=== PATIENT | female | born 1945 | race Caucasian/White ===

== ENCOUNTER 2016-09-12 14:04 | Observation (INO) | payer OTHER, MEDICARE ==
[2016-09-12] MEDS ORDERED: SODIUM CHLORIDE 500 ML IV STA (15:04)
--- NOTE | 2016-09-12 15:28 | PDOC ---
History of Present Illness - General Chief Complaint: Chest Pain Stated Complaint: CHEST PAIN Time Seen by Provider: 09/12/16 14:42 History Source: Patient Exam Limitations: No Limitations - History of Present Illness Initial Comments: 09/12/16 15:08 71-year-old female presents the ED with complaints of generalized anxiety, decreased by mouth intake, upper abdominal pain that she describes as a pressure radiating to her bilateral breasts. Patient denies rash, abdominal distention, change in bowel pattern, change in urine pattern, fever, chills, headache or dizziness. Patient states anxiety has been intermittent since her last year but has been more frequent and more intense over the past 3 weeks. Patient states has history of diabetes and did check her glucose this morning which is 234. Patient upon arrival is requesting Xanax and something to eat. Patient has no complaint of chest pain, shortness of breath, palpitations, Timing/Duration: intermittent Severity: moderate Associated Symptoms: reports: loss of appetite Past History - Travel Traveled outside of the country in the last 30 days: No Close contact w/someone who was outside of country & ill: No - Past Medical History Allergies/Adverse Reactions: Allergies Allergy/AdvReac Type Severity Reaction Status Date / Time No Known Allergies Allergy Verified 09/12/16 15:44 Home Medications: Ambulatory Orders Insulin NPH Hum/Reg Insulin Hm [Humulin 70-30 Vial] 8 unit SQ TID PRN 09/12/16 Valsartan 80 mg PO DAILY 09/12/16 - Psycho/Social/Smoking Cessation Hx Suicidal Ideation: No Smoking History: Former smoker Have you smoked in the past 12 months: No If you are a former smoker, when did you quit?: 30 years ago Information on smoking cessation initiated: No Hx Alcohol Use: No Drug/Substance Use Hx: No Patient Lives Alone: Yes Lives with/in: lives alone Review of Systems - Review of Systems Able to Perform ROS?: No Is the patient limited Portuguese proficient: No Constitutional: Yes: Loss of Appetite, Weakness HEENTM: No: Symptoms Reported Respiratory: No: Symptoms reported Cardiac (ROS): No: Lightheadedness, Palpitations, Chest Tightness ABD/GI: Yes: Nausea, Poor Appetite, Poor Fluid Intake Musculoskeletal: No: Symptoms Reported Integumentary: No: Symptoms Reported Neurological: No: Symptoms reported Psychiatric: Yes: Anxiety, Frequent Crying, Sleep Pattern Change, Change in Appetite *Physical Exam - Vital Signs Last Vital Signs Temp Pulse Resp BP Pulse Ox 98.2 F 109 H 21 130/81 98 09/12/16 14:05 09/12/16 14:05 09/12/16 14:05 09/12/16 14:05 09/12/16 14:48 - Physical Exam General Appearance: Yes: Nourished, Appropriately Dressed. No: Apparent Distress HEENT: positive: EOMI, MICHAEL, TMs Normal, Pharynx Normal. negative: Pale Conjunctivae Respiratory/Chest: positive: Lungs Clear, Normal Breath Sounds. negative: Respiratory Distress, Accessory Muscle Use Cardiovascular: positive: Regular Rhythm, Regular Rate (88 on monitor). negative: Murmur Gastrointestinal/Abdominal: positive: Soft, Tenderness (epigastric, right upper quadrant, left upper quadrant) Musculoskeletal: negative: CVA Tenderness Extremity: positive: Normal Capillary Refill. negative: Pedal Edema Integumentary: positive: Normal Color, Warm, Moist, Other (clean and dry dressing over right first toe) Neurologic: positive: Motor Strength 5/5 (ambulatory) Heart Score/ECG Review - ECG Intrepretation Rhythm: Regular Rhythm (rate 99. normal sinus) ED Treatment Course - LABORATORY CBC & Chemistry Diagram: 09/12/16 15:15 09/12/16 15:25 - RADIOLOGY Radiology Studies Ordered: Category Date Time Status CHEST X-RAY PORTABLE* [RAD] Stat Radiology 09/12/16 15:03 Ordered KUB (KID UR & BLAD) [RAD] Stat Radiology 09/12/16 15:03 Ordered Medical Decision Making - Medical Decision Making 09/12/16 15:30 patient with increasing anxiety, decreased by mouth intake and upper abdominal pain for the past few weeks. Patient on exam had mild reproducible pain but points to her epigastric region When asked where she has discomfort. Due to patient's history and age patient is concerning for atypical chest pain, GERD, electrolyte imbalance, constipation, and obstruction. 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 Patient ordered for labs including urine, KUB, chest x-ray, fluids, Protonix, BGM, and urine analysis. Patient requesting a meal and requesting Xanax 0.25 for anxiety upon arrival 09/12/16 17:42 Laboratory Tests 09/12/16 09/12/16 15:15 15:25 WBC 7.0 Hgb 12.4 Hct 35.6 Plt Count 331 Neutrophils % 59.9 Sodium 138 Potassium 4.5 Chloride 100 Carbon Dioxide 26 Anion Gap 12 BUN 23 H Creatinine 1.2 H Creat Clearance w eGFR 44.29 Random Glucose 260 H Calcium 9.5 Magnesium 2.0 Total Bilirubin 0.3 AST 14 L ALT 19 Alkaline Phosphatase 115 Creatine Kinase 61 Troponin I < 0.02 Total Protein 7.2 Albumin 3.2 L Lipase 42 L Case discussed with Dr. Malcolm and agrees for admission and states admit to Dr. Bello. Case discussed with Dr. Bello and accepted to telemetry requesting consultations Dr. Muñoz. *DC/Admit/Observation/Transfer Diagnosis at time of Disposition: Lung consolidation, Atypical chest pain - Discharge Dispostion Admit: Yes
[2016-09-12 15:29] LABS: BASOPHIL 1.1 % (0-2.0); MCH 30.7 pg (25.7-33.7); MCHC 34.7 g/dl (32.0-36.0); MEAN CELL VOLUME 88.4 fl (80-96); MEAN PLT VOLUME 8.7 fl (7.5-11.1); NEUTROPHILS 59.9 % (42.8-82.8); PLATELET COUNT 331 K/MM3 (134-434); RDW 12.9 % (11.6-15.6)
[2016-09-12] MEDS ORDERED: PANTOPRAZOLE SODIUM 40 MG in SODIUM CHLORIDE 100 ML IVPB ONE (15:52)
[2016-09-12 16:02] LABS: ALBUMIN 3.2 g/dl (3.4-5.0); ANION GAP 12 (8-16); BILIRUBIN,TOTAL 0.3 mg/dL (0.2-1.0); CALCIUM 9.5 mg/dL (8.5-10.1); CO2 26 mmol/L (21-32); CREATININE 1.2 mg/dL (0.55-1.02); GLUCOSE,RANDOM 260 mg/dL (74-106); SGPT/ALT 19 U/L (12-78); TOT PROT 7.2 g/dl (6.4-8.2)
[2016-09-12 16:05] LABS: ALK PHOS 115 U/L (45-117); CPK 61 IU/L (26-192); TROPONIN I < 0.02 ng/ml (0.00-0.05)
[2016-09-12] MEDS ORDERED: ACETAMINOPHEN 500 MG TABLET (FP) PO ONE (16:14)
[2016-09-12 16:22] LABS: SGOT/AST 14 U/L (15-37)
[2016-09-12] MEDS ORDERED: PANTOPRAZOLE SODIUM 40 MG VIAL ONE (16:38)
[2016-09-12] MEDS ORDERED: ACETAMINOPHEN 325 MG TABLET (FP) ONE ×2 (16:38→20:06)
--- NOTE | 2016-09-12 16:42 | PDOC ---
*Physical Exam - Vital Signs Last Vital Signs Temp Pulse Resp BP Pulse Ox 98.2 F 109 H 21 130/81 98 09/12/16 14:05 09/12/16 14:05 09/12/16 14:05 09/12/16 14:05 09/12/16 14:48 ED Treatment Course - LABORATORY CBC & Chemistry Diagram: 09/12/16 15:15 09/12/16 15:25 - ADDITIONAL ORDERS Additional order review: Laboratory Results 09/12/16 15:25 Sodium 138 Potassium 4.5 Chloride 100 Carbon Dioxide 26 Anion Gap 12 BUN 23 H Creatinine 1.2 H Creat Clearance w eGFR 44.29 Random Glucose 260 H Calcium 9.5 Magnesium 2.0 Total Bilirubin 0.3 AST 14 L ALT 19 Alkaline Phosphatase 115 Creatine Kinase 61 Troponin I < 0.02 Total Protein 7.2 Albumin 3.2 L Lipase 42 L 09/12/16 15:15 RBC 4.03 MCV 88.4 MCHC 34.7 RDW 12.9 MPV 8.7 Neutrophils % 59.9 Lymphocytes % 23.1 Monocytes % 10.9 H Eosinophils % 5.0 H Basophils % 1.1 - Medications Given in the ED: ED Medications Discontinued Medications Generic Name Dose Route Start Last Admin Trade Name Freq PRN Reason Stop Dose Admin Sodium Chloride 500 mls @ 500 mls/hr 09/12/16 15:04 09/12/16 15:05 Normal Saline - IV 09/12/16 16:03 500 mls/hr ASDIR STA Administration Medical Decision Making - Medical Decision Making 09/12/16 16:36 Seen with [employer]. I agree with assessment and management as outlined with the following summary: 71y/o F diabetic, anxiety p/w chest/epigastric pain in the setting of anxiety. VSS, slight tachycardia labs wnl, trop negative. No prior EKG available, today with T wave flattening I/ AVL, no acute ST change. CXR with ? new LLL consolidation. Given age and risk factors, needs cardiac monitoring and further evaluation of new pulmonary findings. admit tele
[2016-09-12] MEDS ORDERED: PANTOPRAZOLE SODIUM 100 ML IVPB ONE (20:06)
[2016-09-12] MEDS ORDERED: PATIENT'S OWN MEDICATION (NON-FORMULARY) (Insulin Nph Hum/Reg Insulin Hm [Humulin 70-30 Vi SQ PRN (20:14)
[2016-09-12] MEDS: ALPRAZolam 0.25 MG TABLET PO PRN (21:30)
[2016-09-12] MEDS: HEPARIN NA (PORCINE) 5,000 UNITS/ML 1ML VIAL SQ SCH (21:35)
[2016-09-12 22:08] VITALS: BMI 34.1
[2016-09-12 22:24] LABS: CPK 51 IU/L (26-192); TROPONIN I < 0.02 ng/ml (0.00-0.05)
[2016-09-12] MEDS ORDERED: MAG HYDROX/AL HYDROX/SIMETH 30 ML UNIT-DOSE CUP PO PRN (23:33)
[2016-09-13 01:31] LABS: URINE APPEARANCE CLEAR; URINE BILIRUBIN NEGATIVE (NEGATIVE); URINE BLOOD NEGATIVE (NEGATIVE); URINE COLOR LTYELLOW; URINE GLUCOSE (UA) 3+ (NEGATIVE); URINE KETONE TRACE (NEGATIVE); URINE LEUK ESTERASE TRACE (NEGATIVE); URINE NITRITE NEGATIVE (NEGATIVE); URINE PROTEIN NEGATIVE (NEGATIVE); URINE UROBILINOGEN NEGATIVE mg/dL (0.2-1.0)
[2016-09-13 01:40] LABS: URINE RBC 3 /hpf (0-3); URINE WBC 5 /hpf (3-5); YEAST MANY
[2016-09-13 08:04] LABS: MCHC 33.5 g/dl (32.0-36.0); MEAN CELL VOLUME 89.4 fl (80-96); PLATELET COUNT 346 K/MM3 (134-434); RDW 12.4 % (11.6-15.6)
[2016-09-13 08:30] LABS: ANION GAP 10 (8-16); BILIRUBIN,TOTAL 0.3 mg/dL (0.2-1.0); CALCIUM 8.9 mg/dL (8.5-10.1); CHOLESTEROL 136 mg/dL (50-200); CO2 25 mmol/L (21-32); GLUCOSE,RANDOM 240 mg/dL (74-106); LDL CHOLESTEROL (ONLY SJRH) 65 mg/dL (5-100); SGOT/AST 12 U/L (15-37); SGPT/ALT 17 U/L (12-78)
[2016-09-13 08:36] LABS: ALK PHOS 115 U/L (45-117); CPK 43 IU/L (26-192); FREE T4 1.24 ng/dl (0.76-1.46); THYROID STIMULATING HORMONE 1.94 uIU/ml (0.358-3.74); TROPONIN I < 0.02 ng/ml (0.00-0.05)
[2016-09-13] MEDS: HEPARIN NA (PORCINE) 5,000 UNITS/ML 1ML VIAL SQ SCH ×2 (09:32→22:11)
[2016-09-13] MEDS: VALSARTAN 80 MG TABLET (UD) PO SCH (09:32)
--- NOTE | 2016-09-13 10:11 | CON.CARD ---
Consult Consult Specialty:: Cardiology Referred by:: Dr. Thompson Reason for Consultation:: Chest pain - History of Present Illness Chief Complaint: Chest pain History of Present Illness: 71 year old woman with a history of HTN, DMII, PAD with L toe ulcer s/p debridement recently and PICC line for Abx, Anxiety admitted with chest discomfort. Pt seen and and examined this am in nad. Pt states her symptoms began yesterday. unable to completely describe the chest pain. states it is mostly at rest. denies any association with exertion. denies sob, palpitations, pnd, orthopnea, or LE edema. States she was admitted to [facility] 2016 and followed up with a instrumentation and control technician after that but did not have a stress test, she states she was told everything was ok with her heart. - History Source History Provided By: Patient, Medical Record Limitations to Obtaining History: No Limitations - Past Medical History Cardio/Vascular: Yes: HTN, Other (PAD) ...: No Endocrine: Yes: Diabetes Mellitus - Alcohol/Substance Use Hx Alcohol Use: No - Smoking History Smoking history: Former smoker Have you smoked in the past 12 months: No Aproximately how many cigarettes per day: 2 If you are a former smoker, when did you quit?: 1979 - Social History Usual Living Arrangement: Alone ADL: Independent Home Medications - Allergies Allergies/Adverse Reactions: Allergies Allergy/AdvReac Type Severity Reaction Status Date / Time No Known Allergies Allergy Verified 09/12/16 15:44 - Home Medications Home Medications: Ambulatory Orders Insulin Lispro Protamin/Lispro [Humalog Mix 75-25 Vial] 0 unit SQ BIDAC PRN 09/21 Valsartan 80 mg PO DAILY 09/12/16 Family Disease History - Family Disease History Family Disease History: Heart Disease: Brother Review of Systems - Review of Systems Constitutional: reports: Malaise. denies: No Symptoms, Chills, Diaphoresis, Fever, Lethargy, Loss of Appetite, Night Sweats, Unintentional Wgt. Loss, Weakness, Other Eyes: denies: No Symptoms, Blind Spots, Blurred Vision, Double Vision, Eye Pain , Floaters, Photophobia, Recent Change in Vision, Other HENT: denies: No Symptoms, Difficult Swallowing, Ear Discharge, Ear Pain, Epistaxis, Gingival Bleeding, Hearing Loss, Mouth Swelling, Nasal Congestion, Ocular Prosthesis, Throat Pain, Toothache, Ringing in Ears, Other Neck: denies: No Symptoms, Decreased ROM, Lumps, Pain on Movement, Stiffness, Swollen Glands, Tenderness, Other Cardiovascular: reports: Chest Pain. denies: No Symptoms, Edema, Palpitations, Shortness of Breath, Other Respiratory: reports: Cough. denies: No Symptoms, Exercise Intolerance, Hemoptysis, Orthopnea, PND, Snoring, SOB, SOB on Exertion, Wheezing, Other Gastrointestinal: denies: No Symptoms, Abdominal Pain, Bloating, Constipation, Diarrhea, Dysphagia, Indigestion, Melena, Nausea, Rectal Bleeding, Vomiting, Vomiting Blood, Other Genitourinary: denies: No Symptoms, Burning, Discharge, Dysuria, Flank Pain, Frequency, Hematuria, Incontinence, Lesions, Menses, Pain, Testicular Mass, Testicular Pain, Testicular Swelling, Urgency, Vaginal Bleeding, Other Breasts: denies: No Symptoms Reported, See HPI, Breast Implants, Discharge from Nipple, Lumps, Pain, Skin Changes, Other Musculoskeletal: denies: No Symptoms, Back Pain, Crepitus, Decreased ROM, Extremity Pain, Joint Pain, Joint Swelling, Muscle Pain, Muscle Cramps, Muscle Weakness, Other Integumentary: reports: Wound. denies: No Symptoms, Blister, Bruising, Change in Color, Eczema, Erythema, Incision, Lesions, Lump, Pallor, Pruritis, Rash, Other Neurological: denies: No Symptoms, Change in LOC, Change in Speech, Confusion, Dizziness, Headache, Incoordination, Numbness, Parasthesia, Pre-Existing Deficit , Seizure, Syncope, Tremors, Unsteady Gait, Weakness, Other Endocrine: denies: No Symptoms, Excessive Sweating, Flushing, Increased Hunger, Increased Thirst, Intolerance to Cold, Intolerance to Heat, Unexplained Weight Gain, Unexplained Weight Loss, Other Hematology/Lymphatic: denies: No Symptoms, Easily Bruised, Excessive Bleeding, Swollen Glands, Other Psychiatric: reports: Anxiety, Panic. denies: No Symptoms, Altered Sleep Pattern, Depression, Hallucinations, Paranoia, Suicidal, Other - Risk Factors Known Risk Factors: Yes: Diabetes Mellitus, Hypertension, Smoking Vital Signs: Vital Signs Temperature 98.1 F 09/13/16 06:00 Pulse Rate 101 H 09/13/16 06:00 Respiratory Rate 20 09/13/16 06:00 Blood Pressure 129/84 08/09/17 06:00 O2 Sat by Pulse Oximetry (%) 98 09/12/16 14:48 Constitutional: Yes: No Distress, Calm, Obese Eyes: Yes: WNL, Conjunctiva Clear, EOM Intact, PERRL HENT: Yes: WNL, Atraumatic, Normocephalic Neck: Yes: WNL, Supple, Trachea Midline Respiratory: Yes: WNL, Regular, CTA Bilaterally. No: Rales, Rhonchi, SOB, Wheezes Gastrointestinal: Yes: WNL, Normal Bowel Sounds, Soft. No: Distention, Tenderness Renal/: Yes: WNL Cardiovascular: Yes: Regular Rate and Rhythm. No: Bradycardia, Tachycardia, Pulse Irregular, Gallop, Rub, Varicosities JVD: No Carotid Bruit: No PMI: Non-Displaced Heart Sounds: Yes: S1, S2. No: Split S2, S3, S4, Clicks, Gallop, Rub, Bruit Murmur: Yes: Systolic Murmur, Grade 2. No: Diastolic Murmur Musculoskeletal: Yes: WNL Extremities: Yes: Other (toe debridement) Edema: No Peripheral Pulses WNL: No Neurological: Yes: Alert, Oriented, Cran Nerves II-XII Intact Psychiatric: Yes: Alert, Oriented - Other Data Labs, Other Data: CBC, BMP 09/13/16 07:47 09/13/16 07:47 Troponin, BNP 09/12/16 09/13/16 09/13/16 21:48 07:47 07:47 Troponin I < 0.02 Cancelled < 0.02 Troponin, BNP 09/12/16 09/13/16 09/13/16 21:48 07:47 07:47 Troponin I < 0.02 Cancelled < 0.02 ekg- nsr 99bpm, poor R progression, nonspecific ST abnl Echo: Pending Imaging - Results Chest X-ray: Report Reviewed, Image Reviewed EKG: Report Reviewed, Image Reviewed Other: Report Reviewed, Image Reviewed (tele-nsr, no sig arrhythmias) Assessment/Plan 71 year old woman with a history of HTN, DMII, PAD with L toe ulcer s/p debridement recently and PICC line for Abx, Anxiety admitted with chest discomfort. Chest pain-atypical chest pain, multiple risk factors including PAD, DMII, HTN unlikely ACS cardiac enzymes wnl no ischemia on ekg no arrhythmia on tele discussed with pt that would recc a stress test to further evaluate for ischemia given her history of PAD, HTN, DMII but pt declines. she states she is very anxious to do stress test. Given the atypical nature of her symptoms it is reasonable to have her follow up as outpatient and reconsider stress testing at that point F/up echo from this am HTN-adequately controlled -cont diovan DMII -pt reports uncontrolled DM recently -close f/up
--- NOTE | 2016-09-13 11:30 | HP ---
Admitting History and Physical - Primary Care Physician PCP: Niles Malcolm - Admission Chief Complaint: chest pain History of Present Illness: ER HISTORY-- - History of Present Illness Initial Comments: 09/12/16 15:08 71-year-old female presents the ED with complaints of generalized anxiety, decreased by mouth intake, upper abdominal pain that she describes as a pressure radiating to her bilateral breasts. Patient denies rash, abdominal distention, change in bowel pattern, change in urine pattern, fever, chills, headache or dizziness. Patient states anxiety has been intermittent since her last year but has been more frequent and more intense over the past 3 weeks. Patient states has history of diabetes and did check her glucose this morning which is 234. Patient upon arrival is requesting Xanax and something to eat. Patient has no complaint of chest pain, shortness of breath, palpitations, Timing/Duration: intermittent Severity: moderate Associated Symptoms: reports: loss of appetite Pt examined by me in telemetry Very anxious, has been having chest pain across her anterior chest wall No nausea, palpitations, SOB, cough, fever, chills Seen by Director Of Volunteer Services--- does not want to do stress test Recently was admitted in [facility] for right toe infection and was on IV antibiotics at home for 6 weeks History Source: Patient Limitations to Obtaining History: No Limitations - Past Medical History Cardiovascular: Yes: HTN ...: No Psych: Yes: Anxiety, Depression Endocrine: Yes: Diabetes Mellitus - Advance Directives Advance Directives: Yes: Living Will, Health Care Proxy - Smoking History Smoking history: Former smoker Have you smoked in the past 12 months: No Aproximately how many cigarettes per day: 2 If you are a former smoker, when did you quit?: 1979 - Alcohol/Substance Use Hx Alcohol Use: No Home Medications - Allergies Allergies/Adverse Reactions: Allergies Allergy/AdvReac Type Severity Reaction Status Date / Time No Known Allergies Allergy Verified 09/12/16 15:44 - Home Medications Home Medications: Ambulatory Orders Insulin Lispro Protamin/Lispro [Humalog Mix 75-25 Vial] 0 unit SQ BIDAC PRN 09/21 Valsartan 80 mg PO DAILY 09/12/16 Review of Systems - Review of Systems Constitutional: denies: Chills, Fever, Loss of Appetite, Weakness Cardiovascular: reports: Chest Pain. denies: Edema, Palpitations Respiratory: denies: Cough, SOB Physical Examination Vital Signs: Vital Signs Temperature 97.4 F L 09/13/16 10:00 Pulse Rate 107 H 09/13/16 10:00 Respiratory Rate 20 09/13/16 10:00 Blood Pressure 135/89 09/13/16 10:00 O2 Sat by Pulse Oximetry (%) 98 09/12/16 14:48 Constitutional: Yes: Anxious Cardiovascular: Yes: Regular Rate and Rhythm Respiratory: Yes: CTA Bilaterally Gastrointestinal: Yes: Normal Bowel Sounds, Soft, Abdomen, Obese. No: Distention, Tenderness Extremities: Yes: Other (rt toe dressing in place) Edema: No Psychiatric: Yes: Alert, Oriented Labs: CBC, BMP 09/13/16 07:47 09/13/16 07:47 Imaging - Results Chest X-ray: Image Reviewed (?small consolidation) EKG: Image Reviewed (NSR) Problem List - Problems (1) Atypical chest pain Code(s): R07.89 - OTHER CHEST PAIN (2) Lung consolidation Code(s): J18.1 - LOBAR PNEUMONIA, UNSPECIFIED ORGANISM (3) Diabetes mellitus Code(s): E11.9 - TYPE 2 DIABETES MELLITUS WITHOUT COMPLICATIONS Qualifiers: Diabetes mellitus type: type 2 Diabetes mellitus complication status: with hyperglycemia (4) Anxiety Code(s): F41.9 - ANXIETY DISORDER, UNSPECIFIED (5) Panic disorder Code(s): F41.0 - PANIC DISORDER WITHOUT AGORAPHOBIA Assessment/Plan PLAN Refusing stress test Echo done and pending results ACS ruled out by negative serial cardiac enzymes start Xanax as needed Pt anxious and depressed due to recent in family check A1 C-- pt states she takes insulin as per BGM results pt is afebrile, completed recent antibiotics, no elevated WBC-- will not treat consolidation-- check repeat CXR today [facility] Endocrinology eval for uncontrolled diabetes dc in AM
[2016-09-13] MEDS ORDERED: INSULIN DETEMIR 100 UNITS/ML MDV SQ ONE (11:47)
[2016-09-13] MEDS: INSULIN SLIDING SCALE (NOVOLOG) 1 VIAL SQ SCH ×2 (11:50→17:19)
[2016-09-13] MEDS: ALPRAZolam 0.25 MG TABLET PO PRN (11:53)
[2016-09-13] MEDS ORDERED: ACETAMINOPHEN 325 MG TABLET (FP) PO PRN (13:56)
--- NOTE | 2016-09-13 14:46 | EKG ---
Test Reason : Blood Pressure : / mmHG Vent. Rate : 099 BPM Atrial Rate : 099 BPM P-R Int : 140 ms QRS Dur : 094 ms QT Int : 350 ms P-R-T Axes : 035 007 078 degrees QTc Int : 449 ms NORMAL SINUS RHYTHM CANNOT RULE OUT ANTERIOR INFARCT , AGE UNDETERMINED ABNORMAL ECG WHEN COMPARED WITH ECG OF 29-JAN-1998 05:49, QUESTIONABLE CHANGE IN QRS AXIS Confirmed by VINOD ZHAO MD ([id number]) on 09/13/2016 2:45:50 PM Referred By: Confirmed By:VINOD ZHAO MD
[2016-09-13] MEDS ORDERED: INSULIN DETEMIR 100 UNITS/ML MDV SQ SCH (16:30)
--- NOTE | 2016-09-13 17:58 | CONSULT ---
Consult Consult Specialty:: Endocrinology Referred by:: Dr Syeda Alvarado Reason for Consultation:: Hyperglycemia - History of Present Illness Chief Complaint: Anxiety, chest pain History of Present Illness: This is a 71 year old woman with a history of HTN, T2DM, PAD with L toe ulcer s/ p debridement recently and PICC line for Abx, Anxiety admitted with chest discomfort. Pt states her symptoms began yesterday. and it is mostly at rest. Pt says her Right big toe ulcer started after nail clipping. Has DM for 18 years and has been on Insulin for 15 years. Takes Humalog 75/25 20 to 22 units once or twice daily. BGM at home 200 to 300s. No hypoglycemia. No polyuria, polydipsia. Nocturia once or twice. Denies any visual symptoms. Saw ophthalmology about 6 to 8 months ago. Has numbness of toes. Family h/o DM in mother and brother. Says she has been more anxious than usual since her about a year ago. - History Source History Provided By: Patient, Medical Record - Past Medical History Cardio/Vascular: Yes: HTN ...: No Psych: Yes: Anxiety, Depression Endocrine: Yes: Diabetes Mellitus - Alcohol/Substance Use Hx Alcohol Use: No - Smoking History Smoking history: Former smoker Have you smoked in the past 12 months: No Aproximately how many cigarettes per day: 2 If you are a former smoker, when did you quit?: 1979 - Social History Usual Living Arrangement: Alone ADL: Independent Home Medications - Allergies Allergies/Adverse Reactions: Allergies Allergy/AdvReac Type Severity Reaction Status Date / Time No Known Allergies Allergy Verified 09/12/16 15:44 - Home Medications Home Medications: Ambulatory Orders Insulin Lispro Protamin/Lispro [Humalog Mix 75-25 Vial] 0 unit SQ BIDAC PRN 09/21 Valsartan 80 mg PO DAILY 09/12/16 Family Disease History - Family Disease History Family Disease History: Diabetes: Mother, Brother, Heart Disease: Brother Review of Systems - Review of Systems Constitutional: reports: No Symptoms Eyes: reports: No Symptoms HENT: reports: No Symptoms Neck: reports: No Symptoms Cardiovascular: reports: No Symptoms Respiratory: reports: No Symptoms Gastrointestinal: reports: No Symptoms Genitourinary: reports: No Symptoms Breasts: reports: No Symptoms Reported Musculoskeletal: reports: No Symptoms Endocrine: reports: No Symptoms Psychiatric: reports: Anxiety Physical Exam Vital Signs: Vital Signs Temperature 97.3 F L 09/13/16 17:38 Pulse Rate 100 H 09/13/16 17:38 Respiratory Rate 18 09/13/16 17:38 Blood Pressure 124/69 09/13/16 17:38 O2 Sat by Pulse Oximetry (%) 98 09/12/16 14:48 Constitutional: Yes: No Distress, Anxious Eyes: Yes: Conjunctiva Clear, EOM Intact HENT: Yes: Atraumatic, Normocephalic Neck: Yes: Supple, Trachea Midline Cardiovascular: Yes: Regular Rate and Rhythm, Murmur ( Aortic area) Respiratory: Yes: Regular, CTA Bilaterally Gastrointestinal: Yes: Normal Bowel Sounds, Soft Musculoskeletal: Yes: WNL Extremities: Yes: Other (Rt big toe ulcer. No discharge Leg foot calluses) Labs: CBC, BMP 09/13/16 07:47 09/13/16 07:47 Imaging - Results Chest X-ray: Report Reviewed (? left lung consolidation) Problem List - Problems (1) Anxiety Code(s): F41.9 - ANXIETY DISORDER, UNSPECIFIED (2) Atypical chest pain Code(s): R07.89 - OTHER CHEST PAIN (3) Diabetes mellitus Code(s): E11.9 - TYPE 2 DIABETES MELLITUS WITHOUT COMPLICATIONS Qualifiers: Diabetes mellitus type: type 2 Diabetes mellitus complication status: with hyperglycemia (4) Lung consolidation Code(s): J18.1 - LOBAR PNEUMONIA, UNSPECIFIED ORGANISM Assessment/Plan T2DM uncontrolled Diet and exercise discussed Diabetes education Discussed option of adding oral antidiabetic agent which could make it easier to control blood sugar. Pt refuses. Discussed option of discontinuing Humalog Mix 75/25 and starting Basal bolus regimen with long acting Insulin once daily and short acting TID with meals. Pt agrees to it Levemir 15 units daily at HS Novolog 6 units TID with meals on discharge continue Novolog SS coverage here in the hospital F/U in office in one week Atypical CP HTN Rt big toe ulcer Anxiety ?Left lung consolidation
[2016-09-13] MEDS ORDERED: INSULIN SLIDING SCALE (NOVOLOG) 1 VIAL SQ SCH (22:00)
[2016-09-13] MEDS ORDERED: PT OWN MED DRAWER 7, Y5N ONE (23:24)
[2016-09-14] MEDS: ALPRAZolam 0.25 MG TABLET PO PRN (02:00)
[2016-09-14] MEDS: INSULIN SLIDING SCALE (NOVOLOG) 1 VIAL SQ SCH ×2 (06:40→12:15)
--- NOTE | 2016-09-14 09:10 | PN ---
Progress Note, Physician Chief Complaint: no further CP TELE: NSR< sinus tach - Current Medication List Current Medications: Active Medications Acetaminophen (Tylenol -) 650 mg PO Q6H PRN PRN Reason: FEVER OR PAIN Al Hydroxide/Mg Hydroxide (Mylanta Oral Suspension -) 30 ml PO Q8H PRN PRN Reason: INDIGESTION Last Admin: 09/13/16 22:12 Dose: 30 ml Alprazolam (Xanax -) 0.25 mg PO Q8H PRN PRN Reason: ANXIETY Last Admin: 09/14/16 02:00 Dose: 0.25 mg Heparin Sodium (Porcine) (Heparin -) 5,000 unit SQ BID JOSE Last Admin: 09/13/16 22:11 Dose: 5,000 unit Insulin Aspart (Novolog Vial Sliding Scale -) 1 vial SQ TIDAC JOSE PRN Reason: Protocol Last Admin: 09/14/16 06:40 Dose: 6 units Insulin Aspart (Novolog Vial Sliding Scale -) 1 vial SQ HS JOSE PRN Reason: Protocol Last Admin: 09/13/16 22:12 Dose: Not Given Insulin Detemir (Levemir Vial) 15 units SQ HS JOSE Valsartan (Diovan -) 80 mg PO DAILY JOSE Last Admin: 09/13/16 09:32 Dose: 80 mg - Objective Vital Signs: Vital Signs Temperature 98.1 F 09/14/16 06:00 Pulse Rate 106 H 09/14/16 06:00 Respiratory Rate 16 09/14/16 06:00 Blood Pressure 121/69 09/14/16 06:00 O2 Sat by Pulse Oximetry (%) 98 09/12/16 14:48 Constitutional: Yes: Calm Cardiovascular: Yes: Regular Rate and Rhythm Respiratory: Yes: CTA Bilaterally Gastrointestinal: Yes: Soft (nontender) Edema: No Neurological: Yes: Alert, Oriented Labs: CBC, BMP 09/13/16 07:47 09/13/16 07:47 Laboratory Tests 09/12/16 09/12/16 09/13/16 15:25 21:48 07:47 WBC 7.0 Hct 36.9 Plt Count 346 Troponin I < 0.02 < 0.02 09/13/16 07:47 WBC Hct Plt Count Troponin I < 0.02 - ....Imaging EKG: Image Reviewed Assessment/Plan Assessment/Plan 71 year old woman with a history of HTN, DMII, PAD with L toe ulcer s/p debridement recently and PICC line for Abx, Anxiety admitted with chest discomfort. Chest pain-atypical chest pain, multiple risk factors including PAD, DMII, HTN unlikely ACS Cardiac enzymes wnl. Echo with normal LV function, mild . No ischemia on ekg No arrhythmia on tele Discussed again today with pt that would recc a stress test to further evaluate for ischemia given her history of PAD, HTN, DMII but pt again declines. She states she is very anxious to do stress test. Given the atypical nature of her symptoms it is reasonable to have her follow up as outpatient and reconsider stress testing at that point HTN-adequately controlled -cont diovan DMII -pt reports uncontrolled DM recently -close f/up
[2016-09-14] MEDS: VALSARTAN 80 MG TABLET (UD) PO SCH (10:12)
[2016-09-14] MEDS: HEPARIN NA (PORCINE) 5,000 UNITS/ML 1ML VIAL SQ SCH (10:13)
--- NOTE | 2016-09-14 11:23 | DS ---
Physical Examination Vital Signs: Vital Signs Temperature 98.1 F 09/14/16 06:00 Pulse Rate 106 H 09/14/16 06:00 Respiratory Rate 16 09/14/16 06:00 Blood Pressure 121/69 09/14/16 06:00 O2 Sat by Pulse Oximetry (%) 98 09/12/16 14:48 Findings/Remarks: pt seen/ examined feels ok. mild anxiety + denies cp/ sob. no cough. afebrile Constitutional: Yes: No Distress, Calm, Anxious Eyes: Yes: Conjunctiva Clear Neck: Yes: Supple Cardiovascular: Yes: Regular Rate and Rhythm Respiratory: Yes: Diminished Gastrointestinal: Yes: Soft Edema: No Neurological: Yes: Alert Labs: CBC, BMP 09/13/16 07:47 09/13/16 07:47 Discharge Summary Reason For Visit: chest pain Current Active Problems Anxiety (Acute) Atypical chest pain (Acute) Diabetes mellitus (Acute) Lung consolidation (Acute) Panic disorder (Acute) Hospital Course: admitted for chest pain. mi ruled out pt refused stress test- explained risks/ benefits stable for d/c cxr - much better discussed in detail with pt pt to follow with her pmd next week. pt in agreement discussed with nursing staff Condition: Improved - Instructions Referrals: Niles Malcolm MD [Primary Care Provider] - Disposition: HOME - Home Medications Comprehensive Discharge Medication List: Ambulatory Orders Insulin Lispro Protamin/Lispro [Humalog Mix 75-25 Vial] 0 unit SQ BIDAC PRN 09/21 Acetaminophen [Tylenol .Regular Strength -] 650 mg PO Q6H PRN #0 tablet Aspirin [ASA -] 81 mg PO DAILY #30 tab.chew 09/14/16 Mag Hydrox/Al Hydrox/Simeth [Mylanta Oral Suspension -] 30 ml PO Q8H PRN #1 bottle 09/14/16
[2016-09-14 12:39] VITALS: PULSE 102
[2016-09-14] MEDS ORDERED: INSULIN (NOVOLOG) ASPART 100 UNITS/ML 10ML VIAL ONE ×2 (13:03→13:49)
--- NOTE | 2016-09-14 13:46 | PN ---
Progress Note (short form) - Note Progress Note: Feels better Denies any complaints Vital Signs Period Temp Pulse Resp BP Sys/Simpson Pulse Ox Last 24 Hr 97.3 F-98.2 F 100-123 16-20 121-146/67-87 PE: AOx3 Neck: Supple HEENT: PERRL, EOMI Lungs: CTA CVS: S1S2 Abd: Benign Ext: No edema' Neuro: No focal deficit CMP Sodium 140 mmol/L (136-145) 09/13/16 07:47 Potassium 3.6 mmol/L (3.5-5.1) 09/13/16 07:47 Chloride 105 mmol/L (98-107) 09/13/16 07:47 Carbon Dioxide 25 mmol/L (21-32) 09/13/16 07:47 Anion Gap 10 (8-16) 09/13/16 07:47 BUN 18 mg/dL (7-18) D 09/13/16 07:47 Creatinine 1.0 mg/dL (0.55-1.02) 09/13/16 07:47 Creat Clearance w eGFR 54.66 (>60) 09/13/16 07:47 POC Glucometer 363 UNITS (()) 09/14/16 12:54 Random Glucose 240 mg/dL (74-106) H 09/13/16 07:47 Hemoglobin A1c % 10.1 % (4.8-6.0) H 09/13/16 07:47 Calcium 8.9 mg/dL (8.5-10.1) 09/13/16 07:47 Magnesium 2.0 mg/dL (1.8-2.4) 09/12/16 15:25 Total Bilirubin 0.3 mg/dL (0.2-1.0) 09/13/16 07:47 AST 12 U/L (15-37) L 09/13/16 07:47 ALT 17 U/L (12-78) 09/13/16 07:47 Alkaline Phosphatase 115 U/L (45-117) 09/13/16 07:47 Creatine Kinase 43 IU/L (26-192) 09/13/16 07:47 Troponin I < 0.02 ng/ml (0.00-0.05) 09/13/16 07:47 Total Protein 7.0 g/dl (6.4-8.2) 09/13/16 07:47 Albumin 3.0 g/dl (3.4-5.0) L 09/13/16 07:47 Triglycerides 195 mg/dL (35-160) H 09/13/16 07:47 Cholesterol 136 mg/dL (50-200) 09/13/16 07:47 Total LDL Cholesterol 65 mg/dL (5-100) 09/13/16 07:47 HDL Cholesterol 42 mg/dL (40-60) 09/13/16 07:47 Lipase 42 U/L (73-393) L 09/12/16 15:25 TSH 1.94 uIU/ml (0.358-3.74) 09/13/16 07:47 Free T4 1.24 ng/dl (0.76-1.46) 09/13/16 07:47 Current Medications Generic Name Dose Route Start Last Admin Trade Name Freq PRN Reason Stop Dose Admin Acetaminophen 650 mg 09/13/16 13:56 Tylenol - PO Q6H PRN FEVER OR PAIN Al Hydroxide/Mg Hydroxide 30 ml 09/12/16 23:33 09/13/16 22:12 Mylanta Oral Suspension - PO 30 ml Q8H PRN Administration INDIGESTION Alprazolam 0.25 mg 09/12/16 20:16 09/14/16 02:00 Xanax - PO 0.25 mg Q8H PRN Administration ANXIETY Heparin Sodium (Porcine) 5,000 unit 09/12/16 22:00 09/14/16 10:13 Heparin - SQ 5,000 unit BID JOSE Administration Insulin Aspart 1 vial 09/13/16 16:30 09/14/16 12:15 Novolog Vial Sliding Scale - SQ Not Given TIDAC [facility] Protocol Insulin Aspart 1 vial 09/13/16 22:00 09/13/16 22:12 Novolog Vial Sliding Scale - SQ Not Given HS [facility] Protocol Insulin Detemir 15 units 09/14/16 22:00 Levemir Vial SQ HS JOSE Valsartan 80 mg 09/13/16 10:00 09/14/16 10:12 Diovan - PO 80 mg DAILY JOSE Administration AP; DM Uncontrolled: Not clear if patient will be able to do 4 injections per day. Discussed the option with patient. Pt to go home on Humalog 75/25 15 units BID just before meals. Pt to think about the basal bolus option. Will start it as outpt if patient agrees to it. Check FS TID F/U in office in one week with FS record Anxiety Disorder Atypical CP HTN Rt big toe ulcer ?Left lung consolidation Problem List - Problems (1) Anxiety Code(s): F41.9 - ANXIETY DISORDER, UNSPECIFIED (2) Atypical chest pain Code(s): R07.89 - OTHER CHEST PAIN (3) Diabetes mellitus Code(s): E11.9 - TYPE 2 DIABETES MELLITUS WITHOUT COMPLICATIONS Qualifiers: Diabetes mellitus type: type 2 Diabetes mellitus complication status: with hyperglycemia (4) Lung consolidation Code(s): J18.1 - LOBAR PNEUMONIA, UNSPECIFIED ORGANISM
[2016-09-14 14:22] VITALS: BP 130/74; TEMP 98.7
[2016-09-14] MEDS ORDERED: INSULIN DETEMIR 100 UNITS/ML MDV SQ SCH (22:00)
== END 2016-09-14 17:37 | disposition home or self-care (01) ==
LOC: JER 14:04 → JERBED 17:45 → J4S 20:51
PROVIDERS: ADMIT Internal Medicine; ATTEND Internal Medicine
PROC: 3E033GC Introduction of Other Therapeutic Substance into Peripheral Vein, Percutaneous Approach (ICD-10-PCS; principal; 2016-09-12)
PROC: 3E013GC Introduction of Other Therapeutic Substance into Subcutaneous Tissue, Percutaneous Approach (ICD-10-PCS; 2016-09-12)
PROC: 3E013VG Introduction of Insulin into Subcutaneous Tissue, Percutaneous Approach (ICD-10-PCS; 2016-09-12)
PROC: 3E0337Z Introduction of Electrolytic and Water Balance Substance into Peripheral Vein, Percutaneous Approach (ICD-10-PCS; 2016-09-12)
DX: R07.89 Other chest pain (principal); J18.1 Lobar pneumonia, unspecified organism; I10 Essential (primary) hypertension; E11.9 Type 2 diabetes mellitus without complications; I73.9 Peripheral vascular disease, unspecified; L97.529 Non-pressure chronic ulcer of other part of left foot with unspecified severity; Z87.891 Personal history of nicotine dependence; Z79.4 Long term (current) use of insulin; F41.9 Anxiety disorder, unspecified; F41.0 Panic disorder [episodic paroxysmal anxiety]
CPT/HCPCS: 36415; 71010-TC; 74000-TC; 80053; 80061; 81003; 81015; 83036; 83690; 83721; 83735; 84439; 84443; 84484; 85025; 85027; 93005; 93010; 93306-TC; 99283-25; G0378; J1644

== ENCOUNTER 2016-09-19 11:24 | Emergency (ER) | payer OTHER, MEDICARE ==
[2016-09-19] MEDS ORDERED: SODIUM CHLORIDE 0.9% 1000 ML INFUS.BAG IV ONE ×2 (11:51→16:43)
[2016-09-19 12:17] VITALS: BP 142/63; PULSE 101; TEMP 97.7; BMI 29.0
--- NOTE | 2016-09-19 12:23 | PDOC ---
History of Present Illness - General Chief Complaint: Shortness of Breath Stated Complaint: ANXIETY,SOB Time Seen by Provider: 09/19/16 11:33 History Source: Patient Exam Limitations: No Limitations - History of Present Illness Initial Comments: 09/19/16 12:22 The patient is a 71F with a PMH of DM, HTN, and anxiety who presents to the ED with difficulty breathing. The patient states that she wants something to eat and that she is famished. Her difficulty breathing started 1 hour before her presentation with nothing making it better or worse. She is repeatedly stating that she has anxiety and that she is upset because her 1 year ago. She has no other complaints. She was discharged on 09/14/16 for a R/O CA but refused a stress test. All: none Past History - Past Medical History Allergies/Adverse Reactions: Allergies Allergy/AdvReac Type Severity Reaction Status Date / Time No Known Allergies Allergy Verified 09/19/16 12:17 Home Medications: Ambulatory Orders Insulin Lispro Protamin/Lispro [Humalog Mix 75-25 Vial] 0 unit SQ BIDAC PRN 09/21 Acetaminophen [Tylenol .Regular Strength -] 650 mg PO Q6H PRN #0 tablet Alprazolam [Xanax] 0.25 mg PO Q8H PRN #30 tablet MDD 3 09/14/16 Aspirin [ASA -] 81 mg PO DAILY #30 tab.chew 09/14/16 Mag Hydrox/Al Hydrox/Simeth [Mylanta Oral Suspension -] 30 ml PO Q8H PRN #1 bottle 09/14/16 Diabetes: Yes (IDDM) HTN: Yes Psychiatric Problems: Yes (anxiety) - Surgical History Abdominal Surgery: Yes (gastric bypass) Cholecystectomy: Yes - Psycho/Social/Smoking Cessation Hx Anxiety: No Suicidal Ideation: No Smoking History: Unknown if ever smoked Have you smoked in the past 12 months: No Number of Cigarettes Smoked Daily: 2 If you are a former smoker, when did you quit?: 1979 Information on smoking cessation initiated: No Hx Alcohol Use: No Drug/Substance Use Hx: No Substance Use Type: None Hx Substance Use Treatment: No Review of Systems - Review of Systems Able to Perform ROS?: Yes Is the patient limited [place] proficient: No Constitutional: No: Chills, Fever, Weakness Respiratory: Yes: Shortness of Breath Cardiac (ROS): No: Chest Pain ABD/GI: No: Constipated, Diarrhea, Nausea, Vomiting, Other (abd pain) : No: Burning, Dysuria, Discharge Neurological: No: Headache, Numbness, Tingling, Weakness *Physical Exam - Vital Signs Last Vital Signs Temp Pulse Resp BP Pulse Ox 97.7 F 101 H 18 142/63 96 09/19/16 11:24 09/19/16 11:24 09/19/16 11:24 09/19/16 11:24 09/19/16 11:24 - Physical Exam General Appearance: Yes: Nourished, Appropriately Dressed, Obese HEENT: positive: Normal Voice, Hearing Grossly Normal Respiratory/Chest: positive: Lungs Clear, Normal Breath Sounds. negative: Chest Tender, Respiratory Distress, Accessory Muscle Use Cardiovascular: positive: Regular Rhythm, Regular Rate, S1, S2. negative: Diastolic Murmur, Systolic Murmur Gastrointestinal/Abdominal: positive: Flat, Soft. negative: Tender Musculoskeletal: negative: CVA Tenderness, CVA Tenderness (R), CVA Tenderness (L ) Integumentary: positive: Swelling (1+ b/l lower extremities) ED Treatment Course - LABORATORY CBC & Chemistry Diagram: 09/19/16 12:30 09/19/16 12:30 Medical Decision Making - Medical Decision Making 09/19/16 12:38 The patient is a 71F with a PMH of DM, HTN, and anxiety who presents to the ED with difficulty breathing. I ordered basic labs and an EKG for the patient. She was constantly asking for food and we brought her food. She is refusing an EKG but I have talked to her and convinced her to get one. She was also yelling at the tech and I addressed this issue. I will reassess when labs return. 09/19/16 12:46 Fingerstick at bedside is 300. 09/19/16 14:49 The patient states that she has been feeling more anxious recently. I have paged the psychiatrist applications engineering manager and informed the social insurance administrator to speak with the patient. 09/19/16 18:47 I have spoken with the psychiatrist and he recommends geropsych evaluation and referral by the patient's PCP. I have informed the patient of this and she agrees and is ready for DC. *DC/Admit/Observation/Transfer Diagnosis at time of Disposition: Anxiety - Discharge Dispostion Disposition: HOME Condition at time of disposition: Stable Admit: No - Patient Instructions Printed Discharge Instructions: Anxiety Disorders, Anxiety and Panic Attacks ( Alternative Therapy), DI for Anxiety -- Adult Additional Instructions: Please return to the ER if symptoms persist, worsen, or if new symptoms arise. Please have your PCP refer you to a geriatric psychiatrist for evaluation of your anxiety. - Attestations Physician Attestion: 09/19/16 18:48 I, Dr. Landon Hubbard, attest that this document has been prepared under my direction and personally reviewed by me in its entirety. I further attest, that it accurately reflects all work, treatment, procedures and medical decision -making performed by me.
[2016-09-19 12:48] LABS: BASOPHIL 0.8 % (0-2.0); EOSINOPHIL 3.2 % (0-4.5); MCH 30.4 pg (25.7-33.7); MCHC 34.3 g/dl (32.0-36.0); MEAN CELL VOLUME 88.6 fl (80-96); MEAN PLT VOLUME 8.4 fl (7.5-11.1); NEUTROPHILS 66.6 % (42.8-82.8); PLATELET COUNT 348 K/MM3 (134-434); RDW 13.3 % (11.6-15.6); WHITE BLOOD COUNT 8.7 K/mm3 (4.0-10.0)
[2016-09-19 13:10] LABS: ALBUMIN 3.6 g/dl (3.4-5.0); ALK PHOS 118 U/L (45-117); ANION GAP 10 (8-16); BILIRUBIN,TOTAL 0.3 mg/dL (0.2-1.0); CALCIUM 9.5 mg/dL (8.5-10.1); CO2 27 mmol/L (21-32); CREATININE 1.1 mg/dL (0.55-1.02); GLUCOSE,RANDOM 269 mg/dL (74-106); SGOT/AST 15 U/L (15-37); SGPT/ALT 22 U/L (12-78); TOT PROT 7.7 g/dl (6.4-8.2)
--- NOTE | 2016-09-19 16:33 | PDOC ---
Attending Attestation - Medical Decision Making 09/19/16 16:48 Pts case discussed with Dr. Syeda Thompson <Anastasiia Mc - Last Filed: 09/19/16 16:48> - Resident Resident Name: KoltonLandon neal - ED Attending Attestation I have performed the following: I have examined & evaluated the patient, The case was reviewed & discussed with the resident, I agree w/resident's findings & plan, Exceptions are as noted - HPI HPI: 09/19/16 16:17 71 yo F presenting to the ER with a complaint of anxiety This patient states that she has shortness of breath She was recently admitted to the hospital Left AMA, refused stress testing Pt denies chest pain or palpitations Pt reports shortness of breath - Physicial Exam PE: 09/19/16 16:33 Pt is conversant with no tachypnea, no shortness of breath RRR No abd tenderness to palpation, no guarding (+) bilateral lower extremity edema - Medical Decision Making 09/19/16 16:34 Will do labs Will do EKG Will plan to re admit for stress testing 09/19/16 16:35 Pt is refusing stress testing Was seen by Case management who [facility] Someone will pick this patient up from the ER She is referred for VNS 09/19/16 16:37 09/19/16 16:40 Laboratory Tests 09/19/16 09/19/16 12:30 12:30 WBC 8.7 Hgb 13.2 Hct 38.4 Plt Count 348 Neutrophils % 66.6 Lymphocytes % 20.1 BUN 22 H D Creatinine 1.1 H Random Glucose 269 H Pt repeatedly states she does not want any additional cardiac work up She does not want or need a stress test She does not want to go to a senior living She would like to go home <Maame Killian - Last Filed: 09/20/16 11:22> Heart Score/ECG Review #1 ECG reviewed & interpreted by me at: 16:40 09/19/16 16:40 Twelve-lead EKG was performed and reviewed by me. There is normal sinus rhythm with a normal rate of 96 bpm. The axis is normal. The intervals are normal - pr: 138ms, QRS:84ms, QTc:454ms. There are no ST or T wave abnormalities. <Maame Killian - Last Filed: 09/20/16 11:22>
[2016-09-19] MEDS ORDERED: ALPRAZolam 0.25 MG TABLET PO ONE (16:56)
[2016-09-19] MEDS ORDERED: ALPRAZolam 0.25 MG TABLET ONE (16:57)
[2016-09-19] MEDS ORDERED: ALPRAZolam 0.25 MG TABLET PO SCH (22:00)
--- NOTE | 2016-09-20 16:42 | EKG ---
Test Reason : Blood Pressure : / mmHG Vent. Rate : 096 BPM Atrial Rate : 096 BPM P-R Int : 138 ms QRS Dur : 084 ms QT Int : 360 ms P-R-T Axes : 042 008 060 degrees QTc Int : 454 ms POOR DATA QUALITY, INTERPRETATION MAY BE ADVERSELY AFFECTED NORMAL SINUS RHYTHM LOW VOLTAGE QRS BORDERLINE ECG WHEN COMPARED WITH ECG OF 12-SEP-2016 14:46, NO SIGNIFICANT CHANGE WAS FOUND Confirmed by SUGAR CADENA MD ([id number]) on 09/20/2016 4:42:23 PM Referred By: Confirmed By:SUGAR CADENA MD
== END 2016-09-19 19:27 | disposition home or self-care (01) ==
LOC: JER 11:24
DX: F41.9 Anxiety disorder, unspecified (principal); I10 Essential (primary) hypertension; E11.9 Type 2 diabetes mellitus without complications; Z79.4 Long term (current) use of insulin; Z98.84 Bariatric surgery status; Z79.82 Long term (current) use of aspirin
CPT/HCPCS: 36415; 80053; 85025; 93005; 93010; 99282-25

== ENCOUNTER 2016-10-20 13:19 | Emergency (ER) | payer OTHER, MEDICARE ==
[2016-10-20 13:30] VITALS: BMI 29.7
--- NOTE | 2016-10-20 13:36 | PDOC ---
History of Present Illness - General Chief Complaint: Psychiatric Stated Complaint: REVISIT Time Seen by Provider: 10/20/16 13:36 Past History - Past Medical History Allergies/Adverse Reactions: Allergies Allergy/AdvReac Type Severity Reaction Status Date / Time No Known Allergies Allergy Verified 09/19/16 12:17 Home Medications: Ambulatory Orders Insulin Lispro Protamin/Lispro [Humalog Mix 75-25 Vial] 0 unit SQ BIDAC PRN 09/21 Acetaminophen [Tylenol .Regular Strength -] 650 mg PO Q6H PRN #0 tablet Alprazolam [Xanax] 0.25 mg PO Q8H PRN #30 tablet MDD 3 09/14/16 Aspirin [ASA -] 81 mg PO DAILY #30 tab.chew 09/14/16 Mag Hydrox/Al Hydrox/Simeth [Mylanta Oral Suspension -] 30 ml PO Q8H PRN #1 bottle 09/14/16 Diabetes: Yes (IDDM) HTN: Yes Psychiatric Problems: Yes (anxiety) - Surgical History Abdominal Surgery: Yes (gastric bypass) Cholecystectomy: Yes - Psycho/Social/Smoking Cessation Hx Anxiety: No Suicidal Ideation: No Smoking History: Never smoked Have you smoked in the past 12 months: No Number of Cigarettes Smoked Daily: 2 If you are a former smoker, when did you quit?: 1979 Hx Alcohol Use: No Drug/Substance Use Hx: No Substance Use Type: None Hx Substance Use Treatment: No *Physical Exam - Vital Signs Last Vital Signs Temp Pulse Resp BP Pulse Ox 97.8 F 91 H 18 133/84 99 10/20/16 13:27 10/20/16 13:27 10/20/16 13:27 10/20/16 13:27 10/20/16 13:27
--- NOTE | 2016-10-20 13:41 | PDOC ---
Attending Attestation - Resident Resident Name: NavaNelia - ED Attending Attestation I have performed the following: I have examined & evaluated the patient, The case was reviewed & discussed with the resident, I agree w/resident's findings & plan, Exceptions are as noted - HPI HPI: 10/20/16 15:33 71yo female c/o anxiety, out of xanax and had cp/sob this am. since resolved. pt states she feels anxious. c/o R leg cramping. no pleuritic component to cp. - Physicial Exam PE: 10/20/16 15:35 Gen: aaox3, nad, eating a sandwich Heart: +s1s2 reg Lungs: cta b/l abd: soft, nt/nd +bs ext: R calf ttp posteriorly, dressing to R big toe-clean, no drainage, no knee swelling, FROM of LE neuro: cn ii-xii grossly intact, no focal deficits. psych: appear anxious, - Medical Decision Making 10/20/16 15:36 71yo female with anxiety, cp/sob - atypical cp -out of xanax. states she takes xanax like a multivitamin -labs -doppler -ekg -reassess 10/20/16 16:32 case discussed with PMD - recommends pt come to the his office next week. call placed to social work- will discuss plan with daughter and offer resources to PMD. pt signed out to oncoming ED physician pending nursing home social worker eval. Heart Score/ECG Review - ECG Intrepretation Comment:: 10/20/16 15:34 sinus at 92, nl axis, nl interval, poor r wave progression, q waves anteriorly that are age indeterminant. no acute st/t wave findings
[2016-10-20] MEDS ORDERED: ALPRAZolam 0.25 MG TABLET PO ONE (13:53)
[2016-10-20] MEDS ORDERED: ALPRAZolam 0.25 MG TABLET ONE (14:03)
[2016-10-20] MEDS ORDERED: SODIUM CHLORIDE 1,000 ML IV STA (14:27)
--- NOTE | 2016-10-20 15:04 | PDOC ---
History of Present Illness - General Chief Complaint: Psychiatric Stated Complaint: REVISIT Time Seen by Provider: 10/20/16 13:36 History Source: Patient Exam Limitations: No Limitations - History of Present Illness Initial Comments: 71yo F with PMH of htn, dm, anxiety, presents c/o chest pain. Chest tightness began at 7:30am when pt was up making breakfast. Pt was here in ER twice in September with similar complaints. Pt reports symptoms today feel similar to the other times when she came to the ER. Pt reports running out of her Xanax a couple days ago. Chest tightness was diffuse over entire chest, non-radiating, and has since resolved. Pt also c/o herber LE pain which began at same time as chest tightness. 10/20/16 15:00 Timing/Duration: 4-6 hours Severity: mild Associated Symptoms: denies: cough, diaphoresis, fever/chills, headaches, loss of appetite, nausea/vomiting, rash, shortness of breath Past History - Past Medical History Allergies/Adverse Reactions: Allergies Allergy/AdvReac Type Severity Reaction Status Date / Time No Known Allergies Allergy Verified 09/19/16 12:17 Home Medications: Ambulatory Orders Insulin Lispro Protamin/Lispro [Humalog Mix 75-25 Vial] 0 unit SQ BIDAC PRN 09/21 Acetaminophen [Tylenol .Regular Strength -] 650 mg PO Q6H PRN #0 tablet Alprazolam [Xanax] 0.25 mg PO Q8H PRN #30 tablet MDD 3 09/14/16 Aspirin [ASA -] 81 mg PO DAILY #30 tab.chew 09/14/16 Mag Hydrox/Al Hydrox/Simeth [Mylanta Oral Suspension -] 30 ml PO Q8H PRN #1 bottle 09/14/16 Diabetes: Yes (IDDM) HTN: Yes Psychiatric Problems: Yes (anxiety) - Surgical History Abdominal Surgery: Yes (gastric bypass 16 yrs ago) Cholecystectomy: Yes - Family Disease History Family Disease History: CA: Brother (passed from pancreatic ca at age 62) - Psycho/Social/Smoking Cessation Hx Anxiety: No Suicidal Ideation: No Smoking History: Never smoked Have you smoked in the past 12 months: No If you are a former smoker, when did you quit?: 1979 Hx Alcohol Use: No Drug/Substance Use Hx: No Substance Use Type: None Hx Substance Use Treatment: No Review of Systems - Review of Systems Able to Perform ROS?: Yes Is the patient limited Mosotho proficient: No Constitutional: No: Chills, Diaphoresis, Fever HEENTM: No: Recent change in vision, Ear Pain, Nose Pain, Nose Congestion, Throat Pain Respiratory: No: Cough, Shortness of Breath, Stridor, Wheezing, Hemoptysis Cardiac (ROS): Yes: Chest Tightness. No: Chest Pain, Edema, Irregular Heart Rate, Lightheadedness, Palpitations ABD/GI: No: Abdominal Distended, Constipated, Diarrhea, Nausea, Vomiting : No: Dysuria, Hematuria Musculoskeletal: No: Joint Pain, Muscle Pain Integumentary: Yes: Lesions (Right great toe s/p staph infection). No: Bruising Neurological: No: Headache, Numbness, Paresthesia, Dizziness Psychiatric: Yes: Anxiety, Stressors ( passed 08/2015), Emotional Problems (sad/down, depression screening (-)) *Physical Exam - Vital Signs Last Vital Signs Temp Pulse Resp BP Pulse Ox 97.8 F 91 H 18 133/84 99 10/20/16 13:27 10/20/16 13:27 10/20/16 13:27 10/20/16 13:27 10/20/16 13:27 - Physical Exam General Appearance: Yes: Nourished, Appropriately Dressed, Mild Distress HEENT: positive: EOMI, Normal Voice, Other (c/o feeling dehydrated ). negative : Pale Conjunctivae, Scleral Icterus (R), Scleral Icterus (L), Nasal Congestion , Rhinorrhea Neck: positive: Trachea midline, Supple Respiratory/Chest: positive: Lungs Clear, Normal Breath Sounds. negative: Respiratory Distress, Accessory Muscle Use Cardiovascular: positive: Regular Rhythm, Regular Rate, S1, S2. negative: Murmur Vascular Pulses: Dorsalis-Pedis (R): 2+, Doralis-Pedis (L): 2+ Gastrointestinal/Abdominal: positive: Soft. negative: Distended, Guarding, Rebound, Tenderness Musculoskeletal: positive: Normal Inspection. negative: CVA Tenderness, Decreased Range of Motion Extremity: positive: Calf Tenderness (herber), Other (Right great toe s/p staph infection in June with 6 weeks of IV antibiotics. Now receives dressing changes from visiting nurse.). negative: Swelling, Erythema Integumentary: positive: Normal Color, Dry, Warm. negative: Rash, Ecchymosis, Bruising Neurologic: positive: Fully Oriented, Alert, Motor Strength 5/5. negative: Confused, Disoriented ED Treatment Course - LABORATORY CBC & Chemistry Diagram: 10/20/16 14:50 10/20/16 14:50 - ADDITIONAL ORDERS Additional order review: Laboratory Results 10/20/16 14:08 POC Glucometer [id number] 10/20/16 14:08 POC Glucometer [id number] - RADIOLOGY Radiology Studies Ordered: Category Date Time Status DUPLEX VASCUL US-2LEGS [US] Stat Ultrasound 10/20/16 14:27 Ordered - Medications Given in the ED: ED Medications Discontinued Medications Generic Name Dose Route Start Last Admin Trade Name Tari PRN Reason Stop Dose Admin Alprazolam 0.25 mg 10/20/16 13:53 10/20/16 14:04 Xanax - PO 10/20/16 13:54 0.25 mg ONCE ONE Administration Medical Decision Making - Medical Decision Making 71yo well looking F with PMH of htn, dm, anxiety, presents c/o chest tightness which has since resolved. Pt has been to ER twice in September with similar complaints and reports symptoms today feel similar to the other times when she came to the ER. Pt c/o anxiety, reporting she ran out of her Xanax a couple days ago. Pt with depressed affect, however depression screening was negative. Pt also c/o herber LE pain. Pt c/o feeling dehydrated so she was encouraged to drink the bottle of water she brought with her. Pt requests food repeatedly. EKG Xanax 0.25mg NS 1 L bolus poc glucose -> 244 CBC with diff -> wnl CMP -> BUN/Cr slightly elevated, at baseline compared to labs from last visit one month ago Duplex US herber -> (-) for DVT Pt reports not f/u with Psychiatrist referral from last visit to the ER. Pt reports usual blood glucose in the 200s. She reports that she checks her blood glucose 4-5 times per day and follows a diabetic diet. Pt attributes elevated blood glucose to stress ( passed in 08/2015). Pt should f/u with PCP and obtain referrals for Psychiatry and Endocrinology. Pt strongly encouraged to prioritize her health and f/u as an outpatient. All of pt's questions were answered. Pt verbalized understanding. 10/20/16 15:27 10/20/16 16:30 Pt c/o difficulty making it to doctor appts because she feels unsteady on her feet and her daughter has been too busy to transport her. Because pt has medicare (and not medicaid) she does not qualify for ambulette transportation. outpatient pharmacy manager to see pt. Dr. Brewer discussed case with PCP who scheduled an appt for pt for next week. 10/20/16 17:52 outpatient pharmacy manager saw pt and discussed various modes of transportation to doctor appts. outpatient pharmacy manager discussed case with pt's daughter. Pt's daughter will come supervisor opening and picking pt from ER. Pt can go home. Pt agrees to f/u with PCP and Psychiatrist. *DC/Admit/Observation/Transfer Diagnosis at time of Disposition: Anxiety, Atypical chest pain, Diabetes mellitus - Discharge Dispostion Disposition: HOME Condition at time of disposition: Improved Admit: No - Referrals Referrals: Niles Malcolm MD [Primary Care Provider] - Jovan Lovett NP [Nurse Practitioner] - - Patient Instructions Printed Discharge Instructions: DI for Anxiety -- Adult, DI for Diabetes Type 2 Additional Instructions: Please schedule an appointment with Jovan Lovett, or any other Psychiatrist of your choosing for outpatient management. 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 Please return to the hospital if symptoms of chest pain or shortness of breath persist or worsen.
[2016-10-20 15:22] LABS: ALBUMIN 3.6 g/dl (3.4-5.0); ALK PHOS 112 U/L (45-117); ANION GAP 10 (8-16); BILIRUBIN,TOTAL 0.3 mg/dL (0.2-1.0); CALCIUM 8.9 mg/dL (8.5-10.1); CO2 26 mmol/L (21-32); CREATININE 1.1 mg/dL (0.55-1.02); GLUCOSE,RANDOM 228 mg/dL (74-106); SGOT/AST 14 U/L (15-37); SGPT/ALT 16 U/L (12-78); TOT PROT 7.3 g/dl (6.4-8.2)
[2016-10-20 15:49] LABS: BASOPHIL 0.8 % (0-2.0); EOSINOPHIL 2.3 % (0-4.5); MCH 29.9 pg (25.7-33.7); MCHC 33.1 g/dl (32.0-36.0); MEAN CELL VOLUME 90.4 fl (80-96); PLATELET COUNT 305 K/MM3 (134-434); RDW 13.6 % (11.6-15.6); WHITE BLOOD COUNT 8.6 K/mm3 (4.0-10.0)
[2016-10-20 18:20] VITALS: BP 138/75; PULSE 85; TEMP 97.6
--- NOTE | 2016-10-23 16:58 | EKG ---
Test Reason : Blood Pressure : / mmHG Vent. Rate : 092 BPM Atrial Rate : 092 BPM P-R Int : 130 ms QRS Dur : 088 ms QT Int : 368 ms P-R-T Axes : -18 006 050 degrees QTc Int : 455 ms SINUS RHYTHM WITH PREMATURE SUPRAVENTRICULAR COMPLEXES POSSIBLE ANTERIOR INFARCT , AGE UNDETERMINED ABNORMAL ECG WHEN COMPARED WITH ECG OF 19-SEP-2016 12:49, PREMATURE SUPRAVENTRICULAR COMPLEXES ARE NOW PRESENT Confirmed by ANGELA ALLEN, MEENA ([id number]) on 10/23/2016 4:57:47 PM Referred By: Confirmed By:MEENA MILLER MD
== END 2016-10-20 18:30 | disposition home or self-care (01) ==
LOC: JER 13:19
PROC: 3E0337Z Introduction of Electrolytic and Water Balance Substance into Peripheral Vein, Percutaneous Approach (ICD-10-PCS; principal; 2016-10-20)
DX: R07.89 Other chest pain (principal); F41.9 Anxiety disorder, unspecified; I10 Essential (primary) hypertension; E11.9 Type 2 diabetes mellitus without complications; Z79.4 Long term (current) use of insulin
CPT/HCPCS: 36415; 80053; 85025; 93005; 93010; 93970-TC; 96360; 99282-25

== ENCOUNTER 2017-04-27 22:11 | Inpatient (IN) | payer OTHER, MEDICARE ==
--- NOTE | 2017-04-27 23:25 | PDOC ---
History of Present Illness - General History Source: Patient, Old Records Exam Limitations: No Limitations - History of Present Illness Initial Comments: 04/28/17 00:33 Patient is a 71 year old female with a significant past medical history of htn, dm, anxiety who presents to the ED with complaints of near syncopal episode that occurred just prior to ED arrival. Patient reports going to charge her phone when she began to experiencing sudden dizziness causing her to fall and land on her buttocks. She reports experiencing associated headache as well as slight heartburn. Patient reports coming into the ED for further evaluation due to feeling like she was unable to get herself off of the floor following her fall. Denies chest pain, Sob. Denies nausea, vomiting. Denies head trauma, change in vision. Denies fevers, chills. Denies contact with sick individuals out of state travelling. Denies dysuria, hematuria, constipation, diarrhea. Denies any other symptoms. Allergies: None Social history:Former smoker (Last 1979). No alcohol. No illicit drugs. Surgical history: gastric bypass 16 yrs ago, Cholecystectomy PMD: Dr. Badillo <Beck Coley - Last Filed: 04/28/17 00:33> <Bettie Segal - Last Filed: 05/09/17 08:36> - General Chief Complaint: Injury Stated Complaint: FALL Time Seen by Provider: 04/27/17 22:41 Past History <Beck Coley - Last Filed: 04/28/17 00:33> - Past Medical History COPD: No Diabetes: Yes (IDDM) HTN: Yes Psychiatric Problems: Yes (anxiety) - Surgical History Abdominal Surgery: Yes (gastric bypass 16 yrs ago) Cholecystectomy: Yes - Family Disease History Family Disease History: CA: Brother (passed from pancreatic ca at age 62) - Immunization History Immunization Up to Date: No - Suicide/Smoking/Psychosocial Hx Smoking History: Never smoked Have you smoked in the past 12 months: No Number of Cigarettes Smoked Daily: 2 If you are a former smoker, when did you quit?: 1979 Information on smoking cessation initiated: No Hx Alcohol Use: No Drug/Substance Use Hx: No Substance Use Type: None Hx Substance Use Treatment: No <Bettie Segal - Last Filed: 05/09/17 08:36> - Past Medical History Allergies/Adverse Reactions: Allergies Allergy/AdvReac Type Severity Reaction Status Date / Time Fish Containing Products Allergy Intermediate Verified 04/29/17 17:51 fish derived Allergy Intermediate Verified 04/29/17 17:51 Home Medications: Ambulatory Orders Insulin Lispro Protamin/Lispro [Humalog Mix 75-25 Vial] 0 unit SQ BIDAC PRN 09/21 Acetaminophen [Tylenol .Regular Strength -] 650 mg PO Q6H PRN #0 tablet Alprazolam [Xanax] 0.25 mg PO Q8H PRN #30 tablet MDD 3 09/14/16 Aspirin [ASA -] 81 mg PO DAILY #30 tab.chew 09/14/16 Mag Hydrox/Al Hydrox/Simeth [Mylanta Oral Suspension -] 30 ml PO Q8H PRN #1 bottle 09/14/16 Alprazolam [Xanax] 0.25 mg PO Q8H #10 tablet MDD 1mg 10/20/16 Review of Systems - Review of Systems Able to Perform ROS?: Yes Comments:: 04/28/17 00:33 GENERAL/CONSTITUTIONAL: No fever or chills. No weakness. HEAD, EYES, EARS, NOSE AND THROAT: No change in vision. No ear pain or discharge. No sore throat. GASTROINTESTINAL: No nausea, vomiting, diarrhea or constipation. GENITOURINARY: No dysuria, frequency, or change in urination. CARDIOVASCULAR: No chest pain or shortness of breath. RESPIRATORY: No cough, wheezing, or hemoptysis. MUSCULOSKELETAL: No joint or muscle swelling or pain. No neck or back pain. SKIN: No rash NEUROLOGIC: +Dizziness. No headache, vertigo, loss of consciousness, or change in strength/sensation. ENDOCRINE: No increased thirst. No abnormal weight change. HEMATOLOGIC/LYMPHATIC: No anemia, easy bleeding, or history of blood clots. ALLERGIC/IMMUNOLOGIC: No hives or skin allergy. <Beck Coley - Last Filed: 04/28/17 00:33> *Physical Exam - Vital Signs Last Vital Signs Temp Pulse Resp BP Pulse Ox 98.6 F 80 20 130/70 98 04/28/17 00:30 04/28/17 00:30 04/28/17 00:30 04/28/17 00:30 04/28/17 00:30 <Beck Coley - Last Filed: 04/28/17 00:33> - Vital Signs Last Vital Signs Temp Pulse Resp BP Pulse Ox 97.6 F 114 H 18 102/52 94 L 04/27/17 22:24 04/27/17 22:24 04/27/17 22:24 04/27/17 22:24 04/27/17 22:24 - Physical Exam Comments: GENERAL: Awake, alert, and fully oriented, in no acute distress HEAD: No signs of trauma EYES: PERRLA, EOMI, sclera anicteric, conjunctiva clear ENT: Auricles normal inspection, hearing grossly normal, nares patent, oropharynx clear without exudates. Moist mucosa NECK: Normal ROM, supple, no lymphadenopathy, JVD, or masses LUNGS: Breath sounds equal, clear to auscultation bilaterally. No wheezes, and no crackles HEART: Regular rate and rhythm, normal S1 and S2, no murmurs, rubs or gallops ABDOMEN: Soft, nontender, normoactive bowel sounds. No guarding, no rebound. No masses EXTREMITIES: +L foot erythema to dorsum. +Open lesion draining purulent material to L foot, lateral to the 5th MTP joint. Normal range of motion. No clubbing or cyanosis. No cords. NEUROLOGICAL: Cranial nerves II through XII grossly intact. Normal speech, normal gait SKIN: Warm, Dry, normal turgor, no rashes or lesions noted. <Bettie Segal - Last Filed: 05/09/17 08:36> Heart Score/ECG Review - ECG Impressions Comment:: EKG read 00:24- NSR 98 bpm, T inv I aVL <Bettie Segal - Last Filed: 05/09/17 08:36> ED Treatment Course - LABORATORY CBC & Chemistry Diagram: 04/28/17 00:00 04/28/17 00:00 - ADDITIONAL ORDERS Additional order review: Laboratory Results 04/28/17 00:00 PT with INR 13.50 H INR 1.19 H 04/28/17 00:00 RBC 4.40 MCV 90.8 MCHC 33.5 RDW 12.3 MPV 9.2 Neutrophils % No Result Required. Lymphocytes % No Result Required. <Beck Coley - Last Filed: 04/28/17 00:33> - LABORATORY CBC & Chemistry Diagram: 05/08/17 06:00 05/08/17 06:00 <Bettie Segal - Last Filed: 05/09/17 08:36> Medical Decision Making - Medical Decision Making Pt initially presented with vague symptoms, near syncope. However, upon exam she was found to be wearing tight sandals, when removed she was found to have a malodorous open foot ulcer with devitalized tissue. Admitted for IV abx, further evaluation. <Bettie Segal - Last Filed: 05/09/17 08:36> *DC/Admit/Observation/Transfer - Attestations Scribe Attestion: 04/28/17 00:34 Documentation prepared by Beck Coley, acting as chief medical technologist for Bettie Segal MD, /DO. <Beck Coley - Last Filed: 04/28/17 00:33> - Discharge Dispostion Admit: Yes <Bettie Segal - Last Filed: 05/09/17 08:36> Diagnosis at time of Disposition: Diabetic foot ulcer Qualifiers: Diabetic foot ulcer location: unspecified part of foot Diabetes mellitus type: type 2 Laterality: left Non-pressure ulcer stage: unspecified non-pressure ulcer stage Qualified Code(s): E11.621 - Type 2 diabetes mellitus with foot ulcer - Discharge Dispostion Condition at time of disposition: Stable
[2017-04-28 00:17] LABS: HEMOGLOBIN 13.4 GM/dL (10.7-15.3); MCH 30.5 pg (25.7-33.7); MCHC 33.5 g/dl (32.0-36.0); MEAN CELL VOLUME 90.8 fl (80-96); MEAN PLT VOLUME 9.2 fl (7.5-11.1); PLATELET COUNT 363 K/MM3 (134-434); RDW 12.3 % (11.6-15.6); WHITE BLOOD COUNT 20.8 K/mm3 (4.0-10.0)
[2017-04-28 00:31] LABS: INR 1.19 (0.82-1.09); PROTHROMBIN TIME (PATIENT) 13.5 SEC (9.98-11.88)
[2017-04-28 00:43] LABS: ALBUMIN 2.9 g/dl (3.4-5.0); ALK PHOS 111 U/L (45-117); ANION GAP 14 (8-16); BILIRUBIN,TOTAL 0.5 mg/dL (0.2-1.0); BLOOD UREA NITROGEN 25 mg/dL (7-18); CHLORIDE 100 mmol/L (98-107); CO2 24 mmol/L (21-32); CREATININE 1.3 mg/dL (0.55-1.02); GLUCOSE,RANDOM 166 mg/dL (74-106); POTASSIUM 3.7 mmol/L (3.5-5.1); SGOT/AST 14 U/L (15-37); SGPT/ALT 14 U/L (12-78); SODIUM 138 mmol/L (136-145); TOT PROT 7.4 g/dl (6.4-8.2)
[2017-04-28] MEDS ORDERED: PIPERACILLIN/TAZOB 3.375 GM 50 ML IVPB ONE (00:48)
[2017-04-28] MEDS ORDERED: VANCOMYCIN 1 GRAM (PRE-DOCKED) 1,000 MG/250 ML BAG IVPB ONE (00:52)
[2017-04-28] MEDS ORDERED: PIPERACILLIN/TAZOB 3.375 GM 3.375 GM/50 ML BAG IVPB ONE (00:52)
[2017-04-28] MEDS ORDERED: VANCOMYCIN 1,000 MG in DEXTROSE 5%-WATER - 250 ML IVPB SCH ×4 (01:00→13:00)
--- NOTE | 2017-04-28 04:26 | HP ---
CHIEF COMPLAINT: dizziness PCP: [facility] HISTORY OF PRESENT ILLNESS: This is a 71 year old female with a past medical history of DM, HTN, anxiety who presented to the ED after an episode of dizziness which led to pt falling. Pt states she landed on her buttocks with no injury. In the ED it was also noticed that she has a diabetic foot ulcer to her left foot. Pt denies pain to foot. She reports the redness has been present for about 10 days. She states that her recently and she has been having difficulty taking care of herself. ER course was notable for: (1) WBC 20.8 (2) foot xray with no free air Recent Travel: pt denies PAST MEDICAL HISTORY: HTN, DM, anxiety PAST SURGICAL HISTORY: gastric bypass and cholecystectomy 16 years ago Social History: Smoking: smoked 15 years, couple cig/day. quit 1979 Alcohol: pt denies Drugs: pt denies Family History: brother age 62, pancreatic CA mother age 76, DM father age 84, 3 months after mother, "broken heart" brother alive with DM, CAD, CABG Allergies No Known Allergies Allergy (Verified 04/27/17 22:24) HOME MEDICATIONS: 3 Medication Instructions Recorded Insulin Lispro Protamin/Lispro 15 unit SQ BIDAC PRN 04/28/17 [Humalog Mix 75-25 Vial] Acetaminophen [Tylenol .Regular 650 mg PO Q6H PRN #0 tablet 09/14/16 Strength -] Aspirin [ASA -] 81 mg PO DAILY #30 tab.chew 09/14/16 losartan 50 mg PO DAILY 04/28/17 REVIEW OF SYSTEMS CONSTITUTIONAL: Present: generalized weakness Absent: fever, chills, diaphoresis, malaise, loss of appetite, weight change HEENT: Absent: rhinorrhea, nasal congestion, throat pain, throat swelling, difficulty swallowing, mouth swelling, ear pain, eye pain, visual changes CARDIOVASCULAR: Absent: chest pain, syncope, palpitations, irregular heart rate, lightheadedness , peripheral edema RESPIRATORY: Absent: cough, shortness of breath, dyspnea with exertion, orthopnea, wheezing, stridor, hemoptysis GASTROINTESTINAL: Absent: abdominal pain, abdominal distension, nausea, vomiting, diarrhea, constipation, melena, hematochezia GENITOURINARY: Absent: dysuria, frequency, urgency, hesitancy, hematuria, flank pain, genital pain MUSCULOSKELETAL: Absent: myalgia, arthralgia, joint swelling, back pain, neck pain SKIN: Present: foot wound Absent: rash, itching, pallor HEMATOLOGIC/IMMUNOLOGIC: Absent: easy bleeding, easy bruising, lymphadenopathy, frequent infections ENDOCRINE: Absent: unexplained weight gain, unexplained weight loss, heat intolerance, cold intolerance NEUROLOGIC: Present: dizziness Absent: headache, focal weakness or paresthesias, unsteady gait, seizure, mental status changes, bladder or bowel incontinence PSYCHIATRIC: Absent: anxiety, depression, suicidal or homicidal ideation, hallucinations. PHYSICAL EXAMINATION Vital Signs - 24 hr 3 04/27/17 04/28/17 22:24 00:30 Temperature 97.6 F 98.6 F Pulse Rate 114 H Pulse Rate [ 80 Left Radial] Respiratory 18 20 Rate Blood Pressure 102/52 Blood Pressure 130/70 [Left Arm] O2 Sat by Pulse 94 L 98 Oximetry (%) GENERAL: Awake, alert, and fully oriented, in no acute distress. HEAD: Normal with no signs of trauma. EYES: Pupils equal, round and reactive to light, extraocular movements intact, sclera anicteric, conjunctiva clear. No lid lag. EARS, NOSE, THROAT: Ears normal, nares patent, oropharynx clear without exudates. Moist mucous membranes. NECK: Normal range of motion, supple without lymphadenopathy, JVD, or masses. LUNGS: Breath sounds equal, clear to auscultation bilaterally. No wheezes, and no crackles. No accessory muscle use. HEART: Regular rate and rhythm, normal S1 and S2 without rub or gallop. + murmur , systolic, loudest 4th ICS, LSB ABDOMEN: Soft, nontender, not distended, normoactive bowel sounds, no guarding, no rebound, no masses. No hepatomegaly or splenomegaly. MUSCULOSKELETAL: Normal range of motion at all joints. No bony deformities or tenderness. No CVA tenderness. UPPER EXTREMITIES: 2+ pulses, warm, well-perfused. No cyanosis. No clubbing. No peripheral edema. LOWER EXTREMITIES: 2+ pulses, warm, well-perfused. No calf tenderness. No peripheral edema. NEUROLOGICAL: Cranial nerves II-XII intact. Normal speech. Normal gait. PSYCHIATRIC: Cooperative. Good eye contact. Appropriate mood and affect. SKIN: Warm, dry, normal turgor, no rashes or lesions noted, normal capillary refill. left foot with eschar to lateral aspect of MT head, dried blood and macerated skin between 4th and 5th toes Laboratory Results - last 24 hr 3 04/28/17 04/28/17 04/28/17 00:00 00:00 00:00 WBC 20.8 H D RBC 4.40 Hgb 13.4 Hct 40.0 MCV 90.8 MCH 30.5 MCHC 33.5 RDW 12.3 Plt Count 363 MPV 9.2 Neutrophils % No Result Required. Neutrophils % (Manual) 90.2 H* Band Neutrophils % 0.0 Lymphocytes % No Result Required. Lymphocytes % (Manual) 2.9 L Monocytes % (Manual) 3 L Eosinophils % (Manual) 1.0 Basophils % (Manual) 0.0 Myelocytes % (Man) 1 Promyelocytes % (Man) 0 Blast Cells % (Manual) 0 Nucleated RBC % 0 Metamyelocytes 2 PT with INR 13.50 H INR 1.19 H Sodium 138 Potassium 3.7 Chloride 100 Carbon Dioxide 24 Anion Gap 14 BUN 25 H Creatinine 1.3 H Creat Clearance w eGFR 40.38 Random Glucose 166 H Calcium 9.0 Total Bilirubin 0.5 D AST 14 L ALT 14 Alkaline Phosphatase 111 Total Protein 7.4 Albumin 2.9 L ECG Normal sinus rhythm Vent rate 98, QTC 462 anteroseptal infarct, age undetermined Radiology Reports Foot xray--Official read pending, no free air noted Chest xray--Official read pending, no obvious acute changes ASSESSMENT/PLAN: 71yF with PMH HTN, DM, Anxiety presented to ED with an episode of dizziness as well as diabetic foot ulcer, left. Diabetic foot ulcer with cellulitis - cont vanc/zosyn for now - ID consult - Podiatry consult elevated BUN/Cr - slight bump in values likely due to hypovolemia - current CrCl 38 for ideal body weight - NS @ 75cc/hr HTN - cont home cozaar, which patient states she hasnt been taking for the past "week or so" DM - cont insulin, home humalog changed to formulary novolog DVT PPX - heparin 5000u SC BID FEN - NS @ 75cc/hr - BMP in am - diabetic/low sodium diet as tolerated. Dispo: pt currently requires inpatient management of her emergent condition. Visit type - Emergency Visit Emergency Visit: Yes ED Registration Date: 04/28/17 Care time: The patient presented to the Emergency Department on the above date and was hospitalized for further evaluation of their emergent condition. - New Patient This patient is new to me today: Yes Date on this admission: 04/28/17 - Critical Care Critical Care patient: No Hospitalist Screening - Colonoscopy Questionnaire Colonoscopy Questionnaire: Colonoscopy Questionnaire - Patient: 50 - 75 years old and never had a screening colonoscopy: Unknown History of colon or rectal polyps, or CA: No History of IBD, Crohn's disease or UC: No History of abdominal radiation therapy as a child: No - Relative: 1 with colon or rectal CA, or polyps at age 60 or younger: No Colon or rectal CA diagnosed at age 45 or younger: No Multiple relatives with colon or rectal CA: No - Outcome: Screening Result: Negative Screen
[2017-04-28 04:31] VITALS: BMI 28.3
[2017-04-28] MEDS: SODIUM CHLORIDE 1,000 ML IV SCH ×2 (05:45→23:40)
[2017-04-28] MEDS ORDERED: PIPERACILLIN/TAZOB 2.25 GM/50 ML PREMIX BAG IVPB ONE (06:00)
[2017-04-28] MEDS ORDERED: INSULIN (NOVOLOG) ASPART 100 UNITS/ML 10ML VIAL ONE ×3 (06:10→21:05)
[2017-04-28] MEDS ORDERED: PIPERACILLIN/TAZOB 2.25 GM 2.25 GM in DEXTROSE 5%-WATER - 50 ML IVPB ONE (06:15)
[2017-04-28] MEDS: INSULIN (NOVOLOG MIX 70/30) 100 UNITS/ML MDV SQ SCH ×2 (06:18→17:16)
[2017-04-28] MEDS: INSULIN SLIDING SCALE (NOVOLOG) 1 VIAL SQ SCH ×4 (06:18→21:27)
[2017-04-28 08:20] LABS: BASO % 0.6 % (0-2.0); EOS % 0.1 % (0-4.5); HEMATOCRIT 37.8 % (32.4-45.2); HEMOGLOBIN 12.4 GM/dL (10.7-15.3); LYMPH % 8.6 % (8-40); MCH 29.8 pg (25.7-33.7); MCHC 32.7 g/dl (32.0-36.0); MEAN CELL VOLUME 91.2 fl (80-96); MEAN PLT VOLUME 8.8 fl (7.5-11.1); MONO % 6.6 % (3.8-10.2); NEUT % 84.1 % (42.8-82.8); PLATELET COUNT 358 K/MM3 (134-434); RBC 4.15 M/mm3 (3.60-5.2); RDW 12.4 % (11.6-15.6); WHITE BLOOD COUNT 17.2 K/mm3 (4.0-10.0)
[2017-04-28 08:39] LABS: ANION GAP 9 (8-16); BLOOD UREA NITROGEN 25 mg/dL (7-18); CALCIUM 8.8 mg/dL (8.5-10.1); CHLORIDE 98 mmol/L (98-107); CO2 28 mmol/L (21-32); CREATININE 1.4 mg/dL (0.55-1.02); GLUCOSE,RANDOM 228 mg/dL (74-106); MAGNESIUM 2.1 mg/dL (1.8-2.4); PHOSPHOROUS 3.1 mg/dL (2.5-4.9); POTASSIUM 3.4 mmol/L (3.5-5.1); SODIUM 135 mmol/L (136-145)
[2017-04-28] MEDS ORDERED: ASPIRIN 81 MG CHEWABLE TABLETS PO SCH (10:00)
[2017-04-28] MEDS ORDERED: LOSARTAN POTASSIUM 50 MG TABLET (FP) PO SCH ×2 (10:00)
[2017-04-28] MEDS: HEPARIN NA (PORCINE) 5,000 UNITS/ML 1ML VIAL SQ SCH ×2 (10:30→21:27)
--- NOTE | 2017-04-28 12:18 | PN ---
Progress Note (short form) - Note Progress Note: ID consult dictated imp/reccd 71 year old female with DM admitted after she had a near syncopal episode at home, felt dizzy and fell did not pass out denies fevers or chills has erythema of her left foot - unsure how long - with an ulcer that is bleeding between toe 4 and 5, also an ulcer on the lateral aspect of her foot- no crepitance noted soft tissue infection of the left foot r/o osteomyelitis second toe appears necrotic podiatry for debridement vanco/zosyn esr/crp Problem List - Problems (1) Diabetic foot ulcer Code(s): E11.621 - TYPE 2 DIABETES MELLITUS WITH FOOT ULCER; L97.509 - NON- PRESSURE CHRONIC ULCER OTH PRT UNSP FOOT W UNSP SEVERITY Qualifiers: Diabetic foot ulcer location: unspecified part of foot Diabetes mellitus type: type 2 Laterality: left Non-pressure ulcer stage: unspecified non- pressure ulcer stage Qualified Code(s): E11.621 - Type 2 diabetes mellitus with foot ulcer; L97.529 - Non-pressure chronic ulcer of other part of left foot with unspecified severity; L97.529 - Non-pressure chronic ulcer of other part of left foot with unspecified severity; L97.529 - Non-pressure chronic ulcer of other part of left foot with unspecified severity; L97.529 - Non- pressure chronic ulcer of other part of left foot with unspecified severity (2) Osteomyelitis Code(s): M86.9 - OSTEOMYELITIS, UNSPECIFIED
[2017-04-28] MEDS: VANCOMYCIN 1,250 MG in DEXTROSE 5%-WATER - 250 ML IVPB SCH (13:35)
--- NOTE | 2017-04-28 13:54 | CONS ---
DATE OF CONSULTATION: DATE OF DICTATION: 04/28/2017 REQUESTED BY: The hospitalist service. HISTORY OF PRESENT ILLNESS: This is a 71-year-old female. She lives alone. She is at home. She has a past medical history of diabetes. She presented to the emergency room with an episode of near syncope. She had dizziness. She fell and landed on her buttocks with no injury. She felt very weak and unable to get up and she came to the emergency room. She denies any chest pain. Denies any nausea, vomiting, diarrhea or dysuria. She denies any fevers or chills. In the emergency room she was noted to have erythema of her left foot as well as an ulcer between her 4th and 5th toe. She was noted as well to have a white count of 20,000 in the ER. She is followed by Dr. Malcolm as an outpatient. PAST MEDICAL HISTORY: Notable for hypertension, diabetes, anxiety. SURGICAL HISTORY: For gastric bypass and cholecystectomy 16 years ago. FAMILY HISTORY: She has a brother who from pancreatic cancer. Father is . Her mother from diabetes and she has a brother with diabetes and coronary artery disease. ALLERGIES: She has no known drug allergies. MEDICATIONS: At home include insulin, Tylenol, aspirin and losartan. SOCIAL HISTORY: She lives alone. She quit smoking in 1979. There is no history of alcohol or substance use. She was roughly about 1 to 1-1/2 years ago. She reports she has had no appetite since that time. REVIEW OF SYSTEMS: She has lost 50 pounds because she eats only once a day and she had not noted at all that her leg had gotten red. She had not noted she had a bleeding ulcer between the toes or a callus on the side of her foot. PHYSICAL EXAMINATION: General: She is awake and alert. She is enjoying her lunch. Vital Signs: Temperature is 98.2, pulse of 96, blood pressure 102/62, respiratory rate is 18, saturating 96% on room air. HEENT: She is normocephalic. Her eyes are anicteric. Neck: Supple. Lungs: Clear to auscultation. Heart: Regular rate and rhythm. Abdomen: Soft, nontender. Extremities: Notable for she has erythema of the left foot with dry scaly skin. She has a deep ulcer between the 4th and 5th toes with bloody drainage. As well she has an eschar on the lateral aspect that is very soft and undermined of the foot that is about 5 to 6 cm in length and about 2 to 3 cm in diameter. There is no crepitans of the foot or of the ankle or leg. LABORATORIES: Are notable for a white count on admission that was 20.8, this morning 17.2. Her BUN is 25 and creatinine is 1.4 with a hemoglobin A1c of 7.4. Normal LFTs. Cultures are pending of the wound as well as the blood. Chest x-ray has no acute pathology. An x-ray of the foot has vascular calcification, soft tissue swelling and air around the 4th and 5th toe. ASSESSMENT/RECOMMENDATIONS: 1. In summary, this is a 71-year-old woman with a diabetic foot ulcer admitted with near syncope status and had a fall. She clearly has an infected foot and most likely has osteomyelitis in the 4th toe as well as blue. I would continue her on vancomycin and Zosyn. Podiatry consult has been requested. She will require debridement. Will check a sedimentation rate and a CRP with further recommendations to follow. 2. Status post fall. She did not injure her head. Management per PMD. Alvarez PHELPS/[id number]
[2017-04-28] MEDS ORDERED: ALPRAZolam 0.25 MG TABLET PO PRN (15:47)
[2017-04-28] MEDS ORDERED: oxyCODONE HCL 5 MG TABLET PO PRN (15:48)
[2017-04-28] MEDS: PIPERACILLIN/TAZOB 3.375 GM 3.375 GM in DEXTROSE 5%-WATER - 50 ML IVPB SCH (18:50)
[2017-04-29] MEDS: PIPERACILLIN/TAZOB 3.375 GM 3.375 GM in DEXTROSE 5%-WATER - 50 ML IVPB SCH ×3 (01:56→17:52)
[2017-04-29] MEDS: SODIUM CHLORIDE 1,000 ML IV SCH ×2 (06:36→15:39)
[2017-04-29] MEDS: INSULIN (NOVOLOG MIX 70/30) 100 UNITS/ML MDV SQ SCH ×2 (06:38→16:49)
[2017-04-29] MEDS: INSULIN SLIDING SCALE (NOVOLOG) 1 VIAL SQ SCH ×4 (06:39→21:41)
[2017-04-29 08:47] LABS: HEMATOCRIT 35.4 % (32.4-45.2); HEMOGLOBIN 11.7 GM/dL (10.7-15.3); MCH 30.1 pg (25.7-33.7); MEAN CELL VOLUME 91.4 fl (80-96); MEAN PLT VOLUME 9.3 fl (7.5-11.1); PLATELET COUNT 329 K/MM3 (134-434); RBC 3.88 M/mm3 (3.60-5.2); WHITE BLOOD COUNT 11.7 K/mm3 (4.0-10.0)
--- NOTE | 2017-04-29 08:55 | CON.CARD ---
Consult Consult Specialty:: Cardiology Referred by:: Dr. Thompson Reason for Consultation:: Fall, , ?syncope - History of Present Illness Chief Complaint: fall, infected wound lle History of Present Illness: 71 year old woman with a history of HTN, DMII, mild aortic stenosis, PAD with L toe ulcer s/p debridement and PICC line for Abx, now admitted with infected toe and probable LLE 5th digit osteo. Had a fall yesterday at home. She denies prior CP, palps, WESLEY. Denies LOC. Denies prior syncope. Has refused head CT, carotid duplex. We saw her in 2017 here- was admitted with chest pain. Refused stress test. Did not follow up with outpatient stress. Recently lost her to brain cancer. She is chronically depressed, crying and somewhat angry in general: "there is nothing wrong with my heart" On ROS: she denies exertional CP or any new/worsened WESLEY. Denies palps, edema. - History Source History Provided By: Patient, Medical Record - Past Medical History Cardio/Vascular: Yes: HTN Gastrointestinal: No: Ascites, Cancer, Constipation, Crohn's Disease, Diverticulitis, Diverticulosis, Esophageal Varices, Gastritis, GERD, GI Bleed, Hemorrhoids, Hiatal Hernia, Inflamatory Bowel Disease, Irritable Bowel Disease, Pancreatitis, Peptic Ulcer Disease, Ulcerative Colitis, Other Hepatobiliary: No: Cirrhosis, Cholelithiasis, Cholecystitis, Choledocholithiasis , Hepatitis A, Hepatitis B, Hepatitis C, Other Renal/: No: Renal Failure, Renal Inusuff, BPH, Cancer, Hematuria, Hemodialysis , Neurogenic Bladder, Renal Calculi, UTI, Other Psych: Yes: Anxiety, Depression Endocrine: Yes: Diabetes Mellitus - Alcohol/Substance Use Hx Alcohol Use: No - Smoking History Smoking history: Never smoked Have you smoked in the past 12 months: No Aproximately how many cigarettes per day: 2 If you are a former smoker, when did you quit?: 1979 - Social History Usual Living Arrangement: Other () ADL: Independent Home Medications - Allergies Allergies/Adverse Reactions: Allergies Allergy/AdvReac Type Severity Reaction Status Date / Time No Known Allergies Allergy Verified 04/27/17 22:24 - Home Medications Home Medications: Ambulatory Orders Insulin Lispro Protamin/Lispro [Humalog Mix 75-25 Vial] 0 unit SQ BIDAC PRN 09/21 Acetaminophen [Tylenol .Regular Strength -] 650 mg PO Q6H PRN #0 tablet Alprazolam [Xanax] 0.25 mg PO Q8H PRN #30 tablet MDD 3 09/14/16 Aspirin [ASA -] 81 mg PO DAILY #30 tab.chew 09/14/16 Mag Hydrox/Al Hydrox/Simeth [Mylanta Oral Suspension -] 30 ml PO Q8H PRN #1 bottle 09/14/16 Alprazolam [Xanax] 0.25 mg PO Q8H #10 tablet MDD 1mg 10/20/16 Family Disease History - Family Disease History Family Disease History: Diabetes: Mother, Brother, Heart Disease: Brother Review of Systems Findings/Remarks: 1 year old female with a significant past medical history of htn, dm, anxiety who presents to the ED with complaints of near syncopal episode that occurred just prior to ED arrival. Patient reports going to charge her phone when she began to experiencing sudden dizziness causing her to fall and land on her buttocks. She reports experiencing associated headache as well as slight heartburn. Patient reports coming into the ED for further evaluation due to feeling like she was unable to get herself off of the floor following her fall. Denies chest pain, Sob. Denies nausea, vomiting. Denies head trauma, change in vision. Denies fevers, chills. Denies contact with sick individuals out of state travelling. Denies dysuria, hematuria, constipation, diarrhea. Denies any other symptoms. Allergies: None Social history:Former smoker (Last 1979). No alcohol. No illicit drugs. Surgical history: gastric bypass 16 yrs ago, Cholecystectomy - Review of Systems Constitutional: reports: No Symptoms Neck: denies: No Symptoms, Decreased ROM, Lumps, Pain on Movement, Stiffness, Swollen Glands, Tenderness, Other Cardiovascular: denies: No Symptoms, Chest Pain, Edema, Palpitations, Shortness of Breath, Other Respiratory: denies: No Symptoms, Cough, Exercise Intolerance, Hemoptysis, Orthopnea, PND, Snoring, SOB, SOB on Exertion, Wheezing, Other Gastrointestinal: denies: No Symptoms, Abdominal Pain, Bloating, Constipation, Diarrhea, Dysphagia, Indigestion, Melena, Nausea, Rectal Bleeding, Vomiting, Vomiting Blood, Other Genitourinary: denies: No Symptoms, Burning, Discharge, Dysuria, Flank Pain, Frequency, Hematuria, Incontinence, Lesions, Menses, Pain, Testicular Mass, Testicular Pain, Testicular Swelling, Urgency, Vaginal Bleeding, Other Breasts: denies: No Symptoms Reported, See HPI, Breast Implants, Discharge from Nipple, Lumps, Pain, Skin Changes, Other Musculoskeletal: denies: No Symptoms, Back Pain, Crepitus, Decreased ROM, Extremity Pain, Joint Pain, Joint Swelling, Muscle Pain, Muscle Cramps, Muscle Weakness, Other Integumentary: denies: No Symptoms, Blister, Bruising, Change in Color, Eczema, Erythema, Incision, Lesions, Lump, Pallor, Pruritis, Rash, Wound, Other Neurological: denies: No Symptoms, Change in LOC, Change in Speech, Confusion, Dizziness, Headache, Incoordination, Numbness, Parasthesia, Pre-Existing Deficit , Seizure, Syncope, Tremors, Unsteady Gait, Weakness, Other Endocrine: denies: No Symptoms, Excessive Sweating, Flushing, Increased Hunger, Increased Thirst, Intolerance to Cold, Intolerance to Heat, Unexplained Weight Gain, Unexplained Weight Loss, Other Hematology/Lymphatic: denies: No Symptoms, Easily Bruised, Excessive Bleeding, Swollen Glands, Other Psychiatric: denies: No Symptoms, Altered Sleep Pattern, Anxiety, Depression, Hallucinations, Panic, Paranoia, Suicidal, Other - Risk Factors Known Risk Factors: Yes: Diabetes Mellitus Vital Signs: Vital Signs Temperature 98.6 F 04/29/17 05:53 Pulse Rate 100 H 04/29/17 05:53 Respiratory Rate 20 04/29/17 05:53 Blood Pressure 137/74 04/29/17 05:53 O2 Sat by Pulse Oximetry (%) 96 04/28/17 22:00 Constitutional: Yes: No Distress, Calm Eyes: Yes: Conjunctiva Clear HENT: Yes: Atraumatic Neck: Yes: Supple Respiratory: Yes: CTA Bilaterally Gastrointestinal: Yes: Soft Cardiovascular: Yes: Regular Rate and Rhythm JVD: No Carotid Bruit: No PMI: Non-Displaced Heart Sounds: Yes: S1, S2 Murmur: Yes: Systolic Murmur (II/ ZANDER RSB, radiating to neck Preserved S2. Carotid pulse not delayed) Edema: No Peripheral Pulses WNL: No (decreased 1+ LDP pulse) Neurological: Yes: Alert, Oriented ...Motor Strength: WNL - Other Data Labs, Other Data: CBC, BMP 04/29/17 08:00 04/28/17 08:00 INR, PTT INR 1.19 (0.82-1.09) H 04/28/17 00:00 Laboratory Tests 04/28/17 04/28/17 04/28/17 00:00 08:00 08:00 WBC 20.8 H D 17.2 H Hct 40.0 37.8 Plt Count 363 358 Neutrophils % (Manual) 90.2 H* ESR Sodium 135 L Potassium 3.4 L Creatinine 1.4 H 04/29/17 04/29/17 06:45 08:00 WBC 11.7 H D Hct 35.4 Plt Count 329 Neutrophils % (Manual) ESR Pending Sodium Potassium Creatinine Echo: Report Reviewed (2017: Mild , normal LV fxn) Ejection Fraction %: LVEF > or = 40 % Imaging - Results EKG: Image Reviewed (NSR 98 bpm old AR, NSST changes When compared w/ ECG from 2017, interval AR changes. Cannot w/o old IWMI) Problem List - Problems (1) CAD (coronary artery disease) Code(s): I25.10 - ATHSCL HEART DISEASE OF [place] CORONARY ARTERY W/O ANG PCTRS Qualifiers: Coronary Disease-Associated Artery/Lesion type: [place] artery Associated angina: angina presence unspecified (2) Abnormal ECG Code(s): R94.31 - ABNORMAL ELECTROCARDIOGRAM [ECG] [EKG] (3) Aortic stenosis Code(s): I35.0 - NONRHEUMATIC AORTIC (VALVE) STENOSIS Qualifiers: Cardiac valve disease etiology: nonrheumatic Qualified Code(s): I35.0 - Nonrheumatic aortic (valve) stenosis (4) Diabetes type 2 with atherosclerosis of arteries of extremities Code(s): E11.51 - TYPE 2 DIABETES W DIABETIC PERIPHERAL ANGIOPATH W/O GANGRENE; I70.209 - UNSP ATHSCL [place] ARTERIES OF EXTREMITIES, UNSP EXTREMITY (5) Osteomyelitis Code(s): M86.9 - OSTEOMYELITIS, UNSPECIFIED Qualifiers: Osteomyelitis type: unspecified type Osteomyelitis location: foot Laterality: left Qualified Code(s): M86.9 - Osteomyelitis, unspecified (6) Diabetic foot ulcer Code(s): E11.621 - TYPE 2 DIABETES MELLITUS WITH FOOT ULCER; L97.509 - NON- PRESSURE CHRONIC ULCER OTH PRT UNSP FOOT W UNSP SEVERITY Qualifiers: Diabetic foot ulcer location: unspecified part of foot Diabetes mellitus type: type 2 Laterality: left Non-pressure ulcer stage: unspecified non- pressure ulcer stage Qualified Code(s): E11.621 - Type 2 diabetes mellitus with foot ulcer; L97.529 - Non-pressure chronic ulcer of other part of left foot with unspecified severity; L97.529 - Non-pressure chronic ulcer of other part of left foot with unspecified severity; L97.529 - Non-pressure chronic ulcer of other part of left foot with unspecified severity; L97.529 - Non- pressure chronic ulcer of other part of left foot with unspecified severity Assessment/Plan IMP: Probable/Suspected LLE osteo, toe DM, insulin dependant Suspected underlying CAD with ECG showing interval anteroseptal AR since 09/2016 Mild aortic stenosis. Chronic HTN REC: 1. Abx and further imaging for osteo as per ID- if patient allows. 2. Begin ASA 81mg daily for CAD/probable PAD/DM - unless further surgical procedures are planned (ie: debridement, possible amputation). 3. Continue Losartan for chronic HTN/DM. 4. Have strongly advised repeat echo to f/u severity (known to be mild) and wall motion as ECG shows interval anteroseptal AR since 09/2016. She refused. 5. Check fasting lipids and begin statin for LDL goal 70mg/dl: Calculated 10 year cardiac risk with DM is > 7.5% . 6. F/u Holter to r/o occult arrhythmia as etiology of fall. 7. Refusing carotid US. She has refused any cardiac diagnostic studies. On exam, seems to remain mild with brisk carotid upstroke and preserved S2. While she should have an ischemic evaluation to evaluate the presence and extent of probable CAD, she has declined further testing. Plan will be to manage medically with aggressive risk factor modification as outlined above unless she has a change of heart. Thank you.
[2017-04-29] MEDS: HEPARIN NA (PORCINE) 5,000 UNITS/ML 1ML VIAL SQ SCH ×2 (09:41→21:41)
--- NOTE | 2017-04-29 10:02 | PN ---
Progress Note, Physician Chief Complaint: spoke with nurse events noted pt has no complaints refusing CT head, Echo , carotid doppler-- she knows the reasons why we are ordering it but still does not wish to do them No c/o pain in left toe pt does appear depressed-- but does not want to start antidepressants She is "just fine" with Xanax - Current Medication List Current Medications: Active Medications Alprazolam (Xanax -) 0.25 mg PO DAILY PRN PRN Reason: ANXIETY Last Admin: 04/28/17 16:02 Dose: 0.25 mg Heparin Sodium (Porcine) (Heparin -) 5,000 unit SQ BID JOSE Last Admin: 04/29/17 09:41 Dose: 5,000 unit Sodium Chloride (Normal Saline -) 1,000 mls @ 75 mls/hr IV ASDIR JOSE Last Admin: 04/29/17 06:36 Dose: Not Given Piperacillin Sod/Tazobactam (Sod 3.375 gm/ Dextrose) 50 mls @ 100 mls/hr IVPB Q8H-IV JOSE PRN Reason: Protocol Last Admin: 04/29/17 09:40 Dose: 100 mls/hr Vancomycin HCl 1,250 mg/ (Dextrose) 250 mls @ 250 mls/hr IVPB DAILY JOSE PRN Reason: Protocol Last Admin: 04/28/17 13:35 Dose: 250 mls/hr Insulin Aspart (Novolog Vial Sliding Scale -) 1 vial SQ HS JOSE PRN Reason: Protocol Last Admin: 04/28/17 21:27 Dose: 2 units Insulin Aspart (Novolog Vial Sliding Scale -) 1 vial SQ TIDAC JOSE PRN Reason: Protocol Last Admin: 04/29/17 06:39 Dose: 4 units Insulin Aspart (Novolog Mix 70/30 Vial) 15 units SQ BIDI [facility] Last Admin: 04/29/17 06:38 Dose: 15 units Losartan Potassium (Cozaar -) 50 mg PO DAILY [facility] Last Admin: 04/28/17 11:52 Dose: Not Given Oxycodone HCl (Roxicodone -) 5 mg PO Q8H PRN PRN Reason: PAIN LEVEL 4 - 6 - Objective Vital Signs: Vital Signs Temperature 98.7 F 04/29/17 08:00 Pulse Rate 95 H 04/29/17 08:00 Respiratory Rate 18 04/29/17 08:00 Blood Pressure 111/53 04/29/17 08:00 O2 Sat by Pulse Oximetry (%) 96 04/28/17 22:00 Constitutional: Yes: No Distress Cardiovascular: Yes: Regular Rate and Rhythm Respiratory: Yes: Diminished Gastrointestinal: Yes: Normal Bowel Sounds, Soft, Abdomen, Obese. No: Tenderness Extremities: Yes: Cyanosis (left 4th toe) Edema: Yes Labs: CBC, BMP 04/29/17 08:00 04/28/17 08:00 INR, PTT INR 1.19 (0.82-1.09) H 04/28/17 00:00 Problem List - Problems (1) Aortic stenosis Assessment/Plan: Seen by Phone Circuit Operator-- Echo ordered but pt refusing to do it Code(s): I35.0 - NONRHEUMATIC AORTIC (VALVE) STENOSIS Qualifiers: Cardiac valve disease etiology: nonrheumatic Qualified Code(s): I35.0 - Nonrheumatic aortic (valve) stenosis (2) CAD (coronary artery disease) Code(s): I25.10 - ATHSCL HEART DISEASE OF [place] CORONARY ARTERY W/O ANG PCTRS Qualifiers: Coronary Disease-Associated Artery/Lesion type: [place] artery Associated angina: angina presence unspecified (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 Assessment/Plan: uncontrolled check A1C increase insulin 70/30 Code(s): E11.51 - TYPE 2 DIABETES W DIABETIC PERIPHERAL ANGIOPATH W/O GANGRENE; I70.209 - UNSP ATHSCL [place] ARTERIES OF EXTREMITIES, UNSP EXTREMITY (4) Diabetic foot ulcer Assessment/Plan: podiatry evaluation pending Code(s): E11.621 - TYPE 2 DIABETES MELLITUS WITH FOOT ULCER; L97.509 - NON- PRESSURE CHRONIC ULCER OTH PRT UNSP FOOT W UNSP SEVERITY Qualifiers: Diabetic foot ulcer location: unspecified part of foot Diabetes mellitus type: type 2 Laterality: left Non-pressure ulcer stage: unspecified non- pressure ulcer stage Qualified Code(s): E11.621 - Type 2 diabetes mellitus with foot ulcer; L97.529 - Non-pressure chronic ulcer of other part of left foot with unspecified severity; L97.529 - Non-pressure chronic ulcer of other part of left foot with unspecified severity; L97.529 - Non-pressure chronic ulcer of other part of left foot with unspecified severity; L97.529 - Non- pressure chronic ulcer of other part of left foot with unspecified severity (5) Osteomyelitis Assessment/Plan: r/o osteomyelitis-- ID eval noted Pt on antibiotics WBC trending down Code(s): M86.9 - OSTEOMYELITIS, UNSPECIFIED Qualifiers: Osteomyelitis type: unspecified type Osteomyelitis location: foot Laterality: left Qualified Code(s): M86.9 - Osteomyelitis, unspecified (6) Anxiety Code(s): F41.9 - ANXIETY DISORDER, UNSPECIFIED (7) Dizziness Assessment/Plan: refusing CT head, echo ,carotid doppler Agreed for 24 hr holter Code(s): R42 - DIZZINESS AND GIDDINESS
[2017-04-29] MEDS: VANCOMYCIN 1,250 MG in DEXTROSE 5%-WATER - 250 ML IVPB SCH (10:44)
[2017-04-29] MEDS: ALPRAZolam 0.25 MG TABLET PO PRN (10:49)
[2017-04-29] MEDS ORDERED: INSULIN (NOVOLOG) ASPART 100 UNITS/ML 10ML VIAL ONE (21:32)
--- NOTE | 2017-04-29 21:45 | EKG ---
Test Reason : Blood Pressure : / mmHG Vent. Rate : 098 BPM Atrial Rate : 098 BPM P-R Int : 120 ms QRS Dur : 086 ms QT Int : 362 ms P-R-T Axes : 036 -03 082 degrees QTc Int : 462 ms NORMAL SINUS RHYTHM ANTEROSEPTAL INFARCT (CITED ON OR BEFORE 20-OCT-2016) ABNORMAL ECG WHEN COMPARED WITH ECG OF 20-OCT-2016 14:01, ANTEROSEPTAL INFARCT NOW PRESENT Confirmed by CARLOS CARLTON MD ([id number]) on 04/29/2017 9:44:47 PM Referred By: Confirmed By:CARLOS CARLTON MD
[2017-04-30] MEDS: PIPERACILLIN/TAZOB 3.375 GM 3.375 GM in DEXTROSE 5%-WATER - 50 ML IVPB SCH ×3 (01:52→18:38)
[2017-04-30] MEDS: SODIUM CHLORIDE 1,000 ML IV SCH ×2 (01:53→16:01)
[2017-04-30] MEDS: INSULIN SLIDING SCALE (NOVOLOG) 1 VIAL SQ SCH ×4 (06:39→21:18)
[2017-04-30] MEDS: INSULIN (NOVOLOG MIX 70/30) 100 UNITS/ML MDV SQ SCH ×3 (06:39→17:16)
[2017-04-30 08:36] LABS: HEMATOCRIT 35.6 % (32.4-45.2); HEMOGLOBIN 11.9 GM/dL (10.7-15.3); MCH 30.4 pg (25.7-33.7); MCHC 33.5 g/dl (32.0-36.0); MEAN CELL VOLUME 90.8 fl (80-96); MEAN PLT VOLUME 9.2 fl (7.5-11.1); PLATELET COUNT 349 K/MM3 (134-434); RBC 3.92 M/mm3 (3.60-5.2); RDW 12.4 % (11.6-15.6); WHITE BLOOD COUNT 11.7 K/mm3 (4.0-10.0)
--- NOTE | 2017-04-30 08:50 | PN ---
Progress Note, Physician History of Present Illness: patient seen and examined. Chart reviewed Comfortable but mood is depressed Crying spells. reports recently lost her . Doesn't want any imaging studies. - Current Medication List Current Medications: Active Medications Alprazolam (Xanax -) 0.25 mg PO Q6H PRN PRN Reason: ANXIETY Last Admin: 04/29/17 10:49 Dose: 0.25 mg Aspirin (Ecotrin -) 81 mg PO DAILY JOSE Atorvastatin Calcium (Lipitor -) 10 mg PO HS JOSE Heparin Sodium (Porcine) (Heparin -) 5,000 unit SQ BID JOSE Last Admin: 04/29/17 21:41 Dose: 5,000 unit Sodium Chloride (Normal Saline -) 1,000 mls @ 75 mls/hr IV ASDIR JOSE Last Admin: 04/30/17 01:53 Dose: 75 mls/hr Piperacillin Sod/Tazobactam (Sod 3.375 gm/ Dextrose) 50 mls @ 100 mls/hr IVPB Q8H-IV JOSE PRN Reason: Protocol Last Admin: 04/30/17 01:52 Dose: 100 mls/hr Vancomycin HCl 1,250 mg/ (Dextrose) 250 mls @ 250 mls/hr IVPB DAILY JOSE PRN Reason: Protocol Last Admin: 04/29/17 10:44 Dose: 250 mls/hr Insulin Aspart (Novolog Vial Sliding Scale -) 1 vial SQ HS JOSE PRN Reason: Protocol Last Admin: 04/29/17 21:41 Dose: 2 units Insulin Aspart (Novolog Vial Sliding Scale -) 1 vial SQ TIDAC JOSE PRN Reason: Protocol Last Admin: 04/30/17 06:39 Dose: 4 units Insulin Aspart (Novolog Mix 70/30 Vial) 20 units SQ BIDI [facility] Losartan Potassium (Cozaar -) 50 mg PO DAILY [facility] Oxycodone HCl (Roxicodone -) 5 mg PO Q8H PRN PRN Reason: PAIN LEVEL 4 - 6 - Objective Vital Signs: Vital Signs Temperature 98.4 F 04/30/17 05:28 Pulse Rate 100 H 04/30/17 05:28 Respiratory Rate 20 04/30/17 05:28 Blood Pressure 150/93 04/30/17 05:28 O2 Sat by Pulse Oximetry (%) 97 04/29/17 22:00 Constitutional: Yes: No Distress, Anxious Eyes: Yes: Conjunctiva Clear Neck: Yes: Supple Cardiovascular: Yes: Regular Rate and Rhythm, Other (grade 4 systolic murmur present at the aortic area) Respiratory: Yes: CTA Bilaterally Gastrointestinal: Yes: Soft Extremities: Yes: Other (left foot redness---left fourth toe--necrotic. pulses felt--- dorsalis pedis) Neurological: Yes: Alert Psychiatric: Yes: Other (depressed) Labs: INR, PTT INR 1.19 (0.82-1.09) H 04/28/17 00:00 Problem List - Problems (1) Aortic stenosis Code(s): I35.0 - NONRHEUMATIC AORTIC (VALVE) STENOSIS Qualifiers: Cardiac valve disease etiology: nonrheumatic Qualified Code(s): I35.0 - Nonrheumatic aortic (valve) stenosis (2) CAD (coronary artery disease) Code(s): I25.10 - ATHSCL HEART DISEASE OF [place] CORONARY ARTERY W/O ANG PCTRS Qualifiers: Coronary Disease-Associated Artery/Lesion type: [place] artery Associated angina: angina presence unspecified (3) Diabetic foot ulcer Code(s): E11.621 - TYPE 2 DIABETES MELLITUS WITH FOOT ULCER; L97.509 - NON- PRESSURE CHRONIC ULCER OTH PRT UNSP FOOT W UNSP SEVERITY Qualifiers: Diabetic foot ulcer location: unspecified part of foot Diabetes mellitus type: type 2 Laterality: left Non-pressure ulcer stage: unspecified non- pressure ulcer stage Qualified Code(s): E11.621 - Type 2 diabetes mellitus with foot ulcer; L97.529 - Non-pressure chronic ulcer of other part of left foot with unspecified severity; L97.529 - Non-pressure chronic ulcer of other part of left foot with unspecified severity; L97.529 - Non-pressure chronic ulcer of other part of left foot with unspecified severity; L97.529 - Non- pressure chronic ulcer of other part of left foot with unspecified severity (4) Anxiety Code(s): F41.9 - ANXIETY DISORDER, UNSPECIFIED Assessment/Plan discussed with patient in detail Meds reviewed Add asa/ losartan and statin. Blood sugar also elevated increase insulin and monitor monitor lytes psychologist consult---Will request. patient would not want SSRI Podiatry consult pending Antibiotics Will follow. Discussed with nursing staff also
[2017-04-30 09:01] LABS: CHLORIDE 104 mmol/L (98-107); POTASSIUM 3.5 mmol/L (3.5-5.1); SODIUM 138 mmol/L (136-145)
[2017-04-30 09:11] LABS: ANION GAP 9 (8-16); BLOOD UREA NITROGEN 16 mg/dL (7-18); CALCIUM 8.4 mg/dL (8.5-10.1); CHOLESTEROL 119 mg/dL (50-200); CO2 25 mmol/L (21-32); CREATININE 1.1 mg/dL (0.55-1.02); GLUCOSE,RANDOM 241 mg/dL (74-106); HDL CHOLESTEROL 33 mg/dL (40-60); LDL CHOLESTEROL (ONLY SJRH) 66 mg/dL (5-100); TRIGLYCERIDES 111 mg/dL (35-160)
[2017-04-30] MEDS ORDERED: PT OWN MED DRAWER 7, Y5N ONE (09:11)
--- NOTE | 2017-04-30 09:59 | PN ---
Progress Note (short form) - Note Progress Note: awaiting podiatry evaluatin no fevers Vital Signs Period Temp Pulse Resp BP Sys/Simpson Pulse Ox Last 24 Hr 97.7 F-99.0 F 91-100 19-22 127-150/74-93 97 cor-rrr llungs clear abd soft,nt ext +erythema of the left foot with necrotic fourth toe +ulcer lateral to foot, deep ulcer between the fourth and fifth toe CBC, BMP 04/30/17 07:53 04/30/17 07:53 Microbiology 04/28/17 00:00 Blood - Peripheral Venous Blood Culture - Preliminary NO GROWTH OBTAINED AFTER 48 HOURS, INCUBATION TO CONTINUE FOR 3 DAYS. 04/28/17 00:00 Blood - Peripheral Venous Blood Culture - Preliminary NO GROWTH OBTAINED AFTER 48 HOURS, INCUBATION TO CONTINUE FOR 3 DAYS. 04/27/17 23:29 Foot - Left Gram Stain - Final 04/27/17 23:29 Foot - Left Wound Culture - Preliminary Presumptive Mssa (Pbp2a Neg) a/p soft tissue infection of the left foot r/o osteomyelitis toe appears necrotic podiatry for debridement vanco/zosyn esr/crp Problem List - Problems (1) Diabetic foot ulcer Code(s): E11.621 - TYPE 2 DIABETES MELLITUS WITH FOOT ULCER; L97.509 - NON- PRESSURE CHRONIC ULCER OTH PRT UNSP FOOT W UNSP SEVERITY Qualifiers: Diabetic foot ulcer location: unspecified part of foot Diabetes mellitus type: type 2 Laterality: left Non-pressure ulcer stage: unspecified non- pressure ulcer stage Qualified Code(s): E11.621 - Type 2 diabetes mellitus with foot ulcer; L97.529 - Non-pressure chronic ulcer of other part of left foot with unspecified severity; L97.529 - Non-pressure chronic ulcer of other part of left foot with unspecified severity; L97.529 - Non-pressure chronic ulcer of other part of left foot with unspecified severity; L97.529 - Non- pressure chronic ulcer of other part of left foot with unspecified severity (2) Osteomyelitis Code(s): M86.9 - OSTEOMYELITIS, UNSPECIFIED Qualifiers: Osteomyelitis type: unspecified type Osteomyelitis location: foot Laterality: left Qualified Code(s): M86.9 - Osteomyelitis, unspecified
[2017-04-30] MEDS ORDERED: ESCITALOPRAM OXALATE 10 MG TABLET (FP) PO SCH (10:00)
[2017-04-30] MEDS: HEPARIN NA (PORCINE) 5,000 UNITS/ML 1ML VIAL SQ SCH ×2 (10:07→21:09)
[2017-04-30] MEDS: ASPIRIN COATED 81 MG TABLET.EC PO SCH (10:08)
[2017-04-30] MEDS: LOSARTAN POTASSIUM 50 MG TABLET (FP) PO SCH (10:08)
[2017-04-30] MEDS: ALPRAZolam 0.25 MG TABLET PO PRN (10:13)
[2017-04-30] MEDS ORDERED: INSULIN (NOVOLOG) ASPART 100 UNITS/ML 10ML VIAL ONE ×2 (10:31→21:16)
[2017-04-30] MEDS: VANCOMYCIN 1,250 MG in DEXTROSE 5%-WATER - 250 ML IVPB SCH (11:20)
[2017-04-30] MEDS ORDERED: ACETAMINOPHEN 325 MG TABLET (FP) PO ONE (17:58)
--- NOTE | 2017-04-30 19:43 | CON.PSL ---
Psychology Consult Consult Specialty:: Clinical Psychology and Neuropsychology History Provided By: Patient Limitations to Obtaining History: No Limitations Current Medications: Active Medications Aspirin (Ecotrin -) 81 mg PO DAILY [facility] Last Admin: 04/30/17 10:08 Dose: 81 mg Atorvastatin Calcium (Lipitor -) 10 mg PO HS JOSE Heparin Sodium (Porcine) (Heparin -) 5,000 unit SQ BID JOSE Last Admin: 04/30/17 10:07 Dose: 5,000 unit Sodium Chloride (Normal Saline -) 1,000 mls @ 75 mls/hr IV ASDIR [facility] Last Admin: 04/30/17 16:01 Dose: 75 mls/hr Piperacillin Sod/Tazobactam (Sod 3.375 gm/ Dextrose) 50 mls @ 100 mls/hr IVPB Q8H-IV JOSE PRN Reason: Protocol Last Admin: 04/30/17 18:38 Dose: 100 mls/hr Vancomycin HCl 1,250 mg/ (Dextrose) 250 mls @ 250 mls/hr IVPB DAILY JOSE PRN Reason: Protocol Last Admin: 04/30/17 11:20 Dose: 250 mls/hr Insulin Aspart (Novolog Vial Sliding Scale -) 1 vial SQ HS JOSE PRN Reason: Protocol Last Admin: 04/29/17 21:41 Dose: 2 units Insulin Aspart (Novolog Vial Sliding Scale -) 1 vial SQ TIDAC JOSE PRN Reason: Protocol Last Admin: 04/30/17 17:07 Dose: 2 units Insulin Aspart (Novolog Mix 70/30 Vial) 20 units SQ BIDI [facility] Last Admin: 04/30/17 17:16 Dose: 20 units Losartan Potassium (Cozaar -) 50 mg PO DAILY [facility] Last Admin: 04/30/17 10:08 Dose: 50 mg Oxycodone HCl (Roxicodone -) 5 mg PO Q8H PRN PRN Reason: PAIN LEVEL 4 - 6 Allergies: Allergies Allergy/AdvReac Type Severity Reaction Status Date / Time Fish Containing Products Allergy Intermediate Verified 04/29/17 17:51 fish derived Allergy Intermediate Verified 04/29/17 17:51 Does patient have pain?: Yes Pain Location Body Site: Foot (Both feet) Pain Description: Non-Descriptive Pain Intensity: 5 Hx Alcohol Use: No Hx Substance Use: No Substance Use Type: None Hx Substance Use Treatment: No Current Medical Exam-Psy Attention: Alert Orientation: Time, Person, Place Immediate Term Memory: 04/07 Expressive: Coherent Receptive: Age Appropriate Comprehension of Spoken Words Hallucinations: Absent Thought Process: Intact Depression: None (Patient denies depression.) Hopelessness: No Loss of Interest: No Anxiety Level: Moderate (The patient lost her and is lonely now. She becomes anxious about her well being as she lives alone.) Sleep: Poorly (It is difficult for her to sleep in the hospital but at home does not present as a problem.) Appetite: Good Repeats 3 words told earlier: 2/3 (Concentration was adequate as demonstrated by our conversation.) Support System: Significant Other (She has a brother who visits at times. A friend also visits.) Problem List - Problem (1) Anxiety about health Code(s): F41.8 - OTHER SPECIFIED ANXIETY DISORDERS Assessment/Plan The patient was very engaging. She is dealing with a recent loss of her and lack of a close support network. She experiences moderate levels of pain in both lower extremities (levels 4-5). 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 Although her affect upon initial evaluation was depressed, she smiled often throughout the interview as we were able to discuss her past experiences as in addition to focusing on her current illness. The patient admitted to a moderate level of anxiety and we discussed approaches to reduce it. We discussed the value of diaphragmatic breathing exercises for anxiety and pain. She also would benefit from supportive counseling. Visits by pastoral care might benefit her as well. The patient was receptive to treatment which will be initiated tomorrow. Thank you for your kind referral.
[2017-04-30] MEDS: ATORVASTATIN CA 10 MG TABLET (FP) PO SCH (21:15)
[2017-05-01] MEDS ORDERED: PT OWN MED DRAWER 7, Y5N ONE (01:26)
[2017-05-01] MEDS: PIPERACILLIN/TAZOB 3.375 GM 3.375 GM in DEXTROSE 5%-WATER - 50 ML IVPB SCH ×2 (01:40→11:41)
[2017-05-01] MEDS: INSULIN SLIDING SCALE (NOVOLOG) 1 VIAL SQ SCH ×4 (06:52→21:29)
[2017-05-01] MEDS: INSULIN (NOVOLOG MIX 70/30) 100 UNITS/ML MDV SQ SCH ×2 (06:53→17:19)
[2017-05-01] MEDS: ACETAMINOPHEN 325 MG TABLET (FP) PO PRN ×3 (06:53→23:33)
[2017-05-01] MEDS: SODIUM CHLORIDE 1,000 ML IV SCH ×3 (06:55→23:34)
[2017-05-01 07:49] LABS: EOS % 5.3 % (0-4.5); HEMOGLOBIN 11.3 GM/dL (10.7-15.3); LYMPH % 12.6 % (8-40); MCH 30.4 pg (25.7-33.7); MCHC 33.3 g/dl (32.0-36.0); MEAN CELL VOLUME 91.3 fl (80-96); MEAN PLT VOLUME 8.8 fl (7.5-11.1); MONO % 7.8 % (3.8-10.2); NEUT % 73.3 % (42.8-82.8); PLATELET COUNT 362 K/MM3 (134-434); RBC 3.72 M/mm3 (3.60-5.2); RDW 12.5 % (11.6-15.6); WHITE BLOOD COUNT 10.3 K/mm3 (4.0-10.0)
[2017-05-01 08:11] LABS: ANION GAP 4 (8-16); BILIRUBIN,TOTAL 0.2 mg/dL (0.2-1.0); BLOOD UREA NITROGEN 13 mg/dL (7-18); CALCIUM 8.2 mg/dL (8.5-10.1); CHLORIDE 105 mmol/L (98-107); CO2 30 mmol/L (21-32); CREATININE 1.1 mg/dL (0.55-1.02); GLUCOSE,RANDOM 232 mg/dL (74-106); POTASSIUM 4.3 mmol/L (3.5-5.1); SGOT/AST 5 U/L (15-37); SGPT/ALT 8 U/L (12-78); SODIUM 139 mmol/L (136-145); TOT PROT 6.1 g/dl (6.4-8.2)
[2017-05-01 08:12] LABS: ALK PHOS 89 U/L (45-117)
[2017-05-01] MEDS: ASPIRIN COATED 81 MG TABLET.EC PO SCH (09:19)
[2017-05-01] MEDS: LOSARTAN POTASSIUM 50 MG TABLET (FP) PO SCH (09:20)
[2017-05-01] MEDS: HEPARIN NA (PORCINE) 5,000 UNITS/ML 1ML VIAL SQ SCH ×2 (09:20→21:27)
--- NOTE | 2017-05-01 09:32 | HOL ---
Hook-up date: 2017-04-28 13:30:00 Duration: 23:39:00 Test Indications: DIZZINESS Medications: 600981 QRS complexes 70 Ventricular ectopics which represent <1 % of total QRS comp. 525 Supraventricular ectopics which represent <1 % of total QRS comp. * Paced QRS complexs which represent % of total QRS comp. * % of Time Classified as Noise VENTRICULAR ECTOPY 70 Isolated 0 Bigeminal Cycles 0 Couplets 0 Runs 0 Beats in Runs * Beats LONGEST at * BPM at :: -- * Beats FASTEST at * BPM at :: -- SUPRAVENTRICULAR ECTOPY 523 Isolated 1 Couplets 0 Runs 0 Beats in Runs * Beats LONGEST at * BPM at :: -- * Beats FASTEST at * BPM at :: -- HEART RATES 73 MIN at 07:23:18 2017-04-29 98 AVG 126 MAX at 18:20:37 2017-04-28 LONGEST RR 1.328 secs at 07:24:05 2017-04-29 1. BASELINE RHYTHM IS SINUS RHYTHM WITH AVERAGE HEART RATE OF 98 BPM. RATES VARIED FROM 73 TO 126 BPM 2. OCCASIONAL VENTRICULAR ECTOPIES INCLUDING PREMATURE VENTRICULAR COMPLEXES 3. OCCASIONAL ATRIAL ECTOPIES WITH 523 PREMATURE ATRIAL COMPLEXES AND [address] NO SIGNIFIC[address]-T ABNORMALITIES 5. DIARY WAS NOT SUBMITTED SCANNED BY: GIOVANNI 04/29/17 Confirmed by ANGELA ALLEN, MEENA ([id number]) on 05/01/2017 9:31:43 AM Referred By: Jean Carlos KAY Overread By: MEENA MILLER MD
[2017-05-01] MEDS: ALPRAZolam 0.25 MG TABLET PO PRN ×2 (09:53→21:32)
--- NOTE | 2017-05-01 10:07 | PN ---
Progress Note (short form) - Note Progress Note: Cardiology Came to see patient in follow of Holter and ECG. Patient seen, no distress, vitals stable. No CV complaints Holter reviewed, no sig arrhythmia. Explained that there has been an interval change in her ECG indicating a silent KS since her last admission. Again recommended an echo and a stress test to assess the LV function and burden of ischemia. Again she refused all testing, well aware of the reasons for the recommendation. She understands the risks of undiagnosed CAD including recurrent KS, CHF and sudden cardiac . "Whatever is in store for me, I will accept." PLAN: Continue medical management of likely underlying CAD with ASA as tolerated and statin. For her mild , yearly echo unless clinical change. I will sign off the case today. Please call again as/if needed. Thank you. Problem List - Problems (1) CAD (coronary artery disease) Code(s): I25.10 - ATHSCL HEART DISEASE OF [place] CORONARY ARTERY W/O ANG PCTRS Qualifiers: Coronary Disease-Associated Artery/Lesion type: [place] artery Associated angina: angina presence unspecified (2) Abnormal ECG Code(s): R94.31 - ABNORMAL ELECTROCARDIOGRAM [ECG] [EKG] (3) Aortic stenosis Code(s): I35.0 - NONRHEUMATIC AORTIC (VALVE) STENOSIS Qualifiers: Cardiac valve disease etiology: nonrheumatic Qualified Code(s): I35.0 - Nonrheumatic aortic (valve) stenosis (4) Diabetes type 2 with atherosclerosis of arteries of extremities Code(s): E11.51 - TYPE 2 DIABETES W DIABETIC PERIPHERAL ANGIOPATH W/O GANGRENE; I70.209 - UNSP ATHSCL [place] ARTERIES OF EXTREMITIES, UNSP EXTREMITY (5) Osteomyelitis Code(s): M86.9 - OSTEOMYELITIS, UNSPECIFIED Qualifiers: Osteomyelitis type: unspecified type Osteomyelitis location: foot Laterality: left Qualified Code(s): M86.9 - Osteomyelitis, unspecified (6) Diabetic foot ulcer Code(s): E11.621 - TYPE 2 DIABETES MELLITUS WITH FOOT ULCER; L97.509 - NON- PRESSURE CHRONIC ULCER OTH PRT UNSP FOOT W UNSP SEVERITY Qualifiers: Diabetic foot ulcer location: unspecified part of foot Diabetes mellitus type: type 2 Laterality: left Non-pressure ulcer stage: unspecified non- pressure ulcer stage Qualified Code(s): E11.621 - Type 2 diabetes mellitus with foot ulcer; L97.529 - Non-pressure chronic ulcer of other part of left foot with unspecified severity; L97.529 - Non-pressure chronic ulcer of other part of left foot with unspecified severity; L97.529 - Non-pressure chronic ulcer of other part of left foot with unspecified severity; L97.529 - Non- pressure chronic ulcer of other part of left foot with unspecified severity
--- NOTE | 2017-05-01 11:03 | PN ---
Progress Note (short form) - Note Progress Note: The patient was seen for supportive therapy. She benefitted from venting her feelings and sharing her concerns. Her anxiety appeared to be less severe. During the session a joe student nurse took the patient's blood pressure which was rather low. It was fortuitous that the BP was taken before Diaphragmatic Breathing was instituted as that treatment may have lowered her BP even further. [facility] was informed about this patient and she will be seen as well by that department. The patient was receptive to the psychotherapeutic intervention. She will be followed while she is an inpatient here. Problem List - Problems (1) Anxiety about health Code(s): F41.8 - OTHER SPECIFIED ANXIETY DISORDERS
--- NOTE | 2017-05-01 11:22 | PN ---
Progress Note, Physician Chief Complaint: depressed Padder Cushion has not evaluated pt yet Dr Mensah on vacation and the coin wrapping machine operator covering called yesterday-- will be seeing her today Recommended sono of extremities-- pt is refusing - Current Medication List Current Medications: Active Medications Acetaminophen (Tylenol -) 650 mg PO Q6H PRN PRN Reason: PAIN LEVEL 4 - 6 Last Admin: 05/01/17 06:53 Dose: 650 mg Alprazolam (Xanax -) 0.25 mg PO Q6H PRN PRN Reason: ANXIETY Last Admin: 05/01/17 09:53 Dose: 0.25 mg Aspirin (Ecotrin -) 81 mg PO DAILY [facility] Last Admin: 05/01/17 09:19 Dose: 81 mg Atorvastatin Calcium (Lipitor -) 10 mg PO HS JOSE Last Admin: 04/30/17 21:15 Dose: Not Given Heparin Sodium (Porcine) (Heparin -) 5,000 unit SQ BID JOSE Last Admin: 05/01/17 09:20 Dose: 5,000 unit Sodium Chloride (Normal Saline -) 1,000 mls @ 75 mls/hr IV ASDIR [facility] Last Admin: 05/01/17 09:20 Dose: Not Given Piperacillin Sod/Tazobactam (Sod 3.375 gm/ Dextrose) 50 mls @ 100 mls/hr IVPB Q8H-IV JOSE PRN Reason: Protocol Last Admin: 05/01/17 01:40 Dose: 100 mls/hr Vancomycin HCl 1,250 mg/ (Dextrose) 250 mls @ 250 mls/hr IVPB DAILY JOSE PRN Reason: Protocol Last Admin: 04/30/17 11:20 Dose: 250 mls/hr Insulin Aspart (Novolog Vial Sliding Scale -) 1 vial SQ HS JOSE PRN Reason: Protocol Last Admin: 04/30/17 21:18 Dose: 2 units Insulin Aspart (Novolog Vial Sliding Scale -) 1 vial SQ TIDAC JOSE PRN Reason: Protocol Last Admin: 05/01/17 06:52 Dose: 3 units Insulin Aspart (Novolog Mix 70/30 Vial) 20 units SQ BIDI JO[facility] Last Admin: 05/01/17 06:53 Dose: 20 units Losartan Potassium (Cozaar -) 50 mg PO DAILY [facility] Last Admin: 05/01/17 09:20 Dose: 50 mg Oxycodone HCl (Roxicodone -) 5 mg PO Q8H PRN PRN Reason: PAIN LEVEL 4 - 6 - Objective Vital Signs: Vital Signs Temperature 98.1 F 05/01/17 08:00 Pulse Rate 99 H 05/01/17 08:00 Respiratory Rate 20 05/01/17 08:00 Blood Pressure 126/72 05/01/17 08:00 O2 Sat by Pulse Oximetry (%) 98 05/01/17 08:00 Constitutional: Yes: No Distress Cardiovascular: Yes: Regular Rate and Rhythm Respiratory: Yes: CTA Bilaterally Gastrointestinal: Yes: Normal Bowel Sounds, Soft, Abdomen, Obese. No: Tenderness Extremities: Yes: Cyanosis (left 4 th toe) Edema: Yes Labs: CBC, BMP 05/01/17 06:55 05/01/17 06:55 INR, PTT INR 1.19 (0.82-1.09) H 04/28/17 00:00 Problem List - Problems (1) Aortic stenosis Assessment/Plan: Seen by Corporate Responsibility Officer-- Echo ordered but pt refusing to do it Code(s): I35.0 - NONRHEUMATIC AORTIC (VALVE) STENOSIS Qualifiers: Cardiac valve disease etiology: nonrheumatic Qualified Code(s): I35.0 - Nonrheumatic aortic (valve) stenosis (2) CAD (coronary artery disease) Assessment/Plan: Cardiology follow up noted-- signed of on the case as she is refusing all cardiac work up- apparently has ischemic changes o EKG but pt refusing stress test I informed pt that in case she needs to go for surgery, she needs to complete her cardiac work up first, or I will not be able to medically clear the pt for any surgical procedures-- Pt understands-- she wants to speak with Padder Cushion first Code(s): I25.10 - ATHSCL HEART DISEASE OF [place] CORONARY ARTERY W/O ANG PCTRS Qualifiers: Coronary Disease-Associated Artery/Lesion type: [place] artery Associated angina: angina presence unspecified (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 Assessment/Plan: uncontrolled A1C 7.9 increase insulin 70/30 Code(s): E11.51 - TYPE 2 DIABETES W DIABETIC PERIPHERAL ANGIOPATH W/O GANGRENE; I70.209 - UNSP ATHSCL [place] ARTERIES OF EXTREMITIES, UNSP EXTREMITY (4) Diabetic foot ulcer Assessment/Plan: podiatry evaluation pending on iv antibiotics Sono ordered -- pt refusing Code(s): E11.621 - TYPE 2 DIABETES MELLITUS WITH FOOT ULCER; L97.509 - NON- PRESSURE CHRONIC ULCER OTH PRT UNSP FOOT W UNSP SEVERITY Qualifiers: Diabetic foot ulcer location: unspecified part of foot Diabetes mellitus type: type 2 Laterality: left Non-pressure ulcer stage: unspecified non- pressure ulcer stage Qualified Code(s): E11.621 - Type 2 diabetes mellitus with foot ulcer; L97.529 - Non-pressure chronic ulcer of other part of left foot with unspecified severity; L97.529 - Non-pressure chronic ulcer of other part of left foot with unspecified severity; L97.529 - Non-pressure chronic ulcer of other part of left foot with unspecified severity; L97.529 - Non- pressure chronic ulcer of other part of left foot with unspecified severity (5) Osteomyelitis Code(s): M86.9 - OSTEOMYELITIS, UNSPECIFIED Qualifiers: Osteomyelitis type: unspecified type Osteomyelitis location: foot Laterality: left Qualified Code(s): M86.9 - Osteomyelitis, unspecified (6) Anxiety Code(s): F41.9 - ANXIETY DISORDER, UNSPECIFIED (7) Dizziness Code(s): R42 - DIZZINESS AND GIDDINESS
[2017-05-01] MEDS: VANCOMYCIN 1,250 MG in DEXTROSE 5%-WATER - 250 ML IVPB SCH (11:41)
[2017-05-01] MEDS ORDERED: INSULIN (NOVOLOG) ASPART 100 UNITS/ML 10ML VIAL ONE ×2 (11:50→16:04)
--- NOTE | 2017-05-01 13:18 | CONSULT ---
Consult Consult Specialty:: Podiatry Reason for Consultation:: gangrene toe. - History of Present Illness History of Present Illness: Patient reports she thinks trauma to left foot about 10 days ago, does not recall ulceration lateral foot. She feels fine. denies f/c/n/v When asked about refusal of testing, she first denied and then states, "I don't need that" - History Source History Provided By: Patient Limitations to Obtaining History: Uncooperative - Past Medical History Cardio/Vascular: Yes: HTN Gastrointestinal: No: Ascites, Cancer, Constipation, Crohn's Disease, Diverticulitis, Diverticulosis, Esophageal Varices, Gastritis, GERD, GI Bleed, Hemorrhoids, Hiatal Hernia, Inflamatory Bowel Disease, Irritable Bowel Disease, Pancreatitis, Peptic Ulcer Disease, Ulcerative Colitis, Other Hepatobiliary: No: Cirrhosis, Cholelithiasis, Cholecystitis, Choledocholithiasis , Hepatitis A, Hepatitis B, Hepatitis C, Other Renal/: No: Renal Failure, Renal Inusuff, BPH, Cancer, Hematuria, Hemodialysis , Neurogenic Bladder, Renal Calculi, UTI, Other Psych: Yes: Anxiety, Depression Endocrine: Yes: Diabetes Mellitus - Alcohol/Substance Use Hx Alcohol Use: No - Smoking History Smoking history: Never smoked Have you smoked in the past 12 months: No Aproximately how many cigarettes per day: 2 If you are a former smoker, when did you quit?: 1979 - Social History Usual Living Arrangement: Other () ADL: Independent Home Medications - Allergies Allergies/Adverse Reactions: Allergies Allergy/AdvReac Type Severity Reaction Status Date / Time Fish Containing Products Allergy Intermediate Verified 04/29/17 17:51 fish derived Allergy Intermediate Verified 04/29/17 17:51 - Home Medications Home Medications: Ambulatory Orders Insulin Lispro Protamin/Lispro [Humalog Mix 75-25 Vial] 0 unit SQ BIDAC PRN 09/21 Acetaminophen [Tylenol .Regular Strength -] 650 mg PO Q6H PRN #0 tablet Alprazolam [Xanax] 0.25 mg PO Q8H PRN #30 tablet MDD 3 09/14/16 Aspirin [ASA -] 81 mg PO DAILY #30 tab.chew 09/14/16 Mag Hydrox/Al Hydrox/Simeth [Mylanta Oral Suspension -] 30 ml PO Q8H PRN #1 bottle 09/14/16 Alprazolam [Xanax] 0.25 mg PO Q8H #10 tablet MDD 1mg 10/20/16 Family Disease History - Family Disease History Family Disease History: Diabetes: Mother, Brother, Heart Disease: Brother Review of Systems - Review of Systems Integumentary: reports: Change in Color Physical Exam Vital Signs: Vital Signs Temperature 98.1 F 05/01/17 08:00 Pulse Rate 99 H 05/01/17 08:00 Respiratory Rate 20 05/01/17 08:00 Blood Pressure 126/72 05/01/17 08:00 O2 Sat by Pulse Oximetry (%) 98 05/01/17 08:00 Constitutional: Yes: Well Nourished, No Distress, Calm Eyes: Yes: WNL, Conjunctiva Clear, EOM Intact HENT: Yes: WNL, Atraumatic, Normocephalic Neck: Yes: WNL, Supple, Trachea Midline Cardiovascular: Yes: WNL, Regular Rate and Rhythm Respiratory: Yes: WNL, Regular, CTA Bilaterally Gastrointestinal: Yes: WNL, Normal Bowel Sounds ...Rectal Exam: Yes: WNL Renal/: Yes: WNL Breast(s): Yes: WNL Musculoskeletal: Yes: WNL Extremities: Yes: WNL, Erythema Integumentary: Yes: WNL, Other (erythema/edema to midfoot, gangrene wet to 4th toe, with purulence from the 4th interspace appears to communicate with necrotic ulceration to the lateral fifth MTPJ.) Neurological: Yes: WNL, Alert, Oriented, Loss of Sensation ...Motor Strength: WNL Psychiatric: Yes: WNL, Other (patient is refusing testing after explanation that she requires surgery for left foot, serious infection. She requires clearance due to possibility of recent NC. She states she will consider.) Labs: CBC, BMP 05/01/17 06:55 05/01/17 06:55 Imaging - Results X-ray: Report Reviewed (gas is noted in subcutaneous tissues surrounding fifth MTPJ and fourth toe), Image Reviewed Assessment/Plan gangrene, cellulits left foot possible NC DM I discussed with nursing patient continuous refusal of treatment. gas gangrene requires surgical debridement with amputation of 4,5 partial ray left foot. she is refusing. I explained the seriousness of the infection and that it can progress, cause organ failure and . Patient states she will think for a while about the testing and surgery. She requires clearance cardiology prior to surgery. Please reconsult podiatry if patient wants to have treatment. Physical Exam - Physical Exam Peripheral Pulses: Dorsalis-Pedis (R): 0, Doralis-Pedis (L): 0 Neurologic: positive: Sensory Deficit Integumentary: positive: Other (left foot gangrene cellulits with purulence expressed from fifth MTPJ ulcer and 4th interspace, malodor)
--- NOTE | 2017-05-01 14:20 | PN ---
Progress Note (short form) - Note Progress Note: explained that antibiotics alone would not cure her leg and that she needs debridement now states "what choice do I have?" agreeable to cardiology eval and surgery! Vital Signs Period Temp Pulse Resp BP Sys/Simpson Pulse Ox Last 24 Hr 97.7 F-98.2 F 80-99 20-20 118-133/66-76 98-98 cor-rrr lungs clear abd soft,nt ext left foot with gangrene of fourth toe and necrotic ulcers CBC, BMP 05/01/17 06:55 05/01/17 06:55 Microbiology 04/27/17 23:29 Foot - Left Gram Stain - Final 04/27/17 23:29 Foot - Left Wound Culture - Final Staphylococcus Aureus Streptococcus Viridans 04/28/17 00:00 Blood - Peripheral Venous Blood Culture - Preliminary NO GROWTH OBTAINED AFTER 72 HOURS, INCUBATION TO CONTINUE FOR 2 DAYS. 04/28/17 00:00 Blood - Peripheral Venous Blood Culture - Preliminary NO GROWTH OBTAINED AFTER 72 HOURS, INCUBATION TO CONTINUE FOR 2 DAYS. Laboratory Tests 04/29/17 04/29/17 06:45 06:45 ESR 82 H C-Reactive Protein 16.1 H a/p soft tissue infection of the left foot r/o osteomyelitis/ toe appears necrotic she is agreeable to cardiology eval and podiatric surgery will inform PMD clindamycin/rocephin half an hour spent answering patients questions Problem List - Problems (1) Diabetic foot ulcer Code(s): E11.621 - TYPE 2 DIABETES MELLITUS WITH FOOT ULCER; L97.509 - NON- PRESSURE CHRONIC ULCER OTH PRT UNSP FOOT W UNSP SEVERITY Qualifiers: Diabetic foot ulcer location: unspecified part of foot Diabetes mellitus type: type 2 Laterality: left Non-pressure ulcer stage: unspecified non- pressure ulcer stage Qualified Code(s): E11.621 - Type 2 diabetes mellitus with foot ulcer; L97.529 - Non-pressure chronic ulcer of other part of left foot with unspecified severity; L97.529 - Non-pressure chronic ulcer of other part of left foot with unspecified severity; L97.529 - Non-pressure chronic ulcer of other part of left foot with unspecified severity; L97.529 - Non- pressure chronic ulcer of other part of left foot with unspecified severity (2) Osteomyelitis Code(s): M86.9 - OSTEOMYELITIS, UNSPECIFIED Qualifiers: Osteomyelitis type: unspecified type Osteomyelitis location: foot Laterality: left Qualified Code(s): M86.9 - Osteomyelitis, unspecified
[2017-05-01] MEDS: CEFTRIAXONE IN IS-OSM DEXTROSE 2 GM/50 ML BAG IVPB SCH (14:49)
[2017-05-01] MEDS: CLINDAMYCIN 600MG PREMIX IVPB 600 MG/50 ML BAG IVPB SCH (18:05)
[2017-05-01] MEDS ORDERED: MAGNESIUM HYDROX 2400MG/30ML ORAL SUSPENSION 30 ML CUP PO ONE (19:11)
[2017-05-01] MEDS: ATORVASTATIN CA 10 MG TABLET (FP) PO SCH (21:29)
[2017-05-02] MEDS: CLINDAMYCIN 600MG PREMIX IVPB 600 MG/50 ML BAG IVPB SCH ×3 (01:53→17:52)
[2017-05-02] MEDS: SODIUM CHLORIDE 1,000 ML IV SCH (04:45)
[2017-05-02] MEDS: INSULIN (NOVOLOG MIX 70/30) 100 UNITS/ML MDV SQ SCH ×2 (06:45→16:38)
[2017-05-02] MEDS: INSULIN SLIDING SCALE (NOVOLOG) 1 VIAL SQ SCH ×3 (06:46→16:37)
[2017-05-02] MEDS ORDERED: INSULIN (NOVOLOG MIX 70/30) 100 UNITS/ML MDV SQ ONE ×2 (06:58→16:43)
[2017-05-02] MEDS: ACETAMINOPHEN 325 MG TABLET (FP) PO PRN ×2 (08:11→16:37)
--- NOTE | 2017-05-02 08:41 | PN ---
Progress Note (short form) - Note Progress Note: explained that antibiotics alone would not cure her leg and that she needs debridement had echo this am- refusing rest of cardiac workup refusing insulin intermittently refusing wound care for her foot- Vital Signs Period Temp Pulse Resp BP Sys/Simpson Pulse Ox Last 24 Hr 97.9 F-98.4 F 91-110 18-20 109-130/60-66 98 cor-rrr lungs clear foot with necrotic fourth toe with purulence between toes 4 and 5 no crepitus she permitted me to clean the wound superficially CBC, BMP 05/01/17 06:55 05/01/17 06:55 Laboratory Tests 04/29/17 04/29/17 06:45 06:45 ESR 82 H C-Reactive Protein 16.1 H Microbiology 04/28/17 00:00 Blood - Peripheral Venous Blood Culture - Preliminary NO GROWTH OBTAINED AFTER 96 HOURS, INCUBATION TO CONTINUE FOR 1 DAYS. 04/28/17 00:00 Blood - Peripheral Venous Blood Culture - Preliminary NO GROWTH OBTAINED AFTER 96 HOURS, INCUBATION TO CONTINUE FOR 1 DAYS. 04/27/17 23:29 Foot - Left Gram Stain - Final 04/27/17 23:29 Foot - Left Wound Culture - Final Staphylococcus Aureus Streptococcus Viridans a/p soft tissue infection of the left foot/gangrene clindamycin/rocephin to continue needs cardiology and podiatry f/u if patient permits has been refusing most of her care d/w PMD Problem List - Problems (1) Diabetic foot ulcer Code(s): E11.621 - TYPE 2 DIABETES MELLITUS WITH FOOT ULCER; L97.509 - NON- PRESSURE CHRONIC ULCER OTH PRT UNSP FOOT W UNSP SEVERITY Qualifiers: Diabetic foot ulcer location: unspecified part of foot Diabetes mellitus type: type 2 Laterality: left Non-pressure ulcer stage: unspecified non- pressure ulcer stage Qualified Code(s): E11.621 - Type 2 diabetes mellitus with foot ulcer; L97.529 - Non-pressure chronic ulcer of other part of left foot with unspecified severity; L97.529 - Non-pressure chronic ulcer of other part of left foot with unspecified severity; L97.529 - Non-pressure chronic ulcer of other part of left foot with unspecified severity; L97.529 - Non- pressure chronic ulcer of other part of left foot with unspecified severity (2) Osteomyelitis Code(s): M86.9 - OSTEOMYELITIS, UNSPECIFIED Qualifiers: Osteomyelitis type: unspecified type Osteomyelitis location: foot Laterality: left Qualified Code(s): M86.9 - Osteomyelitis, unspecified
--- NOTE | 2017-05-02 09:03 | HOSP ---
Physical Examination Vital Signs: Vital Signs Temperature 97.9 F 05/01/17 20:30 Pulse Rate 91 H 05/01/17 20:30 Respiratory Rate 18 05/01/17 20:30 Blood Pressure 109/60 05/01/17 20:30 O2 Sat by Pulse Oximetry (%) 98 05/01/17 20:22 Labs: CBC, BMP 05/01/17 06:55 05/01/17 06:55 Hospitalist Encounter Assessment: Called for reports of chest pain. Per ID attending pt reports pain all over her body and she is going to Patient reports after her ECHO she now has left sided chest pain this morning On exam pain is reproducible Placed on 1L O2 for hypoxia EKG shows ST, similar to initial EKG, otherwise no new acute ischemic changes Will obtain cardiac enzymes now and in 6 hours D/w cardiology, will r/o PE however pt is refusing CTA Will order CXR and portable doppler r/o DVT Will empirically start on lovenox 80mg BID
--- NOTE | 2017-05-02 09:06 | PN ---
Progress Note, Physician Chief Complaint: Informed at 8:55AM that after echo she c/o chest tightness with O2 sat dropping to 80s. ECG done: Sinus tach 118bpm. Old NE pattern, no acute changes Immediately came to see her, she appeared comfortable. I explained our concerns for pulmonary embolism, CHF and the important need for further imaging including CXR, CTA chest - Current Medication List Current Medications: Active Medications Acetaminophen (Tylenol -) 650 mg PO Q6H PRN PRN Reason: PAIN LEVEL 4 - 6 Last Admin: 05/02/17 08:11 Dose: 650 mg Alprazolam (Xanax -) 0.25 mg PO Q6H PRN PRN Reason: ANXIETY Last Admin: 05/01/17 21:32 Dose: 0.25 mg Aspirin (Ecotrin -) 81 mg PO DAILY [facility] Last Admin: 05/01/17 09:19 Dose: 81 mg Atorvastatin Calcium (Lipitor -) 10 mg PO HS [facility] Last Admin: 05/01/17 21:29 Dose: Not Given Heparin Sodium (Porcine) (Heparin -) 5,000 unit SQ BID [facility] Last Admin: 05/01/17 21:27 Dose: 5,000 unit Sodium Chloride (Normal Saline -) 1,000 mls @ 75 mls/hr IV ASDIR [facility] Last Admin: 05/02/17 04:45 Dose: Not Given Clindamycin Phosphate (Cleocin 600 Mg Premix Ivpb -) 600 mg in 50 mls @ 100 mls /hr IVPB Q8H-IV [facility] Last Admin: 05/02/17 01:53 Dose: 100 mls/hr CEFTRIAXONE IN IS-OSM DEXTROSE (Ceftriaxone 2 Gm-D5w Bag) 2 gm in 50 mls @ 200 mls/hr IVPB DAILY [facility] Last Admin: 05/01/17 14:49 Dose: 200 mls/hr Insulin Aspart (Novolog Vial Sliding Scale -) 1 vial SQ HS [facility] PRN Reason: Protocol Last Admin: 05/02/17 08:24 Dose: 2 units Insulin Aspart (Novolog Vial Sliding Scale -) 1 vial SQ TIDAC [facility] PRN Reason: Protocol Last Admin: 05/02/17 06:46 Dose: Not Given Insulin Aspart (Novolog Mix 70/30 Vial) 22 units SQ BIDI [facility] Last Admin: 05/02/17 06:45 Dose: Not Given Losartan Potassium (Cozaar -) 50 mg PO DAILY [facility] Last Admin: 05/01/17 09:20 Dose: 50 mg - Objective Vital Signs: Vital Signs Temperature 97.9 F 05/01/17 20:30 Pulse Rate 91 H 05/01/17 20:30 Respiratory Rate 18 05/01/17 20:30 Blood Pressure 109/60 05/01/17 20:30 O2 Sat by Pulse Oximetry (%) 98 05/01/17 20:22 Constitutional: Yes: No Distress Cardiovascular: Yes: Regular Rate and Rhythm (tachycardic) Respiratory: Yes: Other (decreased breath sounds at bases, no active wheezing) Gastrointestinal: Yes: Soft Edema: Yes Edema: LLE: 1+, RLE: 1+ Neurological: Yes: Alert, Oriented ...Motor Strength: WNL Labs: CBC, BMP 05/01/17 06:55 05/01/17 06:55 INR, PTT INR 1.19 (0.82-1.09) H 04/28/17 00:00 - ....Imaging EKG: Image Reviewed Problem List - Problems (1) CAD (coronary artery disease) Code(s): I25.10 - ATHSCL HEART DISEASE OF [place] CORONARY ARTERY W/O ANG PCTRS Qualifiers: Coronary Disease-Associated Artery/Lesion type: [place] artery Associated angina: angina presence unspecified (2) Abnormal ECG Code(s): R94.31 - ABNORMAL ELECTROCARDIOGRAM [ECG] [EKG] (3) Aortic stenosis Code(s): I35.0 - NONRHEUMATIC AORTIC (VALVE) STENOSIS Qualifiers: Cardiac valve disease etiology: nonrheumatic Qualified Code(s): I35.0 - Nonrheumatic aortic (valve) stenosis (4) Diabetes type 2 with atherosclerosis of arteries of extremities Code(s): E11.51 - TYPE 2 DIABETES W DIABETIC PERIPHERAL ANGIOPATH W/O GANGRENE; I70.209 - UNSP ATHSCL [place] ARTERIES OF EXTREMITIES, UNSP EXTREMITY (5) Osteomyelitis Code(s): M86.9 - OSTEOMYELITIS, UNSPECIFIED Qualifiers: Osteomyelitis type: unspecified type Osteomyelitis location: foot Laterality: left Qualified Code(s): M86.9 - Osteomyelitis, unspecified (6) Diabetic foot ulcer Code(s): E11.621 - TYPE 2 DIABETES MELLITUS WITH FOOT ULCER; L97.509 - NON- PRESSURE CHRONIC ULCER OTH PRT UNSP FOOT W UNSP SEVERITY Qualifiers: Diabetic foot ulcer location: unspecified part of foot Diabetes mellitus type: type 2 Laterality: left Non-pressure ulcer stage: unspecified non- pressure ulcer stage Qualified Code(s): E11.621 - Type 2 diabetes mellitus with foot ulcer; L97.529 - Non-pressure chronic ulcer of other part of left foot with unspecified severity; L97.529 - Non-pressure chronic ulcer of other part of left foot with unspecified severity; L97.529 - Non-pressure chronic ulcer of other part of left foot with unspecified severity; L97.529 - Non- pressure chronic ulcer of other part of left foot with unspecified severity Assessment/Plan IMP: Sinus tachycardia, dyspnea and chest tightness of acute onset: concern for PE, CHF?, PNA Probable/Suspected LLE osteo, toe DM, insulin dependant Suspected underlying CAD with ECG showing interval anteroseptal NE since 09/2016 Mild aortic stenosis. Chronic HTN REC: 1. CTA chest r/o PE: she is presently refusing, aware of the reason for test and risks of doing so 2. Stat Portable CXR and LE venous Duplex 3. Cycle cardiac enzymes 4. Transfer to tele 5. For now, begin Lovenox 1mg/kg SQ BID empiric treatment for PE until further scans can be done 6. D/c stress test for today: f/u Echo
[2017-05-02] MEDS ORDERED: MAGNESIUM HYDROX 2400MG/30ML ORAL SUSPENSION 30 ML CUP PO ONE (09:08)
[2017-05-02] MEDS: ASPIRIN COATED 81 MG TABLET.EC PO SCH (09:40)
[2017-05-02] MEDS: LOSARTAN POTASSIUM 50 MG TABLET (FP) PO SCH (09:40)
[2017-05-02] MEDS: CEFTRIAXONE IN IS-OSM DEXTROSE 2 GM/50 ML BAG IVPB SCH (09:42)
[2017-05-02] MEDS ORDERED: ENOXAPARIN NA (PORCINE) 80 MG/0.8 ML DISP.SYRIN SQ SCH ×2 (10:00→22:00)
--- NOTE | 2017-05-02 10:11 | EKG ---
Test Reason : Blood Pressure : / mmHG Vent. Rate : 118 BPM Atrial Rate : 118 BPM P-R Int : 130 ms QRS Dur : 088 ms QT Int : 334 ms P-R-T Axes : 053 019 098 degrees QTc Int : 468 ms SINUS TACHYCARDIA ANTEROSEPTAL INFARCT (CITED ON OR BEFORE 20-OCT-2016) ABNORMAL ECG WHEN COMPARED WITH ECG OF 28-APR-2017 00:17, NO SIGNIFICANT CHANGE WAS FOUND Confirmed by LILLY CORRAL MD ([id number]) on 05/02/2017 10:11:00 AM Referred By: Jean Carlos HURTADO Confirmed By:LILLY CORRAL MD
[2017-05-02 11:50] LABS: ALBUMIN 2.1 g/dl (3.4-5.0); ANION GAP 10 (8-16); BLOOD UREA NITROGEN 15 mg/dL (7-18); CALCIUM 8.4 mg/dL (8.5-10.1); CHLORIDE 103 mmol/L (98-107); CO2 26 mmol/L (21-32); CREATININE 1.1 mg/dL (0.55-1.02); GLUCOSE,RANDOM 292 mg/dL (74-106); POTASSIUM 3.9 mmol/L (3.5-5.1); SGOT/AST 9 U/L (15-37); SGPT/ALT 9 U/L (12-78); SODIUM 139 mmol/L (136-145)
[2017-05-02 11:51] LABS: ALK PHOS 96 U/L (45-117); BILIRUBIN,TOTAL 0.2 mg/dL (0.2-1.0); TOT PROT 6.3 g/dl (6.4-8.2)
--- NOTE | 2017-05-02 11:53 | PN ---
Progress Note, Physician Chief Complaint: Events noted Pt c/o chest pressure after echo this AM No pressure now No SOB Her O2 sat was decreased to 80 's Pt states she is weak. Her brother is with her at bedside - Current Medication List Current Medications: Active Medications Acetaminophen (Tylenol -) 650 mg PO Q6H PRN PRN Reason: PAIN LEVEL 4 - 6 Alprazolam (Xanax -) 0.25 mg PO Q6H PRN PRN Reason: ANXIETY Aspirin (Ecotrin -) 81 mg PO DAILY [facility] Atorvastatin Calcium (Lipitor -) 10 mg PO HS [facility] Enoxaparin Sodium (Lovenox -) 80 mg SQ BID [facility] CEFTRIAXONE IN IS-OSM DEXTROSE (Ceftriaxone 2 Gm-D5w Bag) 2 gm in 50 mls @ 200 mls/hr IVPB DAILY [facility] Clindamycin Phosphate (Cleocin 600 Mg Premix Ivpb -) 600 mg in 50 mls @ 100 mls /hr IVPB Q8H-IV [facility] Insulin Aspart (Novolog Mix 70/30 Vial) 22 units SQ BIDI [facility] Insulin Aspart (Novolog Vial Sliding Scale -) 1 vial SQ HS [facility] PRN Reason: Protocol Insulin Aspart (Novolog Vial Sliding Scale -) 1 vial SQ TIDAC [facility] PRN Reason: Protocol Losartan Potassium (Cozaar -) 50 mg PO DAILY [facility] Polyethylene Glycol (Miralax (For Daily Use) -) 17 gm PO DAILY [facility] - Objective Vital Signs: Vital Signs Temperature 98.7 F 05/02/17 09:00 Pulse Rate 126 H 05/02/17 09:00 Respiratory Rate 22 05/02/17 09:00 Blood Pressure 133/74 05/02/17 09:00 O2 Sat by Pulse Oximetry (%) 98 05/02/17 09:00 Constitutional: Yes: No Distress Cardiovascular: Yes: Regular Rate and Rhythm, Murmur Respiratory: Yes: Diminished Gastrointestinal: Yes: Normal Bowel Sounds, Soft, Abdomen, Obese. No: Tenderness Extremities: Yes: Other (left 4 th toe blue) Edema: Yes Labs: CBC, BMP 05/01/17 06:55 INR, PTT INR 1.19 (0.82-1.09) H 04/28/17 00:00 Problem List - Problems (1) Aortic stenosis Code(s): I35.0 - NONRHEUMATIC AORTIC (VALVE) STENOSIS Qualifiers: Cardiac valve disease etiology: nonrheumatic Qualified Code(s): I35.0 - Nonrheumatic aortic (valve) stenosis (2) CAD (coronary artery disease) Code(s): I25.10 - ATHSCL HEART DISEASE OF [place] CORONARY ARTERY W/O ANG PCTRS Qualifiers: Coronary Disease-Associated Artery/Lesion type: [place] artery Associated angina: angina presence unspecified (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 Code(s): E11.51 - TYPE 2 DIABETES W DIABETIC PERIPHERAL ANGIOPATH W/O GANGRENE; I70.209 - UNSP ATHSCL [place] ARTERIES OF EXTREMITIES, UNSP EXTREMITY (4) Diabetic foot ulcer Code(s): E11.621 - TYPE 2 DIABETES MELLITUS WITH FOOT ULCER; L97.509 - NON- PRESSURE CHRONIC ULCER OTH PRT UNSP FOOT W UNSP SEVERITY Qualifiers: Diabetic foot ulcer location: unspecified part of foot Diabetes mellitus type: type 2 Laterality: left Non-pressure ulcer stage: unspecified non- pressure ulcer stage Qualified Code(s): E11.621 - Type 2 diabetes mellitus with foot ulcer; L97.529 - Non-pressure chronic ulcer of other part of left foot with unspecified severity; L97.529 - Non-pressure chronic ulcer of other part of left foot with unspecified severity; L97.529 - Non-pressure chronic ulcer of other part of left foot with unspecified severity; L97.529 - Non- pressure chronic ulcer of other part of left foot with unspecified severity (5) Osteomyelitis Code(s): M86.9 - OSTEOMYELITIS, UNSPECIFIED Qualifiers: Osteomyelitis type: unspecified type Osteomyelitis location: foot Laterality: left Qualified Code(s): M86.9 - Osteomyelitis, unspecified (6) Anxiety Code(s): F41.9 - ANXIETY DISORDER, UNSPECIFIED (7) Dizziness Code(s): R42 - DIZZINESS AND GIDDINESS Assessment/Plan PLAN Check cardiac enzymes Pt is in Telemetry now IV antibiotics spoke with brother Will need CTA chest -- pt states she will do it later-- not now- feels too weak Echo done NO DVT on sono legs Carotid doppler - no significant stenosis Check D dimer On Lovenox BID CXR more congestion noted compared to previous one-- start Lasix Stress test on hold
[2017-05-02] MEDS: POLYETHYLENE GLYCOL 3350 119 GM BTL PO SCH (12:46)
[2017-05-02] MEDS: FUROSEMIDE 40 MG/4 ML INJECTABLE VIAL IVPUSH SCH (12:47)
[2017-05-02] MEDS: ALPRAZolam 0.25 MG TABLET PO PRN ×2 (12:47→22:27)
[2017-05-02] MEDS ORDERED: INSULIN (NOVOLOG) ASPART 100 UNITS/ML 10ML VIAL ONE (16:43)
[2017-05-02] MEDS ORDERED: PT OWN MED DRAWER 7, Y5N ONE (16:44)
[2017-05-02] MEDS: ATORVASTATIN CA 10 MG TABLET (FP) PO SCH (22:26)
[2017-05-03] MEDS: INSULIN SLIDING SCALE (NOVOLOG) 1 VIAL SQ SCH ×5 (01:08→22:57)
[2017-05-03] MEDS: CLINDAMYCIN 600MG PREMIX IVPB 600 MG/50 ML BAG IVPB SCH ×3 (01:09→17:50)
--- NOTE | 2017-05-03 08:56 | PN ---
Progress Note, Physician Chief Complaint: CXR revealed clear CHF CTA held Clinically improved with IV Lasix Echo showed discrete anterior WMA in same distribution as ECG: she has had a silent AWMI since 09/2016 impossible to know when. - Current Medication List Current Medications: Active Medications Acetaminophen (Tylenol -) 650 mg PO Q6H PRN PRN Reason: PAIN LEVEL 4 - 6 Last Admin: 05/02/17 16:37 Dose: 650 mg Alprazolam (Xanax -) 0.25 mg PO Q6H PRN PRN Reason: ANXIETY Last Admin: 05/02/17 22:27 Dose: 0.25 mg Aspirin (Ecotrin -) 81 mg PO DAILY [facility] Atorvastatin Calcium (Lipitor -) 10 mg PO HS [facility] Last Admin: 05/02/17 22:26 Dose: 10 mg Enoxaparin Sodium (Lovenox -) 80 mg SQ BID [facility] Last Admin: 05/02/17 22:26 Dose: 80 mg Furosemide (Lasix Injection -) 40 mg IVPUSH DAILY [facility] Last Admin: 05/02/17 12:47 Dose: 40 mg Ceftriaxone Sodium 2 gm/ (Dextrose) 100 mls @ 200 mls/hr IVPB DAILY [facility] Clindamycin Phosphate (Cleocin 600 Mg Premix Ivpb -) 600 mg in 50 mls @ 100 mls /hr IVPB Q8H-IV [facility] Last Admin: 05/03/17 01:09 Dose: 100 mls/hr Insulin Aspart (Novolog Mix 70/30 Vial) 22 units SQ BIDI [facility] Last Admin: 05/02/17 16:38 Dose: 22 unit Insulin Aspart (Novolog Vial Sliding Scale -) 1 vial SQ HS [facility] PRN Reason: Protocol Last Admin: 05/03/17 01:08 Dose: Not Given Insulin Aspart (Novolog Vial Sliding Scale -) 1 vial SQ TIDAC [facility] PRN Reason: Protocol Last Admin: 05/03/17 06:21 Dose: Not Given Losartan Potassium (Cozaar -) 50 mg PO DAILY [facility] Polyethylene Glycol (Miralax (For Daily Use) -) 17 gm PO DAILY [facility] Last Admin: 05/02/17 12:46 Dose: 17 gm - Objective Vital Signs: Vital Signs Temperature 98.1 F 05/03/17 06:00 Pulse Rate 101 H 05/03/17 06:00 Respiratory Rate 20 05/03/17 06:00 Blood Pressure 129/68 05/03/17 06:00 O2 Sat by Pulse Oximetry (%) 95 05/02/17 21:00 Constitutional: Yes: Calm Eyes: Yes: Conjunctiva Clear Cardiovascular: Yes: Regular Rate and Rhythm Respiratory: Yes: Other (bibasilar rales 1/3 up) Gastrointestinal: Yes: Soft Edema: Yes Edema: LLE: 1+, RLE: 1+ Neurological: Yes: Alert Labs: CBC, BMP 05/01/17 06:55 05/02/17 09:54 INR, PTT INR 1.19 (0.82-1.09) H 04/28/17 00:00 - ....Imaging Chest X-ray: Image Reviewed EKG: Image Reviewed (TELE: NSR , sinus arrhythmia) Problem List - Problems (1) CAD (coronary artery disease) Code(s): I25.10 - ATHSCL HEART DISEASE OF [place] CORONARY ARTERY W/O ANG PCTRS Qualifiers: Coronary Disease-Associated Artery/Lesion type: [place] artery Associated angina: angina presence unspecified (2) Abnormal ECG Code(s): R94.31 - ABNORMAL ELECTROCARDIOGRAM [ECG] [EKG] (3) Aortic stenosis Code(s): I35.0 - NONRHEUMATIC AORTIC (VALVE) STENOSIS Qualifiers: Cardiac valve disease etiology: nonrheumatic Qualified Code(s): I35.0 - Nonrheumatic aortic (valve) stenosis (4) Diabetes type 2 with atherosclerosis of arteries of extremities Code(s): E11.51 - TYPE 2 DIABETES W DIABETIC PERIPHERAL ANGIOPATH W/O GANGRENE; I70.209 - UNSP ATHSCL [place] ARTERIES OF EXTREMITIES, UNSP EXTREMITY (5) Osteomyelitis Code(s): M86.9 - OSTEOMYELITIS, UNSPECIFIED Qualifiers: Osteomyelitis type: unspecified type Osteomyelitis location: foot Laterality: left Qualified Code(s): M86.9 - Osteomyelitis, unspecified (6) Diabetic foot ulcer Code(s): E11.621 - TYPE 2 DIABETES MELLITUS WITH FOOT ULCER; L97.509 - NON- PRESSURE CHRONIC ULCER OTH PRT UNSP FOOT W UNSP SEVERITY Qualifiers: Diabetic foot ulcer location: unspecified part of foot Diabetes mellitus type: type 2 Laterality: left Non-pressure ulcer stage: unspecified non- pressure ulcer stage Qualified Code(s): E11.621 - Type 2 diabetes mellitus with foot ulcer; L97.529 - Non-pressure chronic ulcer of other part of left foot with unspecified severity; L97.529 - Non-pressure chronic ulcer of other part of left foot with unspecified severity; L97.529 - Non-pressure chronic ulcer of other part of left foot with unspecified severity; L97.529 - Non- pressure chronic ulcer of other part of left foot with unspecified severity Assessment/Plan IMP: Acute on chronic systolic CHF secondary to ischemic cardiomyopathy 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 Chronic HTN REC: 1. D/C full dose Lovenox 2. Continue Lasix 40mg IV daily with daily weight and strict Is/Os and daily BMP to follow electrolytes 3. Continue tele while being diuresed with IV Lasix 4. ASA, statin, ARB 5. Resume prophylactic dose Lovenox 6. When euvolemic have recommended pharm MIBI to assess ischemic burden/risk stratify further to help guide decision re. cath She has again refused any stress test.
[2017-05-03] MEDS: ACETAMINOPHEN 325 MG TABLET (FP) PO PRN ×2 (09:09→20:04)
[2017-05-03] MEDS ORDERED: PT OWN MED DRAWER 7, Y5N ONE (10:21)
[2017-05-03] MEDS: ASPIRIN COATED 81 MG TABLET.EC PO SCH (10:39)
[2017-05-03] MEDS: FUROSEMIDE 40 MG/4 ML INJECTABLE VIAL IVPUSH SCH (10:39)
[2017-05-03] MEDS: ENOXAPARIN NA (PORCINE) 40 MG/0.4 ML DISP.SYRIN SQ SCH (10:39)
[2017-05-03] MEDS: LOSARTAN POTASSIUM 50 MG TABLET (FP) PO SCH (10:40)
[2017-05-03] MEDS: INSULIN (NOVOLOG MIX 70/30) 100 UNITS/ML MDV SQ SCH ×2 (10:40→17:49)
[2017-05-03] MEDS: CEFTRIAXONE 2 GM in DEXTROSE 5%-WATER - 100 ML IVPB SCH (11:59)
[2017-05-03] MEDS: POLYETHYLENE GLYCOL 3350 119 GM BTL PO SCH (12:00)
--- NOTE | 2017-05-03 13:03 | PN ---
Progress Note, Physician Chief Complaint: pt better on iv Lasix No SOB Flat affect - Current Medication List Current Medications: Active Medications Acetaminophen (Tylenol -) 650 mg PO Q6H PRN PRN Reason: PAIN LEVEL 4 - 6 Last Admin: 05/03/17 09:09 Dose: 650 mg Alprazolam (Xanax -) 0.25 mg PO Q6H PRN PRN Reason: ANXIETY Last Admin: 05/02/17 22:27 Dose: 0.25 mg Aspirin (Ecotrin -) 81 mg PO DAILY [facility] Last Admin: 05/03/17 10:39 Dose: 81 mg Atorvastatin Calcium (Lipitor -) 10 mg PO HS [facility] Last Admin: 05/02/17 22:26 Dose: 10 mg Enoxaparin Sodium (Lovenox -) 40 mg SQ DAILY [facility] Last Admin: 05/03/17 10:39 Dose: 40 mg Furosemide (Lasix Injection -) 40 mg IVPUSH DAILY [facility] Last Admin: 05/03/17 10:39 Dose: 40 mg Ceftriaxone Sodium 2 gm/ (Dextrose) 100 mls @ 200 mls/hr IVPB DAILY [facility] Last Admin: 05/03/17 11:59 Dose: 200 mls/hr Clindamycin Phosphate (Cleocin 600 Mg Premix Ivpb -) 600 mg in 50 mls @ 100 mls /hr IVPB Q8H-IV [facility] Last Admin: 05/03/17 10:39 Dose: 100 mls/hr Insulin Aspart (Novolog Mix 70/30 Vial) 22 units SQ BIDI [facility] Last Admin: 05/03/17 10:40 Dose: Not Given Insulin Aspart (Novolog Vial Sliding Scale -) 1 vial SQ HS [facility] PRN Reason: Protocol Last Admin: 05/03/17 01:08 Dose: Not Given Insulin Aspart (Novolog Vial Sliding Scale -) 1 vial SQ TIDAC [facility] PRN Reason: Protocol Last Admin: 05/03/17 11:59 Dose: 3 unit Losartan Potassium (Cozaar -) 50 mg PO DAILY [facility] Last Admin: 05/03/17 10:40 Dose: 50 mg Polyethylene Glycol (Miralax (For Daily Use) -) 17 gm PO DAILY [facility] Last Admin: 05/03/17 12:00 Dose: Not Given - Objective Vital Signs: Vital Signs Temperature 98.1 F 05/03/17 06:00 Pulse Rate 101 H 05/03/17 06:00 Respiratory Rate 20 05/03/17 06:00 Blood Pressure 129/68 05/03/17 06:00 O2 Sat by Pulse Oximetry (%) 95 05/02/17 21:00 Constitutional: Yes: No Distress, Calm Cardiovascular: Yes: Regular Rate and Rhythm, Murmur Respiratory: Yes: Diminished Labs: CBC, BMP 05/01/17 06:55 05/02/17 09:54 INR, PTT INR 1.19 (0.82-1.09) H 04/28/17 00:00 Problem List - Problems (1) Aortic stenosis Code(s): I35.0 - NONRHEUMATIC AORTIC (VALVE) STENOSIS Qualifiers: Cardiac valve disease etiology: nonrheumatic Qualified Code(s): I35.0 - Nonrheumatic aortic (valve) stenosis (2) CAD (coronary artery disease) Code(s): I25.10 - ATHSCL HEART DISEASE OF [place] CORONARY ARTERY W/O ANG PCTRS Qualifiers: Coronary Disease-Associated Artery/Lesion type: [place] artery Associated angina: angina presence unspecified (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 Code(s): E11.51 - TYPE 2 DIABETES W DIABETIC PERIPHERAL ANGIOPATH W/O GANGRENE; I70.209 - UNSP ATHSCL [place] ARTERIES OF EXTREMITIES, UNSP EXTREMITY (4) Diabetic foot ulcer Code(s): E11.621 - TYPE 2 DIABETES MELLITUS WITH FOOT ULCER; L97.509 - NON- PRESSURE CHRONIC ULCER OTH PRT UNSP FOOT W UNSP SEVERITY Qualifiers: Diabetic foot ulcer location: unspecified part of foot Diabetes mellitus type: type 2 Laterality: left Non-pressure ulcer stage: unspecified non- pressure ulcer stage Qualified Code(s): E11.621 - Type 2 diabetes mellitus with foot ulcer; L97.529 - Non-pressure chronic ulcer of other part of left foot with unspecified severity; L97.529 - Non-pressure chronic ulcer of other part of left foot with unspecified severity; L97.529 - Non-pressure chronic ulcer of other part of left foot with unspecified severity; L97.529 - Non- pressure chronic ulcer of other part of left foot with unspecified severity (5) Osteomyelitis Code(s): M86.9 - OSTEOMYELITIS, UNSPECIFIED Qualifiers: Osteomyelitis type: unspecified type Osteomyelitis location: foot Laterality: left Qualified Code(s): M86.9 - Osteomyelitis, unspecified (6) Anxiety Code(s): F41.9 - ANXIETY DISORDER, UNSPECIFIED (7) Dizziness Code(s): R42 - DIZZINESS AND GIDDINESS
[2017-05-03] MEDS: ALPRAZolam 0.25 MG TABLET PO PRN (13:22)
[2017-05-03] MEDS ORDERED: INSULIN (NOVOLOG MIX 70/30) 100 UNITS/ML MDV SQ ONE (16:52)
[2017-05-03] MEDS ORDERED: INSULIN (NOVOLOG) ASPART 100 UNITS/ML 10ML VIAL ONE (17:22)
--- NOTE | 2017-05-03 17:44 | PN ---
Progress Note (short form) - Note Progress Note: explained that antibiotics alone would not cure her leg and that she needs debridement needs cardiac evaluation (in progress) Vital Signs Period Temp Pulse Resp BP Sys/Simpson Pulse Ox Last 24 Hr 97.6 F-98.7 F 87-101 20-20 97-129/56-68 95-95 cor-rrr lungs clear abd soft,nt ext no erythema +ulcer between fourth toe with purulence necrotic fourth toe, necrotic lateral ulcer CBC, BMP 05/01/17 06:55 05/02/17 09:54 Laboratory Tests 04/29/17 04/29/17 06:45 06:45 ESR 82 H C-Reactive Protein 16.1 H Microbiology 04/28/17 00:00 Blood - Peripheral Venous Blood Culture - Preliminary NO GROWTH OBTAINED AFTER 96 HOURS, INCUBATION TO CONTINUE FOR 1 DAYS. 04/28/17 00:00 Blood - Peripheral Venous Blood Culture - Preliminary NO GROWTH OBTAINED AFTER 96 HOURS, INCUBATION TO CONTINUE FOR 1 DAYS. 04/27/17 23:29 Foot - Left Gram Stain - Final 04/27/17 23:29 Foot - Left Wound Culture - Final Staphylococcus Aureus Streptococcus Viridans a/p soft tissue infection of the left foot/gangrene clindamycin/rocephin to continue needs cardiology and podiatry f/u if patient permits has been refusing most of her care wound care ordered Problem List - Problems (1) Diabetic foot ulcer Code(s): E11.621 - TYPE 2 DIABETES MELLITUS WITH FOOT ULCER; L97.509 - NON- PRESSURE CHRONIC ULCER OTH PRT UNSP FOOT W UNSP SEVERITY Qualifiers: Diabetic foot ulcer location: unspecified part of foot Diabetes mellitus type: type 2 Laterality: left Non-pressure ulcer stage: unspecified non- pressure ulcer stage Qualified Code(s): E11.621 - Type 2 diabetes mellitus with foot ulcer; L97.529 - Non-pressure chronic ulcer of other part of left foot with unspecified severity; L97.529 - Non-pressure chronic ulcer of other part of left foot with unspecified severity; L97.529 - Non-pressure chronic ulcer of other part of left foot with unspecified severity; L97.529 - Non- pressure chronic ulcer of other part of left foot with unspecified severity (2) Osteomyelitis Code(s): M86.9 - OSTEOMYELITIS, UNSPECIFIED Qualifiers: Osteomyelitis type: unspecified type Osteomyelitis location: foot Laterality: left Qualified Code(s): M86.9 - Osteomyelitis, unspecified
[2017-05-03] MEDS: ATORVASTATIN CA 10 MG TABLET (FP) PO SCH (22:52)
[2017-05-04] MEDS: CLINDAMYCIN 600MG PREMIX IVPB 600 MG/50 ML BAG IVPB SCH ×3 (02:00→18:08)
[2017-05-04] MEDS: INSULIN SLIDING SCALE (NOVOLOG) 1 VIAL SQ SCH ×4 (06:34→22:43)
[2017-05-04 08:35] LABS: ANION GAP 11 (8-16); BLOOD UREA NITROGEN 20 mg/dL (7-18); CALCIUM 8.8 mg/dL (8.5-10.1); CHLORIDE 97 mmol/L (98-107); CO2 32 mmol/L (21-32); GLUCOSE,RANDOM 182 mg/dL (74-106); MAGNESIUM 2.2 mg/dL (1.8-2.4); POTASSIUM 4.2 mmol/L (3.5-5.1); SODIUM 140 mmol/L (136-145)
--- NOTE | 2017-05-04 08:37 | PN ---
Progress Note, Physician Chief Complaint: no new complaints TELE: NSR - Current Medication List Current Medications: Active Medications Acetaminophen (Tylenol -) 650 mg PO Q6H PRN PRN Reason: PAIN LEVEL 4 - 6 Last Admin: 05/03/17 20:04 Dose: 650 mg Alprazolam (Xanax -) 0.25 mg PO Q6H PRN PRN Reason: ANXIETY Last Admin: 05/03/17 13:22 Dose: 0.25 mg Aspirin (Ecotrin -) 81 mg PO DAILY [facility] Last Admin: 05/03/17 10:39 Dose: 81 mg Atorvastatin Calcium (Lipitor -) 10 mg PO HS [facility] Last Admin: 05/03/17 22:52 Dose: 10 mg Enoxaparin Sodium (Lovenox -) 40 mg SQ DAILY [facility] Last Admin: 05/03/17 10:39 Dose: 40 mg Furosemide (Lasix Injection -) 40 mg IVPUSH DAILY [facility] Last Admin: 05/03/17 10:39 Dose: 40 mg Ceftriaxone Sodium 2 gm/ (Dextrose) 100 mls @ 200 mls/hr IVPB DAILY [facility] Last Admin: 05/03/17 11:59 Dose: 200 mls/hr Clindamycin Phosphate (Cleocin 600 Mg Premix Ivpb -) 600 mg in 50 mls @ 100 mls /hr IVPB Q8H-IV [facility] Last Admin: 05/04/17 02:00 Dose: 100 mls/hr Insulin Aspart (Novolog Mix 70/30 Vial) 22 units SQ BIDI [facility] Last Admin: 05/03/17 17:49 Dose: 22 unit Insulin Aspart (Novolog Vial Sliding Scale -) 1 vial SQ HS [facility] PRN Reason: Protocol Last Admin: 05/03/17 22:57 Dose: Not Given Insulin Aspart (Novolog Vial Sliding Scale -) 1 vial SQ TIDAC [facility] PRN Reason: Protocol Last Admin: 05/04/17 06:34 Dose: Not Given Losartan Potassium (Cozaar -) 50 mg PO DAILY [facility] Last Admin: 05/03/17 10:40 Dose: 50 mg Polyethylene Glycol (Miralax (For Daily Use) -) 17 gm PO DAILY [facility] Last Admin: 05/03/17 12:00 Dose: Not Given - Objective Vital Signs: Vital Signs Temperature 98.6 F 05/04/17 02:00 Pulse Rate 95 H 05/04/17 06:00 Respiratory Rate 20 05/04/17 06:00 Blood Pressure 105/57 05/04/17 06:00 O2 Sat by Pulse Oximetry (%) 95 05/03/17 21:00 Constitutional: Yes: Calm Eyes: Yes: Conjunctiva Clear Cardiovascular: Yes: Regular Rate and Rhythm Respiratory: Yes: Other (decreasing rales b/l) Gastrointestinal: Yes: Soft Edema: No Neurological: Yes: Alert ...Motor Strength: WNL Labs: CBC, BMP 05/01/17 06:55 INR, PTT INR 1.19 (0.82-1.09) H 04/28/17 00:00 Laboratory Tests 05/01/17 05/01/17 05/04/17 06:55 06:55 06:49 WBC 10.3 H Hgb 11.3 Plt Count 362 Sodium Pending Potassium 4.3 Pending Chloride Pending Carbon Dioxide Pending Anion Gap Pending BUN Pending Creatinine 1.1 H Pending Random Glucose Pending Calcium Pending Magnesium Pending - ....Imaging EKG: Image Reviewed Problem List - Problems (1) CAD (coronary artery disease) Code(s): I25.10 - ATHSCL HEART DISEASE OF [place] CORONARY ARTERY W/O ANG PCTRS Qualifiers: Coronary Disease-Associated Artery/Lesion type: [place] artery Associated angina: angina presence unspecified (2) Abnormal ECG Code(s): R94.31 - ABNORMAL ELECTROCARDIOGRAM [ECG] [EKG] (3) Aortic stenosis Code(s): I35.0 - NONRHEUMATIC AORTIC (VALVE) STENOSIS Qualifiers: Cardiac valve disease etiology: nonrheumatic Qualified Code(s): I35.0 - Nonrheumatic aortic (valve) stenosis (4) Diabetes type 2 with atherosclerosis of arteries of extremities Code(s): E11.51 - TYPE 2 DIABETES W DIABETIC PERIPHERAL ANGIOPATH W/O GANGRENE; I70.209 - UNSP ATHSCL [place] ARTERIES OF EXTREMITIES, UNSP EXTREMITY (5) Osteomyelitis Code(s): M86.9 - OSTEOMYELITIS, UNSPECIFIED Qualifiers: Osteomyelitis type: unspecified type Osteomyelitis location: foot Laterality: left Qualified Code(s): M86.9 - Osteomyelitis, unspecified (6) Diabetic foot ulcer Code(s): E11.621 - TYPE 2 DIABETES MELLITUS WITH FOOT ULCER; L97.509 - NON- PRESSURE CHRONIC ULCER OTH PRT UNSP FOOT W UNSP SEVERITY Qualifiers: Diabetic foot ulcer location: unspecified part of foot Diabetes mellitus type: type 2 Laterality: left Non-pressure ulcer stage: unspecified non- pressure ulcer stage Qualified Code(s): E11.621 - Type 2 diabetes mellitus with foot ulcer; L97.529 - Non-pressure chronic ulcer of other part of left foot with unspecified severity; L97.529 - Non-pressure chronic ulcer of other part of left foot with unspecified severity; L97.529 - Non-pressure chronic ulcer of other part of left foot with unspecified severity; L97.529 - Non- pressure chronic ulcer of other part of left foot with unspecified severity Assessment/Plan IMP: Acute on chronic systolic CHF secondary to ischemic cardiomyopathy as a result of old silent anterior wall [place] LLE osteo, toe DM, insulin dependant Mild aortic stenosis. Chronic HTN REC: 1. Would transition to PO Lasix tomorrow- 40mg PO daily. 2. Continue ASA, statin and ARB (medical Rx for ASHD and chronic systolic CHF_ 3. If telemetry remains WNL, please d/c tele tomorrow. 4. Has refused any further ischemic work up including stress MIBI (see previous notes). I am on vacation next week, Drs. Keita/Mundo will be covering. If there are any question/concerns I can always be reached by cell [phone].
[2017-05-04] MEDS: ACETAMINOPHEN 325 MG TABLET (FP) PO PRN ×2 (09:47→17:47)
[2017-05-04] MEDS: ASPIRIN COATED 81 MG TABLET.EC PO SCH (09:48)
[2017-05-04] MEDS: LOSARTAN POTASSIUM 50 MG TABLET (FP) PO SCH (09:48)
[2017-05-04] MEDS: POLYETHYLENE GLYCOL 3350 119 GM BTL PO SCH (09:49)
[2017-05-04] MEDS: FUROSEMIDE 40 MG/4 ML INJECTABLE VIAL IVPUSH SCH (09:49)
[2017-05-04] MEDS: INSULIN (NOVOLOG MIX 70/30) 100 UNITS/ML MDV SQ SCH ×2 (09:49→17:34)
[2017-05-04] MEDS: CEFTRIAXONE 2 GM in DEXTROSE 5%-WATER - 100 ML IVPB SCH (09:49)
[2017-05-04] MEDS: ENOXAPARIN NA (PORCINE) 40 MG/0.4 ML DISP.SYRIN SQ SCH (09:49)
--- NOTE | 2017-05-04 10:53 | PN ---
Progress Note, Physician History of Present Illness: patient seen and examined. Chart reviewed Comfortable . denies pain Denies chest pain or shortness of breath. status post debridement yesterday. - Current Medication List Current Medications: Active Medications Acetaminophen (Tylenol -) 650 mg PO Q6H PRN PRN Reason: PAIN LEVEL 4 - 6 Last Admin: 05/04/17 09:47 Dose: 650 mg Alprazolam (Xanax -) 0.25 mg PO Q6H PRN PRN Reason: ANXIETY Last Admin: 05/03/17 13:22 Dose: 0.25 mg Aspirin (Ecotrin -) 81 mg PO DAILY [facility] Last Admin: 05/04/17 09:48 Dose: 81 mg Atorvastatin Calcium (Lipitor -) 10 mg PO HS [facility] Last Admin: 05/03/17 22:52 Dose: 10 mg Enoxaparin Sodium (Lovenox -) 40 mg SQ DAILY [facility] Last Admin: 05/04/17 09:49 Dose: 40 mg Furosemide (Lasix Injection -) 40 mg IVPUSH DAILY [facility] Last Admin: 05/04/17 09:49 Dose: 40 mg Ceftriaxone Sodium 2 gm/ (Dextrose) 100 mls @ 200 mls/hr IVPB DAILY [facility] Last Admin: 05/04/17 09:49 Dose: 200 mls/hr Clindamycin Phosphate (Cleocin 600 Mg Premix Ivpb -) 600 mg in 50 mls @ 100 mls /hr IVPB Q8H-IV [facility] Last Admin: 05/04/17 09:49 Dose: 100 mls/hr Insulin Aspart (Novolog Mix 70/30 Vial) 22 units SQ BIDI [facility] Last Admin: 05/04/17 09:49 Dose: Not Given Insulin Aspart (Novolog Vial Sliding Scale -) 1 vial SQ HS [facility] PRN Reason: Protocol Last Admin: 05/03/17 22:57 Dose: Not Given Insulin Aspart (Novolog Vial Sliding Scale -) 1 vial SQ TIDAC [facility] PRN Reason: Protocol Last Admin: 05/04/17 06:34 Dose: Not Given Losartan Potassium (Cozaar -) 50 mg PO DAILY [facility] Last Admin: 05/04/17 09:48 Dose: 50 mg Polyethylene Glycol (Miralax (For Daily Use) -) 17 gm PO DAILY [facility] Last Admin: 05/04/17 09:49 Dose: 17 gm - Objective Vital Signs: Vital Signs Temperature 98.6 F 03/30/18 02:00 Pulse Rate 95 H 05/04/17 06:00 Respiratory Rate 20 05/04/17 06:00 Blood Pressure 105/57 05/04/17 06:00 O2 Sat by Pulse Oximetry (%) 95 05/03/17 21:00 Constitutional: Yes: No Distress, Calm Neck: Yes: Supple Cardiovascular: Yes: Regular Rate and Rhythm Respiratory: Yes: CTA Bilaterally Gastrointestinal: Yes: Soft Extremities: Yes: Other (left foot--- dressing in place) Neurological: Yes: Alert Labs: CBC, BMP 05/01/17 06:55 05/04/17 06:49 INR, PTT INR 1.19 (0.82-1.09) H 04/28/17 00:00 Problem List - Problems (1) Aortic stenosis Code(s): I35.0 - NONRHEUMATIC AORTIC (VALVE) STENOSIS Qualifiers: Cardiac valve disease etiology: nonrheumatic Qualified Code(s): I35.0 - Nonrheumatic aortic (valve) stenosis (2) CAD (coronary artery disease) Code(s): I25.10 - ATHSCL HEART DISEASE OF [place] CORONARY ARTERY W/O ANG PCTRS Qualifiers: Coronary Disease-Associated Artery/Lesion type: [place] artery Associated angina: angina presence unspecified (3) Diabetic foot ulcer Code(s): E11.621 - TYPE 2 DIABETES MELLITUS WITH FOOT ULCER; L97.509 - NON- PRESSURE CHRONIC ULCER OTH PRT UNSP FOOT W UNSP SEVERITY Qualifiers: Diabetic foot ulcer location: unspecified part of foot Diabetes mellitus type: type 2 Laterality: left Non-pressure ulcer stage: unspecified non- pressure ulcer stage Qualified Code(s): E11.621 - Type 2 diabetes mellitus with foot ulcer; L97.529 - Non-pressure chronic ulcer of other part of left foot with unspecified severity; L97.529 - Non-pressure chronic ulcer of other part of left foot with unspecified severity; L97.529 - Non-pressure chronic ulcer of other part of left foot with unspecified severity; L97.529 - Non- pressure chronic ulcer of other part of left foot with unspecified severity (4) Anxiety Code(s): F41.9 - ANXIETY DISORDER, UNSPECIFIED Assessment/Plan status post debridement continue antibiotics Overall stable Refuses stress test DC telemetry Change Lasix to by mouth Follow-up labs Will follow discussed with nursing staff.
[2017-05-04] MEDS: ALPRAZolam 0.25 MG TABLET PO PRN (11:04)
[2017-05-04] MEDS: ATORVASTATIN CA 10 MG TABLET (FP) PO SCH (22:40)
[2017-05-05] MEDS: ACETAMINOPHEN 325 MG TABLET (FP) PO PRN ×2 (00:11→15:02)
[2017-05-05] MEDS: CLINDAMYCIN 600MG PREMIX IVPB 600 MG/50 ML BAG IVPB SCH ×3 (01:07→18:02)
[2017-05-05] MEDS: INSULIN SLIDING SCALE (NOVOLOG) 1 VIAL SQ SCH ×4 (06:45→22:44)
[2017-05-05] MEDS: INSULIN (NOVOLOG MIX 70/30) 100 UNITS/ML MDV SQ SCH ×2 (06:46→18:02)
[2017-05-05 07:47] LABS: BASO % 0.2 % (0-2.0); EOS % 5.1 % (0-4.5); HEMATOCRIT 35.8 % (32.4-45.2); HEMOGLOBIN 12.1 GM/dL (10.7-15.3); LYMPH % 15.1 % (8-40); MCH 30.5 pg (25.7-33.7); MEAN CELL VOLUME 89.8 fl (80-96); MEAN PLT VOLUME 7.9 fl (7.5-11.1); MONO % 9.3 % (3.8-10.2); NEUT % 70.3 % (42.8-82.8); PLATELET COUNT 456 K/MM3 (134-434); RBC 3.99 M/mm3 (3.60-5.2); RDW 12.5 % (11.6-15.6); WHITE BLOOD COUNT 9.5 K/mm3 (4.0-10.0)
[2017-05-05 08:16] LABS: ALBUMIN 2.4 g/dl (3.4-5.0); ALK PHOS 102 U/L (45-117); ANION GAP 9 (8-16); BILIRUBIN,TOTAL 0.2 mg/dL (0.2-1.0); BLOOD UREA NITROGEN 22 mg/dL (7-18); CALCIUM 8.7 mg/dL (8.5-10.1); CHLORIDE 98 mmol/L (98-107); CO2 32 mmol/L (21-32); CREATININE 1.1 mg/dL (0.55-1.02); GLUCOSE,RANDOM 185 mg/dL (74-106); POTASSIUM 3.6 mmol/L (3.5-5.1); SGOT/AST 14 U/L (15-37); SGPT/ALT 12 U/L (12-78); SODIUM 139 mmol/L (136-145); TOT PROT 7.1 g/dl (6.4-8.2)
[2017-05-05] MEDS: ENOXAPARIN NA (PORCINE) 40 MG/0.4 ML DISP.SYRIN SQ SCH (09:44)
[2017-05-05] MEDS: CEFTRIAXONE 2 GM in DEXTROSE 5%-WATER - 100 ML IVPB SCH (09:44)
[2017-05-05] MEDS: LOSARTAN POTASSIUM 50 MG TABLET (FP) PO SCH (09:45)
[2017-05-05] MEDS: POLYETHYLENE GLYCOL 3350 119 GM BTL PO SCH (09:45)
[2017-05-05] MEDS: ASPIRIN COATED 81 MG TABLET.EC PO SCH (09:45)
--- NOTE | 2017-05-05 09:59 | PN ---
Progress Note, Physician Chief Complaint: Pt A&Ox3; no chest pain, dyspnea, leg pain. Cries when speaking of her , who last year. Worries about upcoming LE amputation. She asks, "How am I to go on?" History of Present Illness: Patient is a 71 year old white female with a significant past medical history of htn, dm, systolic CHF, PAD, anxiety/depression, who presents to the ED with complaints of near syncopal episode that occurred just prior to ED arrival. Patient reports going to charge her phone when she began to experiencing sudden dizziness causing her to fall and land on her buttocks. She reports experiencing associated headache as well as slight heartburn. Patient reports coming into the ED for further evaluation due to feeling like she was unable to get herself off of the floor following her fall. Denies chest pain, Sob. Denies nausea, vomiting. Denies head trauma, change in vision. Denies fevers, chills. Denies contact with sick individuals out of state travelling. Denies dysuria, hematuria, constipation, diarrhea. Denies any other symptoms. Allergies: None Social history:Former smoker (Last 1979). No alcohol. No illicit drugs. Surgical history: gastric bypass 16 yrs ago, Cholecystectomy PMD: Dr. Malcolm - Current Medication List Current Medications: Active Medications Acetaminophen (Tylenol -) 650 mg PO Q6H PRN PRN Reason: PAIN LEVEL 4 - 6 Last Admin: 05/05/17 00:11 Dose: 650 mg Alprazolam (Xanax -) 0.25 mg PO Q6H PRN PRN Reason: ANXIETY Aspirin (Ecotrin -) 81 mg PO DAILY [facility] Last Admin: 05/05/17 09:45 Dose: 81 mg Atorvastatin Calcium (Lipitor -) 10 mg PO HS [facility] Last Admin: 05/04/17 22:40 Dose: 10 mg Enoxaparin Sodium (Lovenox -) 40 mg SQ DAILY [facility] Last Admin: 05/05/17 09:44 Dose: 40 mg Ceftriaxone Sodium 2 gm/ (Dextrose) 100 mls @ 200 mls/hr IVPB DAILY [facility] Last Admin: 05/05/17 09:44 Dose: 200 mls/hr Clindamycin Phosphate (Cleocin 600 Mg Premix Ivpb -) 600 mg in 50 mls @ 100 mls /hr IVPB Q8H-IV [facility] Last Admin: 05/05/17 09:44 Dose: 100 mls/hr Insulin Aspart (Novolog Mix 70/30 Vial) 22 units SQ BIDI [facility] Last Admin: 05/05/17 06:46 Dose: 22 units Insulin Aspart (Novolog Vial Sliding Scale -) 1 vial SQ HS [facility] PRN Reason: Protocol Last Admin: 05/04/17 22:43 Dose: 2 units Insulin Aspart (Novolog Vial Sliding Scale -) 1 vial SQ TIDAC [facility] PRN Reason: Protocol Last Admin: 05/05/17 06:45 Dose: 3 units Losartan Potassium (Cozaar -) 50 mg PO DAILY [facility] Last Admin: 05/05/17 09:45 Dose: 50 mg Polyethylene Glycol (Miralax (For Daily Use) -) 17 gm PO DAILY [facility] Last Admin: 05/05/17 09:45 Dose: 17 grams - Objective Vital Signs: Vital Signs Temperature 98.6 F 05/05/17 06:30 Pulse Rate 92 H 05/05/17 06:30 Respiratory Rate 16 05/05/17 06:30 Blood Pressure 131/67 05/05/17 06:30 O2 Sat by Pulse Oximetry (%) 97 05/04/17 21:00 Constitutional: Yes: Anxious, Mild Distress Eyes: Yes: WNL HENT: Yes: WNL Neck: Yes: WNL Cardiovascular: Yes: S1, S2 Respiratory: Yes: Regular, Diminished Gastrointestinal: Yes: Soft Genitourinary: No: Anuria Extremities: Yes: Cool, Other (left toes gangrenous) Edema: Yes Edema: LLE: Trace, RLE: Trace Peripheral Pulses WNL: No Peripheral Pulses: Left Doralis Pedis: 1+, Right Dorsalis Pedis: 1+ Integumentary: Yes: Venous Stasis Changes Neurological: Yes: Alert, Oriented, Weakness Psychiatric: Yes: Other (anxiety/depression) Labs: CBC, BMP 05/05/17 07:35 05/05/17 07:35 INR, PTT INR 1.19 (0.82-1.09) H 04/28/17 00:00 Abnormal Lab Results 05/05/17 05/05/17 07:35 07:35 Plt Count 456 H D Eosinophils % 5.1 H BUN 22 H Creatinine 1.1 H Random Glucose 185 H AST 14 L Albumin 2.4 L Problem List - Problems (1) Acute on chronic systolic (congestive) heart failure Assessment/Plan: Pt refuses stress test or coronary angiogram; she says she knew someone who had a stress test, sat down afterward and . Continue ARB; change IV furosemide to PO 20 mg daily (presently not on diuretic) . F/u Is and Os, daily weight, BUN/Cr, electrolytes. CXR. Code(s): I50.23 - ACUTE ON CHRONIC SYSTOLIC (CONGESTIVE) HEART FAILURE (2) Abnormal ECG Code(s): R94.31 - ABNORMAL ELECTROCARDIOGRAM [ECG] [EKG] (3) Anxiety about health Code(s): F41.8 - OTHER SPECIFIED ANXIETY DISORDERS (4) Aortic stenosis Assessment/Plan: mild by ECHO; mild-moderate LV systolic dysfunction. Code(s): I35.0 - NONRHEUMATIC AORTIC (VALVE) STENOSIS Qualifiers: Cardiac valve disease etiology: nonrheumatic Qualified Code(s): I35.0 - Nonrheumatic aortic (valve) stenosis (5) Diabetes type 2 with atherosclerosis of arteries of extremities Code(s): E11.51 - TYPE 2 DIABETES W DIABETIC PERIPHERAL ANGIOPATH W/O GANGRENE; I70.209 - UNSP ATHSCL [place] ARTERIES OF EXTREMITIES, UNSP EXTREMITY (6) Diabetic foot ulcer Code(s): E11.621 - TYPE 2 DIABETES MELLITUS WITH FOOT ULCER; L97.509 - NON- PRESSURE CHRONIC ULCER OTH PRT UNSP FOOT W UNSP SEVERITY Qualifiers: Diabetic foot ulcer location: unspecified part of foot Diabetes mellitus type: type 2 Laterality: left Non-pressure ulcer stage: unspecified non- pressure ulcer stage Qualified Code(s): E11.621 - Type 2 diabetes mellitus with foot ulcer; L97.529 - Non-pressure chronic ulcer of other part of left foot with unspecified severity; L97.529 - Non-pressure chronic ulcer of other part of left foot with unspecified severity; L97.529 - Non-pressure chronic ulcer of other part of left foot with unspecified severity; L97.529 - Non- pressure chronic ulcer of other part of left foot with unspecified severity (7) Osteomyelitis Code(s): M86.9 - OSTEOMYELITIS, UNSPECIFIED Qualifiers: Osteomyelitis type: unspecified type Osteomyelitis location: foot Laterality: left Qualified Code(s): M86.9 - Osteomyelitis, unspecified (8) Diabetes mellitus Code(s): E11.9 - TYPE 2 DIABETES MELLITUS WITHOUT COMPLICATIONS (9) Lung consolidation Code(s): J18.1 - LOBAR PNEUMONIA, UNSPECIFIED ORGANISM (10) Panic disorder Code(s): F41.0 - PANIC DISORDER [EPISODIC PAROXYSMAL ANXIETY] (11) Depression Assessment/Plan: Pt cries several times during interview; says she misses her of 48 yrs, who last year. Worries about how she can go on with her physical and mental problems (her RN says she has said she wants to ). Has been on Xanax prn. Psychological consult noted. Psychiatric consult would be of benefit. Consider SSRI. Code(s): F32.9 - MAJOR DEPRESSIVE DISORDER, SINGLE EPISODE, UNSPECIFIED
--- NOTE | 2017-05-05 11:09 | PN ---
Progress Note, Physician History of Present Illness: No c/o foot pain Reports less swelling No c/o fever/ chills Tolerating antibiotics Afebrile WBC improved - Current Medication List Current Medications: Active Medications Acetaminophen (Tylenol -) 650 mg PO Q6H PRN PRN Reason: PAIN LEVEL 4 - 6 Last Admin: 05/05/17 00:11 Dose: 650 mg Alprazolam (Xanax -) 0.25 mg PO Q6H PRN PRN Reason: ANXIETY Aspirin (Ecotrin -) 81 mg PO DAILY [facility] Last Admin: 05/05/17 09:45 Dose: 81 mg Atorvastatin Calcium (Lipitor -) 10 mg PO HS [facility] Last Admin: 05/04/17 22:40 Dose: 10 mg Enoxaparin Sodium (Lovenox -) 40 mg SQ DAILY [facility] Last Admin: 05/05/17 09:44 Dose: 40 mg Ceftriaxone Sodium 2 gm/ (Dextrose) 100 mls @ 200 mls/hr IVPB DAILY [facility] Last Admin: 05/05/17 09:44 Dose: 200 mls/hr Clindamycin Phosphate (Cleocin 600 Mg Premix Ivpb -) 600 mg in 50 mls @ 100 mls /hr IVPB Q8H-IV [facility] Last Admin: 05/05/17 09:44 Dose: 100 mls/hr Insulin Aspart (Novolog Mix 70/30 Vial) 22 units SQ BIDI [facility] Last Admin: 05/05/17 06:46 Dose: 22 units Insulin Aspart (Novolog Vial Sliding Scale -) 1 vial SQ HS [facility] PRN Reason: Protocol Last Admin: 05/04/17 22:43 Dose: 2 units Insulin Aspart (Novolog Vial Sliding Scale -) 1 vial SQ TIDAC [facility] PRN Reason: Protocol Last Admin: 05/05/17 06:45 Dose: 3 units Losartan Potassium (Cozaar -) 50 mg PO DAILY [facility] Last Admin: 05/05/17 09:45 Dose: 50 mg Polyethylene Glycol (Miralax (For Daily Use) -) 17 gm PO DAILY [facility] Last Admin: 05/05/17 09:45 Dose: 17 grams - Objective Vital Signs: Vital Signs Temperature 98.6 F 05/05/17 06:30 Pulse Rate 92 H 05/05/17 06:30 Respiratory Rate 16 05/05/17 06:30 Blood Pressure 131/67 05/05/17 06:30 O2 Sat by Pulse Oximetry (%) 97 05/04/17 21:00 Constitutional: Yes: No Distress Eyes: Yes: Conjunctiva Clear Cardiovascular: Yes: Regular Rate and Rhythm, S1, S2 Respiratory: Yes: CTA Bilaterally Gastrointestinal: Yes: Normal Bowel Sounds, Soft. No: Tenderness Extremities: Yes: Other (+ dry gangrene L 4th toe) Labs: CBC, BMP 05/05/17 07:35 05/05/17 07:35 INR, PTT INR 1.19 (0.82-1.09) H 04/28/17 00:00 Assessment/Plan Gangrene L 4th toe Soft tissue infection L foot Continue clindamycin/ ceftriaxone
--- NOTE | 2017-05-05 12:11 | PN ---
Progress Note (short form) - Note Progress Note: pt seen/ examined. comfortable all f/u noted. denies all treatment discussed with Dr. Del Cid also. Vital Signs Temp 98.6 F 05/05/17 06:30 Pulse 92 H 05/05/17 06:30 Resp 16 05/05/17 06:30 BP 131/67 05/05/17 06:30 Pulse Ox 97 05/04/17 21:00 Intake & Output 05/04/17 05/05/17 05/05/17 23:59 11:59 23:59 Intake Total 570 310 Balance 570 310 Intake: IV 10 10 Left Hand #22 05/04/17 10 10 IVPB 200 Oral 360 300 Other: Voiding Method Incontinent Diaper # Unmeasured Voids Void 2 1 Bowel Movement No No Active Medications Acetaminophen (Tylenol -) 650 mg PO Q6H PRN PRN Reason: PAIN LEVEL 4 - 6 Last Admin: 05/05/17 00:11 Dose: 650 mg Alprazolam (Xanax -) 0.25 mg PO Q6H PRN PRN Reason: ANXIETY Aspirin (Ecotrin -) 81 mg PO DAILY [facility] Last Admin: 05/05/17 09:45 Dose: 81 mg Atorvastatin Calcium (Lipitor -) 10 mg PO HS [facility] Last Admin: 05/04/17 22:40 Dose: 10 mg Enoxaparin Sodium (Lovenox -) 40 mg SQ DAILY [facility] Last Admin: 05/05/17 09:44 Dose: 40 mg Ceftriaxone Sodium 2 gm/ (Dextrose) 100 mls @ 200 mls/hr IVPB DAILY [facility] Last Admin: 05/05/17 09:44 Dose: 200 mls/hr Clindamycin Phosphate (Cleocin 600 Mg Premix Ivpb -) 600 mg in 50 mls @ 100 mls /hr IVPB Q8H-IV [facility] Last Admin: 05/05/17 09:44 Dose: 100 mls/hr Insulin Aspart (Novolog Mix 70/30 Vial) 22 units SQ BIDI [facility] Last Admin: 05/05/17 06:46 Dose: 22 units Insulin Aspart (Novolog Vial Sliding Scale -) 1 vial SQ HS [facility] PRN Reason: Protocol Last Admin: 05/04/17 22:43 Dose: 2 units Insulin Aspart (Novolog Vial Sliding Scale -) 1 vial SQ TIDAC [facility] PRN Reason: Protocol Last Admin: 05/05/17 12:00 Dose: Not Given Losartan Potassium (Cozaar -) 50 mg PO DAILY [facility] Last Admin: 05/05/17 09:45 Dose: 50 mg Polyethylene Glycol (Miralax (For Daily Use) -) 17 gm PO DAILY [facility] Last Admin: 05/05/17 09:45 Dose: 17 grams Physical Exam Constitutional: Yes: No Distress, Calm.comfortable. Neck: Yes: Supple/ no jvd Cardiovascular: Yes: Regular Rate and Rhythm Respiratory: Yes: CTA Bilaterally Gastrointestinal: Yes: Soft Extremities: Yes: Other (left foot--4th toe necrotic Neurological: Yes: Alert oriented x 3 Problem List - Problems (1) Aortic stenosis Code(s): I35.0 - NONRHEUMATIC AORTIC (VALVE) STENOSIS Qualifiers: Cardiac valve disease etiology: nonrheumatic Qualified Code(s): I35.0 - Nonrheumatic aortic (valve) stenosis (2) CAD (coronary artery disease) Code(s): I25.10 - ATHSCL HEART DISEASE OF [place] CORONARY ARTERY W/O ANG PCTRS Qualifiers: Coronary Disease-Associated Artery/Lesion type: [place] artery Associated angina: angina presence unspecified (3) Diabetic foot ulcer Code(s): E11.621 - TYPE 2 DIABETES MELLITUS WITH FOOT ULCER; L97.509 - NON- PRESSURE CHRONIC ULCER OTH PRT UNSP FOOT W UNSP SEVERITY Qualifiers: Diabetic foot ulcer location: unspecified part of foot Diabetes mellitus type: type 2 Laterality: left Non-pressure ulcer stage: unspecified non- pressure ulcer stage Qualified Code(s): E11.621 - Type 2 diabetes mellitus with foot ulcer; L97.529 - Non-pressure chronic ulcer of other part of left foot with unspecified severity; L97.529 - Non-pressure chronic ulcer of other part of left foot with unspecified severity; L97.529 - Non-pressure chronic ulcer of other part of left foot with unspecified severity; L97.529 - Non- pressure chronic ulcer of other part of left foot with unspecified severity (4) Anxiety Code(s): F41.9 - ANXIETY DISORDER, UNSPECIFIED Assessment/Plan refusing treatment continue antibiotics DC telemetry will consult psych sugar fluctuates-- nurse reports refuses at times compliance is major issue. will follow Problem List - Problems (1) Aortic stenosis Code(s): I35.0 - NONRHEUMATIC AORTIC (VALVE) STENOSIS Qualifiers: Cardiac valve disease etiology: nonrheumatic Qualified Code(s): I35.0 - Nonrheumatic aortic (valve) stenosis (2) CAD (coronary artery disease) Code(s): I25.10 - ATHSCL HEART DISEASE OF [place] CORONARY ARTERY W/O ANG PCTRS Qualifiers: Coronary Disease-Associated Artery/Lesion type: [place] artery Associated angina: angina presence unspecified (3) Diabetic foot ulcer Code(s): E11.621 - TYPE 2 DIABETES MELLITUS WITH FOOT ULCER; L97.509 - NON- PRESSURE CHRONIC ULCER OTH PRT UNSP FOOT W UNSP SEVERITY Qualifiers: Diabetic foot ulcer location: unspecified part of foot Diabetes mellitus type: type 2 Laterality: left Non-pressure ulcer stage: unspecified non- pressure ulcer stage Qualified Code(s): E11.621 - Type 2 diabetes mellitus with foot ulcer; L97.529 - Non-pressure chronic ulcer of other part of left foot with unspecified severity; L97.529 - Non-pressure chronic ulcer of other part of left foot with unspecified severity; L97.529 - Non-pressure chronic ulcer of other part of left foot with unspecified severity; L97.529 - Non- pressure chronic ulcer of other part of left foot with unspecified severity (4) Anxiety Code(s): F41.9 - ANXIETY DISORDER, UNSPECIFIED
[2017-05-05] MEDS: ALPRAZolam 0.25 MG TABLET PO PRN (12:33)
--- NOTE | 2017-05-05 15:41 | CON.NEURO ---
Consult Consult Specialty:: NEUROLGY-INGRIS ALLEN - History of Present Illness History of Present Illness: Patient is a 71 year old white female with a significant past medical history of htn, dm, systolic CHF, PAD, anxiety/depression, who presents to the ED with complaints of near syncopal episode that occurred just prior to ED arrival. Patient reports going to charge her phone when she began to experiencing sudden dizziness causing her to fall and land on her buttocks. She reports experiencing associated headache as well as slight heartburn. Patient reports coming into the ED for further evaluation due to feeling like she was unable to get herself off of the floor following her fall. Denies chest pain, Sob. Denies nausea, vomiting. Denies head trauma, change in vision. Denies fevers, chills. Denies contact with sick individuals out of state travelling. Denies dysuria, hematuria, constipation, diarrhea. Denies any other symptom. -Pt. reports feeling overwhelmed by current medical conditions and upcoming amputation of toes. She reports feeling depressed after her of 48 years 13months ago with diminished appetite, dysphoria, hypersomnolence and anhedonia. + spontaneous crying. She denies suicidal thouights+aloneness, denies hopelessness/helplessness. - Past Medical History Cardio/Vascular: Yes: HTN Gastrointestinal: No: Ascites, Cancer, Constipation, Crohn's Disease, Diverticulitis, Diverticulosis, Esophageal Varices, Gastritis, GERD, GI Bleed, Hemorrhoids, Hiatal Hernia, Inflamatory Bowel Disease, Irritable Bowel Disease, Pancreatitis, Peptic Ulcer Disease, Ulcerative Colitis, Other Hepatobiliary: No: Cirrhosis, Cholelithiasis, Cholecystitis, Choledocholithiasis , Hepatitis A, Hepatitis B, Hepatitis C, Other Renal/: No: Renal Failure, Renal Inusuff, BPH, Cancer, Hematuria, Hemodialysis , Neurogenic Bladder, Renal Calculi, UTI, Other Psych: Yes: Anxiety, Depression Endocrine: Yes: Diabetes Mellitus - Alcohol/Substance Use Hx Alcohol Use: No - Smoking History Smoking history: Never smoked Have you smoked in the past 12 months: No Aproximately how many cigarettes per day: 2 If you are a former smoker, when did you quit?: 1979 - Social History Usual Living Arrangement: Other () ADL: Independent Home Medications - Allergies Allergies/Adverse Reactions: Allergies Allergy/AdvReac Type Severity Reaction Status Date / Time Fish Containing Products Allergy Intermediate Verified 04/29/17 17:51 fish derived Allergy Intermediate Verified 04/29/17 17:51 - Home Medications Home Medications: Ambulatory Orders Insulin Lispro Protamin/Lispro [Humalog Mix 75-25 Vial] 0 unit SQ BIDAC PRN 09/21 Acetaminophen [Tylenol .Regular Strength -] 650 mg PO Q6H PRN #0 tablet Alprazolam [Xanax] 0.25 mg PO Q8H PRN #30 tablet MDD 3 09/14/16 Aspirin [ASA -] 81 mg PO DAILY #30 tab.chew 09/14/16 Mag Hydrox/Al Hydrox/Simeth [Mylanta Oral Suspension -] 30 ml PO Q8H PRN #1 bottle 09/14/16 Alprazolam [Xanax] 0.25 mg PO Q8H #10 tablet MDD 1mg 10/20/16 Family Disease History - Family Disease History Family Disease History: Diabetes: Mother, Brother, Heart Disease: Brother Physical Exam-Neuro Vital Signs: Vital Signs Temperature 98.2 F 05/05/17 14:00 Pulse Rate 98 H 05/05/17 14:00 Respiratory Rate 18 05/05/17 11:00 Blood Pressure 93/56 05/05/17 14:00 O2 Sat by Pulse Oximetry (%) 98 05/05/17 09:00 Labs: CBC, BMP 05/05/17 07:35 05/05/17 07:35 INR, PTT INR 1.19 (0.82-1.09) H 04/28/17 00:00 - Neuro Exam Mini Mental Exam: Well-oriented. Mood-dysphoric, Affect-restricted, bland. Thought content-"i am alone, overwhelmed".Thought form-normal. Insight/Judgment/ Impulse control-good. No suicidal ideation/intent/plan elicited. Cranial Nerves II-XII Intact: Yes Gag: Present DTR's: 1+ Left Bicep, 1+ Right Bicep, 1+ Left Tricep, 1+ Right Tricep, 1+ Left Brachioradialis, 1+ Right Brachioradialis, 1+ Left Achilles, 1+ Right Achilles Babinski: Absent Motor Strength: 5/5: Left Arm, Right Arm, Left Leg, Right Leg Gait: Deferred Assessment/Plan Syncope, she has moderately severe major depression with dysphoria, anhedonia, diminished appetite without suicidal ideation. Precipitating event appears to be her husbands demise. I oferred to place her on an antidepressant but she is reluctant to add another medication to her current regimen, is willing to considerr antidx. med as an outpatient. I will see her for f/u as outpt. and will refer her to a psychotherapist too before she is discharged. Thank you, Tony Meraz MD
[2017-05-05] MEDS ORDERED: INSULIN DETEMIR 100 UNITS/ML MDV SQ SCH (22:00)
[2017-05-05] MEDS: ATORVASTATIN CA 10 MG TABLET (FP) PO SCH (22:42)
[2017-05-06] MEDS: ALPRAZolam 0.25 MG TABLET PO PRN ×2 (02:52→18:12)
[2017-05-06] MEDS: CLINDAMYCIN 600MG PREMIX IVPB 600 MG/50 ML BAG IVPB SCH ×3 (02:52→22:50)
[2017-05-06] MEDS: ACETAMINOPHEN 325 MG TABLET (FP) PO PRN ×2 (04:04→11:22)
[2017-05-06] MEDS: INSULIN (NOVOLOG MIX 70/30) 100 UNITS/ML MDV SQ SCH ×2 (06:24→17:33)
[2017-05-06] MEDS: INSULIN SLIDING SCALE (NOVOLOG) 1 VIAL SQ SCH ×4 (06:25→22:50)
--- NOTE | 2017-05-06 08:25 | PN ---
Progress Note, Physician Chief Complaint: Pt A&Ox3; feels "more and more weak, no appetite; I'm three -quarters gone").+ Constipation for 6 days. Depressed today (anniversary of mother's 20+ years ago). History of Present Illness: Patient is a 71 year old white female with a significant past medical history of htn, dm, systolic CHF, PAD, anxiety/depression, who presents to the ED with complaints of near syncopal episode that occurred just prior to ED arrival. Patient reports going to charge her phone when she began to experiencing sudden dizziness causing her to fall and land on her buttocks. She reports experiencing associated headache as well as slight heartburn. Patient reports coming into the ED for further evaluation due to feeling like she was unable to get herself off of the floor following her fall. Denies chest pain, Sob. Denies nausea, vomiting. Denies head trauma, change in vision. Denies fevers, chills. Denies contact with sick individuals out of state travelling. Denies dysuria, hematuria, constipation, diarrhea. Denies any other symptoms. Allergies: None Social history:Former smoker (Last 1979). No alcohol. No illicit drugs. Surgical history: gastric bypass 16 yrs ago, Cholecystectomy PMD: Dr. Malcolm - Current Medication List Current Medications: Active Medications Acetaminophen (Tylenol -) 650 mg PO Q6H PRN PRN Reason: PAIN LEVEL 4 - 6 Last Admin: 05/06/17 04:04 Dose: 650 mg Alprazolam (Xanax -) 0.25 mg PO Q6H PRN PRN Reason: ANXIETY Last Admin: 05/06/17 02:52 Dose: 0.25 mg Aspirin (Ecotrin -) 81 mg PO DAILY [facility] Last Admin: 05/05/17 09:45 Dose: 81 mg Atorvastatin Calcium (Lipitor -) 10 mg PO HS [facility] Last Admin: 05/05/17 22:42 Dose: 10 mg Enoxaparin Sodium (Lovenox -) 40 mg SQ DAILY [facility] Last Admin: 05/05/17 09:44 Dose: 40 mg Ceftriaxone Sodium 2 gm/ (Dextrose) 100 mls @ 200 mls/hr IVPB DAILY [facility] Last Admin: 05/05/17 09:44 Dose: 200 mls/hr Clindamycin Phosphate (Cleocin 600 Mg Premix Ivpb -) 600 mg in 50 mls @ 100 mls /hr IVPB Q8H-IV JOSE Last Admin: 05/06/17 02:52 Dose: 100 mls/hr Insulin Aspart (Novolog Mix 70/30 Vial) 22 units SQ BIDI [facility] Last Admin: 05/06/17 06:24 Dose: 22 units Insulin Aspart (Novolog Vial Sliding Scale -) 1 vial SQ HS JOSE PRN Reason: Protocol Last Admin: 05/05/17 22:44 Dose: 2 units Insulin Aspart (Novolog Vial Sliding Scale -) 1 vial SQ TIDAC JOSE PRN Reason: Protocol Last Admin: 05/06/17 06:25 Dose: 4 units Losartan Potassium (Cozaar -) 50 mg PO DAILY [facility] Last Admin: 05/05/17 09:45 Dose: 50 mg Polyethylene Glycol (Miralax (For Daily Use) -) 17 gm PO DAILY [facility] Last Admin: 05/05/17 09:45 Dose: 17 grams - Objective Vital Signs: Vital Signs Temperature 98.7 F 05/06/17 06:00 Pulse Rate 93 H 05/06/17 06:00 Respiratory Rate 16 05/06/17 06:00 Blood Pressure 108/61 05/06/17 06:00 O2 Sat by Pulse Oximetry (%) 95 05/05/17 21:00 Constitutional: Yes: Anxious, Other (depressed) Eyes: Yes: WNL HENT: Yes: WNL Neck: Yes: WNL Cardiovascular: Yes: S1, S2, S4 Respiratory: Yes: Regular Gastrointestinal: Yes: Soft ...Rectal Exam: Yes: Deferred Genitourinary: No: Anuria Breast(s): Yes: WNL Musculoskeletal: Yes: Muscle Weakness Extremities: Yes: Cool Edema: No Peripheral Pulses WNL: No Peripheral Pulses: Left Doralis Pedis: 1+, Right Dorsalis Pedis: 1+ Integumentary: Yes: Bruising, Other (LLE 4th toe gangrene) Psychiatric: Yes: Other (depression) Labs: CBC, BMP 05/05/17 07:35 05/05/17 07:35 INR, PTT INR 1.19 (0.82-1.09) H 04/28/17 00:00 - ....Imaging Other: Image Reviewed (NSR; periods of sinus tachycardia) Problem List - Problems (1) Acute on chronic systolic (congestive) heart failure Assessment/Plan: Pt still refuses stress test or coronary angiogram. Continue ARB; change IV furosemide to PO 20 mg daily (presently not on diuretic) . F/u Is and Os, daily weight, BUN/Cr, electrolytes. CXR: "better aeration; no failure". May discontinue telemetry (though pt, while refusing workup for CAD/CHF, says she "needs the monitor"). Code(s): I50.23 - ACUTE ON CHRONIC SYSTOLIC (CONGESTIVE) HEART FAILURE (2) Abnormal ECG Code(s): R94.31 - ABNORMAL ELECTROCARDIOGRAM [ECG] [EKG] (3) Anxiety about health Code(s): F41.8 - OTHER SPECIFIED ANXIETY DISORDERS (4) Aortic stenosis Assessment/Plan: mild by ECHO; mild-moderate LV systolic dysfunction. Code(s): I35.0 - NONRHEUMATIC AORTIC (VALVE) STENOSIS Qualifiers: Cardiac valve disease etiology: nonrheumatic Qualified Code(s): I35.0 - Nonrheumatic aortic (valve) stenosis (5) Diabetes type 2 with atherosclerosis of arteries of extremities Code(s): E11.51 - TYPE 2 DIABETES W DIABETIC PERIPHERAL ANGIOPATH W/O GANGRENE; I70.209 - UNSP ATHSCL [place] ARTERIES OF EXTREMITIES, UNSP EXTREMITY (6) Diabetic foot ulcer Assessment/Plan: +4th left toe gangrene. On ceftriaxone and clindamycin per ID. Code(s): E11.621 - TYPE 2 DIABETES MELLITUS WITH FOOT ULCER; L97.509 - NON- PRESSURE CHRONIC ULCER OTH PRT UNSP FOOT W UNSP SEVERITY Qualifiers: Diabetic foot ulcer location: unspecified part of foot Diabetes mellitus type: type 2 Laterality: left Non-pressure ulcer stage: unspecified non- pressure ulcer stage Qualified Code(s): E11.621 - Type 2 diabetes mellitus with foot ulcer; L97.529 - Non-pressure chronic ulcer of other part of left foot with unspecified severity; L97.529 - Non-pressure chronic ulcer of other part of left foot with unspecified severity; L97.529 - Non-pressure chronic ulcer of other part of left foot with unspecified severity; L97.529 - Non- pressure chronic ulcer of other part of left foot with unspecified severity (7) Osteomyelitis Code(s): M86.9 - OSTEOMYELITIS, UNSPECIFIED Qualifiers: Osteomyelitis type: unspecified type Osteomyelitis location: foot Laterality: left Qualified Code(s): M86.9 - Osteomyelitis, unspecified (8) Diabetes mellitus Code(s): E11.9 - TYPE 2 DIABETES MELLITUS WITHOUT COMPLICATIONS (9) Lung consolidation Code(s): J18.1 - LOBAR PNEUMONIA, UNSPECIFIED ORGANISM (10) Panic disorder Code(s): F41.0 - PANIC DISORDER [EPISODIC PAROXYSMAL ANXIETY] (11) Depression Assessment/Plan: Psychological consult noted. Psychiatric: depression Pt refuses offer of medication. Code(s): F32.9 - MAJOR DEPRESSIVE DISORDER, SINGLE EPISODE, UNSPECIFIED
[2017-05-06] MEDS ORDERED: PT OWN MED DRAWER 7, Y5N ONE (10:05)
[2017-05-06] MEDS: CEFTRIAXONE 2 GM in DEXTROSE 5%-WATER - 100 ML IVPB SCH (10:26)
[2017-05-06] MEDS: POLYETHYLENE GLYCOL 3350 119 GM BTL PO SCH (10:27)
[2017-05-06] MEDS: LOSARTAN POTASSIUM 50 MG TABLET (FP) PO SCH (10:35)
[2017-05-06] MEDS: ASPIRIN COATED 81 MG TABLET.EC PO SCH (10:36)
[2017-05-06] MEDS: ENOXAPARIN NA (PORCINE) 40 MG/0.4 ML DISP.SYRIN SQ SCH (10:36)
--- NOTE | 2017-05-06 11:23 | PN ---
Progress Note (short form) - Note Progress Note: pt seen/examined no new events remains same refuses treatment/ testing neuro- psych consult noted/ appreciated. Vital Signs Temp 98.6 F 05/06/17 08:47 Pulse 92 H 05/06/17 08:47 Resp 18 05/06/17 08:47 BP 97/51 05/06/17 08:47 Pulse Ox 96 05/06/17 08:39 Intake & Output 05/05/17 05/05/17 05/06/17 11:59 23:59 11:59 Intake Total 310 950 430 Balance 310 950 430 Intake: IV 10 20 10 Left Hand #22 05/04/17 10 20 10 IVPB 150 Oral 300 780 420 Other: Voiding Method Diaper Incontinent Diaper # Unmeasured Voids Void 1 2 200 Bowel Movement No No Active Medications Acetaminophen (Tylenol -) 650 mg PO Q6H PRN PRN Reason: PAIN LEVEL 4 - 6 Last Admin: 05/06/17 04:04 Dose: 650 mg Alprazolam (Xanax -) 0.25 mg PO Q6H PRN PRN Reason: ANXIETY Last Admin: 05/06/17 02:52 Dose: 0.25 mg Aspirin (Ecotrin -) 81 mg PO DAILY [facility] Last Admin: 05/06/17 10:36 Dose: 81 mg Atorvastatin Calcium (Lipitor -) 10 mg PO HS [facility] Last Admin: 05/05/17 22:42 Dose: 10 mg Enoxaparin Sodium (Lovenox -) 40 mg SQ DAILY [facility] Last Admin: 05/06/17 10:36 Dose: 40 mg Furosemide (Lasix -) 20 mg PO DAILY [facility] Ceftriaxone Sodium 2 gm/ (Dextrose) 100 mls @ 200 mls/hr IVPB DAILY [facility] Last Admin: 05/06/17 10:26 Dose: 200 mls/hr Clindamycin Phosphate (Cleocin 600 Mg Premix Ivpb -) 600 mg in 50 mls @ 100 mls /hr IVPB Q8H-IV [facility] Last Admin: 05/06/17 10:36 Dose: 100 mls/hr Insulin Aspart (Novolog Mix 70/30 Vial) 22 units SQ BIDI [facility] Last Admin: 05/06/17 06:24 Dose: 22 units Insulin Aspart (Novolog Vial Sliding Scale -) 1 vial SQ [facility] PRN Reason: Protocol Last Admin: 05/05/17 22:44 Dose: 2 units Insulin Aspart (Novolog Vial Sliding Scale -) 1 vial SQ TIDAC [facility] PRN Reason: Protocol Last Admin: 05/06/17 06:25 Dose: 4 units Losartan Potassium (Cozaar -) 50 mg PO DAILY [facility] Last Admin: 05/06/17 10:35 Dose: Not Given Polyethylene Glycol (Miralax (For Daily Use) -) 17 gm PO DAILY [facility] Last Admin: 05/06/17 10:27 Dose: 17 grams CBC, BMP 05/05/17 07:35 05/05/17 07:35 Physical Exam Constitutional: Yes: No Distress, Calm. Neck: Yes: Supple/ no jvd Cardiovascular: Yes: Regular Rate and Rhythm Respiratory: Yes: CTA Bilaterally Gastrointestinal: Yes: Soft Extremities: Yes: Other (left foot--4th toe necrotic Neurological: Yes: Alert oriented x 3. Psych- mood depressed Assessment/Plan Difficult situation refusing treatment continue antibiotics explained abx alone will not help DC telemetry discussed with i/d also today will follow Problem List - Problems (1) Aortic stenosis Code(s): I35.0 - NONRHEUMATIC AORTIC (VALVE) STENOSIS Qualifiers: Cardiac valve disease etiology: nonrheumatic Qualified Code(s): I35.0 - Nonrheumatic aortic (valve) stenosis (2) CAD (coronary artery disease) Code(s): I25.10 - ATHSCL HEART DISEASE OF [place] CORONARY ARTERY W/O ANG PCTRS Qualifiers: Coronary Disease-Associated Artery/Lesion type: [place] artery Associated angina: angina presence unspecified (3) Diabetic foot ulcer Code(s): E11.621 - TYPE 2 DIABETES MELLITUS WITH FOOT ULCER; L97.509 - NON- PRESSURE CHRONIC ULCER OTH PRT UNSP FOOT W UNSP SEVERITY Qualifiers: Diabetic foot ulcer location: unspecified part of foot Diabetes mellitus type: type 2 Laterality: left Non-pressure ulcer stage: unspecified non- pressure ulcer stage Qualified Code(s): E11.621 - Type 2 diabetes mellitus with foot ulcer; L97.529 - Non-pressure chronic ulcer of other part of left foot with unspecified severity; L97.529 - Non-pressure chronic ulcer of other part of left foot with unspecified severity; L97.529 - Non-pressure chronic ulcer of other part of left foot with unspecified severity; L97.529 - Non- pressure chronic ulcer of other part of left foot with unspecified severity (4) Anxiety Code(s): F41.9 - ANXIETY DISORDER, UNSPECIFIED
[2017-05-06] MEDS: FUROSEMIDE 20 MG TABLET (FP) PO SCH (11:56)
[2017-05-06] MEDS: ATORVASTATIN CA 10 MG TABLET (FP) PO SCH ×2 (22:50)
[2017-05-07] MEDS: ACETAMINOPHEN 325 MG TABLET (FP) PO PRN ×2 (02:34→09:42)
[2017-05-07] MEDS: CLINDAMYCIN 600MG PREMIX IVPB 600 MG/50 ML BAG IVPB SCH ×3 (02:35→17:12)
[2017-05-07] MEDS: INSULIN (NOVOLOG MIX 70/30) 100 UNITS/ML MDV SQ SCH ×2 (07:23→17:11)
[2017-05-07] MEDS: INSULIN SLIDING SCALE (NOVOLOG) 1 VIAL SQ SCH ×4 (07:24→21:49)
[2017-05-07] MEDS: LOSARTAN POTASSIUM 50 MG TABLET (FP) PO SCH (09:28)
[2017-05-07] MEDS: ENOXAPARIN NA (PORCINE) 40 MG/0.4 ML DISP.SYRIN SQ SCH (09:28)
[2017-05-07] MEDS: ASPIRIN COATED 81 MG TABLET.EC PO SCH (09:28)
[2017-05-07] MEDS: FUROSEMIDE 20 MG TABLET (FP) PO SCH (09:28)
[2017-05-07] MEDS: POLYETHYLENE GLYCOL 3350 119 GM BTL PO SCH (09:29)
[2017-05-07] MEDS: CEFTRIAXONE 2 GM in DEXTROSE 5%-WATER - 100 ML IVPB SCH (09:29)
[2017-05-07] MEDS: ALPRAZolam 0.25 MG TABLET PO PRN ×2 (10:05→17:03)
[2017-05-07] MEDS ORDERED: INSULIN (NOVOLOG) ASPART 100 UNITS/ML 10ML VIAL ONE (11:32)
--- NOTE | 2017-05-07 11:35 | PN ---
Progress Note (short form) - Note Progress Note: The patient was seen today. She was worried about her cardiac problems as she was advised to have a stress test.Supportive psychotherapy was offered as she needed to vent her feelings. The patient appeared at greater ease during the session. She denied pain. Evidently, her surgery was postponed until her cardiac status is determined and deemed stable for surgery. She will continue to receive psychological support while she remains in this facility. Problem List - Problems (1) Anxiety about health Code(s): F41.8 - OTHER SPECIFIED ANXIETY DISORDERS
--- NOTE | 2017-05-07 11:35 | PN ---
Progress Note (short form) - Note Progress Note: I saw the patient on 05/04- unfortunately didnot document note she was well but still intermittently refusing tests foot examined washed and cleaned with betadine wound care ordered for the d/w Dr Kelly on Sunday hopefully she will consent to debridement a/p soft tissue infection of the left foot/gangrene clindamycin/rocephin to continue needs cardiology and podiatry f/u if patient permits has been refusing most of her care wound care ordered Problem List - Problems (1) Diabetic foot ulcer Code(s): E11.621 - TYPE 2 DIABETES MELLITUS WITH FOOT ULCER; L97.509 - NON- PRESSURE CHRONIC ULCER OTH PRT UNSP FOOT W UNSP SEVERITY Qualifiers: Qualified Code(s): E11.621 - Type 2 diabetes mellitus with foot ulcer; L97.529 - Non-pressure chronic ulcer of other part of left foot with unspecified severity; L97.529 - Non-pressure chronic ulcer of other part of left foot with unspecified severity; L97.529 - Non-pressure chronic ulcer of other part of left foot with unspecified severity; L97.529 - Non-pressure chronic ulcer of other part of left foot with unspecified severity (2) Osteomyelitis Code(s): M86.9 - OSTEOMYELITIS, UNSPECIFIED Qualifiers: Qualified Code(s): M86.9 - Osteomyelitis, unspecified
--- NOTE | 2017-05-07 11:37 | PN ---
Progress Note (short form) - Note Progress Note: feels well no complaints Vital Signs Period Temp Pulse Resp BP Sys/Simpson Pulse Ox Last 24 Hr 97.9 F-98.7 F 90-99 16-20 108-144/50-75 96-97 cor-rrr lungs clear abd soft,nt ext dressing removed- necrotic 4th toe purulence noted in ulcer between 4/5 toe as well purulence from ulcer on lateral aspect of foot CBC, BMP 05/05/17 07:35 05/05/17 07:35 Microbiology 04/28/17 00:00 Blood - Peripheral Venous Blood Culture - Final NO GROWTH AFTER 5 DAYS INCUBATION 04/28/17 00:00 Blood - Peripheral Venous Blood Culture - Final NO GROWTH AFTER 5 DAYS INCUBATION 04/27/17 23:29 Foot - Left Gram Stain - Final 04/27/17 23:29 Foot - Left Wound Culture - Final Staphylococcus Aureus Streptococcus Viridans a/p soft tissue infection of the left foot/gangrene clindamycin/rocephin to continue needs cardiology and podiatry f/u if patient permits d/w podiatry- dr silva- he will re-assess d/w Dr Kelly Problem List - Problems (1) Diabetic foot ulcer Code(s): E11.621 - TYPE 2 DIABETES MELLITUS WITH FOOT ULCER; L97.509 - NON- PRESSURE CHRONIC ULCER OTH PRT UNSP FOOT W UNSP SEVERITY Qualifiers: Diabetic foot ulcer location: unspecified part of foot Diabetes mellitus type: type 2 Laterality: left Non-pressure ulcer stage: unspecified non- pressure ulcer stage Qualified Code(s): E11.621 - Type 2 diabetes mellitus with foot ulcer; L97.529 - Non-pressure chronic ulcer of other part of left foot with unspecified severity; L97.529 - Non-pressure chronic ulcer of other part of left foot with unspecified severity; L97.529 - Non-pressure chronic ulcer of other part of left foot with unspecified severity; L97.529 - Non- pressure chronic ulcer of other part of left foot with unspecified severity (2) Osteomyelitis Code(s): M86.9 - OSTEOMYELITIS, UNSPECIFIED Qualifiers: Osteomyelitis type: unspecified type Osteomyelitis location: foot Laterality: left Qualified Code(s): M86.9 - Osteomyelitis, unspecified
--- NOTE | 2017-05-07 12:26 | PN ---
Progress Note (short form) - Note Progress Note: pt seen/examined no new events remains same refuses treatment/ testing i/d f/u noted/ discussed podiatry reconsulted c/c- constipation Vital Signs Temp 98 F 05/07/17 10:00 Pulse 90 05/07/17 10:00 Resp 18 05/07/17 10:00 BP 115/50 05/07/17 10:00 Pulse Ox 97 05/07/17 11:19 Intake & Output 05/06/17 05/07/17 05/07/17 23:59 11:59 23:59 Intake Total 770 360 Balance 770 360 Intake: IV 20 10 Left Hand #22 05/04/17 10 Right Hand #20 05/07/17 10 10 IVPB 200 Oral 550 350 Other: Voiding Method Incontinent Incontinent # Unmeasured Voids Void 2 4 Bowel Movement Yes: Large Solid No # Bowel Movements 1 Active Medications Acetaminophen (Tylenol -) 650 mg PO Q6H PRN PRN Reason: PAIN LEVEL 4 - 6 Last Admin: 05/06/17 04:04 Dose: 650 mg Alprazolam (Xanax -) 0.25 mg PO Q6H PRN PRN Reason: ANXIETY Last Admin: 05/06/17 02:52 Dose: 0.25 mg Aspirin (Ecotrin -) 81 mg PO DAILY [facility] Last Admin: 05/06/17 10:36 Dose: 81 mg Atorvastatin Calcium (Lipitor -) 10 mg PO HS [facility] Last Admin: 05/05/17 22:42 Dose: 10 mg Enoxaparin Sodium (Lovenox -) 40 mg SQ DAILY [facility] Last Admin: 05/06/17 10:36 Dose: 40 mg Furosemide (Lasix -) 20 mg PO DAILY [facility] Ceftriaxone Sodium 2 gm/ (Dextrose) 100 mls @ 200 mls/hr IVPB DAILY [facility] Last Admin: 05/06/17 10:26 Dose: 200 mls/hr Clindamycin Phosphate (Cleocin 600 Mg Premix Ivpb -) 600 mg in 50 mls @ 100 mls /hr IVPB Q8H-IV [facility] Last Admin: 05/06/17 10:36 Dose: 100 mls/hr Insulin Aspart (Novolog Mix 70/30 Vial) 22 units SQ BIDI [facility] Last Admin: 05/06/17 06:24 Dose: 22 units Insulin Aspart (Novolog Vial Sliding Scale -) 1 vial SQ HS [facility] PRN Reason: Protocol Last Admin: 05/05/17 22:44 Dose: 2 units Insulin Aspart (Novolog Vial Sliding Scale -) 1 vial SQ TIDAC [facility] PRN Reason: Protocol Last Admin: 05/06/17 06:25 Dose: 4 units Losartan Potassium (Cozaar -) 50 mg PO DAILY [facility] Last Admin: 05/06/17 10:35 Dose: Not Given Polyethylene Glycol (Miralax (For Daily Use) -) 17 gm PO DAILY [facility] Last Admin: 05/06/17 10:27 Dose: 17 grams CBC, BMP 05/05/17 07:35 05/05/17 07:35 Physical Exam Constitutional: Yes: No Distress, anxious Neck: Yes: Supple/ no jvd Cardiovascular: Yes: Regular Rate and Rhythm Respiratory: Yes: CTA Bilaterally Gastrointestinal: Yes: Soft Extremities: Yes: Other (left foot--4th toe necrotic Neurological: Yes: Alert oriented x 3. Psych- mood depressed Assessment/Plan Difficult situation refusing treatment continue antibiotics explained again abx alone will not help DC telemetry discussed with i/d also today stool softners f/u labs ordered will follow Problem List - Problems (1) Aortic stenosis Code(s): I35.0 - NONRHEUMATIC AORTIC (VALVE) STENOSIS Qualifiers: Cardiac valve disease etiology: nonrheumatic Qualified Code(s): I35.0 - Nonrheumatic aortic (valve) stenosis (2) CAD (coronary artery disease) Code(s): I25.10 - ATHSCL HEART DISEASE OF [place] CORONARY ARTERY W/O ANG PCTRS Qualifiers: Coronary Disease-Associated Artery/Lesion type: [place] artery Associated angina: angina presence unspecified (3) Diabetic foot ulcer Code(s): E11.621 - TYPE 2 DIABETES MELLITUS WITH FOOT ULCER; L97.509 - NON- PRESSURE CHRONIC ULCER OTH PRT UNSP FOOT W UNSP SEVERITY Qualifiers: Diabetic foot ulcer location: unspecified part of foot Diabetes mellitus type: type 2 Laterality: left Non-pressure ulcer stage: unspecified non- pressure ulcer stage Qualified Code(s): E11.621 - Type 2 diabetes mellitus with foot ulcer; L97.529 - Non-pressure chronic ulcer of other part of left foot with unspecified severity; L97.529 - Non-pressure chronic ulcer of other part of left foot with unspecified severity; L97.529 - Non-pressure chronic ulcer of other part of left foot with unspecified severity; L97.529 - Non- pressure chronic ulcer of other part of left foot with unspecified severity (4) Anxiety Code(s): F41.9 - ANXIETY DISORDER, UNSPECIFIED
[2017-05-07] MEDS: DOCUSATE SODIUM 100 MG CAPSULE (FP) PO PRN (13:30)
--- NOTE | 2017-05-07 16:22 | PN ---
Progress Note, Physician History of Present Illness: Patient is a 71 year old white female with a significant past medical history of htn, dm, systolic CHF, PAD, anxiety/depression, who presents to the ED with complaints of near syncopal episode that occurred just prior to ED arrival. Patient reports going to charge her phone when she began to experiencing sudden dizziness causing her to fall and land on her buttocks. She reports experiencing associated headache as well as slight heartburn. Patient reports coming into the ED for further evaluation due to feeling like she was unable to get herself off of the floor following her fall. Denies chest pain, Sob. Denies nausea, vomiting. Denies head trauma, change in vision. Denies fevers, chills. Denies contact with sick individuals out of state travelling. Denies dysuria, hematuria, constipation, diarrhea. Denies any other symptoms. Allergies: None Social history:Former smoker (Last 1979). No alcohol. No illicit drugs. Surgical history: gastric bypass 16 yrs ago, Cholecystectomy PMD: Dr. Malcolm - Current Medication List Current Medications: Active Medications Acetaminophen (Tylenol -) 650 mg PO Q6H PRN PRN Reason: PAIN LEVEL 4 - 6 Last Admin: 05/07/17 09:42 Dose: 650 mg Alprazolam (Xanax -) 0.25 mg PO Q6H PRN PRN Reason: ANXIETY Last Admin: 05/07/17 10:05 Dose: 0.25 mg Aspirin (Ecotrin -) 81 mg PO DAILY [facility] Last Admin: 05/07/17 09:28 Dose: 81 mg Atorvastatin Calcium (Lipitor -) 10 mg PO HS [facility] Last Admin: 05/06/17 22:50 Dose: Not Given Docusate Sodium (Colace -) 100 mg PO Q8H PRN PRN Reason: CONSTIPATION Last Admin: 05/07/17 13:30 Dose: 100 mg Enoxaparin Sodium (Lovenox -) 40 mg SQ DAILY [facility] Last Admin: 05/07/17 09:28 Dose: 40 mg Furosemide (Lasix -) 20 mg PO DAILY [facility] Last Admin: 05/07/17 09:28 Dose: 20 mg Ceftriaxone Sodium 2 gm/ (Dextrose) 100 mls @ 200 mls/hr IVPB DAILY [facility] Last Admin: 05/07/17 09:29 Dose: 200 mls/hr Clindamycin Phosphate (Cleocin 600 Mg Premix Ivpb -) 600 mg in 50 mls @ 100 mls /hr IVPB Q8H-IV [facility] Last Admin: 05/07/17 09:28 Dose: 100 mls/hr Insulin Aspart (Novolog Mix 70/30 Vial) 22 units SQ BIDI [facility] Last Admin: 05/07/17 07:23 Dose: Not Given Insulin Aspart (Novolog Vial Sliding Scale -) 1 vial SQ HS [facility] PRN Reason: Protocol Last Admin: 05/06/17 22:50 Dose: Not Given Insulin Aspart (Novolog Vial Sliding Scale -) 1 vial SQ TIDAC [facility] PRN Reason: Protocol Last Admin: 05/07/17 11:35 Dose: 4 units Losartan Potassium (Cozaar -) 50 mg PO DAILY [facility] Last Admin: 05/07/17 09:28 Dose: 50 mg Polyethylene Glycol (Miralax (For Daily Use) -) 17 gm PO DAILY [facility] Last Admin: 05/07/17 09:29 Dose: 17 grams - Objective Vital Signs: Vital Signs Temperature 98.7 F 05/07/17 14:00 Pulse Rate 93 H 05/07/17 14:00 Respiratory Rate 18 05/07/17 14:00 Blood Pressure 123/60 05/07/17 14:00 O2 Sat by Pulse Oximetry (%) 97 05/07/17 11:19 Eyes: Yes: WNL, Conjunctiva Clear, EOM Intact HENT: Yes: WNL, Atraumatic, Normocephalic Neck: Yes: WNL, Supple, Trachea Midline Cardiovascular: Yes: WNL, Regular Rate and Rhythm Respiratory: Yes: WNL, Regular, CTA Bilaterally Gastrointestinal: Yes: WNL, Normal Bowel Sounds Genitourinary: Yes: WNL Musculoskeletal: Yes: WNL Extremities: Yes: WNL Edema: No Integumentary: Yes: WNL Neurological: Yes: WNL, Alert, Oriented ...Motor Strength: WNL Psychiatric: Yes: WNL Labs: CBC, BMP 05/05/17 07:35 05/05/17 07:35 INR, PTT INR 1.19 (0.82-1.09) H 04/28/17 00:00 Assessment/Plan - Problems (1) Acute on chronic systolic (congestive) heart failure Assessment/Plan: Pt still refuses stress test or coronary angiogram. Continue ARB; change IV furosemide to PO 20 mg daily (presently not on diuretic) . F/u Is and Os, daily weight, BUN/Cr, electrolytes. CXR: "better aeration; no failure". May discontinue telemetry (though pt, while refusing workup for CAD/CHF, says she "needs the monitor"). Code(s): I50.23 - ACUTE ON CHRONIC SYSTOLIC (CONGESTIVE) HEART FAILURE (2) Abnormal ECG Code(s): R94.31 - ABNORMAL ELECTROCARDIOGRAM [ECG] [EKG] (3) Anxiety about health Code(s): F41.8 - OTHER SPECIFIED ANXIETY DISORDERS (4) Aortic stenosis Assessment/Plan: mild by ECHO; mild-moderate LV systolic dysfunction. Code(s): I35.0 - NONRHEUMATIC AORTIC (VALVE) STENOSIS Qualifiers: Cardiac valve disease etiology: nonrheumatic Qualified Code(s): I35.0 - Nonrheumatic aortic (valve) stenosis (5) Diabetes type 2 with atherosclerosis of arteries of extremities Code(s): E11.51 - TYPE 2 DIABETES W DIABETIC PERIPHERAL ANGIOPATH W/O GANGRENE; I70.209 - UNSP ATHSCL [place] ARTERIES OF EXTREMITIES, UNSP EXTREMITY (6) Diabetic foot ulcer Assessment/Plan: +4th left toe gangrene. On ceftriaxone and clindamycin per ID. Code(s): E11.621 - TYPE 2 DIABETES MELLITUS WITH FOOT ULCER; L97.509 - NON- PRESSURE CHRONIC ULCER OTH PRT UNSP FOOT W UNSP SEVERITY Qualifiers: Diabetic foot ulcer location: unspecified part of foot Diabetes mellitus type: type 2 Laterality: left Non-pressure ulcer stage: unspecified non- pressure ulcer stage Qualified Code(s): E11.621 - Type 2 diabetes mellitus with foot ulcer; L97.529 - Non-pressure chronic ulcer of other part of left foot with unspecified severity; L97.529 - Non-pressure chronic ulcer of other part of left foot with unspecified severity; L97.529 - Non-pressure chronic ulcer of other part of left foot with unspecified severity; L97.529 - Non- pressure chronic ulcer of other part of left foot with unspecified severity (7) Osteomyelitis Code(s): M86.9 - OSTEOMYELITIS, UNSPECIFIED Qualifiers: Osteomyelitis type: unspecified type Osteomyelitis location: foot Laterality: left Qualified Code(s): M86.9 - Osteomyelitis, unspecified (8) Diabetes mellitus Code(s): E11.9 - TYPE 2 DIABETES MELLITUS WITHOUT COMPLICATIONS (9) Lung consolidation Code(s): J18.1 - LOBAR PNEUMONIA, UNSPECIFIED ORGANISM (10) Panic disorder Code(s): F41.0 - PANIC DISORDER [EPISODIC PAROXYSMAL ANXIETY] (11) Depression Assessment/Plan: Psychological consult noted. Psychiatric: depression Pt refuses offer of medication. Code(s): F32.9 - MAJOR DEPRESSIVE DISORDER, SINGLE EPISODE, UNSPECIFIED coverage dr. Barahona
[2017-05-07] MEDS: ATORVASTATIN CA 10 MG TABLET (FP) PO SCH (21:49)
[2017-05-08] MEDS: CLINDAMYCIN 600MG PREMIX IVPB 600 MG/50 ML BAG IVPB SCH ×3 (01:41→17:18)
[2017-05-08 08:08] LABS: HEMATOCRIT 36.8 % (32.4-45.2); HEMOGLOBIN 12.2 GM/dL (10.7-15.3); MCH 30.2 pg (25.7-33.7); MCHC 33.2 g/dl (32.0-36.0); MEAN PLT VOLUME 8.3 fl (7.5-11.1); PLATELET COUNT 459 K/MM3 (134-434); RBC 4.04 M/mm3 (3.60-5.2); RDW 12.8 % (11.6-15.6); WHITE BLOOD COUNT 8.5 K/mm3 (4.0-10.0)
[2017-05-08 08:26] LABS: CHLORIDE 100 mmol/L (98-107); POTASSIUM 4.4 mmol/L (3.5-5.1); SODIUM 137 mmol/L (136-145)
[2017-05-08 08:45] LABS: ALBUMIN 2.5 g/dl (3.4-5.0); ALK PHOS 110 U/L (45-117); ANION GAP 7 (8-16); BILIRUBIN,TOTAL 0.1 mg/dL (0.2-1.0); BLOOD UREA NITROGEN 21 mg/dL (7-18); CALCIUM 8.8 mg/dL (8.5-10.1); CO2 30 mmol/L (21-32); CREATININE 1.2 mg/dL (0.55-1.02); GLUCOSE,RANDOM 173 mg/dL (74-106); SGOT/AST 15 U/L (15-37); SGPT/ALT 11 U/L (12-78)
[2017-05-08] MEDS: INSULIN SLIDING SCALE (NOVOLOG) 1 VIAL SQ SCH ×4 (08:47→22:20)
[2017-05-08] MEDS: ACETAMINOPHEN 325 MG TABLET (FP) PO PRN (08:48)
[2017-05-08] MEDS: INSULIN (NOVOLOG MIX 70/30) 100 UNITS/ML MDV SQ SCH ×2 (08:48→18:00)
[2017-05-08] MEDS: DOCUSATE SODIUM 100 MG CAPSULE (FP) PO PRN (10:47)
[2017-05-08] MEDS: ENOXAPARIN NA (PORCINE) 40 MG/0.4 ML DISP.SYRIN SQ SCH (10:47)
[2017-05-08] MEDS: ALPRAZolam 0.25 MG TABLET PO PRN ×2 (10:48→22:11)
[2017-05-08] MEDS: POLYETHYLENE GLYCOL 3350 119 GM BTL PO SCH (10:48)
[2017-05-08] MEDS: ASPIRIN COATED 81 MG TABLET.EC PO SCH (10:48)
--- NOTE | 2017-05-08 10:48 | PN ---
Progress Note, Physician Chief Complaint: pt appears depressed No SOB Flat affect she refuses antidepressants she is refusing surgical debridement /amputation of toes - Current Medication List Current Medications: Active Medications Acetaminophen (Tylenol -) 650 mg PO Q6H PRN PRN Reason: PAIN LEVEL 4 - 6 Last Admin: 05/08/17 08:48 Dose: 650 mg Alprazolam (Xanax -) 0.25 mg PO Q6H PRN PRN Reason: ANXIETY Aspirin (Ecotrin -) 81 mg PO DAILY [facility] Last Admin: 05/07/17 09:28 Dose: 81 mg Atorvastatin Calcium (Lipitor -) 10 mg PO HS [facility] Last Admin: 05/07/17 21:49 Dose: 10 mg Docusate Sodium (Colace -) 100 mg PO Q8H PRN PRN Reason: CONSTIPATION Last Admin: 05/07/17 13:30 Dose: 100 mg Enoxaparin Sodium (Lovenox -) 40 mg SQ DAILY [facility] Last Admin: 05/07/17 09:28 Dose: 40 mg Furosemide (Lasix -) 20 mg PO DAILY [facility] Last Admin: 05/07/17 09:28 Dose: 20 mg Ceftriaxone Sodium 2 gm/ (Dextrose) 100 mls @ 200 mls/hr IVPB DAILY [facility] Last Admin: 05/07/17 09:29 Dose: 200 mls/hr Clindamycin Phosphate (Cleocin 600 Mg Premix Ivpb -) 600 mg in 50 mls @ 100 mls /hr IVPB Q8H-IV [facility] Last Admin: 05/08/17 01:41 Dose: 100 mls/hr Insulin Aspart (Novolog Mix 70/30 Vial) 22 units SQ BIDI [facility] Last Admin: 05/08/17 08:48 Dose: 22 units Insulin Aspart (Novolog Vial Sliding Scale -) 1 vial SQ HS [facility] PRN Reason: Protocol Last Admin: 05/07/17 21:49 Dose: Not Given Insulin Aspart (Novolog Vial Sliding Scale -) 1 vial SQ TIDAC [facility] PRN Reason: Protocol Last Admin: 05/08/17 08:47 Dose: 2 units Losartan Potassium (Cozaar -) 50 mg PO DAILY [facility] Last Admin: 05/07/17 09:28 Dose: 50 mg Polyethylene Glycol (Miralax (For Daily Use) -) 17 gm PO DAILY [facility] Last Admin: 05/07/17 09:29 Dose: 17 grams - Objective Vital Signs: Vital Signs Temperature 98 F 05/08/17 05:00 Pulse Rate 94 H 05/08/17 05:00 Respiratory Rate 18 05/08/17 05:00 Blood Pressure 105/59 05/08/17 05:00 O2 Sat by Pulse Oximetry (%) 97 05/07/17 21:00 Constitutional: Yes: No Distress Cardiovascular: Yes: Regular Rate and Rhythm Respiratory: Yes: Diminished Gastrointestinal: Yes: Normal Bowel Sounds, Soft. No: Tenderness Extremities: Yes: Other (dressing left foot) Edema: Yes Labs: CBC, BMP 05/08/17 06:00 05/08/17 06:00 INR, PTT INR 1.19 (0.82-1.09) H 04/28/17 00:00 Problem List - Problems (1) Aortic stenosis Code(s): I35.0 - NONRHEUMATIC AORTIC (VALVE) STENOSIS Qualifiers: Cardiac valve disease etiology: nonrheumatic Qualified Code(s): I35.0 - Nonrheumatic aortic (valve) stenosis (2) CAD (coronary artery disease) Code(s): I25.10 - ATHSCL HEART DISEASE OF [place] CORONARY ARTERY W/O ANG PCTRS Qualifiers: Coronary Disease-Associated Artery/Lesion type: [place] artery Associated angina: angina presence unspecified (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 Code(s): E11.51 - TYPE 2 DIABETES W DIABETIC PERIPHERAL ANGIOPATH W/O GANGRENE; I70.209 - UNSP ATHSCL [place] ARTERIES OF EXTREMITIES, UNSP EXTREMITY (4) Diabetic foot ulcer Code(s): E11.621 - TYPE 2 DIABETES MELLITUS WITH FOOT ULCER; L97.509 - NON- PRESSURE CHRONIC ULCER OTH PRT UNSP FOOT W UNSP SEVERITY Qualifiers: Diabetic foot ulcer location: unspecified part of foot Diabetes mellitus type: type 2 Laterality: left Non-pressure ulcer stage: unspecified non- pressure ulcer stage Qualified Code(s): E11.621 - Type 2 diabetes mellitus with foot ulcer; L97.529 - Non-pressure chronic ulcer of other part of left foot with unspecified severity; L97.529 - Non-pressure chronic ulcer of other part of left foot with unspecified severity; L97.529 - Non-pressure chronic ulcer of other part of left foot with unspecified severity; L97.529 - Non- pressure chronic ulcer of other part of left foot with unspecified severity (5) Osteomyelitis Code(s): M86.9 - OSTEOMYELITIS, UNSPECIFIED Qualifiers: Osteomyelitis type: unspecified type Osteomyelitis location: foot Laterality: left Qualified Code(s): M86.9 - Osteomyelitis, unspecified (6) Anxiety Code(s): F41.9 - ANXIETY DISORDER, UNSPECIFIED (7) Dizziness Code(s): R42 - DIZZINESS AND GIDDINESS Assessment/Plan PLAN spoke with ID IV antibiotics she needs surgical debridement of wound, amputation-- pt wants a second opinion spoke with Surgical PA refusing antidepressants psychiatry eval continue with meds spoke with daughter who is trying to convince her mother needs cardiology -- stress test-- pt refusing
[2017-05-08] MEDS: LOSARTAN POTASSIUM 50 MG TABLET (FP) PO SCH (10:49)
[2017-05-08] MEDS: FUROSEMIDE 20 MG TABLET (FP) PO SCH (10:49)
[2017-05-08 11:15] LABS: PLATELET ESTIMATE SLT INCREASE
--- NOTE | 2017-05-08 11:28 | PN ---
Progress Note (short form) - Note Progress Note: transferred to [address] [place] [address] today Vital Signs Period Temp Pulse Resp BP Sys/Simpson Pulse Ox Last 24 Hr 97.9 F-98.7 F 93-103 18-18 102-127/57-89 97 cor-rrr llungs decreased bs at bases abd soft,nt ext dressing intact CBC, BMP 05/08/17 06:00 05/08/17 06:00 Microbiology 04/28/17 00:00 Blood - Peripheral Venous Blood Culture - Final NO GROWTH AFTER 5 DAYS INCUBATION 04/28/17 00:00 Blood - Peripheral Venous Blood Culture - Final NO GROWTH AFTER 5 DAYS INCUBATION 04/27/17 23:29 Foot - Left Gram Stain - Final 04/27/17 23:29 Foot - Left Wound Culture - Final Staphylococcus Aureus Streptococcus Viridans a/p soft tissue infection of the left foot/gangrene clindamycin/rocephin to continue needs cardiology and podiatry f/u if patient permits d/w podiatry-Dr Pineda- he will re-assess today d/w Dr Thompson Problem List - Problems (1) Diabetic foot ulcer Code(s): E11.621 - TYPE 2 DIABETES MELLITUS WITH FOOT ULCER; L97.509 - NON- PRESSURE CHRONIC ULCER OTH PRT UNSP FOOT W UNSP SEVERITY Qualifiers: Diabetic foot ulcer location: unspecified part of foot Diabetes mellitus type: type 2 Laterality: left Non-pressure ulcer stage: unspecified non- pressure ulcer stage Qualified Code(s): E11.621 - Type 2 diabetes mellitus with foot ulcer; L97.529 - Non-pressure chronic ulcer of other part of left foot with unspecified severity; L97.529 - Non-pressure chronic ulcer of other part of left foot with unspecified severity; L97.529 - Non-pressure chronic ulcer of other part of left foot with unspecified severity; L97.529 - Non- pressure chronic ulcer of other part of left foot with unspecified severity (2) Osteomyelitis Code(s): M86.9 - OSTEOMYELITIS, UNSPECIFIED Qualifiers: Osteomyelitis type: unspecified type Osteomyelitis location: foot Laterality: left Qualified Code(s): M86.9 - Osteomyelitis, unspecified
[2017-05-08] MEDS: CEFTRIAXONE 2 GM in DEXTROSE 5%-WATER - 100 ML IVPB SCH (12:35)
--- NOTE | 2017-05-08 15:05 | PN ---
Progress Note (short form) - Note Progress Note: Podiatry F/U: Seen/evaluated at bedside, NAD. Pain controlled to L foot, denies F/V/N/C/SOB/ CP. Afebrile, VSS. Patient still expresses concerns over surgery. Currently on IV abx. My partner had seen her several days ago and the patient was hesitant about surgery at that time. JANETT: L foot: pedal pulses palpable, TG warm-warmer, CFT absent to fourth toe, delayed to fifth toe. There is a fourth interspace ulcer down to bone, gangrenous fourth digit with purulent drainage, fifth MTPJ necrotic ulcer with purulent drainage, malodorous, ascending cellulitis to the forefoot. L foot XR: subcutaneous emphysema fourth and fifth MTPJs Wound Cx: staph aureus, strep viridans Imp: 71 year old DM F with L diabetic foot infection 1. C/w IV abx per ID 2. I had a thorough discussion with the patient regarding her condition. I strongly urged surgery for fourth and fifth digit amputations, partial ray resections due to severe gas-forming infection. I explained risks of worsening infection, loss of toes, loss of limb and even loss of life. After explaining all risks and benefits and explaining my recommendation for surgical intervention, the patient requests a second opinion. I recommend obtaining second opinion with Vascular Sx Dr. Whitlock. I will be on standby for now, continue local wound care. John Mensah DPM
[2017-05-08] MEDS ORDERED: INSULIN (NOVOLOG) ASPART 100 UNITS/ML 10ML VIAL ONE (17:59)
--- NOTE | 2017-05-08 19:26 | PN ---
Progress Note, Physician Chief Complaint: Pt A&Ox3; says again she feels very weak. History of Present Illness: Patient is a 71 year old white female with a significant past medical history of htn, dm, systolic CHF, PAD, anxiety/depression, who presents to the ED with complaints of near syncopal episode that occurred just prior to ED arrival. Patient reports going to charge her phone when she began to experiencing sudden dizziness causing her to fall and land on her buttocks. She reports experiencing associated headache as well as slight heartburn. Patient reports coming into the ED for further evaluation due to feeling like she was unable to get herself off of the floor following her fall. Denies chest pain, Sob. Denies nausea, vomiting. Denies head trauma, change in vision. Denies fevers, chills. Denies contact with sick individuals out of state travelling. Denies dysuria, hematuria, constipation, diarrhea. Denies any other symptoms. Allergies: None Social history:Former smoker (Last 1979). No alcohol. No illicit drugs. Surgical history: gastric bypass 16 yrs ago, Cholecystectomy PMD: Dr. Malcolm - Current Medication List Current Medications: Active Medications Acetaminophen (Tylenol -) 650 mg PO Q6H PRN PRN Reason: PAIN LEVEL 4 - 6 Last Admin: 05/08/17 08:48 Dose: 650 mg Alprazolam (Xanax -) 0.25 mg PO Q6H PRN PRN Reason: ANXIETY Last Admin: 05/08/17 10:48 Dose: 0.25 mg Aspirin (Ecotrin -) 81 mg PO DAILY [facility] Last Admin: 05/08/17 10:48 Dose: 81 mg Atorvastatin Calcium (Lipitor -) 10 mg PO HS [facility] Last Admin: 05/07/17 21:49 Dose: 10 mg Docusate Sodium (Colace -) 100 mg PO Q8H PRN PRN Reason: CONSTIPATION Last Admin: 05/08/17 10:47 Dose: 100 mg Enoxaparin Sodium (Lovenox -) 40 mg SQ DAILY [facility] Last Admin: 05/08/17 10:47 Dose: 40 mg Furosemide (Lasix -) 20 mg PO DAILY [facility] Last Admin: 05/08/17 10:49 Dose: Not Given Ceftriaxone Sodium 2 gm/ (Dextrose) 100 mls @ 200 mls/hr IVPB DAILY [facility] Last Admin: 05/08/17 12:35 Dose: 200 mls/hr Clindamycin Phosphate (Cleocin 600 Mg Premix Ivpb -) 600 mg in 50 mls @ 100 mls /hr IVPB Q8H-IV [facility] Last Admin: 05/08/17 17:18 Dose: 100 mls/hr Insulin Aspart (Novolog Mix 70/30 Vial) 22 units SQ BIDI [facility] Last Admin: 05/08/17 18:00 Dose: 22 units Insulin Aspart (Novolog Vial Sliding Scale -) 1 vial SQ HS [facility] PRN Reason: Protocol Last Admin: 05/07/17 21:49 Dose: Not Given Insulin Aspart (Novolog Vial Sliding Scale -) 1 vial SQ TIDAC [facility] PRN Reason: Protocol Last Admin: 05/08/17 18:00 Dose: 2 units Losartan Potassium (Cozaar -) 25 mg PO DAILY [facility] Polyethylene Glycol (Miralax (For Daily Use) -) 17 gm PO DAILY [facility] Last Admin: 05/08/17 10:48 Dose: 17 grams - Objective Vital Signs: Vital Signs Temperature 98 F 05/08/17 17:17 Pulse Rate 89 05/08/17 17:17 Respiratory Rate 20 05/08/17 17:17 Blood Pressure 98/54 05/08/17 17:17 O2 Sat by Pulse Oximetry (%) 97 05/08/17 09:00 Constitutional: Yes: Anxious Eyes: Yes: WNL HENT: Yes: WNL Neck: Yes: WNL Cardiovascular: Yes: Regular Rate and Rhythm, Murmur (2/6 systolic murmur, RSB-- >apex) Respiratory: Yes: Regular Gastrointestinal: Yes: Soft ...Rectal Exam: Yes: Deferred Genitourinary: No: Anuria Breast(s): Yes: WNL Musculoskeletal: Yes: Muscle Weakness Extremities: Yes: WNL Edema: Yes Edema: LLE: Trace, RLE: Trace Peripheral Pulses WNL: Yes Integumentary: Yes: WNL Neurological: Yes: Alert, Oriented, Weakness Psychiatric: Yes: Other (depression) Labs: CBC, BMP 05/08/17 06:00 05/08/17 06:00 INR, PTT INR 1.19 (0.82-1.09) H 04/28/17 00:00 Problem List - Problems (1) Acute on chronic systolic (congestive) heart failure Assessment/Plan: Pt still refuses coronary artery evaluation. Losartan dose to be lowered (ARB and diuretic held today due to hypotension). F/u Is and Os, daily weight, BUN/Cr, electrolytes. CXR: "better aeration; no failure". Code(s): I50.23 - ACUTE ON CHRONIC SYSTOLIC (CONGESTIVE) HEART FAILURE (2) Abnormal ECG Code(s): R94.31 - ABNORMAL ELECTROCARDIOGRAM [ECG] [EKG] (3) Anxiety about health Code(s): F41.8 - OTHER SPECIFIED ANXIETY DISORDERS (4) Aortic stenosis Assessment/Plan: mild by ECHO; mild-moderate LV systolic dysfunction. Code(s): I35.0 - NONRHEUMATIC AORTIC (VALVE) STENOSIS Qualifiers: Cardiac valve disease etiology: nonrheumatic Qualified Code(s): I35.0 - Nonrheumatic aortic (valve) stenosis (5) Diabetes type 2 with atherosclerosis of arteries of extremities Code(s): E11.51 - TYPE 2 DIABETES W DIABETIC PERIPHERAL ANGIOPATH W/O GANGRENE; I70.209 - UNSP ATHSCL [place] ARTERIES OF EXTREMITIES, UNSP EXTREMITY (6) Diabetic foot ulcer Assessment/Plan: +4th left toe gangrene. On ceftriaxone and clindamycin per ID. Ptnow wants a 2nd opinion; she says she knows the foot needs to be operated on, but "I want a 2nd opinion on the best way to do it". Code(s): E11.621 - TYPE 2 DIABETES MELLITUS WITH FOOT ULCER; L97.509 - NON- PRESSURE CHRONIC ULCER OTH PRT UNSP FOOT W UNSP SEVERITY Qualifiers: Diabetic foot ulcer location: unspecified part of foot Diabetes mellitus type: type 2 Laterality: left Non-pressure ulcer stage: unspecified non- pressure ulcer stage Qualified Code(s): E11.621 - Type 2 diabetes mellitus with foot ulcer; L97.529 - Non-pressure chronic ulcer of other part of left foot with unspecified severity; L97.529 - Non-pressure chronic ulcer of other part of left foot with unspecified severity; L97.529 - Non-pressure chronic ulcer of other part of left foot with unspecified severity; L97.529 - Non- pressure chronic ulcer of other part of left foot with unspecified severity (7) Osteomyelitis Code(s): M86.9 - OSTEOMYELITIS, UNSPECIFIED Qualifiers: Osteomyelitis type: unspecified type Osteomyelitis location: foot Laterality: left Qualified Code(s): M86.9 - Osteomyelitis, unspecified (8) Diabetes mellitus Code(s): E11.9 - TYPE 2 DIABETES MELLITUS WITHOUT COMPLICATIONS (9) Lung consolidation Code(s): J18.1 - LOBAR PNEUMONIA, UNSPECIFIED ORGANISM (10) Panic disorder Code(s): F41.0 - PANIC DISORDER [EPISODIC PAROXYSMAL ANXIETY] (11) Depression Assessment/Plan: Psychological consult noted. Psychiatric: depression Pt refuses offer of medication. Code(s): F32.9 - MAJOR DEPRESSIVE DISORDER, SINGLE EPISODE, UNSPECIFIED
[2017-05-08] MEDS: ATORVASTATIN CA 10 MG TABLET (FP) PO SCH (22:11)
[2017-05-09] MEDS: CLINDAMYCIN 600MG PREMIX IVPB 600 MG/50 ML BAG IVPB SCH ×3 (01:37→18:19)
[2017-05-09] MEDS ORDERED: INSULIN (NOVOLOG) ASPART 100 UNITS/ML 10ML VIAL ONE ×2 (07:47→21:23)
[2017-05-09] MEDS ORDERED: PT OWN MED DRAWER 7, Y5N ONE (09:02)
[2017-05-09] MEDS: ENOXAPARIN NA (PORCINE) 40 MG/0.4 ML DISP.SYRIN SQ SCH (09:05)
[2017-05-09] MEDS: POLYETHYLENE GLYCOL 3350 119 GM BTL PO SCH (09:07)
[2017-05-09] MEDS: INSULIN (NOVOLOG MIX 70/30) 100 UNITS/ML MDV SQ SCH ×3 (09:07→18:24)
[2017-05-09] MEDS: INSULIN SLIDING SCALE (NOVOLOG) 1 VIAL SQ SCH ×4 (09:10→21:25)
[2017-05-09] MEDS: CEFTRIAXONE 2 GM in DEXTROSE 5%-WATER - 100 ML IVPB SCH (09:11)
[2017-05-09] MEDS: FUROSEMIDE 20 MG TABLET (FP) PO SCH (09:12)
[2017-05-09] MEDS: ASPIRIN COATED 81 MG TABLET.EC PO SCH (09:13)
[2017-05-09] MEDS: LOSARTAN POTASSIUM 25 MG TABLET PO SCH ×2 (09:14→18:30)
--- NOTE | 2017-05-09 10:35 | PN ---
Progress Note, Physician Chief Complaint: pt requesting second opinion she does not want to have surgery - Current Medication List Current Medications: Active Medications Acetaminophen (Tylenol -) 650 mg PO Q6H PRN PRN Reason: PAIN LEVEL 4 - 6 Last Admin: 05/08/17 08:48 Dose: 650 mg Alprazolam (Xanax -) 0.25 mg PO Q6H PRN PRN Reason: ANXIETY Last Admin: 05/08/17 22:11 Dose: 0.25 mg Aspirin (Ecotrin -) 81 mg PO DAILY [facility] Last Admin: 05/09/17 09:13 Dose: 81 mg Atorvastatin Calcium (Lipitor -) 10 mg PO HS [facility] Last Admin: 05/08/17 22:11 Dose: 10 mg Docusate Sodium (Colace -) 100 mg PO Q8H PRN PRN Reason: CONSTIPATION Last Admin: 05/08/17 10:47 Dose: 100 mg Enoxaparin Sodium (Lovenox -) 40 mg SQ DAILY [facility] Last Admin: 05/09/17 09:05 Dose: 40 mg Furosemide (Lasix -) 20 mg PO DAILY [facility] Last Admin: 05/09/17 09:12 Dose: 20 mg Ceftriaxone Sodium 2 gm/ (Dextrose) 100 mls @ 200 mls/hr IVPB DAILY [facility] Last Admin: 05/09/17 09:11 Dose: 200 mls/hr Clindamycin Phosphate (Cleocin 600 Mg Premix Ivpb -) 600 mg in 50 mls @ 100 mls /hr IVPB Q8H-IV [facility] Last Admin: 05/09/17 09:04 Dose: 100 mls/hr Insulin Aspart (Novolog Mix 70/30 Vial) 22 units SQ BIDI [facility] Last Admin: 05/09/17 09:07 Dose: 22 units Insulin Aspart (Novolog Vial Sliding Scale -) 1 vial SQ HS [facility] PRN Reason: Protocol Last Admin: 05/08/17 22:20 Dose: Not Given Insulin Aspart (Novolog Vial Sliding Scale -) 1 vial SQ TIDAC [facility] PRN Reason: Protocol Last Admin: 05/09/17 09:10 Dose: 2 units Losartan Potassium (Cozaar -) 25 mg PO DAILY [facility] Last Admin: 05/09/17 09:14 Dose: Not Given Polyethylene Glycol (Miralax (For Daily Use) -) 17 gm PO DAILY [facility] Last Admin: 05/09/17 09:07 Dose: 17 grams - Objective Vital Signs: Vital Signs Temperature 98 F 05/09/17 06:00 Pulse Rate 94 H 05/09/17 06:00 Respiratory Rate 20 05/09/17 06:00 Blood Pressure 105/64 05/09/17 06:00 O2 Sat by Pulse Oximetry (%) 97 05/08/17 21:00 Constitutional: Yes: No Distress, Anxious Cardiovascular: Yes: Regular Rate and Rhythm Respiratory: Yes: CTA Bilaterally Gastrointestinal: Yes: Normal Bowel Sounds, Soft. No: Tenderness Extremities: Yes: Other (left foot dressing in place) Edema: Yes Labs: CBC, BMP 05/08/17 06:00 05/08/17 06:00 INR, PTT INR 1.19 (0.82-1.09) H 04/28/17 00:00 Problem List - Problems (1) Aortic stenosis Code(s): I35.0 - NONRHEUMATIC AORTIC (VALVE) STENOSIS Qualifiers: Cardiac valve disease etiology: nonrheumatic Qualified Code(s): I35.0 - Nonrheumatic aortic (valve) stenosis (2) CAD (coronary artery disease) Code(s): I25.10 - ATHSCL HEART DISEASE OF [place] CORONARY ARTERY W/O ANG PCTRS Qualifiers: Coronary Disease-Associated Artery/Lesion type: three affiliated artery Associated angina: angina presence unspecified (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 Code(s): E11.51 - TYPE 2 DIABETES W DIABETIC PERIPHERAL ANGIOPATH W/O GANGRENE; I70.209 - UNSP ATHSCL [place] ARTERIES OF EXTREMITIES, UNSP EXTREMITY (4) Diabetic foot ulcer Code(s): E11.621 - TYPE 2 DIABETES MELLITUS WITH FOOT ULCER; L97.509 - NON- PRESSURE CHRONIC ULCER OTH PRT UNSP FOOT W UNSP SEVERITY Qualifiers: Diabetic foot ulcer location: unspecified part of foot Diabetes mellitus type: type 2 Laterality: left Non-pressure ulcer stage: unspecified non- pressure ulcer stage Qualified Code(s): E11.621 - Type 2 diabetes mellitus with foot ulcer; L97.529 - Non-pressure chronic ulcer of other part of left foot with unspecified severity; L97.529 - Non-pressure chronic ulcer of other part of left foot with unspecified severity; L97.529 - Non-pressure chronic ulcer of other part of left foot with unspecified severity; L97.529 - Non- pressure chronic ulcer of other part of left foot with unspecified severity (5) Osteomyelitis Code(s): M86.9 - OSTEOMYELITIS, UNSPECIFIED Qualifiers: Osteomyelitis type: unspecified type Osteomyelitis location: foot Laterality: left Qualified Code(s): M86.9 - Osteomyelitis, unspecified (6) Anxiety Code(s): F41.9 - ANXIETY DISORDER, UNSPECIFIED (7) Dizziness Code(s): R42 - DIZZINESS AND GIDDINESS Assessment/Plan PLAN spoke with surgical PA-- DR Whitlock away, Dr Sanders also away Consult Dr Leonard IV antibiotics she needs surgical debridement of wound, amputation refusing antidepressants psychiatry eval continue with meds spoke with daughter who is trying to convince her mother needs cardiology -- stress test-- pt refusing
[2017-05-09] MEDS: ALPRAZolam 0.25 MG TABLET PO PRN ×2 (10:51→22:20)
[2017-05-09] MEDS: ACETAMINOPHEN 325 MG TABLET (FP) PO PRN (12:02)
--- NOTE | 2017-05-09 12:02 | PN ---
Progress Note, Physician History of Present Illness: Patient is a 71 year old white female with a significant past medical history of htn, dm, systolic CHF, PAD, anxiety/depression, who presents to the ED with complaints of near syncopal episode that occurred just prior to ED arrival. Patient reports going to charge her phone when she began to experiencing sudden dizziness causing her to fall and land on her buttocks. She reports experiencing associated headache as well as slight heartburn. Patient reports coming into the ED for further evaluation due to feeling like she was unable to get herself off of the floor following her fall. Denies chest pain, Sob. Denies nausea, vomiting. Denies head trauma, change in vision. Denies fevers, chills. Denies contact with sick individuals out of state travelling. Denies dysuria, hematuria, constipation, diarrhea. Denies any other symptoms. Allergies: None Social history:Former smoker (Last 1979). No alcohol. No illicit drugs. Surgical history: gastric bypass 16 yrs ago, Cholecystectomy PMD: Dr. Malcolm - Current Medication List Current Medications: Active Medications Acetaminophen (Tylenol -) 650 mg PO Q6H PRN PRN Reason: PAIN LEVEL 4 - 6 Last Admin: 05/08/17 08:48 Dose: 650 mg Alprazolam (Xanax -) 0.25 mg PO Q6H PRN PRN Reason: ANXIETY Last Admin: 05/09/17 10:51 Dose: 0.25 mg Aspirin (Ecotrin -) 81 mg PO DAILY [facility] Last Admin: 05/09/17 09:13 Dose: 81 mg Atorvastatin Calcium (Lipitor -) 10 mg PO HS [facility] Last Admin: 05/08/17 22:11 Dose: 10 mg Docusate Sodium (Colace -) 100 mg PO Q8H PRN PRN Reason: CONSTIPATION Last Admin: 05/08/17 10:47 Dose: 100 mg Enoxaparin Sodium (Lovenox -) 40 mg SQ DAILY [facility] Last Admin: 05/09/17 09:05 Dose: 40 mg Furosemide (Lasix -) 20 mg PO DAILY [facility] Last Admin: 05/09/17 09:12 Dose: 20 mg Ceftriaxone Sodium 2 gm/ (Dextrose) 100 mls @ 200 mls/hr IVPB DAILY [facility] Last Admin: 05/09/17 09:11 Dose: 200 mls/hr Clindamycin Phosphate (Cleocin 600 Mg Premix Ivpb -) 600 mg in 50 mls @ 100 mls /hr IVPB Q8H-IV [facility] Last Admin: 05/09/17 09:04 Dose: 100 mls/hr Insulin Aspart (Novolog Mix 70/30 Vial) 22 units SQ BIDI [facility] Last Admin: 05/09/17 09:07 Dose: 22 units Insulin Aspart (Novolog Vial Sliding Scale -) 1 vial SQ HS [facility] PRN Reason: Protocol Last Admin: 05/08/17 22:20 Dose: Not Given Insulin Aspart (Novolog Vial Sliding Scale -) 1 vial SQ TIDAC [facility] PRN Reason: Protocol Last Admin: 05/09/17 09:10 Dose: 2 units Losartan Potassium (Cozaar -) 25 mg PO DAILY [facility] Last Admin: 05/09/17 09:14 Dose: Not Given Polyethylene Glycol (Miralax (For Daily Use) -) 17 gm PO DAILY [facility] Last Admin: 05/09/17 09:07 Dose: 17 grams - Objective Vital Signs: Vital Signs Temperature 97.7 F 05/09/17 10:55 Pulse Rate 115 H 05/09/17 10:55 Respiratory Rate 20 05/09/17 06:00 Blood Pressure 103/69 05/09/17 10:55 O2 Sat by Pulse Oximetry (%) 97 05/08/17 21:00 Eyes: Yes: WNL, Conjunctiva Clear, EOM Intact HENT: Yes: WNL, Atraumatic, Normocephalic Neck: Yes: WNL, Supple, Trachea Midline Cardiovascular: Yes: WNL, Regular Rate and Rhythm Respiratory: Yes: WNL, Regular, CTA Bilaterally Gastrointestinal: Yes: WNL, Normal Bowel Sounds Genitourinary: Yes: WNL Musculoskeletal: Yes: WNL Extremities: Yes: WNL Edema: No Integumentary: Yes: WNL Neurological: Yes: WNL, Alert, Oriented ...Motor Strength: WNL Psychiatric: Yes: WNL Labs: CBC, BMP 05/08/17 06:00 05/08/17 06:00 INR, PTT INR 1.19 (0.82-1.09) H 04/28/17 00:00 Assessment/Plan - Problems (1) Acute on chronic systolic (congestive) heart failure Assessment/Plan: Pt still refuses coronary artery evaluation. Losartan dose to be lowered (ARB and diuretic held today due to hypotension). F/u Is and Os, daily weight, BUN/Cr, electrolytes. CXR: "better aeration; no failure". Code(s): I50.23 - ACUTE ON CHRONIC SYSTOLIC (CONGESTIVE) HEART FAILURE (2) Abnormal ECG Code(s): R94.31 - ABNORMAL ELECTROCARDIOGRAM [ECG] [EKG] (3) Anxiety about health Code(s): F41.8 - OTHER SPECIFIED ANXIETY DISORDERS (4) Aortic stenosis Assessment/Plan: mild by ECHO; mild-moderate LV systolic dysfunction. Code(s): I35.0 - NONRHEUMATIC AORTIC (VALVE) STENOSIS Qualifiers: Cardiac valve disease etiology: nonrheumatic Qualified Code(s): I35.0 - Nonrheumatic aortic (valve) stenosis (5) Diabetes type 2 with atherosclerosis of arteries of extremities Code(s): E11.51 - TYPE 2 DIABETES W DIABETIC PERIPHERAL ANGIOPATH W/O GANGRENE; I70.209 - UNSP ATHSCL [place] ARTERIES OF EXTREMITIES, UNSP EXTREMITY (6) Diabetic foot ulcer Assessment/Plan: +4th left toe gangrene. On ceftriaxone and clindamycin per ID. Ptnow wants a 2nd opinion; she says she knows the foot needs to be operated on, but "I want a 2nd opinion on the best way to do it". Code(s): E11.621 - TYPE 2 DIABETES MELLITUS WITH FOOT ULCER; L97.509 - NON- PRESSURE CHRONIC ULCER OTH PRT UNSP FOOT W UNSP SEVERITY Qualifiers: Diabetic foot ulcer location: unspecified part of foot Diabetes mellitus type: type 2 Laterality: left Non-pressure ulcer stage: unspecified non- pressure ulcer stage Qualified Code(s): E11.621 - Type 2 diabetes mellitus with foot ulcer; L97.529 - Non-pressure chronic ulcer of other part of left foot with unspecified severity; L97.529 - Non-pressure chronic ulcer of other part of left foot with unspecified severity; L97.529 - Non-pressure chronic ulcer of other part of left foot with unspecified severity; L97.529 - Non- pressure chronic ulcer of other part of left foot with unspecified severity (7) Osteomyelitis Code(s): M86.9 - OSTEOMYELITIS, UNSPECIFIED Qualifiers: Osteomyelitis type: unspecified type Osteomyelitis location: foot Laterality: left Qualified Code(s): M86.9 - Osteomyelitis, unspecified (8) Diabetes mellitus Code(s): E11.9 - TYPE 2 DIABETES MELLITUS WITHOUT COMPLICATIONS (9) Lung consolidation Code(s): J18.1 - LOBAR PNEUMONIA, UNSPECIFIED ORGANISM (10) Panic disorder Code(s): F41.0 - PANIC DISORDER [EPISODIC PAROXYSMAL ANXIETY] (11) Depression Assessment/Plan: Psychological consult noted. Psychiatric: depression Pt refuses offer of medication. Code(s): F32.9 - MAJOR DEPRESSIVE DISORDER, SINGLE EPISODE, UNSPECIFIED
--- NOTE | 2017-05-09 15:46 | PN ---
Progress Note (short form) - Note Progress Note: requesting a second opinion for her foot Vital Signs Period Temp Pulse Resp BP Sys/Simpson Pulse Ox Last 24 Hr 97.7 F-99 F 86-115 18-22 91-114/49-74 97 cor-rrr lungs decreased bs at bases abd soft,nt ext necrotic toe with purulent base and adjoining infection CBC, BMP 05/08/17 06:00 05/08/17 06:00 Microbiology 04/28/17 00:00 Blood - Peripheral Venous Blood Culture - Final NO GROWTH AFTER 5 DAYS INCUBATION 04/28/17 00:00 Blood - Peripheral Venous Blood Culture - Final NO GROWTH AFTER 5 DAYS INCUBATION 04/27/17 23:29 Foot - Left Gram Stain - Final 04/27/17 23:29 Foot - Left Wound Culture - Final Staphylococcus Aureus Streptococcus Viridans a/p soft tissue infection of the left foot/gangrene clindamycin/rocephin to continue awaiting surgery followup requesting second opinion regarding surgery Problem List - Problems (1) Diabetic foot ulcer Code(s): E11.621 - TYPE 2 DIABETES MELLITUS WITH FOOT ULCER; L97.509 - NON- PRESSURE CHRONIC ULCER OTH PRT UNSP FOOT W UNSP SEVERITY Qualifiers: Diabetic foot ulcer location: unspecified part of foot Diabetes mellitus type: type 2 Laterality: left Non-pressure ulcer stage: unspecified non- pressure ulcer stage Qualified Code(s): E11.621 - Type 2 diabetes mellitus with foot ulcer; L97.529 - Non-pressure chronic ulcer of other part of left foot with unspecified severity; L97.529 - Non-pressure chronic ulcer of other part of left foot with unspecified severity; L97.529 - Non-pressure chronic ulcer of other part of left foot with unspecified severity; L97.529 - Non- pressure chronic ulcer of other part of left foot with unspecified severity (2) Osteomyelitis Code(s): M86.9 - OSTEOMYELITIS, UNSPECIFIED Qualifiers: Osteomyelitis type: unspecified type Osteomyelitis location: foot Laterality: left Qualified Code(s): M86.9 - Osteomyelitis, unspecified
--- NOTE | 2017-05-09 19:24 | CON.PSY ---
Psychiatry Consult Chief Complaint: 71 year old white female admitted with Gangrnous TOe. Distory of Diabetes> She lost her Hb recently for Brain Cancer. Reports feeling depressed and anxious. Symptoms: reports: Depressed Mood, Anhedonia - Previous Psychiatric Treatment Outpatient: None Inpatient: None - Previous Substance Abuse Treatment Outpatient: None Inpatient: None - Reason for Previous Treatment Reason for Previous Treatment: Anxiety or Panic Disorder - Current Medications Current Medications: Active Medications Acetaminophen (Tylenol -) 650 mg PO Q6H PRN PRN Reason: PAIN LEVEL 4 - 6 Last Admin: 05/09/17 12:02 Dose: 650 mg Alprazolam (Xanax -) 0.25 mg PO Q6H PRN PRN Reason: ANXIETY Last Admin: 05/09/17 10:51 Dose: 0.25 mg Aspirin (Ecotrin -) 81 mg PO DAILY [facility] Last Admin: 05/09/17 09:13 Dose: 81 mg Atorvastatin Calcium (Lipitor -) 10 mg PO HS [facility] Last Admin: 05/08/17 22:11 Dose: 10 mg Docusate Sodium (Colace -) 100 mg PO Q8H PRN PRN Reason: CONSTIPATION Last Admin: 05/08/17 10:47 Dose: 100 mg Enoxaparin Sodium (Lovenox -) 40 mg SQ DAILY [facility] Last Admin: 05/09/17 09:05 Dose: 40 mg Furosemide (Lasix -) 20 mg PO DAILY [facility] Last Admin: 05/09/17 09:12 Dose: 20 mg Ceftriaxone Sodium 2 gm/ (Dextrose) 100 mls @ 200 mls/hr IVPB DAILY [facility] Last Admin: 05/09/17 09:11 Dose: 200 mls/hr Clindamycin Phosphate (Cleocin 600 Mg Premix Ivpb -) 600 mg in 50 mls @ 100 mls /hr IVPB Q8H-IV [facility] Last Admin: 05/09/17 18:19 Dose: 100 mls/hr Insulin Aspart (Novolog Mix 70/30 Vial) 22 units SQ BIDI [facility] Last Admin: 05/09/17 18:24 Dose: Not Given Insulin Aspart (Novolog Vial Sliding Scale -) 1 vial SQ HS [facility] PRN Reason: Protocol Last Admin: 05/08/17 22:20 Dose: Not Given Insulin Aspart (Novolog Vial Sliding Scale -) 1 vial SQ TIDAC [facility] PRN Reason: Protocol Last Admin: 05/09/17 17:17 Dose: Not Given Losartan Potassium (Cozaar -) 25 mg PO DAILY [facility] Last Admin: 05/09/17 18:30 Dose: 25 mg Polyethylene Glycol (Miralax (For Daily Use) -) 17 gm PO DAILY [facility] Last Admin: 05/09/17 09:07 Dose: 17 grams - Allergies Allergies: Allergies Allergy/AdvReac Type Severity Reaction Status Date / Time Fish Containing Products Allergy Intermediate Verified 04/29/17 17:51 fish derived Allergy Intermediate Verified 04/29/17 17:51 - Current Living Status Usual Living Arrangement: Alone - Current Mental Status Evaluation Appearance: Disheveled Attitude: Cooperative - Affect Affect: Constrictive Appropriateness: Appropriate to Content - Mood Mood: Depressed - Speech/Language Expressive: Coherent - Psychomotor Activity Psychomotor Activity: Slowed - Thought Process Thought Process: Intact - Thought Content Hallucinations: Absent Delusions: Absent - Self Perception Self Perception: No Impairment - Cognition Attention: Alert Orientation: Time Memory, Immediate Recall: Intact Memory, Short Term: 2/3 Memory, Remote with Promptin/3 - Concentration Serial Sevens Intact: No Simple Calculations Intact: No - Abstraction Proverb Interpretation: Intact Judgement: Intact - Insight Insight: Intact - Impulse Control Impulse Control: Good Control - Suicidal Ideation Suicidal Ideation: No - Homicidal Ideation Homicidal Ideation: No Problem List - Problems (1) Depressive disorder Code(s): F32.9 - MAJOR DEPRESSIVE DISORDER, SINGLE EPISODE, UNSPECIFIED Assessment/Plan 1) Cymbalta 20mg po od.
[2017-05-09] MEDS: ATORVASTATIN CA 10 MG TABLET (FP) PO SCH (22:00)
[2017-05-10] MEDS: CLINDAMYCIN 600MG PREMIX IVPB 600 MG/50 ML BAG IVPB SCH ×2 (01:41→10:31)
[2017-05-10 07:42] LABS: BASO % 1.1 % (0-2.0); EOS % 6.9 % (0-4.5); HEMATOCRIT 35.6 % (32.4-45.2); HEMOGLOBIN 11.8 GM/dL (10.7-15.3); LYMPH % 24.6 % (8-40); MCH 30.2 pg (25.7-33.7); MEAN CELL VOLUME 91.4 fl (80-96); MEAN PLT VOLUME 8.3 fl (7.5-11.1); MONO % 10.2 % (3.8-10.2); NEUT % 57.2 % (42.8-82.8); PLATELET COUNT 407 K/MM3 (134-434); RBC 3.89 M/mm3 (3.60-5.2); RDW 12.9 % (11.6-15.6); WHITE BLOOD COUNT 7.2 K/mm3 (4.0-10.0)
[2017-05-10 08:16] LABS: ANION GAP 10 (8-16); BLOOD UREA NITROGEN 22 mg/dL (7-18); CHLORIDE 101 mmol/L (98-107); CO2 28 mmol/L (21-32); CREATININE 1.1 mg/dL (0.55-1.02); GLUCOSE,RANDOM 203 mg/dL (74-106); POTASSIUM 4.6 mmol/L (3.5-5.1); SODIUM 139 mmol/L (136-145)
[2017-05-10] MEDS ORDERED: INSULIN (NOVOLOG) ASPART 100 UNITS/ML 10ML VIAL ONE ×4 (08:21→20:28)
[2017-05-10] MEDS ORDERED: INSULIN DETEMIR 100 UNITS/ML MDV SQ ONE ×2 (08:21→08:32)
[2017-05-10] MEDS ORDERED: PT OWN MED DRAWER 7, Y5N ONE ×2 (08:21→09:16)
[2017-05-10] MEDS ORDERED: INSULIN (NOVOLOG MIX 70/30) 100 UNITS/ML MDV SQ ONE ×3 (08:32→09:00)
[2017-05-10] MEDS: INSULIN (NOVOLOG MIX 70/30) 100 UNITS/ML MDV SQ SCH ×2 (08:33→17:30)
[2017-05-10] MEDS: INSULIN SLIDING SCALE (NOVOLOG) 1 VIAL SQ SCH ×4 (08:34→21:18)
[2017-05-10] MEDS: ACETAMINOPHEN 325 MG TABLET (FP) PO PRN ×2 (09:01→21:14)
[2017-05-10] MEDS: CEFTRIAXONE 2 GM in DEXTROSE 5%-WATER - 100 ML IVPB SCH (09:21)
[2017-05-10] MEDS: LOSARTAN POTASSIUM 25 MG TABLET PO SCH (09:21)
[2017-05-10] MEDS: ALPRAZolam 0.25 MG TABLET PO PRN (09:22)
[2017-05-10] MEDS: FUROSEMIDE 20 MG TABLET (FP) PO SCH (09:22)
[2017-05-10] MEDS: ENOXAPARIN NA (PORCINE) 40 MG/0.4 ML DISP.SYRIN SQ SCH (09:22)
[2017-05-10] MEDS: ASPIRIN COATED 81 MG TABLET.EC PO SCH (09:22)
[2017-05-10] MEDS: POLYETHYLENE GLYCOL 3350 119 GM BTL PO SCH (09:24)
[2017-05-10] MEDS ORDERED: DULoxetine HCL 20 MG CAPSULE.DR (FP) PO SCH (10:00)
--- NOTE | 2017-05-10 12:09 | PN ---
Progress Note (short form) - Note Progress Note: full consult dictated. agree with debridement by podiatry. will order arterial doppler to check for pvd
--- NOTE | 2017-05-10 12:35 | CONS ---
DATE OF CONSULTATION: 05/10/2017 REQUESTING PHYSICIANS: Syeda Thompson MD and David Mensah DPM. CONSULTING PHYSICIAN: Dakota Schafer MD. TYPE OF CONSULT: Vascular surgery. CHIEF COMPLAINT: Left foot wound. HISTORY OF PRESENT ILLNESS: This is a 71-year-old woman who presented initially to the emergency room with an episode of falling. At that time we noticed that she had a diabetic left foot wound which was infected with fourth toe gangrene. She was seen by Podiatry and recommended to have toe amputation and foot debridement but the patient has been refusing surgery and noncompliant with her treatment plan. Her about a year ago and she reports that she has difficulty taking care of herself. She is currently on antibiotics. Vascular surgery is requested for a second opinion about the foot. PAST MEDICAL HISTORY: Hypertension, diabetes, anxiety. PAST SURGICAL HISTORY: Gastric bypass, cholecystectomy 16 years ago. ALLERGIES: FISH. MEDICATIONS: Reviewed. FAMILY HISTORY: Noncontributory. SOCIAL HISTORY: Quit smoking in 1979. No alcohol or illicit drug use. REVIEW OF SYSTEMS: A 12-point review of systems otherwise negative. PHYSICAL EXAMINATION: Vital signs: Afebrile. Vital signs are Stable. General: In no acute distress. HEENT: Normocephalic, atraumatic. Neck: Supple. Heart: S1, S2. Lungs: Clear to auscultation bilaterally. Abdomen: Soft, nontender, nondistended. Extremities: Dorsalis pedis palpable in both feet. Left foot with gangrenous fourth toe extending to the plantar surface of the foot with some purulent drainage. LABORATORY RESULTS: White blood cell count is 7.2, INR 1.1, creatinine 1.1. IMAGING STUDIES: Reviewed. ASSESSMENT AND PLAN: A 71-year-old woman with infected left foot gangrene. Recommend screening arterial Doppler to check for circulatory compromise; however, based on the examination in think likely this is low. I agree with debridement with Podiatry. DAKOTA SCHAFER M.D. [id number]
--- NOTE | 2017-05-10 13:53 | PN ---
Progress Note, Physician Chief Complaint: Psychiatrist started Cymbalta Pt states that it made her too drowsy has multiple complaints-- feels tired, thinks her insulin is too much, does not want to be bothered with surgery - Current Medication List Current Medications: Active Medications Acetaminophen (Tylenol -) 650 mg PO Q6H PRN PRN Reason: PAIN LEVEL 4 - 6 Last Admin: 05/10/17 09:01 Dose: 650 mg Alprazolam (Xanax -) 0.25 mg PO Q6H PRN PRN Reason: ANXIETY Last Admin: 05/10/17 09:22 Dose: 0.25 mg Aspirin (Ecotrin -) 81 mg PO DAILY [facility] Last Admin: 05/10/17 09:22 Dose: 81 mg Atorvastatin Calcium (Lipitor -) 10 mg PO HS [facility] Last Admin: 05/09/17 22:00 Dose: 10 mg Docusate Sodium (Colace -) 100 mg PO Q8H PRN PRN Reason: CONSTIPATION Last Admin: 05/08/17 10:47 Dose: 100 mg Duloxetine HCl (Cymbalta -) 20 mg PO DAILY [facility] Last Admin: 05/10/17 09:22 Dose: 20 mg Enoxaparin Sodium (Lovenox -) 40 mg SQ DAILY [facility] Last Admin: 05/10/17 09:22 Dose: 40 mg Furosemide (Lasix -) 20 mg PO DAILY [facility] Last Admin: 05/10/17 09:22 Dose: 20 mg Ceftriaxone Sodium 2 gm/ (Dextrose) 100 mls @ 200 mls/hr IVPB DAILY [facility] Last Admin: 05/10/17 09:21 Dose: 200 mls/hr Clindamycin Phosphate (Cleocin 600 Mg Premix Ivpb -) 600 mg in 50 mls @ 100 mls /hr IVPB Q8H-IV [facility] Last Admin: 05/10/17 10:31 Dose: 100 mls/hr Insulin Aspart (Novolog Mix 70/30 Vial) 22 units SQ BIDI [facility] Last Admin: 05/10/17 08:33 Dose: 22 units Insulin Aspart (Novolog Vial Sliding Scale -) 1 vial SQ HS [facility] PRN Reason: Protocol Last Admin: 05/09/17 21:25 Dose: 2 units Insulin Aspart (Novolog Vial Sliding Scale -) 1 vial SQ TIDAC [facility] PRN Reason: Protocol Last Admin: 05/10/17 12:47 Dose: 3 units Losartan Potassium (Cozaar -) 25 mg PO DAILY [facility] Last Admin: 05/10/17 09:21 Dose: 25 mg Polyethylene Glycol (Miralax (For Daily Use) -) 17 gm PO DAILY [facility] Last Admin: 05/10/17 09:24 Dose: 17 grams - Objective Vital Signs: Vital Signs Temperature 98.4 F 05/10/17 09:20 Pulse Rate 94 H 05/10/17 12:00 Respiratory Rate 20 05/10/17 12:00 Blood Pressure 97/58 05/10/17 12:00 O2 Sat by Pulse Oximetry (%) 98 05/10/17 09:00 Constitutional: Yes: No Distress Cardiovascular: Yes: Regular Rate and Rhythm Respiratory: Yes: Diminished Gastrointestinal: Yes: Normal Bowel Sounds, Soft. No: Tenderness Extremities: Yes: Other (left foot dressing in place) Edema: Yes Labs: CBC, BMP 05/10/17 06:30 05/10/17 06:30 INR, PTT INR 1.19 (0.82-1.09) H 04/28/17 00:00 Problem List - Problems (1) Aortic stenosis Code(s): I35.0 - NONRHEUMATIC AORTIC (VALVE) STENOSIS Qualifiers: Cardiac valve disease etiology: nonrheumatic Qualified Code(s): I35.0 - Nonrheumatic aortic (valve) stenosis (2) CAD (coronary artery disease) Code(s): I25.10 - ATHSCL HEART DISEASE OF [place] CORONARY ARTERY W/O ANG PCTRS Qualifiers: Coronary Disease-Associated Artery/Lesion type: [place] artery Associated angina: angina presence unspecified (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 Code(s): E11.51 - TYPE 2 DIABETES W DIABETIC PERIPHERAL ANGIOPATH W/O GANGRENE; I70.209 - UNSP ATHSCL [place] ARTERIES OF EXTREMITIES, UNSP EXTREMITY (4) Diabetic foot ulcer Code(s): E11.621 - TYPE 2 DIABETES MELLITUS WITH FOOT ULCER; L97.509 - NON- PRESSURE CHRONIC ULCER OTH PRT UNSP FOOT W UNSP SEVERITY Qualifiers: Diabetic foot ulcer location: unspecified part of foot Diabetes mellitus type: type 2 Laterality: left Non-pressure ulcer stage: unspecified non- pressure ulcer stage Qualified Code(s): E11.621 - Type 2 diabetes mellitus with foot ulcer; L97.529 - Non-pressure chronic ulcer of other part of left foot with unspecified severity; L97.529 - Non-pressure chronic ulcer of other part of left foot with unspecified severity; L97.529 - Non-pressure chronic ulcer of other part of left foot with unspecified severity; L97.529 - Non- pressure chronic ulcer of other part of left foot with unspecified severity (5) Osteomyelitis Code(s): M86.9 - OSTEOMYELITIS, UNSPECIFIED Qualifiers: Osteomyelitis type: unspecified type Osteomyelitis location: foot Laterality: left Qualified Code(s): M86.9 - Osteomyelitis, unspecified (6) Anxiety Code(s): F41.9 - ANXIETY DISORDER, UNSPECIFIED (7) Dizziness Code(s): R42 - DIZZINESS AND GIDDINESS Assessment/Plan PLAN Vascular eval appreciated arterial doppler done IV antibiotics , add Bacid she needs surgical debridement of wound, amputation give Cymbalta at night continue with meds
--- NOTE | 2017-05-10 14:37 | PN ---
Progress Note, Physician Chief Complaint: ID Clindamycin and Ceftriaxone - Current Medication List Current Medications: Active Medications Acetaminophen (Tylenol -) 650 mg PO Q6H PRN PRN Reason: PAIN LEVEL 4 - 6 Last Admin: 05/10/17 09:01 Dose: 650 mg Alprazolam (Xanax -) 0.25 mg PO Q6H PRN PRN Reason: ANXIETY Last Admin: 05/10/17 09:22 Dose: 0.25 mg Aspirin (Ecotrin -) 81 mg PO DAILY [facility] Last Admin: 05/10/17 09:22 Dose: 81 mg Atorvastatin Calcium (Lipitor -) 10 mg PO HS [facility] Last Admin: 05/09/17 22:00 Dose: 10 mg Docusate Sodium (Colace -) 100 mg PO Q8H PRN PRN Reason: CONSTIPATION Last Admin: 05/08/17 10:47 Dose: 100 mg Duloxetine HCl (Cymbalta -) 20 mg PO HS [facility] Enoxaparin Sodium (Lovenox -) 40 mg SQ DAILY [facility] Last Admin: 05/10/17 09:22 Dose: 40 mg Furosemide (Lasix -) 20 mg PO DAILY [facility] Last Admin: 05/10/17 09:22 Dose: 20 mg Ceftriaxone Sodium 2 gm/ (Dextrose) 100 mls @ 200 mls/hr IVPB DAILY [facility] Last Admin: 05/10/17 09:21 Dose: 200 mls/hr Clindamycin Phosphate (Cleocin 600 Mg Premix Ivpb -) 600 mg in 50 mls @ 100 mls /hr IVPB Q8H-IV [facility] Last Admin: 05/10/17 10:31 Dose: 100 mls/hr Insulin Aspart (Novolog Mix 70/30 Vial) 22 units SQ BIDI [facility] Last Admin: 05/10/17 08:33 Dose: 22 units Insulin Aspart (Novolog Vial Sliding Scale -) 1 vial SQ HS [facility] PRN Reason: Protocol Last Admin: 05/09/17 21:25 Dose: 2 units Insulin Aspart (Novolog Vial Sliding Scale -) 1 vial SQ TIDAC [facility] PRN Reason: Protocol Last Admin: 05/10/17 12:47 Dose: 3 units Lactobacillus Acidophilus (Bacid -) 1 cap PO DAILY [facility] Polyethylene Glycol (Miralax (For Daily Use) -) 17 gm PO DAILY [facility] Last Admin: 05/10/17 09:24 Dose: 17 grams - Objective Vital Signs: Vital Signs Temperature 98.4 F 05/10/17 09:20 Pulse Rate 94 H 05/10/17 12:00 Respiratory Rate 20 05/10/17 12:00 Blood Pressure 97/58 05/10/17 12:00 O2 Sat by Pulse Oximetry (%) 98 05/10/17 09:00 Constitutional: Yes: Well Nourished, No Distress HENT: Yes: WNL, Atraumatic Neck: Yes: WNL, Supple Cardiovascular: Yes: Regular Rate and Rhythm, S1, S2. No: Murmur Respiratory: Yes: WNL, Regular, CTA Bilaterally Gastrointestinal: Yes: WNL, Normal Bowel Sounds, Soft. No: Tenderness Labs: CBC, BMP 05/10/17 06:30 05/10/17 06:30 INR, PTT INR 1.19 (0.82-1.09) H 04/28/17 00:00 Assessment/Plan Microbiology 04/27/17 23:29 Foot - Left Gram Stain - Final 04/27/17 23:29 Foot - Left Wound Culture - Final Staphylococcus Aureus Streptococcus Viridans Laboratory Tests 05/08/17 05/10/17 05/10/17 06:00 06:30 06:30 WBC 7.2 Hgb 11.8 Hct 35.6 Plt Count 407 ESR 77 H BUN 22 H Creatinine 1.1 H Assessment LLE wound Staph aureus and Strep viridans Plan Debridement and Ceftriaxone Ana ALLEN
[2017-05-10] MEDS: LACTOBACILLUS ACIDOPHILUS 1 TABLET PO SCH (16:09)
--- NOTE | 2017-05-10 19:18 | PN ---
Progress Note, Physician Chief Complaint: Pt A&Ox3;had a "terrible day" (diarrhea several times). - Current Medication List Current Medications: Active Medications Acetaminophen (Tylenol -) 650 mg PO Q6H PRN PRN Reason: PAIN LEVEL 4 - 6 Last Admin: 05/10/17 09:01 Dose: 650 mg Alprazolam (Xanax -) 0.25 mg PO Q6H PRN PRN Reason: ANXIETY Last Admin: 05/10/17 09:22 Dose: 0.25 mg Aspirin (Ecotrin -) 81 mg PO DAILY [facility] Last Admin: 05/10/17 09:22 Dose: 81 mg Atorvastatin Calcium (Lipitor -) 10 mg PO HS [facility] Last Admin: 05/09/17 22:00 Dose: 10 mg Docusate Sodium (Colace -) 100 mg PO Q8H PRN PRN Reason: CONSTIPATION Last Admin: 05/08/17 10:47 Dose: 100 mg Duloxetine HCl (Cymbalta -) 20 mg PO HS [facility] Enoxaparin Sodium (Lovenox -) 40 mg SQ DAILY [facility] Last Admin: 05/10/17 09:22 Dose: 40 mg Furosemide (Lasix -) 20 mg PO DAILY [facility] Last Admin: 05/10/17 09:22 Dose: 20 mg Ceftriaxone Sodium 2 gm/ (Dextrose) 100 mls @ 200 mls/hr IVPB DAILY [facility] Last Admin: 05/10/17 09:21 Dose: 200 mls/hr Insulin Aspart (Novolog Mix 70/30 Vial) 22 units SQ BIDI [facility] Last Admin: 05/10/17 17:30 Dose: Not Given Insulin Aspart (Novolog Vial Sliding Scale -) 1 vial SQ HS [facility] PRN Reason: Protocol Last Admin: 05/09/17 21:25 Dose: 2 units Insulin Aspart (Novolog Vial Sliding Scale -) 1 vial SQ TIDAC [facility] PRN Reason: Protocol Last Admin: 05/10/17 17:31 Dose: Not Given Lactobacillus Acidophilus (Bacid -) 1 cap PO DAILY [facility] Last Admin: 05/10/17 16:09 Dose: 1 cap Nystatin (Mycostatin Cream -) 1 applic TP BID [facility] Polyethylene Glycol (Miralax (For Daily Use) -) 17 gm PO DAILY [facility] Last Admin: 05/10/17 09:24 Dose: 17 grams - Objective Vital Signs: Vital Signs Temperature 97.8 F 05/10/17 16:04 Pulse Rate 98 H 05/10/17 16:04 Respiratory Rate 22 05/10/17 16:04 Blood Pressure 130/59 05/10/17 16:04 O2 Sat by Pulse Oximetry (%) 98 05/10/17 09:00 Labs: CBC, BMP 05/10/17 06:30 05/10/17 06:30 INR, PTT INR 1.19 (0.82-1.09) H 04/28/17 00:00 Problem List - Problems (1) Acute on chronic systolic (congestive) heart failure Assessment/Plan: Pt still refuses coronary artery evaluation. Continue losartan, furosemide. F/u Is and Os, daily weight, BUN/Cr, electrolytes. . Code(s): I50.23 - ACUTE ON CHRONIC SYSTOLIC (CONGESTIVE) HEART FAILURE (2) Abnormal ECG Code(s): R94.31 - ABNORMAL ELECTROCARDIOGRAM [ECG] [EKG] (3) Anxiety about health Code(s): F41.8 - OTHER SPECIFIED ANXIETY DISORDERS (4) Aortic stenosis Assessment/Plan: mild by ECHO; mild-moderate LV systolic dysfunction. Code(s): I35.0 - NONRHEUMATIC AORTIC (VALVE) STENOSIS Qualifiers: Cardiac valve disease etiology: nonrheumatic Qualified Code(s): I35.0 - Nonrheumatic aortic (valve) stenosis (5) Diabetes type 2 with atherosclerosis of arteries of extremities Code(s): E11.51 - TYPE 2 DIABETES W DIABETIC PERIPHERAL ANGIOPATH W/O GANGRENE; I70.209 - UNSP ATHSCL [place] ARTERIES OF EXTREMITIES, UNSP EXTREMITY (6) Diabetic foot ulcer Assessment/Plan: +4th left toe gangrene. On ceftriaxone and clindamycin per ID. Pt now says she will allow a surgeon to operate. Code(s): E11.621 - TYPE 2 DIABETES MELLITUS WITH FOOT ULCER; L97.509 - NON- PRESSURE CHRONIC ULCER OTH PRT UNSP FOOT W UNSP SEVERITY Qualifiers: Diabetic foot ulcer location: unspecified part of foot Diabetes mellitus type: type 2 Laterality: left Non-pressure ulcer stage: unspecified non- pressure ulcer stage Qualified Code(s): E11.621 - Type 2 diabetes mellitus with foot ulcer; L97.529 - Non-pressure chronic ulcer of other part of left foot with unspecified severity; L97.529 - Non-pressure chronic ulcer of other part of left foot with unspecified severity; L97.529 - Non-pressure chronic ulcer of other part of left foot with unspecified severity; L97.529 - Non- pressure chronic ulcer of other part of left foot with unspecified severity (7) Osteomyelitis Code(s): M86.9 - OSTEOMYELITIS, UNSPECIFIED Qualifiers: Osteomyelitis type: unspecified type Osteomyelitis location: foot Laterality: left Qualified Code(s): M86.9 - Osteomyelitis, unspecified (8) Diabetes mellitus Code(s): E11.9 - TYPE 2 DIABETES MELLITUS WITHOUT COMPLICATIONS (9) Lung consolidation Code(s): J18.1 - LOBAR PNEUMONIA, UNSPECIFIED ORGANISM (10) Panic disorder Code(s): F41.0 - PANIC DISORDER [EPISODIC PAROXYSMAL ANXIETY] (11) Depression Assessment/Plan: Psychological consult noted. Psychiatric: depression Pt refuses offer of medication. Code(s): F32.9 - MAJOR DEPRESSIVE DISORDER, SINGLE EPISODE, UNSPECIFIED
[2017-05-10] MEDS: NYSTATIN 100,000 UNIT/GM TOPICAL CREAM 15 GM TUBE TP SCH (21:13)
[2017-05-10] MEDS: ATORVASTATIN CA 10 MG TABLET (FP) PO SCH (21:14)
[2017-05-11] MEDS: INSULIN (NOVOLOG MIX 70/30) 100 UNITS/ML MDV SQ SCH ×3 (06:17→16:41)
[2017-05-11] MEDS: INSULIN SLIDING SCALE (NOVOLOG) 1 VIAL SQ SCH ×5 (06:20→22:01)
[2017-05-11] MEDS: ACETAMINOPHEN 325 MG TABLET (FP) PO PRN ×2 (08:12→15:18)
--- NOTE | 2017-05-11 09:14 | PN ---
Progress Note (short form) - Note Progress Note: arterial duplex normal. cleared for podiatric procedure
[2017-05-11] MEDS ORDERED: PT OWN MED DRAWER 7, Y5N ONE ×2 (09:41→21:52)
[2017-05-11] MEDS: ALPRAZolam 0.25 MG TABLET PO PRN ×2 (09:44→16:37)
[2017-05-11] MEDS: ASPIRIN COATED 81 MG TABLET.EC PO SCH (09:44)
[2017-05-11] MEDS: LACTOBACILLUS ACIDOPHILUS 1 TABLET PO SCH (09:44)
[2017-05-11] MEDS: FUROSEMIDE 20 MG TABLET (FP) PO SCH (09:45)
[2017-05-11] MEDS: CEFTRIAXONE 2 GM in DEXTROSE 5%-WATER - 100 ML IVPB SCH (09:45)
[2017-05-11] MEDS: ENOXAPARIN NA (PORCINE) 40 MG/0.4 ML DISP.SYRIN SQ SCH (09:45)
[2017-05-11] MEDS: NYSTATIN 100,000 UNIT/GM TOPICAL CREAM 15 GM TUBE TP SCH ×2 (09:48→22:02)
[2017-05-11] MEDS: POLYETHYLENE GLYCOL 3350 119 GM BTL PO SCH (09:48)
--- NOTE | 2017-05-11 10:11 | PN ---
Progress Note (short form) - Note Progress Note: no diarrhea today-had been getting daily miralax agreeable to foot surgery now Vital Signs Period Temp Pulse Resp BP Sys/Simpson Pulse Ox Last 24 Hr 97.8 F-98.2 F 91-98 18-22 97-130/58-72 97 cor-rrr lungs clear abd soft,nt ext dressing intact CBC, BMP 05/10/17 06:30 05/10/17 06:30 Microbiology 04/28/17 00:00 Blood - Peripheral Venous Blood Culture - Final NO GROWTH AFTER 5 DAYS INCUBATION 04/28/17 00:00 Blood - Peripheral Venous Blood Culture - Final NO GROWTH AFTER 5 DAYS INCUBATION 04/27/17 23:29 Foot - Left Gram Stain - Final 04/27/17 23:29 Foot - Left Wound Culture - Final Staphylococcus Aureus Streptococcus Viridans a/p soft tissue infection of the left foot/gangrene continue ceftriaxone ?debridement soon add probiotics d/w dr oleary Problem List - Problems (1) Diabetic foot ulcer Code(s): E11.621 - TYPE 2 DIABETES MELLITUS WITH FOOT ULCER; L97.509 - NON- PRESSURE CHRONIC ULCER OTH PRT UNSP FOOT W UNSP SEVERITY Qualifiers: Diabetic foot ulcer location: unspecified part of foot Diabetes mellitus type: type 2 Laterality: left Non-pressure ulcer stage: unspecified non- pressure ulcer stage Qualified Code(s): E11.621 - Type 2 diabetes mellitus with foot ulcer; L97.529 - Non-pressure chronic ulcer of other part of left foot with unspecified severity; L97.529 - Non-pressure chronic ulcer of other part of left foot with unspecified severity; L97.529 - Non-pressure chronic ulcer of other part of left foot with unspecified severity; L97.529 - Non- pressure chronic ulcer of other part of left foot with unspecified severity (2) Osteomyelitis Code(s): M86.9 - OSTEOMYELITIS, UNSPECIFIED Qualifiers: Osteomyelitis type: unspecified type Osteomyelitis location: foot Laterality: left Qualified Code(s): M86.9 - Osteomyelitis, unspecified
--- NOTE | 2017-05-11 10:37 | PN ---
Progress Note (short form) - Note Progress Note: comfortable chart reviewed all f/u noted reluctantly says yes to surgery. mood same denies pain today denies diarrhea today Vital Signs Temp 98.2 F 05/11/17 09:00 Pulse 92 H 05/11/17 09:00 Resp 18 05/11/17 09:00 BP 121/68 05/11/17 09:00 Pulse Ox 97 05/10/17 21:00 Intake & Output 05/10/17 05/10/17 05/11/17 11:59 23:59 11:59 Intake Total 310 250 150 Balance 310 250 150 Weight 176 lb 14.4 oz Intake: IV 20 Right Hand #20 05/07/17 20 IVPB 50 150 Oral 240 100 150 Other: Voiding Method Diaper Incontinent # Unmeasured Voids Void 2 1 1 Bowel Movement No Yes No Weight [facility] Active Medications Acetaminophen (Tylenol -) 650 mg PO Q6H PRN PRN Reason: PAIN LEVEL 4 - 6 Last Admin: 05/11/17 08:12 Dose: 650 mg Alprazolam (Xanax -) 0.25 mg PO Q6H PRN PRN Reason: ANXIETY Last Admin: 05/11/17 09:44 Dose: 0.25 mg Aspirin (Ecotrin -) 81 mg PO DAILY [facility] Last Admin: 05/11/17 09:44 Dose: 81 mg Atorvastatin Calcium (Lipitor -) 10 mg PO [facility] Last Admin: 05/10/17 21:14 Dose: Not Given Docusate Sodium (Colace -) 100 mg PO Q8H PRN PRN Reason: CONSTIPATION Last Admin: 05/08/17 10:47 Dose: 100 mg Duloxetine HCl (Cymbalta -) 20 mg PO [facility] Enoxaparin Sodium (Lovenox -) 40 mg SQ DAILY [facility] Last Admin: 05/11/17 09:45 Dose: 40 mg Furosemide (Lasix -) 20 mg PO DAILY [facility] Last Admin: 05/11/17 09:45 Dose: 20 mg Ceftriaxone Sodium 2 gm/ (Dextrose) 100 mls @ 200 mls/hr IVPB DAILY [facility] Last Admin: 05/11/17 09:45 Dose: 200 mls/hr Insulin Aspart (Novolog Vial Sliding Scale -) 1 vial SQ [facility] PRN Reason: Protocol Last Admin: 05/10/17 21:18 Dose: Not Given Insulin Aspart (Novolog Vial Sliding Scale -) 1 vial SQ TIDAC [facility] PRN Reason: Protocol Last Admin: 05/11/17 08:13 Dose: 2 units Insulin Aspart (Novolog Mix 70/30 Vial) 24 units SQ BIDI [facility] Last Admin: 05/11/17 08:14 Dose: Not Given Lactobacillus Acidophilus (Bacid -) 1 cap PO DAILY [facility] Last Admin: 05/11/17 09:44 Dose: 1 cap Nystatin (Mycostatin Cream -) 1 applic TP BID [facility] Last Admin: 05/11/17 09:48 Dose: 1 applic Polyethylene Glycol (Miralax (For Daily Use) -) 17 gm PO DAILY [facility] Last Admin: 05/11/17 09:48 Dose: Not Given CBC, BMP 05/10/17 06:30 05/10/17 06:30 Physical Exam Constitutional: Yes: No Distress, calm Neck: Yes: Supple/ no jvd Cardiovascular: Yes: Regular Rate and Rhythm Respiratory: Yes: CTA Bilaterally Gastrointestinal: Yes: Soft/ non tender . Extremities: Yes: Other (left foot--4th toe necrotic Neurological: Yes: Alert oriented x 3. Psych- mood calm Assessment/Plan continue present care abx will request podiatry to come back discussed with Dr. yu . will follow Problem List - Problems (1) Aortic stenosis Code(s): I35.0 - NONRHEUMATIC AORTIC (VALVE) STENOSIS Qualifiers: Cardiac valve disease etiology: nonrheumatic Qualified Code(s): I35.0 - Nonrheumatic aortic (valve) stenosis (2) CAD (coronary artery disease) Code(s): I25.10 - ATHSCL HEART DISEASE OF [place] CORONARY ARTERY W/O ANG PCTRS Qualifiers: Coronary Disease-Associated Artery/Lesion type: [place] artery Associated angina: angina presence unspecified (3) Diabetic foot ulcer Code(s): E11.621 - TYPE 2 DIABETES MELLITUS WITH FOOT ULCER; L97.509 - NON- PRESSURE CHRONIC ULCER OTH PRT UNSP FOOT W UNSP SEVERITY Qualifiers: Diabetic foot ulcer location: unspecified part of foot Diabetes mellitus type: type 2 Laterality: left Non-pressure ulcer stage: unspecified non- pressure ulcer stage Qualified Code(s): E11.621 - Type 2 diabetes mellitus with foot ulcer; L97.529 - Non-pressure chronic ulcer of other part of left foot with unspecified severity; L97.529 - Non-pressure chronic ulcer of other part of left foot with unspecified severity; L97.529 - Non-pressure chronic ulcer of other part of left foot with unspecified severity; L97.529 - Non- pressure chronic ulcer of other part of left foot with unspecified severity (4) Anxiety Code(s): F41.9 - ANXIETY DISORDER, UNSPECIFIED
--- NOTE | 2017-05-11 12:52 | PN ---
Progress Note, Physician History of Present Illness: Patient is a 71 year old white female with a significant past medical history of htn, dm, systolic CHF, PAD, anxiety/depression, who presents to the ED with complaints of near syncopal episode that occurred just prior to ED arrival. Patient reports going to charge her phone when she began to experiencing sudden dizziness causing her to fall and land on her buttocks. She reports experiencing associated headache as well as slight heartburn. Patient reports coming into the ED for further evaluation due to feeling like she was unable to get herself off of the floor following her fall. Denies chest pain, Sob. Denies nausea, vomiting. Denies head trauma, change in vision. Denies fevers, chills. Denies contact with sick individuals out of state travelling. Denies dysuria, hematuria, constipation, diarrhea. Denies any other symptoms. Allergies: None Social history:Former smoker (Last 1979). No alcohol. No illicit drugs. Surgical history: gastric bypass 16 yrs ago, Cholecystectomy PMD: Dr. Malcolm - Current Medication List Current Medications: Active Medications Acetaminophen (Tylenol -) 650 mg PO Q6H PRN PRN Reason: PAIN LEVEL 4 - 6 Last Admin: 05/11/17 08:12 Dose: 650 mg Alprazolam (Xanax -) 0.25 mg PO Q6H PRN PRN Reason: ANXIETY Last Admin: 05/11/17 09:44 Dose: 0.25 mg Aspirin (Ecotrin -) 81 mg PO DAILY [facility] Last Admin: 05/11/17 09:44 Dose: 81 mg Atorvastatin Calcium (Lipitor -) 10 mg PO HS [facility] Last Admin: 05/10/17 21:14 Dose: Not Given Docusate Sodium (Colace -) 100 mg PO Q8H PRN PRN Reason: CONSTIPATION Last Admin: 05/08/17 10:47 Dose: 100 mg Duloxetine HCl (Cymbalta -) 20 mg PO [facility] Enoxaparin Sodium (Lovenox -) 40 mg SQ DAILY [facility] Last Admin: 05/11/17 09:45 Dose: 40 mg Furosemide (Lasix -) 20 mg PO DAILY [facility] Last Admin: 05/11/17 09:45 Dose: 20 mg Ceftriaxone Sodium 2 gm/ (Dextrose) 100 mls @ 200 mls/hr IVPB DAILY [facility] Last Admin: 05/11/17 09:45 Dose: 200 mls/hr Insulin Aspart (Novolog Vial Sliding Scale -) 1 vial SQ HS [facility] PRN Reason: Protocol Last Admin: 05/10/17 21:18 Dose: Not Given Insulin Aspart (Novolog Vial Sliding Scale -) 1 vial SQ TIDAC [facility] PRN Reason: Protocol Last Admin: 05/11/17 12:22 Dose: 4 units Insulin Aspart (Novolog Mix 70/30 Vial) 24 units SQ BIDI [facility] Last Admin: 05/11/17 08:14 Dose: Not Given Lactobacillus Acidophilus (Bacid -) 1 cap PO DAILY [facility] Last Admin: 05/11/17 09:44 Dose: 1 cap Nystatin (Mycostatin Cream -) 1 applic TP BID [facility] Last Admin: 05/11/17 09:48 Dose: 1 applic Polyethylene Glycol (Miralax (For Daily Use) -) 17 gm PO DAILY [facility] Last Admin: 05/11/17 09:48 Dose: Not Given - Objective Vital Signs: Vital Signs Temperature 98.2 F 05/11/17 09:00 Pulse Rate 92 H 05/11/17 09:00 Respiratory Rate 18 05/11/17 09:00 Blood Pressure 121/68 05/11/17 09:00 O2 Sat by Pulse Oximetry (%) 97 05/10/17 21:00 Eyes: Yes: WNL, Conjunctiva Clear, EOM Intact HENT: Yes: WNL, Atraumatic, Normocephalic Neck: Yes: WNL, Supple, Trachea Midline Cardiovascular: Yes: WNL, Regular Rate and Rhythm Respiratory: Yes: WNL, Regular, CTA Bilaterally Gastrointestinal: Yes: WNL, Normal Bowel Sounds Genitourinary: Yes: WNL Musculoskeletal: Yes: WNL Extremities: Yes: WNL Edema: No Integumentary: Yes: WNL Neurological: Yes: WNL, Alert, Oriented ...Motor Strength: WNL Psychiatric: Yes: WNL Labs: CBC, BMP 05/10/17 06:30 05/10/17 06:30 INR, PTT INR 1.19 (0.82-1.09) H 04/28/17 00:00 Assessment/Plan - Problems (1) Acute on chronic systolic (congestive) heart failure Assessment/Plan: Pt still refuses coronary artery evaluation. Continue losartan, furosemide. F/u Is and Os, daily weight, BUN/Cr, electrolytes. . Code(s): I50.23 - ACUTE ON CHRONIC SYSTOLIC (CONGESTIVE) HEART FAILURE (2) Abnormal ECG Code(s): R94.31 - ABNORMAL ELECTROCARDIOGRAM [ECG] [EKG] (3) Anxiety about health Code(s): F41.8 - OTHER SPECIFIED ANXIETY DISORDERS (4) Aortic stenosis Assessment/Plan: mild by ECHO; mild-moderate LV systolic dysfunction. Code(s): I35.0 - NONRHEUMATIC AORTIC (VALVE) STENOSIS Qualifiers: Cardiac valve disease etiology: nonrheumatic Qualified Code(s): I35.0 - Nonrheumatic aortic (valve) stenosis (5) Diabetes type 2 with atherosclerosis of arteries of extremities Code(s): E11.51 - TYPE 2 DIABETES W DIABETIC PERIPHERAL ANGIOPATH W/O GANGRENE; I70.209 - UNSP ATHSCL [place] ARTERIES OF EXTREMITIES, UNSP EXTREMITY (6) Diabetic foot ulcer Assessment/Plan: +4th left toe gangrene. On ceftriaxone and clindamycin per ID. Pt now says she will allow a surgeon to operate. Code(s): E11.621 - TYPE 2 DIABETES MELLITUS WITH FOOT ULCER; L97.509 - NON- PRESSURE CHRONIC ULCER OTH PRT UNSP FOOT W UNSP SEVERITY Qualifiers: Diabetic foot ulcer location: unspecified part of foot Diabetes mellitus type: type 2 Laterality: left Non-pressure ulcer stage: unspecified non- pressure ulcer stage Qualified Code(s): E11.621 - Type 2 diabetes mellitus with foot ulcer; L97.529 - Non-pressure chronic ulcer of other part of left foot with unspecified severity; L97.529 - Non-pressure chronic ulcer of other part of left foot with unspecified severity; L97.529 - Non-pressure chronic ulcer of other part of left foot with unspecified severity; L97.529 - Non- pressure chronic ulcer of other part of left foot with unspecified severity (7) Osteomyelitis Code(s): M86.9 - OSTEOMYELITIS, UNSPECIFIED Qualifiers: Osteomyelitis type: unspecified type Osteomyelitis location: foot Laterality: left Qualified Code(s): M86.9 - Osteomyelitis, unspecified (8) Diabetes mellitus Code(s): E11.9 - TYPE 2 DIABETES MELLITUS WITHOUT COMPLICATIONS (9) Lung consolidation Code(s): J18.1 - LOBAR PNEUMONIA, UNSPECIFIED ORGANISM (10) Panic disorder Code(s): F41.0 - PANIC DISORDER [EPISODIC PAROXYSMAL ANXIETY] (11) Depression Assessment/Plan: Psychological consult noted. Psychiatric: depression Pt refuses offer of medication. Code(s): F32.9 - MAJOR DEPRESSIVE DISORDER, SINGLE EPISODE, UNSPECIFIED
[2017-05-11] MEDS: DULoxetine HCL 20 MG CAPSULE.DR (FP) PO SCH (22:00)
[2017-05-11] MEDS: ATORVASTATIN CA 10 MG TABLET (FP) PO SCH (22:01)
[2017-05-12] MEDS ORDERED: INSULIN (NOVOLOG) ASPART 100 UNITS/ML 10ML VIAL ONE ×3 (08:28→21:06)
[2017-05-12] MEDS ORDERED: INSULIN (NOVOLOG MIX 70/30) 100 UNITS/ML MDV SQ ONE ×2 (08:28→10:21)
[2017-05-12] MEDS: INSULIN SLIDING SCALE (NOVOLOG) 1 VIAL SQ SCH ×4 (08:34→21:51)
[2017-05-12] MEDS: INSULIN (NOVOLOG MIX 70/30) 100 UNITS/ML MDV SQ SCH ×2 (08:34→17:24)
[2017-05-12] MEDS ORDERED: PT OWN MED DRAWER 7, Y5N ONE (09:55)
[2017-05-12] MEDS: ASPIRIN COATED 81 MG TABLET.EC PO SCH (09:56)
[2017-05-12] MEDS: FUROSEMIDE 20 MG TABLET (FP) PO SCH (09:56)
[2017-05-12] MEDS: LACTOBACILLUS ACIDOPHILUS 1 TABLET PO SCH (09:56)
[2017-05-12] MEDS: ENOXAPARIN NA (PORCINE) 40 MG/0.4 ML DISP.SYRIN SQ SCH (09:56)
[2017-05-12] MEDS: NYSTATIN 100,000 UNIT/GM TOPICAL CREAM 15 GM TUBE TP SCH ×2 (09:57→21:53)
[2017-05-12] MEDS: CEFTRIAXONE 2 GM in DEXTROSE 5%-WATER - 100 ML IVPB SCH (09:57)
--- NOTE | 2017-05-12 11:26 | PN ---
Progress Note, Physician History of Present Illness: C/O profound generalized weakness Depressed No diarrhea No c/o foot pain No c/o fever/ chills Tolerating antibiotics Afebrile WBC improved - Current Medication List Current Medications: Active Medications Acetaminophen (Tylenol -) 650 mg PO Q6H PRN PRN Reason: PAIN LEVEL 4 - 6 Last Admin: 05/11/17 15:18 Dose: 650 mg Alprazolam (Xanax -) 0.25 mg PO Q6H PRN PRN Reason: ANXIETY Last Admin: 05/11/17 16:37 Dose: 0.25 mg Aspirin (Ecotrin -) 81 mg PO DAILY [facility] Last Admin: 05/12/17 09:56 Dose: 81 mg Atorvastatin Calcium (Lipitor -) 10 mg PO [facility] Last Admin: 05/11/17 22:01 Dose: Not Given Docusate Sodium (Colace -) 100 mg PO Q8H PRN PRN Reason: CONSTIPATION Last Admin: 05/08/17 10:47 Dose: 100 mg Duloxetine HCl (Cymbalta -) 20 mg PO HS [facility] Last Admin: 05/11/17 22:00 Dose: 20 mg Enoxaparin Sodium (Lovenox -) 40 mg SQ DAILY [facility] Last Admin: 05/12/17 09:56 Dose: 40 mg Furosemide (Lasix -) 20 mg PO DAILY [facility] Last Admin: 05/12/17 09:56 Dose: 20 mg Ceftriaxone Sodium 2 gm/ (Dextrose) 100 mls @ 200 mls/hr IVPB DAILY [facility] Last Admin: 05/12/17 09:57 Dose: 200 mls/hr Insulin Aspart (Novolog Vial Sliding Scale -) 1 vial SQ HS [facility] PRN Reason: Protocol Last Admin: 05/11/17 22:01 Dose: Not Given Insulin Aspart (Novolog Vial Sliding Scale -) 1 vial SQ TIDAC [facility] PRN Reason: Protocol Last Admin: 05/12/17 08:34 Dose: 3 units Insulin Aspart (Novolog Mix 70/30 Vial) 24 units SQ BIDI [facility] Last Admin: 05/12/17 08:34 Dose: Not Given Lactobacillus Acidophilus (Bacid -) 1 cap PO DAILY [facility] Last Admin: 05/12/17 09:56 Dose: 1 cap Nystatin (Mycostatin Cream -) 1 applic TP BID [facility] Last Admin: 05/12/17 09:57 Dose: 1 applic - Objective Vital Signs: Vital Signs Temperature 98.4 F 05/12/17 09:00 Pulse Rate 94 H 05/12/17 09:50 Respiratory Rate 24 05/12/17 09:50 Blood Pressure 108/57 05/12/17 09:50 O2 Sat by Pulse Oximetry (%) 97 05/11/17 21:00 Constitutional: Yes: No Distress Eyes: Yes: Conjunctiva Clear Cardiovascular: Yes: Regular Rate and Rhythm, S1, S2 Respiratory: Yes: CTA Bilaterally Gastrointestinal: Yes: Normal Bowel Sounds, Soft. No: Tenderness Extremities: Yes: Other (dry gangrene L 4th toe) Labs: CBC, BMP 05/10/17 06:30 05/10/17 06:30 INR, PTT INR 1.19 (0.82-1.09) H 04/28/17 00:00 Assessment/Plan Gangrene L 4th toe Soft tissue infection L foot Continue ceftriaxone, probiotic
--- NOTE | 2017-05-12 12:40 | PN ---
Progress Note, Physician Chief Complaint: has multiple complaints-- feels tired, thinks her insulin is too much she refused taking insulin 70/30 today she is agreeing to surgery-- but wants Dr Mercer to do it - Current Medication List Current Medications: Active Medications Acetaminophen (Tylenol -) 650 mg PO Q6H PRN PRN Reason: PAIN LEVEL 4 - 6 Last Admin: 05/11/17 15:18 Dose: 650 mg Alprazolam (Xanax -) 0.25 mg PO Q6H PRN PRN Reason: ANXIETY Last Admin: 05/11/17 16:37 Dose: 0.25 mg Aspirin (Ecotrin -) 81 mg PO DAILY [facility] Last Admin: 05/12/17 09:56 Dose: 81 mg Atorvastatin Calcium (Lipitor -) 10 mg PO HS [facility] Last Admin: 05/11/17 22:01 Dose: Not Given Docusate Sodium (Colace -) 100 mg PO Q8H PRN PRN Reason: CONSTIPATION Last Admin: 05/08/17 10:47 Dose: 100 mg Duloxetine HCl (Cymbalta -) 20 mg PO [facility] Last Admin: 05/11/17 22:00 Dose: 20 mg Enoxaparin Sodium (Lovenox -) 40 mg SQ DAILY [facility] Last Admin: 05/12/17 09:56 Dose: 40 mg Furosemide (Lasix -) 20 mg PO DAILY [facility] Last Admin: 05/12/17 09:56 Dose: 20 mg Ceftriaxone Sodium 2 gm/ (Dextrose) 100 mls @ 200 mls/hr IVPB DAILY [facility] Last Admin: 05/12/17 09:57 Dose: 200 mls/hr Insulin Aspart (Novolog Vial Sliding Scale -) 1 vial SQ HS [facility] PRN Reason: Protocol Last Admin: 05/11/17 22:01 Dose: Not Given Insulin Aspart (Novolog Vial Sliding Scale -) 1 vial SQ TIDAC [facility] PRN Reason: Protocol Last Admin: 05/12/17 08:34 Dose: 3 units Insulin Aspart (Novolog Mix 70/30 Vial) 24 units SQ BIDI [facility] Last Admin: 05/12/17 08:34 Dose: Not Given Lactobacillus Acidophilus (Bacid -) 1 cap PO DAILY [facility] Last Admin: 05/12/17 09:56 Dose: 1 cap Nystatin (Mycostatin Cream -) 1 applic TP BID [facility] Last Admin: 05/12/17 09:57 Dose: 1 applic - Objective Vital Signs: Vital Signs Temperature 98.4 F 05/12/17 09:00 Pulse Rate 94 H 05/12/17 09:50 Respiratory Rate 24 05/12/17 09:50 Blood Pressure 108/57 05/12/17 09:50 O2 Sat by Pulse Oximetry (%) 95 05/12/17 09:00 Constitutional: Yes: No Distress Cardiovascular: Yes: Regular Rate and Rhythm Respiratory: Yes: CTA Bilaterally Gastrointestinal: Yes: Normal Bowel Sounds, Soft. No: Tenderness Extremities: Yes: Other (left foot dressing in place) Edema: No Labs: CBC, BMP 05/10/17 06:30 05/10/17 06:30 INR, PTT INR 1.19 (0.82-1.09) H 04/28/17 00:00 Problem List - Problems (1) Aortic stenosis Code(s): I35.0 - NONRHEUMATIC AORTIC (VALVE) STENOSIS Qualifiers: Cardiac valve disease etiology: nonrheumatic Qualified Code(s): I35.0 - Nonrheumatic aortic (valve) stenosis (2) CAD (coronary artery disease) Code(s): I25.10 - ATHSCL HEART DISEASE OF [place] CORONARY ARTERY W/O ANG PCTRS Qualifiers: Coronary Disease-Associated Artery/Lesion type: [place] artery Associated angina: angina presence unspecified (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 Code(s): E11.51 - TYPE 2 DIABETES W DIABETIC PERIPHERAL ANGIOPATH W/O GANGRENE; I70.209 - UNSP ATHSCL [place] ARTERIES OF EXTREMITIES, UNSP EXTREMITY (4) Diabetic foot ulcer Code(s): E11.621 - TYPE 2 DIABETES MELLITUS WITH FOOT ULCER; L97.509 - NON- PRESSURE CHRONIC ULCER OTH PRT UNSP FOOT W UNSP SEVERITY Qualifiers: Diabetic foot ulcer location: unspecified part of foot Diabetes mellitus type: type 2 Laterality: left Non-pressure ulcer stage: unspecified non- pressure ulcer stage Qualified Code(s): E11.621 - Type 2 diabetes mellitus with foot ulcer; L97.529 - Non-pressure chronic ulcer of other part of left foot with unspecified severity; L97.529 - Non-pressure chronic ulcer of other part of left foot with unspecified severity; L97.529 - Non-pressure chronic ulcer of other part of left foot with unspecified severity; L97.529 - Non- pressure chronic ulcer of other part of left foot with unspecified severity (5) Osteomyelitis Code(s): M86.9 - OSTEOMYELITIS, UNSPECIFIED Qualifiers: Osteomyelitis type: unspecified type Osteomyelitis location: foot Laterality: left Qualified Code(s): M86.9 - Osteomyelitis, unspecified (6) Anxiety Code(s): F41.9 - ANXIETY DISORDER, UNSPECIFIED (7) Dizziness Code(s): R42 - DIZZINESS AND GIDDINESS Assessment/Plan PLAN IV antibiotics she needs surgical debridement of wound, amputation wants DR Mercer to do it give Cymbalta at night continue with meds
[2017-05-12] MEDS: ALPRAZolam 0.25 MG TABLET PO PRN (12:44)
--- NOTE | 2017-05-12 14:08 | PN ---
Progress Note (short form) - Note Progress Note: Podiatry Brief Note: Seen/evaluated at bedside, patient in NAD. Discussed risks, benefits and alternatives to surgery at length with patient regarding 4th/5th toe amputation for wet gangrene. Patient refusing surgery with me, states that she wants to have surgery performed by Dr. Mercer. I am signing off the case. John Mensah DPM
[2017-05-12] MEDS: ACETAMINOPHEN 325 MG TABLET (FP) PO PRN (18:24)
[2017-05-12] MEDS: ATORVASTATIN CA 10 MG TABLET (FP) PO SCH (21:52)
[2017-05-12] MEDS: DULoxetine HCL 20 MG CAPSULE.DR (FP) PO SCH (21:53)
[2017-05-13] MEDS: ACETAMINOPHEN 325 MG TABLET (FP) PO PRN ×2 (01:04→12:29)
[2017-05-13] MEDS: INSULIN (NOVOLOG MIX 70/30) 100 UNITS/ML MDV SQ SCH ×2 (08:29→17:26)
[2017-05-13] MEDS: INSULIN SLIDING SCALE (NOVOLOG) 1 VIAL SQ SCH ×4 (08:30→21:44)
[2017-05-13] MEDS ORDERED: INSULIN (NOVOLOG) ASPART 100 UNITS/ML 10ML VIAL ONE ×2 (08:35→20:43)
[2017-05-13] MEDS ORDERED: INSULIN (NOVOLOG MIX 70/30) 100 UNITS/ML MDV SQ ONE (08:36)
[2017-05-13] MEDS ORDERED: PT OWN MED DRAWER 7, Y5N ONE ×2 (09:11→18:31)
[2017-05-13] MEDS: ENOXAPARIN NA (PORCINE) 40 MG/0.4 ML DISP.SYRIN SQ SCH (09:14)
[2017-05-13] MEDS: ASPIRIN COATED 81 MG TABLET.EC PO SCH (09:14)
[2017-05-13] MEDS: NYSTATIN 100,000 UNIT/GM TOPICAL CREAM 15 GM TUBE TP SCH ×2 (09:14→21:44)
[2017-05-13] MEDS: FUROSEMIDE 20 MG TABLET (FP) PO SCH (09:14)
[2017-05-13] MEDS: CEFTRIAXONE 2 GM in DEXTROSE 5%-WATER - 100 ML IVPB SCH (09:14)
[2017-05-13] MEDS: LACTOBACILLUS ACIDOPHILUS 1 TABLET PO SCH (09:14)
--- NOTE | 2017-05-13 12:14 | PN ---
Progress Note, Physician Chief Complaint: has multiple complaints-- feels tired, thinks her insulin is too much she refused taking insulin 70/30 today she is agreeing to surgery-- but wants Dr Mercer to do it explained to the pt that we need to consult with graphic manager-- she finally agreed - Current Medication List Current Medications: Active Medications Acetaminophen (Tylenol -) 650 mg PO Q6H PRN PRN Reason: PAIN LEVEL 4 - 6 Last Admin: 05/13/17 01:04 Dose: 650 mg Alprazolam (Xanax -) 0.25 mg PO Q6H PRN PRN Reason: ANXIETY Last Admin: 05/12/17 12:44 Dose: 0.25 mg Aspirin (Ecotrin -) 81 mg PO DAILY [facility] Last Admin: 05/13/17 09:14 Dose: 81 mg Atorvastatin Calcium (Lipitor -) 10 mg PO HS [facility] Last Admin: 05/12/17 21:52 Dose: Not Given Docusate Sodium (Colace -) 100 mg PO Q8H PRN PRN Reason: CONSTIPATION Last Admin: 05/08/17 10:47 Dose: 100 mg Duloxetine HCl (Cymbalta -) 20 mg PO HS [facility] Last Admin: 05/12/17 21:53 Dose: 20 mg Enoxaparin Sodium (Lovenox -) 40 mg SQ DAILY [facility] Last Admin: 05/13/17 09:14 Dose: 40 mg Furosemide (Lasix -) 20 mg PO DAILY [facility] Last Admin: 05/13/17 09:14 Dose: 20 mg Ceftriaxone Sodium 2 gm/ (Dextrose) 100 mls @ 200 mls/hr IVPB DAILY [facility] Last Admin: 05/13/17 09:14 Dose: 200 mls/hr Insulin Aspart (Novolog Vial Sliding Scale -) 1 vial SQ HS [facility] PRN Reason: Protocol Last Admin: 05/12/17 21:51 Dose: Not Given Insulin Aspart (Novolog Vial Sliding Scale -) 1 vial SQ TIDAC [facility] PRN Reason: Protocol Last Admin: 05/13/17 11:36 Dose: Not Given Insulin Aspart (Novolog Mix 70/30 Vial) 24 units SQ BIDI [facility] Last Admin: 05/13/17 08:29 Dose: 24 units Lactobacillus Acidophilus (Bacid -) 1 cap PO DAILY [facility] Last Admin: 05/13/17 09:14 Dose: 1 cap Nystatin (Mycostatin Cream -) 1 applic TP BID [facility] Last Admin: 05/13/17 09:14 Dose: 1 applic - Objective Vital Signs: Vital Signs Temperature 98 F 05/13/17 06:31 Pulse Rate 92 H 05/13/17 06:31 Respiratory Rate 20 05/13/17 06:31 Blood Pressure 108/56 05/13/17 06:31 O2 Sat by Pulse Oximetry (%) 95 05/12/17 21:00 Constitutional: Yes: No Distress Cardiovascular: Yes: Regular Rate and Rhythm Respiratory: Yes: Diminished Gastrointestinal: Yes: Normal Bowel Sounds, Soft. 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 Code(s): E11.51 - TYPE 2 DIABETES W DIABETIC PERIPHERAL ANGIOPATH W/O GANGRENE; I70.209 - UNSP ATHSCL [place] ARTERIES OF EXTREMITIES, UNSP EXTREMITY (4) Diabetic foot ulcer Code(s): E11.621 - TYPE 2 DIABETES MELLITUS WITH FOOT ULCER; L97.509 - NON- PRESSURE CHRONIC ULCER OTH PRT UNSP FOOT W UNSP SEVERITY Qualifiers: Diabetic foot ulcer location: unspecified part of foot Diabetes mellitus type: type 2 Laterality: left Non-pressure ulcer stage: unspecified non- pressure ulcer stage Qualified Code(s): E11.621 - Type 2 diabetes mellitus with foot ulcer; L97.529 - Non-pressure chronic ulcer of other part of left foot with unspecified severity; L97.529 - Non-pressure chronic ulcer of other part of left foot with unspecified severity; L97.529 - Non-pressure chronic ulcer of other part of left foot with unspecified severity; L97.529 - Non- pressure chronic ulcer of other part of left foot with unspecified severity (5) Osteomyelitis Code(s): M86.9 - OSTEOMYELITIS, UNSPECIFIED Qualifiers: Osteomyelitis type: unspecified type Osteomyelitis location: foot Laterality: left Qualified Code(s): M86.9 - Osteomyelitis, unspecified (6) Anxiety Code(s): F41.9 - ANXIETY DISORDER, UNSPECIFIED (7) Dizziness Code(s): R42 - DIZZINESS AND GIDDINESS Assessment/Plan PLAN IV antibiotics she needs surgical debridement of wound, amputation podiatry eval-- consult with Dr Solis if pt refuses again, will have to start planning for dc to SNF give Cymbalta at night continue with meds
[2017-05-13] MEDS: ALPRAZolam 0.25 MG TABLET PO PRN (17:19)
[2017-05-13] MEDS: DULoxetine HCL 20 MG CAPSULE.DR (FP) PO SCH (21:42)
[2017-05-13] MEDS: ATORVASTATIN CA 10 MG TABLET (FP) PO SCH (21:44)
--- NOTE | 2017-05-14 08:40 | PN ---
Progress Note, Physician History of Present Illness: patient seen and examined. Chart reviewed Comfortable . denies pain Denies chest pain or shortness of breath. - Current Medication List Current Medications: Active Medications Acetaminophen (Tylenol -) 650 mg PO Q6H PRN PRN Reason: PAIN LEVEL 4 - 6 Last Admin: 05/13/17 12:29 Dose: 650 mg Alprazolam (Xanax -) 0.25 mg PO Q6H PRN PRN Reason: ANXIETY Last Admin: 05/13/17 17:19 Dose: 0.25 mg Aspirin (Ecotrin -) 81 mg PO DAILY [facility] Last Admin: 05/13/17 09:14 Dose: 81 mg Atorvastatin Calcium (Lipitor -) 10 mg PO HS [facility] Last Admin: 05/13/17 21:44 Dose: Not Given Docusate Sodium (Colace -) 100 mg PO Q8H PRN PRN Reason: CONSTIPATION Last Admin: 05/08/17 10:47 Dose: 100 mg Duloxetine HCl (Cymbalta -) 20 mg PO HS [facility] Last Admin: 05/13/17 21:42 Dose: 20 mg Enoxaparin Sodium (Lovenox -) 40 mg SQ DAILY [facility] Last Admin: 05/13/17 09:14 Dose: 40 mg Furosemide (Lasix -) 20 mg PO DAILY [facility] Last Admin: 05/13/17 09:14 Dose: 20 mg Ceftriaxone Sodium 2 gm/ (Dextrose) 100 mls @ 200 mls/hr IVPB DAILY [facility] Last Admin: 05/13/17 09:14 Dose: 200 mls/hr Insulin Aspart (Novolog Vial Sliding Scale -) 1 vial SQ HS [facility] PRN Reason: Protocol Last Admin: 05/13/17 21:44 Dose: 2 units Insulin Aspart (Novolog Vial Sliding Scale -) 1 vial SQ TIDAC [facility] PRN Reason: Protocol Last Admin: 05/13/17 17:26 Dose: Not Given Insulin Aspart (Novolog Mix 70/30 Vial) 24 units SQ BIDI [facility] Last Admin: 05/13/17 17:26 Dose: Not Given Lactobacillus Acidophilus (Bacid -) 1 cap PO DAILY [facility] Last Admin: 05/13/17 09:14 Dose: 1 cap Nystatin (Mycostatin Cream -) 1 applic TP BID [facility] Last Admin: 05/13/17 21:44 Dose: 1 applic - Objective Vital Signs: Vital Signs Temperature 98.1 F 05/14/17 06:24 Pulse Rate 97 H 05/14/17 06:24 Respiratory Rate 20 05/14/17 06:24 Blood Pressure 107/59 05/14/17 06:24 O2 Sat by Pulse Oximetry (%) 96 05/13/17 21:00 Constitutional: Yes: No Distress, Anxious Neck: Yes: Supple Cardiovascular: Yes: Regular Rate and Rhythm Respiratory: Yes: CTA Bilaterally Gastrointestinal: Yes: Soft Extremities: Yes: Other (dressing +) Wound/Incision: Yes: Dressing Dry and Intact Neurological: Yes: Alert Labs: CBC, BMP 05/10/17 06:30 05/10/17 06:30 INR, PTT INR 1.19 (0.82-1.09) H 04/28/17 00:00 Problem List - Problems (1) Aortic stenosis Code(s): I35.0 - NONRHEUMATIC AORTIC (VALVE) STENOSIS Qualifiers: Cardiac valve disease etiology: nonrheumatic Qualified Code(s): I35.0 - Nonrheumatic aortic (valve) stenosis (2) CAD (coronary artery disease) Code(s): I25.10 - ATHSCL HEART DISEASE OF [place] CORONARY ARTERY W/O ANG PCTRS Qualifiers: Coronary Disease-Associated Artery/Lesion type: [place] artery Associated angina: angina presence unspecified (3) Diabetic foot ulcer Code(s): E11.621 - TYPE 2 DIABETES MELLITUS WITH FOOT ULCER; L97.509 - NON- PRESSURE CHRONIC ULCER OTH PRT UNSP FOOT W UNSP SEVERITY Qualifiers: Diabetic foot ulcer location: unspecified part of foot Diabetes mellitus type: type 2 Laterality: left Non-pressure ulcer stage: unspecified non- pressure ulcer stage Qualified Code(s): E11.621 - Type 2 diabetes mellitus with foot ulcer; L97.529 - Non-pressure chronic ulcer of other part of left foot with unspecified severity; L97.529 - Non-pressure chronic ulcer of other part of left foot with unspecified severity; L97.529 - Non-pressure chronic ulcer of other part of left foot with unspecified severity; L97.529 - Non- pressure chronic ulcer of other part of left foot with unspecified severity (4) Anxiety Code(s): F41.9 - ANXIETY DISORDER, UNSPECIFIED Assessment/Plan continue abx poditry 2nd opinion - Dr. Solis Pt insisting to do surgery. Discussed with nursing staff Will follow
[2017-05-14] MEDS: INSULIN SLIDING SCALE (NOVOLOG) 1 VIAL SQ SCH ×4 (09:21→23:18)
[2017-05-14] MEDS: ACETAMINOPHEN 325 MG TABLET (FP) PO PRN (09:22)
[2017-05-14] MEDS: INSULIN (NOVOLOG MIX 70/30) 100 UNITS/ML MDV SQ SCH ×2 (09:25→17:12)
--- NOTE | 2017-05-14 09:53 | PN ---
Physical Exam: SUBJECTIVE: Patient seen and examined at bedside. Pt complains of fatigue. No other complaints. Denies fever, chills, nausea, vomiting, diarrhea, cough, cp, sob. OBJECTIVE: Vital Signs Period Temp Pulse Resp BP Sys/Simpson Pulse Ox Last 24 Hr 98 F-98.4 F 86-98 18-20 96-122/54-67 96 GENERAL: The patient is awake, alert, and fully oriented, in no acute distress. HEAD: Normal with no signs of trauma. EYES: sclera anicteric, conjunctiva clear. No ptosis. ENT: oropharynx clear without exudates, moist mucous membranes. NECK: Trachea midline, full range of motion, supple. LUNGS:Mild inspiratory crackles right base. Otherwise, cta HEART: Regular rate and rhythm, S1, S2 with systolic murmur 3/6 LUSB, rub or gallop. ABDOMEN: Soft, nontender, nondistended, normoactive bowel sounds, no guarding, no rebound, no hepatosplenomegaly, no masses. EXTREMITIES: 1+ pulses. Left 4th toe black and gangrenous with dressing in place NEUROLOGICAL: Cranial nerves II through XII grossly intact. Normal speech, gait not observed. PSYCH: Depressed mood SKIN: Warm, dry, normal turgor, Left 4th toe gangrene Laboratory Results - last 24 hr 05/13/17 05/13/17 05/13/17 10:27 17:25 21:36 POC Glucometer 260 127 220 05/14/17 06:24 POC Glucometer 221 Active Medications Generic Name Dose Route Start Last Admin Trade Name Freq PRN Reason Stop Dose Admin Acetaminophen 650 mg 05/04/17 21:01 05/14/17 09:22 Tylenol - PO 650 mg Q6H PRN Administration PAIN LEVEL 4 - 6 Alprazolam 0.25 mg 05/08/17 10:11 05/13/17 17:19 Xanax - PO 0.25 mg Q6H PRN Administration ANXIETY Aspirin 81 mg 05/05/17 10:00 05/13/17 09:14 Ecotrin - PO 81 mg DAILY [facility] Administration Atorvastatin Calcium 10 mg 05/04/17 22:00 05/13/17 21:44 Lipitor - PO Not Given HS [facility] Docusate Sodium 100 mg 05/07/17 12:26 05/08/17 10:47 Colace - PO 100 mg Q8H PRN Administration CONSTIPATION Duloxetine HCl 20 mg 05/11/17 22:00 05/13/17 21:42 Cymbalta - PO 20 mg HS [facility] Administration Enoxaparin Sodium 40 mg 05/05/17 10:00 05/13/17 09:14 Lovenox - SQ 40 mg DAILY [facility] Administration Furosemide 20 mg 05/06/17 11:30 05/13/17 09:14 Lasix - PO 20 mg DAILY [facility] Administration Ceftriaxone Sodium 2 gm/ 100 mls @ 200 mls/hr 05/05/17 10:00 05/13/17 09:14 Dextrose IVPB 200 mls/hr DAILY [facility] Administration Insulin Aspart 1 vial 05/04/17 22:00 05/13/17 21:44 Novolog Vial Sliding Scale - SQ 2 units HS [facility] Administration Protocol Insulin Aspart 1 vial 05/05/17 07:00 05/14/17 09:21 Novolog Vial Sliding Scale - SQ Not Given TIDAC [facility] Protocol Insulin Aspart 24 units 05/11/17 07:00 05/14/17 09:25 Novolog Mix 70/30 Vial SQ Not Given BIDI [facility] Lactobacillus Acidophilus 1 cap 05/10/17 14:15 05/13/17 09:14 Bacid - PO 1 cap DAILY [facility] Administration Nystatin 1 applic 05/10/17 22:00 05/13/17 21:44 Mycostatin Cream - TP 1 applic BID [facility] Administration ASSESSMENT/PLAN: #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
--- NOTE | 2017-05-14 10:42 | PN ---
Teaching Attending Note Name of Resident: Minh Pate ATTENDING PHYSICIAN STATEMENT I saw and evaluated the patient. I reviewed the resident's note and discussed the case with the resident. I agree with the resident's findings and plan as documented. SUBJECTIVE:No specific complaints Ceftriaxone OBJECTIVE: ASSESSMENT AND PLAN: Selected Entries 05/14/17 06:24 Temperature 98.1 F Pulse Rate 97 H Respiratory 20 Rate Blood Pressure 107/59 Microbiology 04/28/17 00:00 Blood - Peripheral Venous Blood Culture - Final NO GROWTH AFTER 5 DAYS INCUBATION 04/28/17 00:00 Blood - Peripheral Venous Blood Culture - Final NO GROWTH AFTER 5 DAYS INCUBATION 04/27/17 23:29 Foot - Left Gram Stain - Final 04/27/17 23:29 Foot - Left Wound Culture - Final Staphylococcus Aureus Streptococcus Viridans Assessment Left toe gangrene Plan Continue current antibiotic 1 gram daily Issue is she needs amputution Kindly recall us once surgical issues resolved Ana ALLEN
[2017-05-14] MEDS ORDERED: DEXTROSE 5%-WATER 100 ML IVPB ONE (11:01)
[2017-05-14] MEDS ORDERED: cefTRIAXone SODIUM 1 GM VIAL ONE (11:01)
[2017-05-14] MEDS: CEFTRIAXONE 1 GM in DEXTROSE 5%-WATER 100 ML IVPB SCH (11:06)
[2017-05-14] MEDS: LACTOBACILLUS ACIDOPHILUS 1 TABLET PO SCH (11:21)
[2017-05-14] MEDS: ENOXAPARIN NA (PORCINE) 40 MG/0.4 ML DISP.SYRIN SQ SCH (11:21)
[2017-05-14] MEDS: ASPIRIN COATED 81 MG TABLET.EC PO SCH (11:22)
[2017-05-14] MEDS: FUROSEMIDE 20 MG TABLET (FP) PO SCH (11:22)
[2017-05-14] MEDS: CEFTRIAXONE 2 GM in DEXTROSE 5%-WATER - 100 ML IVPB SCH (11:23)
--- NOTE | 2017-05-14 11:51 | CONSULT ---
Consult - text type - Consultation Consultation Note: Patient has been here since 04/27/2017 asked to do a second opinion as patient not sure on how to proceed. Wants to know prognosis and how we would treat her. vss. Tmax 98.1 dp&pt palpable, cr wnl to all toes except 4th toe left, +gangarene 4th toe left , +gangarene lateral aspect left foot over 5th met head, +cellulitis to 4th mpj , wbc=7.2, ESR=77, read and appreciated xray report and microbiology, r/o om gerald pvd Reviewed chart. Discussed at length with patient possible tx plans. Opted for amputation of 4th toe possible 4th met head and 5th toe and 5th met head. UInderrstands that most likely will have an open wound and be followed in wound care. Discussed HBO and Wound vac as well. Patient fully understands all risks benefits and alternatives. Will think about 5th toe and mettarsal before consenting. Vascular to see for clearance or revascularization. MRI ordered. Betadine dressing change for now. Asked me to call her daughter. Alejandra Zamora Psychotherapist. Called and left message. Will follow.
[2017-05-14] MEDS ORDERED: PT OWN MED DRAWER 7, Y5N ONE ×3 (12:23→23:15)
[2017-05-14] MEDS: ALPRAZolam 0.25 MG TABLET PO PRN (12:27)
--- NOTE | 2017-05-14 14:03 | PN ---
Progress Note (short form) - Note Progress Note: arterial study normal. cleared for podiatry procedure
[2017-05-14] MEDS: NYSTATIN 100,000 UNIT/GM TOPICAL CREAM 15 GM TUBE TP SCH ×2 (17:12→23:17)
--- NOTE | 2017-05-14 17:56 | PN ---
Progress Note (short form) - Note Progress Note: Then patient was seen in advance of her scheduled surgery. She expressed anxiety about it. The patient was taught a relaxation exercise with guided imagery. She did smile a couple of times when humor was employed. The patient is still going through grief over the loss of her . We talked about her loss and coping. She was very grateful for the intervention. Problem List - Problems (1) Anxiety about health Code(s): F41.8 - OTHER SPECIFIED ANXIETY DISORDERS
[2017-05-14] MEDS: ATORVASTATIN CA 10 MG TABLET (FP) PO SCH (23:17)
[2017-05-14] MEDS: DULoxetine HCL 20 MG CAPSULE.DR (FP) PO SCH (23:17)
[2017-05-15] MEDS: ACETAMINOPHEN 325 MG TABLET (FP) PO PRN ×2 (00:09→15:29)
[2017-05-15] MEDS: ALPRAZolam 0.25 MG TABLET PO PRN ×2 (02:28→19:06)
--- NOTE | 2017-05-15 08:42 | PN ---
Progress Note (short form) - Note Progress Note: pt seen/ examined all f/u noted had mri done last night -- report pending podiatry consult appreciated- surgery planned for . pt says cymbalta causes her palpitations- do not want to take it anxious denies cp/ sob. afebrile Vital Signs Temp 98 F 05/15/17 06:51 Pulse 88 05/15/17 06:51 Resp 20 05/15/17 06:51 BP 115/64 05/15/17 06:51 Pulse Ox 96 05/14/17 21:07 Intake & Output 05/14/17 05/14/17 05/15/17 11:59 23:59 11:59 Intake Total 100 120 Balance 100 120 Intake: IV 20 lfa 20 IVPB 100 Oral 100 Other: Voiding Method Incontinent Incontinent # Unmeasured Voids Void 2 1 Bowel Movement Yes # Bowel Movements 1 Active Medications Acetaminophen (Tylenol -) 650 mg PO Q6H PRN PRN Reason: PAIN LEVEL 4 - 6 Last Admin: 05/15/17 00:09 Dose: 650 mg Alprazolam (Xanax -) 0.25 mg PO Q6H PRN PRN Reason: ANXIETY Last Admin: 05/15/17 02:28 Dose: 0.25 mg Aspirin (Ecotrin -) 81 mg PO DAILY [facility] Last Admin: 05/14/17 11:22 Dose: Not Given Atorvastatin Calcium (Lipitor -) 10 mg PO HS [facility] Last Admin: 05/14/17 23:17 Dose: 10 mg Docusate Sodium (Colace -) 100 mg PO Q8H PRN PRN Reason: CONSTIPATION Last Admin: 05/08/17 10:47 Dose: 100 mg Duloxetine HCl (Cymbalta -) 20 mg PO HS [facility] Last Admin: 05/14/17 23:17 Dose: 20 mg Enoxaparin Sodium (Lovenox -) 40 mg SQ DAILY [facility] Last Admin: 05/14/17 11:21 Dose: 40 mg Furosemide (Lasix -) 20 mg PO DAILY [facility] Last Admin: 05/14/17 11:22 Dose: Not Given Ceftriaxone Sodium 1 gm/ (Dextrose) 100 mls @ 200 mls/hr IVPB DAILY [facility] Last Admin: 05/14/17 11:06 Dose: 200 mls/hr Insulin Aspart (Novolog Vial Sliding Scale -) 1 vial SQ [facility] PRN Reason: Protocol Last Admin: 05/14/17 23:18 Dose: 2 units Insulin Aspart (Novolog Vial Sliding Scale -) 1 vial SQ TIDAC [facility] PRN Reason: Protocol Last Admin: 05/14/17 17:13 Dose: Not Given Insulin Aspart (Novolog Mix 70/30 Vial) 24 units SQ BIDI [facility] Last Admin: 05/14/17 17:12 Dose: Not Given Lactobacillus Acidophilus (Bacid -) 1 cap PO DAILY [facility] Last Admin: 05/14/17 11:21 Dose: 1 cap Nystatin (Mycostatin Cream -) 1 applic TP BID [facility] Last Admin: 05/14/17 23:17 Dose: 1 applic CBC, BMP 05/10/17 06:30 05/10/17 06:30 Physical Exam Constitutional: Yes: No Distress, anxious. Neck: Yes: Supple/ no jvd Cardiovascular: Yes: Regular Rate and Rhythm Respiratory: Yes: CTA Bilaterally Gastrointestinal: Yes: Soft/ non tender . Extremities: Yes: Other (left foot--4th toe necrotic Neurological: Yes: Alert oriented x 3. Psych- Anxious Assessment/Plan continue present care abx will request psych f/u . d/c cymbalta-- pt adamantly refuses Problem List - Problems (1) Aortic stenosis Code(s): I35.0 - NONRHEUMATIC AORTIC (VALVE) STENOSIS Qualifiers: Cardiac valve disease etiology: nonrheumatic Qualified Code(s): I35.0 - Nonrheumatic aortic (valve) stenosis (2) CAD (coronary artery disease) Code(s): I25.10 - ATHSCL HEART DISEASE OF [place] CORONARY ARTERY W/O ANG PCTRS Qualifiers: Coronary Disease-Associated Artery/Lesion type: [place] artery Associated angina: angina presence unspecified (3) Diabetic foot ulcer Code(s): E11.621 - TYPE 2 DIABETES MELLITUS WITH FOOT ULCER; L97.509 - NON- PRESSURE CHRONIC ULCER OTH PRT UNSP FOOT W UNSP SEVERITY Qualifiers: Diabetic foot ulcer location: unspecified part of foot Diabetes mellitus type: type 2 Laterality: left Non-pressure ulcer stage: unspecified non- pressure ulcer stage Qualified Code(s): E11.621 - Type 2 diabetes mellitus with foot ulcer; L97.529 - Non-pressure chronic ulcer of other part of left foot with unspecified severity; L97.529 - Non-pressure chronic ulcer of other part of left foot with unspecified severity; L97.529 - Non-pressure chronic ulcer of other part of left foot with unspecified severity; L97.529 - Non- pressure chronic ulcer of other part of left foot with unspecified severity (4) Anxiety Code(s): F41.9 - ANXIETY DISORDER, UNSPECIFIED
[2017-05-15] MEDS: INSULIN (NOVOLOG MIX 70/30) 100 UNITS/ML MDV SQ SCH ×2 (10:19→18:30)
[2017-05-15] MEDS: INSULIN SLIDING SCALE (NOVOLOG) 1 VIAL SQ SCH ×4 (10:20→21:10)
[2017-05-15] MEDS: ASPIRIN COATED 81 MG TABLET.EC PO SCH (10:25)
[2017-05-15] MEDS: FUROSEMIDE 20 MG TABLET (FP) PO SCH (10:26)
[2017-05-15] MEDS ORDERED: DEXTROSE 5%-WATER 100 ML IVPB ONE (10:52)
[2017-05-15] MEDS ORDERED: cefTRIAXone SODIUM 1 GM VIAL ONE (10:52)
[2017-05-15] MEDS: LACTOBACILLUS ACIDOPHILUS 1 TABLET PO SCH (10:56)
[2017-05-15] MEDS: CEFTRIAXONE 1 GM in DEXTROSE 5%-WATER 100 ML IVPB SCH (10:56)
[2017-05-15] MEDS: ENOXAPARIN NA (PORCINE) 40 MG/0.4 ML DISP.SYRIN SQ SCH (10:56)
[2017-05-15] MEDS: NYSTATIN 100,000 UNIT/GM TOPICAL CREAM 15 GM TUBE TP SCH ×2 (10:56→21:10)
[2017-05-15] MEDS ORDERED: INSULIN (NOVOLOG) ASPART 100 UNITS/ML 10ML VIAL ONE (11:48)
--- NOTE | 2017-05-15 12:00 | PN ---
Progress Note (short form) - Note Progress Note: Patient seen in bed. Had MRI. vss. Tmax 98.0 dp&pt palpable, +om on MRI, +gangarene lateral aspect left foot over 5th met head and 4th toe to MPJ +cellulitis to 4th mpj, wbc=7.2, ESR=77, r/o om gangarene pvd Read and appreciated MRI results. Opted for amputation of 4th toe possible 4th met head and 5th toe and 5th met head after reviewing MRI. UInderrstands that most likely will have an open wound and be followed in wound care. Discussed HBO and Wound vac as well. Patient fully understands all risks benefits and alternatives. Vascular clearance on chart. Betadine dressing change for now. Spoke with her daughter yesterday and explained situation. Patient had originally refused MRI but daughter convinced her to have it done. Consent written. Scheduled for 12pm on . Will follow.
[2017-05-15] MEDS ORDERED: PT OWN MED DRAWER 7, Y5N ONE (15:24)
--- NOTE | 2017-05-15 18:29 | PN ---
Progress Note (short form) - Note Progress Note: CaSE [id number] WITH staff. patient apparantly refusing to take Cyumbalta, and has been generally uncoperative. MS: alert, oriented, appears more animated today. Denies any depression, all she wants is Xanax. denies any suicidal [id number] or behjaviour. cognition : intact. REc: continue with Xanax, refusing alternative anti depresants at this time. Problem List - Problems (1) Depressive disorder Code(s): F32.9 - MAJOR DEPRESSIVE DISORDER, SINGLE EPISODE, UNSPECIFIED
[2017-05-15] MEDS: ATORVASTATIN CA 10 MG TABLET (FP) PO SCH (21:09)
[2017-05-16] MEDS: INSULIN (NOVOLOG MIX 70/30) 100 UNITS/ML MDV SQ SCH ×2 (08:00→17:26)
[2017-05-16] MEDS: INSULIN SLIDING SCALE (NOVOLOG) 1 VIAL SQ SCH ×4 (08:00→22:37)
[2017-05-16] MEDS ORDERED: INSULIN (NOVOLOG MIX 70/30) 100 UNITS/ML MDV SQ ONE (08:09)
[2017-05-16] MEDS ORDERED: cefTRIAXone SODIUM 1 GM VIAL ONE (09:26)
[2017-05-16] MEDS ORDERED: DEXTROSE 5%-WATER 100 ML IVPB ONE (09:26)
[2017-05-16] MEDS: LACTOBACILLUS ACIDOPHILUS 1 TABLET PO SCH (09:28)
[2017-05-16] MEDS: FUROSEMIDE 20 MG TABLET (FP) PO SCH (09:29)
[2017-05-16] MEDS: ASPIRIN COATED 81 MG TABLET.EC PO SCH (09:29)
[2017-05-16] MEDS: CEFTRIAXONE 1 GM in DEXTROSE 5%-WATER 100 ML IVPB SCH (09:29)
[2017-05-16] MEDS: ALPRAZolam 0.25 MG TABLET PO PRN (09:29)
[2017-05-16] MEDS: ENOXAPARIN NA (PORCINE) 40 MG/0.4 ML DISP.SYRIN SQ SCH (09:30)
[2017-05-16] MEDS ORDERED: INSULIN (NOVOLOG) ASPART 100 UNITS/ML 10ML VIAL ONE ×2 (11:49→22:29)
[2017-05-16] MEDS: NYSTATIN 100,000 UNIT/GM TOPICAL CREAM 15 GM TUBE TP SCH ×2 (11:52→22:38)
--- NOTE | 2017-05-16 11:53 | PN ---
Progress Note, Physician Chief Complaint: pt is finally agreeing to surgery appears depressed - Current Medication List Current Medications: Active Medications Acetaminophen (Tylenol -) 650 mg PO Q6H PRN PRN Reason: PAIN LEVEL 4 - 6 Last Admin: 05/15/17 15:29 Dose: 650 mg Alprazolam (Xanax -) 0.25 mg PO Q6H PRN PRN Reason: ANXIETY Last Admin: 05/16/17 09:29 Dose: 0.25 mg Aspirin (Ecotrin -) 81 mg PO DAILY [facility] Last Admin: 05/16/17 09:29 Dose: 81 mg Atorvastatin Calcium (Lipitor -) 10 mg PO HS [facility] Last Admin: 05/15/17 21:09 Dose: Not Given Docusate Sodium (Colace -) 100 mg PO Q8H PRN PRN Reason: CONSTIPATION Last Admin: 05/08/17 10:47 Dose: 100 mg Enoxaparin Sodium (Lovenox -) 40 mg SQ DAILY [facility] Last Admin: 05/16/17 09:30 Dose: 40 mg Furosemide (Lasix -) 20 mg PO DAILY [facility] Last Admin: 05/16/17 09:29 Dose: 20 mg Ceftriaxone Sodium 1 gm/ (Dextrose) 100 mls @ 200 mls/hr IVPB DAILY [facility] Last Admin: 05/16/17 09:29 Dose: 200 mls/hr Insulin Aspart (Novolog Vial Sliding Scale -) 1 vial SQ HS [facility] PRN Reason: Protocol Last Admin: 05/15/17 21:10 Dose: Not Given Insulin Aspart (Novolog Vial Sliding Scale -) 1 vial SQ TIDAC [facility] PRN Reason: Protocol Last Admin: 05/16/17 11:52 Dose: 4 units Insulin Aspart (Novolog Mix 70/30 Vial) 24 units SQ BIDI [facility] Last Admin: 05/16/17 08:00 Dose: Not Given Lactobacillus Acidophilus (Bacid -) 1 cap PO DAILY [facility] Last Admin: 05/16/17 09:28 Dose: 1 cap Nystatin (Mycostatin Cream -) 1 applic TP BID [facility] Last Admin: 05/16/17 11:52 Dose: 1 applic - Objective Vital Signs: Vital Signs Temperature 97.6 F 05/16/17 06:59 Pulse Rate 90 05/16/17 06:59 Respiratory Rate 20 05/16/17 06:59 Blood Pressure 142/95 05/16/17 06:59 O2 Sat by Pulse Oximetry (%) 96 05/15/17 21:00 Constitutional: Yes: No Distress Cardiovascular: Yes: Regular Rate and Rhythm Respiratory: Yes: Diminished. No: Rales, Rhonchi Gastrointestinal: Yes: Normal Bowel Sounds, Soft, Abdomen, Obese. No: Distention, Tenderness Extremities: Yes: Other (left 4 th toe gangrene) Edema: Yes Labs: CBC, BMP 05/10/17 06:30 05/10/17 06:30 INR, PTT INR 1.19 (0.82-1.09) H 04/28/17 00:00 Problem List - Problems (1) Aortic stenosis Code(s): I35.0 - NONRHEUMATIC AORTIC (VALVE) STENOSIS Qualifiers: Cardiac valve disease etiology: nonrheumatic Qualified Code(s): I35.0 - Nonrheumatic aortic (valve) stenosis (2) CAD (coronary artery disease) Code(s): I25.10 - ATHSCL HEART DISEASE OF [place] CORONARY ARTERY W/O ANG PCTRS Qualifiers: Coronary Disease-Associated Artery/Lesion type: [place] artery Associated angina: angina presence unspecified (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 Code(s): E11.51 - TYPE 2 DIABETES W DIABETIC PERIPHERAL ANGIOPATH W/O GANGRENE; I70.209 - UNSP ATHSCL [place] ARTERIES OF EXTREMITIES, UNSP EXTREMITY (4) Diabetic foot ulcer Code(s): E11.621 - TYPE 2 DIABETES MELLITUS WITH FOOT ULCER; L97.509 - NON- PRESSURE CHRONIC ULCER OTH PRT UNSP FOOT W UNSP SEVERITY Qualifiers: Diabetic foot ulcer location: unspecified part of foot Diabetes mellitus type: type 2 Laterality: left Non-pressure ulcer stage: unspecified non- pressure ulcer stage Qualified Code(s): E11.621 - Type 2 diabetes mellitus with foot ulcer; L97.529 - Non-pressure chronic ulcer of other part of left foot with unspecified severity; L97.529 - Non-pressure chronic ulcer of other part of left foot with unspecified severity; L97.529 - Non-pressure chronic ulcer of other part of left foot with unspecified severity; L97.529 - Non- pressure chronic ulcer of other part of left foot with unspecified severity (5) Osteomyelitis Code(s): M86.9 - OSTEOMYELITIS, UNSPECIFIED Qualifiers: Osteomyelitis type: unspecified type Osteomyelitis location: foot Laterality: left Qualified Code(s): M86.9 - Osteomyelitis, unspecified (6) Anxiety Code(s): F41.9 - ANXIETY DISORDER, UNSPECIFIED (7) Dizziness Code(s): R42 - DIZZINESS AND GIDDINESS Assessment/Plan PLAN IV antibiotics MRI foot noted-- has osteomyelitis podiatry eval appreciated-- pt will be going for surgery tomorrow pain control Xanax as needed pt refused Cymbalta Pt is cleared for surgery
[2017-05-16] MEDS: ACETAMINOPHEN 325 MG TABLET (FP) PO PRN (17:28)
[2017-05-16] MEDS: ATORVASTATIN CA 10 MG TABLET (FP) PO SCH (22:37)
[2017-05-16] MEDS ORDERED: ALPRAZolam 0.25 MG TABLET PO ONE (22:45)
[2017-05-17] MEDS: INSULIN SLIDING SCALE (NOVOLOG) 1 VIAL SQ SCH ×3 (06:51→17:49)
[2017-05-17] MEDS: INSULIN (NOVOLOG MIX 70/30) 100 UNITS/ML MDV SQ SCH ×2 (06:52→17:48)
[2017-05-17] MEDS ORDERED: DEXAMETHASONE SOD PHOSPHATE 4 MG/1 ML VIAL ONE (08:51)
[2017-05-17] MEDS ORDERED: BUPIVACAINE HCL/PF 0.5% (5MG/ML) 10 ML VIAL ONE (08:51)
[2017-05-17] MEDS ORDERED: LIDOCAINE HCL 1%, 10 MG/ML (20ML VIAL) ONE ×2 (08:51→08:52)
[2017-05-17] MEDS ORDERED: DEXTROSE 5%-WATER 100 ML IVPB ONE (09:43)
[2017-05-17] MEDS ORDERED: cefTRIAXone SODIUM 1 GM VIAL ONE (09:43)
[2017-05-17] MEDS ORDERED: BENZOIN/ALOE VERA/STORAX/TOLU 58 ML BOTTLE ONE (09:46)
[2017-05-17] MEDS ORDERED: oxyCODONE HCL 5 MG TABLET PO PRN ×2 (10:01→12:10)
[2017-05-17] MEDS ORDERED: ONDANSETRON 4 MG/2 ML VIAL IVPUSH PRN ×2 (10:01→12:10)
[2017-05-17] MEDS ORDERED: PROPOFOL 20 ML ONE (10:14)
[2017-05-17] MEDS ORDERED: MIDAZOLAM HCL 2 MG/2 ML SINGLE DOSE VIAL ONE (10:14)
[2017-05-17] MEDS ORDERED: LACTATED RINGERS SOLUTION 1,000 ML IV SCH ×2 (10:15→12:10)
[2017-05-17] MEDS ORDERED: CEFTRIAXONE 1 GM/50 ML PREMIX IVPB ONE (10:20)
[2017-05-17] MEDS ORDERED: SODIUM CHLORIDE 0.9% P/F 10 ML VIAL IJ ONE (10:21)
[2017-05-17] MEDS ORDERED: LIDOCAINE HCL/PF 2% SDV 5ML VIAL ONE (10:28)
[2017-05-17] MEDS ORDERED: ePHEDrine SULFATE 50 MG/1 ML AMPULE ONE (10:38)
[2017-05-17] MEDS ORDERED: PT OWN MED DRAWER 7, Y5N ONE ×2 (10:47→17:20)
--- NOTE | 2017-05-17 11:19 | OP ---
Operative Note - Note: Operative Date: 05/17/17 Pre-Operative Diagnosis: gangarene and osteomyelitis 4th and 5th ray left foot Operation: debridement of bone and soft tissue including metatarsal heads 4&5 left, flap with retention sutures and plain packing Findings: necrotic bone and soft tissue Implants: 02/08"plain packing Surgeon: Duarte Iverson Estimated Blood Loss (mls): 20 Drains & Tubes with Location: 02/08" plain packing Operative Report Dictated: No
[2017-05-17] MEDS ORDERED: SODIUM CHLORIDE 0.9% 500 ML INFUS.BAG IV ONE (11:27)
[2017-05-17 11:51] LABS: EOS % 5.8 % (0-4.5); HEMATOCRIT 40.2 % (32.4-45.2); HEMOGLOBIN 13.2 GM/dL (10.7-15.3); LYMPH % 28.4 % (8-40); MCHC 32.9 g/dl (32.0-36.0); MEAN PLT VOLUME 8.6 fl (7.5-11.1); MONO % 10.5 % (3.8-10.2); NEUT % 54.3 % (42.8-82.8); PLATELET COUNT 315 K/MM3 (134-434); RBC 4.42 M/mm3 (3.60-5.2); RDW 13.3 % (11.6-15.6); WHITE BLOOD COUNT 6.7 K/mm3 (4.0-10.0)
[2017-05-17] MEDS ORDERED: DOCUSATE SODIUM 100 MG CAPSULE (FP) PO PRN (12:10)
[2017-05-17] MEDS: LACTOBACILLUS ACIDOPHILUS 1 TABLET PO SCH (12:32)
[2017-05-17] MEDS: NYSTATIN 100,000 UNIT/GM TOPICAL CREAM 15 GM TUBE TP SCH ×2 (12:33→21:33)
[2017-05-17] MEDS: CEFTRIAXONE 1 GM in DEXTROSE 5%-WATER 100 ML IVPB SCH (12:33)
[2017-05-17] MEDS: FUROSEMIDE 20 MG TABLET (FP) PO SCH (12:33)
[2017-05-17] MEDS: ASPIRIN COATED 81 MG TABLET.EC PO SCH (12:33)
[2017-05-17] MEDS: ENOXAPARIN NA (PORCINE) 40 MG/0.4 ML DISP.SYRIN SQ SCH (12:33)
[2017-05-17] MEDS ORDERED: SODIUM CHLORIDE 1,000 ML IV SCH (13:15)
[2017-05-17] MEDS: ACETAMINOPHEN 325 MG TABLET (FP) PO PRN (16:36)
--- NOTE | 2017-05-17 17:25 | PN ---
Progress Note, Physician Chief Complaint: s/p 4th and 5th toe amputation spoke with Podiatry and ID pt feels comfortable - Current Medication List Current Medications: Active Medications Acetaminophen (Tylenol -) 650 mg PO Q6H PRN PRN Reason: PAIN LEVEL 4 - 6 Last Admin: 05/17/17 16:36 Dose: 650 mg Aspirin (Ecotrin -) 81 mg PO DAILY [facility] Atorvastatin Calcium (Lipitor -) 10 mg PO HS [facility] Docusate Sodium (Colace -) 100 mg PO Q8H PRN PRN Reason: CONSTIPATION Enoxaparin Sodium (Lovenox -) 40 mg SQ DAILY [facility] Furosemide (Lasix -) 20 mg PO DAILY [facility] Ceftriaxone Sodium 1 gm/ (Dextrose) 50 mls @ 100 mls/hr IVPB DAILY [facility] Sodium Chloride (Normal Saline -) 1,000 mls @ 100 mls/hr IV ASDIR [facility] Stop: 05/18/17 13:14 Insulin Aspart (Novolog Mix 70/30 Vial) 24 units SQ BIDI [facility] Insulin Aspart (Novolog Vial Sliding Scale -) 1 vial SQ TIDAC [facility] PRN Reason: Protocol Lactobacillus Acidophilus (Bacid -) 1 cap PO DAILY [facility] Nystatin (Mycostatin Cream -) 1 applic TP BID [facility] Ondansetron HCl (Zofran Injection) 4 mg IVPUSH Q6H PRN PRN Reason: NAUSEA AND/OR VOMITING Stop: 05/18/17 12:09 Oxycodone HCl (Roxicodone -) 10 mg PO Q4H PRN PRN Reason: PAIN LEVEL 6-10 - Objective Vital Signs: Vital Signs Temperature 97.3 F L 05/17/17 15:03 Pulse Rate 105 H 05/17/17 15:03 Respiratory Rate 20 05/17/17 15:03 Blood Pressure 110/64 05/17/17 15:03 O2 Sat by Pulse Oximetry (%) 100 05/17/17 12:05 Constitutional: Yes: No Distress Cardiovascular: Yes: Regular Rate and Rhythm Respiratory: Yes: CTA Bilaterally Gastrointestinal: Yes: Normal Bowel Sounds, Soft. No: Tenderness Extremities: Yes: Other (left foot dressing in place) Edema: No Labs: CBC, BMP 05/17/17 11:40 05/10/17 06:30 INR, PTT INR 1.19 (0.82-1.09) H 04/28/17 00:00 Problem List - Problems (1) Aortic stenosis Code(s): I35.0 - NONRHEUMATIC AORTIC (VALVE) STENOSIS Qualifiers: Cardiac valve disease etiology: nonrheumatic Qualified Code(s): I35.0 - Nonrheumatic aortic (valve) stenosis (2) CAD (coronary artery disease) Code(s): I25.10 - ATHSCL HEART DISEASE OF [place] CORONARY ARTERY W/O ANG PCTRS Qualifiers: Coronary Disease-Associated Artery/Lesion type: [place] artery Associated angina: angina presence unspecified (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 Code(s): E11.51 - TYPE 2 DIABETES W DIABETIC PERIPHERAL ANGIOPATH W/O GANGRENE; I70.209 - UNSP ATHSCL [place] ARTERIES OF EXTREMITIES, UNSP EXTREMITY (4) Diabetic foot ulcer Code(s): E11.621 - TYPE 2 DIABETES MELLITUS WITH FOOT ULCER; L97.509 - NON- PRESSURE CHRONIC ULCER OTH PRT UNSP FOOT W UNSP SEVERITY Qualifiers: Diabetic foot ulcer location: unspecified part of foot Diabetes mellitus type: type 2 Laterality: left Non-pressure ulcer stage: unspecified non- pressure ulcer stage Qualified Code(s): E11.621 - Type 2 diabetes mellitus with foot ulcer; L97.529 - Non-pressure chronic ulcer of other part of left foot with unspecified severity; L97.529 - Non-pressure chronic ulcer of other part of left foot with unspecified severity; L97.529 - Non-pressure chronic ulcer of other part of left foot with unspecified severity; L97.529 - Non- pressure chronic ulcer of other part of left foot with unspecified severity (5) Osteomyelitis Code(s): M86.9 - OSTEOMYELITIS, UNSPECIFIED Qualifiers: Osteomyelitis type: unspecified type Osteomyelitis location: foot Laterality: left Qualified Code(s): M86.9 - Osteomyelitis, unspecified (6) Anxiety Code(s): F41.9 - ANXIETY DISORDER, UNSPECIFIED (7) Dizziness Code(s): R42 - DIZZINESS AND GIDDINESS Assessment/Plan PLAN spoke with POdiatry and ID-will need IV antibiotics , awaiting wound culture results she will also need hyperbaric O2 therapy per Podiatry MRI foot noted-- has osteomyelitis pain control Xanax as needed
[2017-05-17] MEDS: ATORVASTATIN CA 10 MG TABLET (FP) PO SCH (21:29)
[2017-05-17] MEDS ORDERED: ALPRAZolam 0.25 MG TABLET PO ONE (21:30)
[2017-05-18] MEDS: INSULIN (NOVOLOG MIX 70/30) 100 UNITS/ML MDV SQ SCH ×2 (06:06→18:04)
[2017-05-18] MEDS: INSULIN SLIDING SCALE (NOVOLOG) 1 VIAL SQ SCH ×3 (06:09→18:04)
[2017-05-18] MEDS ORDERED: ALPRAZolam 0.25 MG TABLET PO PRN (09:03)
--- NOTE | 2017-05-18 09:06 | PN ---
Progress Note (short form) - Note Progress Note: patient seen and examined today. Chart reviewed Postop day #1 Anxiety present wants me to renew Xanax Do not want to see psychiatrist do not want any others Medications for mind Afebrile Overall stable Vital Signs Temp 98.6 F 05/18/17 06:00 Pulse 100 H 05/18/17 06:00 Resp 20 05/18/17 06:00 BP 123/71 05/18/17 06:00 Pulse Ox 99 05/17/17 21:00 Intake & Output 05/17/17 05/17/17 05/18/17 11:59 23:59 11:59 Intake Total 400 700 Output Total 2 2 Balance 400 698 -2 Weight 176 lb 12.8 oz Intake: IV 400 400 Normal Saline - 1,000 ml 300 @ 100 mls/hr IV ASDIR [facility] Rx#:[id number] IVPB 100 Oral 200 Output: Urine 2 2 Void 2 2 Other: Voiding Method Incontinent Diaper Bowel Movement No No # Bowel Movements 1 1 Weight Measurement Method Built in [facility] Active Medications Acetaminophen (Tylenol -) 650 mg PO Q6H PRN PRN Reason: PAIN LEVEL 4 - 6 Last Admin: 05/17/17 16:36 Dose: 650 mg Alprazolam (Xanax -) 0.25 mg PO Q8H PRN PRN Reason: ANXIETY Aspirin (Ecotrin -) 81 mg PO DAILY [facility] Atorvastatin Calcium (Lipitor -) 10 mg PO HS [facility] Last Admin: 05/17/17 21:29 Dose: 10 mg Docusate Sodium (Colace -) 100 mg PO Q8H PRN PRN Reason: CONSTIPATION Enoxaparin Sodium (Lovenox -) 40 mg SQ DAILY [facility] Furosemide (Lasix -) 20 mg PO DAILY [facility] Ceftriaxone Sodium 1 gm/ (Dextrose) 50 mls @ 100 mls/hr IVPB DAILY [facility] Insulin Aspart (Novolog Mix 70/30 Vial) 24 units SQ BIDI [facility] Last Admin: 05/18/17 06:06 Dose: 24 unit Insulin Aspart (Novolog Vial Sliding Scale -) 1 vial SQ TIDAC [facility] PRN Reason: Protocol Last Admin: 05/18/17 06:09 Dose: 3 unit Lactobacillus Acidophilus (Bacid -) 1 cap PO DAILY [facility] Nystatin (Mycostatin Cream -) 1 applic TP BID [facility] Last Admin: 05/17/17 21:33 Dose: 1 applic Ondansetron HCl (Zofran Injection) 4 mg IVPUSH Q6H PRN PRN Reason: NAUSEA AND/OR VOMITING Stop: 05/18/17 12:09 Oxycodone HCl (Roxicodone -) 10 mg PO Q4H PRN PRN Reason: PAIN LEVEL 6-10 CBC, BMP 05/17/17 11:40 05/10/17 06:30 physical exam Constitutional: Yes: No Distress/ anxious. Cardiovascular: Yes: Regular Rate and Rhythm. Respiratory: Yes: CTA Bilaterally Gastrointestinal: Yes: Normal Bowel Sounds, Soft. No: Tenderness Extremities: Yes: Other (left foot dressing in place) neuro--alert and awake Psych--anxiety present Assessment/Plan postop day #1 Clinically stable Continue antibiotics Pain under control Xanax renewed Follow-up labs Discussed with nursing staff will follow Problem List - Problems (1) Aortic stenosis Code(s): I35.0 - NONRHEUMATIC AORTIC (VALVE) STENOSIS Qualifiers: Cardiac valve disease etiology: nonrheumatic Qualified Code(s): I35.0 - Nonrheumatic aortic (valve) stenosis (2) CAD (coronary artery disease) Code(s): I25.10 - ATHSCL HEART DISEASE OF [place] CORONARY ARTERY W/O ANG PCTRS Qualifiers: Coronary Disease-Associated Artery/Lesion type: [place] artery Associated angina: angina presence unspecified (3) Diabetic foot ulcer Code(s): E11.621 - TYPE 2 DIABETES MELLITUS WITH FOOT ULCER; L97.509 - NON- PRESSURE CHRONIC ULCER OTH PRT UNSP FOOT W UNSP SEVERITY Qualifiers: Diabetic foot ulcer location: unspecified part of foot Diabetes mellitus type: type 2 Laterality: left Non-pressure ulcer stage: unspecified non- pressure ulcer stage Qualified Code(s): E11.621 - Type 2 diabetes mellitus with foot ulcer; L97.529 - Non-pressure chronic ulcer of other part of left foot with unspecified severity; L97.529 - Non-pressure chronic ulcer of other part of left foot with unspecified severity; L97.529 - Non-pressure chronic ulcer of other part of left foot with unspecified severity; L97.529 - Non- pressure chronic ulcer of other part of left foot with unspecified severity (4) Anxiety Code(s): F41.9 - ANXIETY DISORDER, UNSPECIFIED
[2017-05-18] MEDS ORDERED: DEXTROSE 5%-WATER - 50 ML IVPB ONE (09:20)
[2017-05-18] MEDS ORDERED: cefTRIAXone SODIUM 1 GM VIAL ONE (09:20)
[2017-05-18] MEDS ORDERED: PT OWN MED DRAWER 7, Y5N ONE (09:22)
[2017-05-18] MEDS: ACETAMINOPHEN 325 MG TABLET (FP) PO PRN ×2 (09:36→22:23)
[2017-05-18] MEDS: CEFTRIAXONE 1 GM in DEXTROSE 5%-WATER - 50 ML IVPB SCH (09:37)
[2017-05-18] MEDS: ASPIRIN COATED 81 MG TABLET.EC PO SCH (09:37)
[2017-05-18] MEDS: ENOXAPARIN NA (PORCINE) 40 MG/0.4 ML DISP.SYRIN SQ SCH (09:37)
[2017-05-18] MEDS: NYSTATIN 100,000 UNIT/GM TOPICAL CREAM 15 GM TUBE TP SCH ×2 (09:38→22:00)
[2017-05-18] MEDS ORDERED: FUROSEMIDE 20 MG TABLET (FP) PO SCH (10:00)
[2017-05-18] MEDS: LACTOBACILLUS ACIDOPHILUS 1 TABLET PO SCH (12:48)
--- NOTE | 2017-05-18 14:11 | PN ---
Progress Note (short form) - Note Progress Note: POD#1. No pain. VSS. Tmax 98.6 dressing clean dry and intact, wbc=6.7 yesterday, normal post op Post op shoe to left foot. bathroom privelages. will follow. Dressing change tomorrow. cbc with diff, esr in am.
[2017-05-18] MEDS ORDERED: D5-NS + 20 MEQ KCL - 20 MEQ/1,000 ML INFUS.BAG IV SCH (15:15)
[2017-05-18] MEDS: SODIUM CHLORIDE 0.9%/KCL 20 MEQ/1,000 ML INFUS.BAG IV SCH (18:04)
[2017-05-18] MEDS: ATORVASTATIN CA 10 MG TABLET (FP) PO SCH (22:17)
[2017-05-19 08:19] LABS: EOS % 7.3 % (0-4.5); HEMATOCRIT 33.4 % (32.4-45.2); HEMOGLOBIN 11.2 GM/dL (10.7-15.3); LYMPH % 32.4 % (8-40); MCH 30.5 pg (25.7-33.7); MCHC 33.5 g/dl (32.0-36.0); MEAN CELL VOLUME 91.2 fl (80-96); MEAN PLT VOLUME 9.2 fl (7.5-11.1); MONO % 10.7 % (3.8-10.2); NEUT % 48.6 % (42.8-82.8); PLATELET COUNT 263 K/MM3 (134-434); RBC 3.66 M/mm3 (3.60-5.2); RDW 13.4 % (11.6-15.6); WHITE BLOOD COUNT 6.2 K/mm3 (4.0-10.0)
[2017-05-19 08:30] LABS: ALBUMIN 2.6 g/dl (3.4-5.0); ANION GAP 4 (8-16); BLOOD UREA NITROGEN 22 mg/dL (7-18); CALCIUM 8.8 mg/dL (8.5-10.1); CHLORIDE 108 mmol/L (98-107); CO2 29 mmol/L (21-32); GLUCOSE,RANDOM 190 mg/dL (74-106); POTASSIUM 4.7 mmol/L (3.5-5.1); SODIUM 141 mmol/L (136-145)
[2017-05-19 08:34] LABS: ALK PHOS 113 U/L (45-117); BILIRUBIN,TOTAL 0.2 mg/dL (0.2-1.0); SGOT/AST 11 U/L (15-37); SGPT/ALT 10 U/L (12-78); TOT PROT 6.4 g/dl (6.4-8.2)
[2017-05-19] MEDS: INSULIN SLIDING SCALE (NOVOLOG) 1 VIAL SQ SCH ×4 (09:12→19:09)
[2017-05-19] MEDS: INSULIN (NOVOLOG MIX 70/30) 100 UNITS/ML MDV SQ SCH ×2 (09:13→17:32)
[2017-05-19] MEDS ORDERED: PT OWN MED DRAWER 7, Y5N ONE ×2 (09:51→22:17)
[2017-05-19] MEDS ORDERED: cefTRIAXone SODIUM 1 GM VIAL ONE (09:51)
[2017-05-19] MEDS ORDERED: DEXTROSE 5%-WATER - 50 ML IVPB ONE (09:51)
[2017-05-19] MEDS: ACETAMINOPHEN 325 MG TABLET (FP) PO PRN ×2 (10:08→22:19)
[2017-05-19] MEDS: ENOXAPARIN NA (PORCINE) 40 MG/0.4 ML DISP.SYRIN SQ SCH (10:09)
[2017-05-19] MEDS: CEFTRIAXONE 1 GM in DEXTROSE 5%-WATER - 50 ML IVPB SCH (10:09)
[2017-05-19] MEDS: LACTOBACILLUS ACIDOPHILUS 1 TABLET PO SCH (10:12)
[2017-05-19] MEDS: ASPIRIN COATED 81 MG TABLET.EC PO SCH (10:12)
--- NOTE | 2017-05-19 12:13 | PN ---
Progress Note (short form) - Note Progress Note: POD#2. No pain. VSS. Tmax 97.3 dressing clean dry and intact, wbc=6.2, esr=42, packing intact, +retention sutures intact, -drainage, normal post op packing pulled. Betadine irrigation. Sterile gauze, kerlix dressing change. Will follow. Post op shoe left. Anticiapte DC Sunday. Follow in wound care. Patient has postdoctoral fellow. HBO consult ordered.
--- NOTE | 2017-05-19 14:46 | PN ---
Progress Note (short form) - Note Progress Note: patient seen and examined comfortable Postop day #2 mood stable iv fluids restarted yesterday as pressure was on low side afebrile podiatry f/u noted Vital Signs Temp 98.6 F 05/18/17 06:00 Pulse 100 H 05/18/17 06:00 Resp 20 05/18/17 06:00 BP 123/71 05/18/17 06:00 Pulse Ox 99 05/17/17 21:00 Intake & Output 05/17/17 05/17/17 05/18/17 11:59 23:59 11:59 Intake Total 400 700 Output Total 2 2 Balance 400 698 -2 Weight 176 lb 12.8 oz Intake: IV 400 400 Normal Saline - 1,000 ml 300 @ 100 mls/hr IV ASDIR [facility] Rx#:[id number] IVPB 100 Oral 200 Output: Urine 2 2 Void 2 2 Other: Voiding Method Incontinent Diaper Bowel Movement No No # Bowel Movements 1 1 Weight Measurement Method Built in [facility] Active Medications Acetaminophen (Tylenol -) 650 mg PO Q6H PRN PRN Reason: PAIN LEVEL 4 - 6 Last Admin: 05/19/17 10:08 Dose: 650 mg Alprazolam (Xanax -) 0.25 mg PO Q8H PRN PRN Reason: ANXIETY Last Admin: 05/19/17 00:19 Dose: 0.25 mg Aspirin (Ecotrin -) 81 mg PO DAILY [facility] Last Admin: 05/19/17 10:12 Dose: 81 mg Atorvastatin Calcium (Lipitor -) 10 mg PO HS [facility] Last Admin: 05/18/17 22:17 Dose: Not Given Docusate Sodium (Colace -) 100 mg PO Q8H PRN PRN Reason: CONSTIPATION Enoxaparin Sodium (Lovenox -) 40 mg SQ DAILY [facility] Last Admin: 05/19/17 10:09 Dose: 40 mg Ceftriaxone Sodium 1 gm/ (Dextrose) 50 mls @ 100 mls/hr IVPB DAILY [facility] Last Admin: 05/19/17 10:09 Dose: 100 mls/hr Potassium Chloride/Sodium Chloride (Ns+20 Meq Kcl -) 20 meq in 1,000 mls @ 83 mls/hr IV ASDIR [facility] Last Admin: 05/18/17 18:04 Dose: 83 mls/hr Insulin Aspart (Novolog Mix 70/30 Vial) 24 units SQ BIDI [facility] Last Admin: 05/19/17 09:13 Dose: Not Given Insulin Aspart (Novolog Vial Sliding Scale -) 1 vial SQ TIDAC [facility] PRN Reason: Protocol Last Admin: 05/19/17 12:31 Dose: 3 unit Lactobacillus Acidophilus (Bacid -) 1 cap PO DAILY [facility] Last Admin: 05/19/17 10:12 Dose: 1 cap Nystatin (Mycostatin Cream -) 1 applic TP BID [facility] Last Admin: 05/18/17 22:00 Dose: Not Given CBC, BMP 05/19/17 06:02 05/19/17 06:02 Microbiology 05/17/17 11:40 Gram Stain - Final Foot - Left Wound Culture - Final NO AEROBIC OR ANAEROBIC GROWTH OBTAINED. physical exam Constitutional: Yes: No Distress/comfortable. Cardiovascular: Yes: Regular Rate and Rhythm. Respiratory: Yes: CTA Bilaterally Gastrointestinal: Yes: Normal Bowel Sounds, Soft. No: Tenderness Extremities: Yes: Other (left foot dressing in place) neuro--alert and awake Assessment/Plan postop day #2 Clinically stable Continue antibiotics Pain under control Xanax for anxiety continue fluids today Discussed with nursing staff will follow Problem List - Problems (1) Aortic stenosis Code(s): I35.0 - NONRHEUMATIC AORTIC (VALVE) STENOSIS Qualifiers: Cardiac valve disease etiology: nonrheumatic Qualified Code(s): I35.0 - Nonrheumatic aortic (valve) stenosis (2) CAD (coronary artery disease) Code(s): I25.10 - ATHSCL HEART DISEASE OF [place] CORONARY ARTERY W/O ANG PCTRS Qualifiers: Coronary Disease-Associated Artery/Lesion type: [place] artery Associated angina: angina presence unspecified (3) Diabetic foot ulcer Code(s): E11.621 - TYPE 2 DIABETES MELLITUS WITH FOOT ULCER; L97.509 - NON- PRESSURE CHRONIC ULCER OTH PRT UNSP FOOT W UNSP SEVERITY Qualifiers: Diabetic foot ulcer location: unspecified part of foot Diabetes mellitus type: type 2 Laterality: left Non-pressure ulcer stage: unspecified non- pressure ulcer stage Qualified Code(s): E11.621 - Type 2 diabetes mellitus with foot ulcer; L97.529 - Non-pressure chronic ulcer of other part of left foot with unspecified severity; L97.529 - Non-pressure chronic ulcer of other part of left foot with unspecified severity; L97.529 - Non-pressure chronic ulcer of other part of left foot with unspecified severity; L97.529 - Non- pressure chronic ulcer of other part of left foot with unspecified severity (4) Anxiety Code(s): F41.9 - ANXIETY DISORDER, UNSPECIFIED
--- NOTE | 2017-05-19 14:53 | OP ---
DATE OF OPERATION: 05/17/2017 PREOPERATIVE DIAGNOSIS: Left foot dry gangrene of 4th toe and infected 5th digit. Osteomyelitis 4th & 5th met head. POSTOPERATIVE DIAGNOSIS: same OPERATION: Left foot partial ray resection of 4th and 5th rays. Including toes 4 & 5 SURGEON: Duarte Iverson DPM FLASK MAKER: Dr. Diana Sosa, PGY-3 ANESTHESIA: Local with IV sedation. INJECTABLES: Marcaine 0.5% plain, 10 mL was given preoperatively. HEMOSTASIS: None. ESTIMATED BLOOD LOSS: 6 mL MATERIALS: Nylon 3-0 sutures. COMPLICATIONS: None. CONDITION: Stable. PATHOLOGY: Left foot bone and soft tissue. OPERATIVE PROCEDURE: The patient was brought to the operating room and placed on the operating table in supine position. Following IV sedation, local anesthesia of the left foot was given utilizing 7 mL of 0.5% Marcaine plain. The left foot was then scrubbed, prepped, and draped in the usual aseptic fashion. Attention was then directed to the left 4th digit where there was dry gangrene noted. A number-15 blade was used to make an incision down to bone and in a transverse fashion just proximal to the head of the proximal phalanx. The incision was carried mediolateral and plantarly, encompassing the toe, leaving a large amount of the plantar skin intact. Next, the middle and distal phalanx was disarticulated at the interphalangeal joint and removed. The proximal phalanx of the toe was amputated and sent to the laboratory for bone culture and sensitivity as well as pathology. Next, the 4th metatarsal head was evaluated and probed with a [place] elevator. It was noted to be soft and had grayish discoloration. A 2-cm linear longitudinal incision was made just dorsal to the metatarsal head using a bone saw. The metatarsal head was resected and freed of its soft tissue attachments using a number-15 blade. The proximal margin of the surgical site tissue in the 4th metatarsal appeared healthy. Next, the surgical site was copiously flushed with bacitracin and normal saline solution. Attention was then directed to the left 5th digit where there was infected toe. A number-15 blade was then used to make an incision down to bone and in a transverse fashion just proximal to the head of the proximal phalanx. The incision was carried mediolaterally and plantarly, encompassing the toe, leaving a large amount of plantar skin intact. Next, the middle and distal phalanx was disarticulated at the interphalangeal joint and removed. The proximal phalanx of the toe was then amputated and sent to the laboratory for bone culture and sensitivity as well as for pathology. Next, the 5th metatarsal head was evaluated and freed with a [place] elevator. It was noted to be soft and had grayish discoloration. A 2-cm linear longitudinal incision was made just dorsal to the metatarsal head. Using a bone saw, the metatarsal head was resected and freed of its soft tissue attachments using a number-15 blade. The proximal margin of the surgical site tissue and 5th metatarsal appeared healthy. Next, the hallux surgical site was copiously flushed with a bacitracin and normal saline solution with pressure irrigation. . The viable plantar flap was created. Utilizing 3.0 retention sutures the flap was re- approximated. The medial and lateral portion of the wound was left open and packed with 1/4" plain packing. The incision sites were then covered with Betadine-soaked Adaptic and sterile compressive dressing consisting of a surgical gauze, ABD pad , and Kerlix. Finally, Papi bandage was applied. The patient tolerated the procedure and anesthesia well and left the operating room for the recovery room in good condition with all vital signs stable to the feet. The patient was admitted to the PACU and will be discharged back to floor once stable as per anesthesia team. TREVON Bhatia/[id number]
[2017-05-19] MEDS: NYSTATIN 100,000 UNIT/GM TOPICAL CREAM 15 GM TUBE TP SCH ×2 (16:44→22:22)
[2017-05-19] MEDS: SODIUM CHLORIDE 0.9%/KCL 20 MEQ/1,000 ML INFUS.BAG IV SCH (17:31)
[2017-05-19] MEDS: ATORVASTATIN CA 10 MG TABLET (FP) PO SCH (22:22)
[2017-05-20] MEDS: SODIUM CHLORIDE 0.9%/KCL 20 MEQ/1,000 ML INFUS.BAG IV SCH ×2 (06:20→18:10)
[2017-05-20] MEDS: INSULIN SLIDING SCALE (NOVOLOG) 1 VIAL SQ SCH ×3 (06:21→18:10)
[2017-05-20] MEDS: INSULIN (NOVOLOG MIX 70/30) 100 UNITS/ML MDV SQ SCH ×2 (06:27→18:08)
[2017-05-20] MEDS ORDERED: DEXTROSE 5%-WATER - 50 ML IVPB ONE (09:01)
[2017-05-20] MEDS ORDERED: PT OWN MED DRAWER 7, Y5N ONE (09:01)
[2017-05-20] MEDS ORDERED: cefTRIAXone SODIUM 1 GM VIAL ONE (09:01)
[2017-05-20] MEDS: ACETAMINOPHEN 325 MG TABLET (FP) PO PRN ×3 (09:13→21:48)
[2017-05-20] MEDS: CEFTRIAXONE 1 GM in DEXTROSE 5%-WATER - 50 ML IVPB SCH (09:14)
[2017-05-20] MEDS: NYSTATIN 100,000 UNIT/GM TOPICAL CREAM 15 GM TUBE TP SCH ×2 (09:15→21:50)
[2017-05-20] MEDS: ASPIRIN COATED 81 MG TABLET.EC PO SCH (09:15)
[2017-05-20] MEDS: ENOXAPARIN NA (PORCINE) 40 MG/0.4 ML DISP.SYRIN SQ SCH (09:15)
[2017-05-20] MEDS: LACTOBACILLUS ACIDOPHILUS 1 TABLET PO SCH (09:15)
--- NOTE | 2017-05-20 10:40 | PN ---
Progress Note (short form) - Note Progress Note: pt comfortable mood on low side no new issues bp better Vital Signs Temp 98.5 F 05/20/17 07:48 Pulse 80 05/20/17 07:48 Resp 20 05/20/17 07:48 BP 116/60 05/20/17 07:48 Pulse Ox 98 05/19/17 21:00 Intake & Output 05/19/17 05/19/17 05/20/17 11:59 23:59 11:59 Intake Total 640 499 664 Balance 640 499 664 Intake: IV 640 249 664 NS+20 MEQ KCL - 20 meq In 640 249 664 1,000 ml @ 83 mls/hr IV ASDIR [facility] Rx#:[id number] Oral 250 Other: Voiding Method Incontinent Diaper Diaper # Unmeasured Voids Void 2 2 Bowel Movement Yes # Bowel Movements 1 Active Medications Acetaminophen (Tylenol -) 650 mg PO Q6H PRN PRN Reason: PAIN LEVEL 4 - 6 Last Admin: 05/20/17 09:13 Dose: 325 mg Alprazolam (Xanax -) 0.25 mg PO Q8H PRN PRN Reason: ANXIETY Last Admin: 05/19/17 00:19 Dose: 0.25 mg Aspirin (Ecotrin -) 81 mg PO DAILY [facility] Last Admin: 05/20/17 09:15 Dose: 81 mg Atorvastatin Calcium (Lipitor -) 10 mg PO HS [facility] Last Admin: 05/19/17 22:22 Dose: Not Given Docusate Sodium (Colace -) 100 mg PO Q8H PRN PRN Reason: CONSTIPATION Enoxaparin Sodium (Lovenox -) 40 mg SQ DAILY [facility] Last Admin: 05/20/17 09:15 Dose: 40 mg Ceftriaxone Sodium 1 gm/ (Dextrose) 50 mls @ 100 mls/hr IVPB DAILY [facility] Last Admin: 05/20/17 09:14 Dose: 100 mls/hr Potassium Chloride/Sodium Chloride (Ns+20 Meq Kcl -) 20 meq in 1,000 mls @ 83 mls/hr IV ASDIR [facility] Last Admin: 05/20/17 06:20 Dose: 83 mls/hr Insulin Aspart (Novolog Mix 70/30 Vial) 24 units SQ BIDI [facility] Last Admin: 05/20/17 06:27 Dose: 24 unit Insulin Aspart (Novolog Vial Sliding Scale -) 1 vial SQ TIDAC [facility] PRN Reason: Protocol Last Admin: 05/20/17 06:21 Dose: 3 unit Lactobacillus Acidophilus (Bacid -) 1 cap PO DAILY [facility] Last Admin: 05/20/17 09:15 Dose: 1 cap Nystatin (Mycostatin Cream -) 1 applic TP BID [facility] Last Admin: 05/20/17 09:15 Dose: Not Given CBC, BMP 05/19/17 06:02 05/19/17 06:02 Microbiology 05/17/17 11:40 Gram Stain - Final Foot - Left Wound Culture - Final NO AEROBIC OR ANAEROBIC GROWTH OBTAINED. Physical. lungs- clear cvs- s1, s2 rrr Gastrointestinal: Yes: Normal Bowel Sounds, Soft. No: Tenderness Extremities: Yes: Other (left foot dressing in place) neuro--alert and awake Assessment/Plan postop day #3 Clinically stable Continue antibiotics Pain under control Xanax for anxiety d/c fluids Discussed with nursing staff will follow. discharge planning Problem List - Problems (1) Aortic stenosis Code(s): I35.0 - NONRHEUMATIC AORTIC (VALVE) STENOSIS Qualifiers: Cardiac valve disease etiology: nonrheumatic Qualified Code(s): I35.0 - Nonrheumatic aortic (valve) stenosis (2) CAD (coronary artery disease) Code(s): I25.10 - ATHSCL HEART DISEASE OF [place] CORONARY ARTERY W/O ANG PCTRS Qualifiers: Coronary Disease-Associated Artery/Lesion type: [place] artery Associated angina: angina presence unspecified (3) Diabetic foot ulcer Code(s): E11.621 - TYPE 2 DIABETES MELLITUS WITH FOOT ULCER; L97.509 - NON- PRESSURE CHRONIC ULCER OTH PRT UNSP FOOT W UNSP SEVERITY Qualifiers: Diabetic foot ulcer location: unspecified part of foot Diabetes mellitus type: type 2 Laterality: left Non-pressure ulcer stage: unspecified non- pressure ulcer stage Qualified Code(s): E11.621 - Type 2 diabetes mellitus with foot ulcer; L97.529 - Non-pressure chronic ulcer of other part of left foot with unspecified severity; L97.529 - Non-pressure chronic ulcer of other part of left foot with unspecified severity; L97.529 - Non-pressure chronic ulcer of other part of left foot with unspecified severity; L97.529 - Non- pressure chronic ulcer of other part of left foot with unspecified severity (4) Anxiety Code(s): F41.9 - ANXIETY DISORDER, UNSPECIFIED
[2017-05-20] MEDS ORDERED: INSULIN (NOVOLOG) ASPART 100 UNITS/ML 10ML VIAL ONE (18:05)
[2017-05-20] MEDS: ATORVASTATIN CA 10 MG TABLET (FP) PO SCH (21:50)
[2017-05-21] MEDS: INSULIN SLIDING SCALE (NOVOLOG) 1 VIAL SQ SCH ×3 (06:39→17:53)
[2017-05-21] MEDS: INSULIN (NOVOLOG MIX 70/30) 100 UNITS/ML MDV SQ SCH ×2 (06:39→17:46)
--- NOTE | 2017-05-21 09:08 | PN ---
Progress Note (short form) - Note Progress Note: pt comfortable no new issues refuses meds/ insulin at times Vital Signs Temp 98.4 F 05/21/17 06:00 Pulse 95 H 05/21/17 06:00 Resp 18 05/21/17 06:00 BP 107/65 05/21/17 06:00 Pulse Ox 98 05/20/17 21:00 Intake & Output 05/20/17 05/20/17 05/21/17 11:59 23:59 11:59 Intake Total 664 250 Balance 664 250 Weight 178 lb 6.4 oz Intake: IV 664 NS+20 MEQ KCL - 20 meq In 664 1,000 ml @ 83 mls/hr IV ASDIR [facility] Rx#:[id number] Oral 250 Other: Voiding Method Diaper # Unmeasured Voids Void 2 2 2 Bowel Movement No No # Bowel Movements 2 0 Weight Measurement [facility] Active Medications Acetaminophen (Tylenol -) 650 mg PO Q6H PRN PRN Reason: PAIN LEVEL 4 - 6 Last Admin: 05/20/17 09:13 Dose: 325 mg Alprazolam (Xanax -) 0.25 mg PO Q8H PRN PRN Reason: ANXIETY Last Admin: 05/19/17 00:19 Dose: 0.25 mg Aspirin (Ecotrin -) 81 mg PO DAILY [facility] Last Admin: 05/20/17 09:15 Dose: 81 mg Atorvastatin Calcium (Lipitor -) 10 mg PO HS [facility] Last Admin: 05/19/17 22:22 Dose: Not Given Docusate Sodium (Colace -) 100 mg PO Q8H PRN PRN Reason: CONSTIPATION Enoxaparin Sodium (Lovenox -) 40 mg SQ DAILY [facility] Last Admin: 05/20/17 09:15 Dose: 40 mg Ceftriaxone Sodium 1 gm/ (Dextrose) 50 mls @ 100 mls/hr IVPB DAILY [facility] Last Admin: 05/20/17 09:14 Dose: 100 mls/hr Potassium Chloride/Sodium Chloride (Ns+20 Meq Kcl -) 20 meq in 1,000 mls @ 83 mls/hr IV ASDIR [facility] Last Admin: 05/20/17 06:20 Dose: 83 mls/hr Insulin Aspart (Novolog Mix 70/30 Vial) 24 units SQ BIDI [facility] Last Admin: 05/20/17 06:27 Dose: 24 unit Insulin Aspart (Novolog Vial Sliding Scale -) 1 vial SQ TIDAC [facility] PRN Reason: Protocol Last Admin: 05/20/17 06:21 Dose: 3 unit Lactobacillus Acidophilus (Bacid -) 1 cap PO DAILY [facility] Last Admin: 05/20/17 09:15 Dose: 1 cap Nystatin (Mycostatin Cream -) 1 applic TP BID [facility] Last Admin: 05/20/17 09:15 Dose: Not Given CBC, BMP 05/19/17 06:02 05/19/17 06:02 Microbiology 05/17/17 11:40 Gram Stain - Final Foot - Left Wound Culture - Final NO AEROBIC OR ANAEROBIC GROWTH OBTAINED. Physical Exam neck- supple lungs- clear cvs- s1, s2 rrr Gastrointestinal: Yes: Normal Bowel Sounds, Soft. No: Tenderness Extremities: Yes: Other (left foot dressing in place) neuro--alert and awake Assessment/Plan postop day #4 Clinically stable Continue antibiotics Pain under control Xanax for anxiety i/d f/u -- discussed with Dr. Saleem today.-- will follow Discussed with nursing staff will follow. discharge planning . will need str-- discussed with case fitter also. hyperbaric also discussed. Problem List - Problems (1) Aortic stenosis Code(s): I35.0 - NONRHEUMATIC AORTIC (VALVE) STENOSIS Qualifiers: Cardiac valve disease etiology: nonrheumatic Qualified Code(s): I35.0 - Nonrheumatic aortic (valve) stenosis (2) CAD (coronary artery disease) Code(s): I25.10 - ATHSCL HEART DISEASE OF [place] CORONARY ARTERY W/O ANG PCTRS Qualifiers: Coronary Disease-Associated Artery/Lesion type: [place] artery Associated angina: angina presence unspecified (3) Diabetic foot ulcer Code(s): E11.621 - TYPE 2 DIABETES MELLITUS WITH FOOT ULCER; L97.509 - NON- PRESSURE CHRONIC ULCER OTH PRT UNSP FOOT W UNSP SEVERITY Qualifiers: Diabetic foot ulcer location: unspecified part of foot Diabetes mellitus type: type 2 Laterality: left Non-pressure ulcer stage: unspecified non- pressure ulcer stage Qualified Code(s): E11.621 - Type 2 diabetes mellitus with foot ulcer; L97.529 - Non-pressure chronic ulcer of other part of left foot with unspecified severity; L97.529 - Non-pressure chronic ulcer of other part of left foot with unspecified severity; L97.529 - Non-pressure chronic ulcer of other part of left foot with unspecified severity; L97.529 - Non- pressure chronic ulcer of other part of left foot with unspecified severity (4) Anxiety Code(s): F41.9 - ANXIETY DISORDER, UNSPECIFIED
--- NOTE | 2017-05-21 09:27 | PN ---
Progress Note (short form) - Note Progress Note: asked to f/u by dr oleary chart reviewed s/p partial ray resection toes 4 and 5 on 05/17- pod #4 she is anxious pathology pending MRI noted- had BM uptake of third toes as well c/w osteomyelitis HD #24, antibotic day #24 Vital Signs Period Temp Pulse Resp BP Sys/Simpson Pulse Ox Last 24 Hr 98.3 F-98.6 F 82-96 18-18 96-111/58-67 98 cor-rrr lungs clear abd soft,nt ext foot bandaged- per order dressing to be changed by surgeon only CBC, BMP 05/19/17 06:02 05/19/17 06:02 Laboratory Tests 04/29/17 04/29/17 05/08/17 06:45 06:45 06:00 ESR 82 H 77 H C-Reactive Protein 16.1 H 05/19/17 06:02 ESR 42 H C-Reactive Protein Microbiology 05/17/17 11:40 Foot - Left Gram Stain - Final 05/17/17 11:40 Foot - Left Wound Culture - Final NO AEROBIC OR ANAEROBIC GROWTH OBTAINED. 05/10/17 21:00 Stool Salmonella/Shigella Culture - Final NO GROWTH OF SALMONELLA OR SHIGELLA SPECIES OBTAINED 05/10/17 21:00 Stool Campylobacter Culture - Final NO GROWTH OF CAMPYLOBACTER SPECIES OBTAINED 05/10/17 21:00 Stool Yersinia Culture - Final NO GROWTH OF YERSINIA SPECIES OBTAINED 05/10/17 21:00 Stool Vibrio Culture - Final NO GROWTH OF VIBRIO SPECIES OBTAINED 05/10/17 21:00 Stool Escherichia coli 0157 Culture - Final NO GROWTH OF E COLI 0157 OBTAINED 05/10/17 21:00 Stool Clostridium difficile Antigen (SARAH BETH) - Final 05/10/17 21:00 Stool Clostridium difficile Toxin Assay - Final 04/28/17 00:00 Blood - Peripheral Venous Blood Culture - Final NO GROWTH AFTER 5 DAYS INCUBATION 04/28/17 00:00 Blood - Peripheral Venous Blood Culture - Final NO GROWTH AFTER 5 DAYS INCUBATION 04/27/17 23:29 Foot - Left Gram Stain - Final 04/27/17 23:29 Foot - Left Wound Culture - Final Staphylococcus Aureus Streptococcus Viridans Current Medications Acetaminophen (Tylenol -) 650 mg PO Q6H PRN PRN Reason: PAIN LEVEL 4 - 6 Last Admin: 05/20/17 21:48 Dose: 650 mg Aspirin (Ecotrin -) 81 mg PO DAILY [facility] Last Admin: 05/20/17 09:15 Dose: 81 mg Atorvastatin Calcium (Lipitor -) 10 mg PO HS [facility] Last Admin: 05/20/17 21:50 Dose: Not Given Docusate Sodium (Colace -) 100 mg PO Q8H PRN PRN Reason: CONSTIPATION Enoxaparin Sodium (Lovenox -) 40 mg SQ DAILY [facility] Last Admin: 05/20/17 09:15 Dose: 40 mg Ceftriaxone Sodium 1 gm/ (Dextrose) 50 mls @ 100 mls/hr IVPB DAILY [facility] Last Admin: 05/20/17 09:14 Dose: 100 mls/hr Insulin Aspart (Novolog Mix 70/30 Vial) 24 units SQ BIDI [facility] Last Admin: 05/21/17 06:39 Dose: Not Given Insulin Aspart (Novolog Vial Sliding Scale -) 1 vial SQ TIDAC [facility] PRN Reason: Protocol Last Admin: 05/21/17 06:39 Dose: Not Given Lactobacillus Acidophilus (Bacid -) 1 cap PO DAILY [facility] Last Admin: 05/20/17 09:15 Dose: 1 cap Nystatin (Mycostatin Cream -) 1 applic TP BID [facility] Last Admin: 05/20/17 21:50 Dose: Not Given a/p osteomyellitis diabetic foot infection s/p partial ray resection toes 4/5 pod 34 operative cultures negative pathology pending given that MRI shows evidence osteomyelitis of the 3rd toe would complete 6 weeks of iv ceftriaxone for osteomyelitis now day #24 of 42 check crp f/u pathology from surgery continue probiotics wound care per surgery d/w tool planner Problem List - Problems (1) Diabetic foot ulcer Code(s): E11.621 - TYPE 2 DIABETES MELLITUS WITH FOOT ULCER; L97.509 - NON- PRESSURE CHRONIC ULCER OTH PRT UNSP FOOT W UNSP SEVERITY Qualifiers: Diabetic foot ulcer location: unspecified part of foot Diabetes mellitus type: type 2 Laterality: left Non-pressure ulcer stage: unspecified non- pressure ulcer stage Qualified Code(s): E11.621 - Type 2 diabetes mellitus with foot ulcer; L97.529 - Non-pressure chronic ulcer of other part of left foot with unspecified severity; L97.529 - Non-pressure chronic ulcer of other part of left foot with unspecified severity; L97.529 - Non-pressure chronic ulcer of other part of left foot with unspecified severity; L97.529 - Non- pressure chronic ulcer of other part of left foot with unspecified severity (2) Osteomyelitis Code(s): M86.9 - OSTEOMYELITIS, UNSPECIFIED Qualifiers: Osteomyelitis type: unspecified type Osteomyelitis location: foot Laterality: left Qualified Code(s): M86.9 - Osteomyelitis, unspecified
[2017-05-21] MEDS ORDERED: DEXTROSE 5%-WATER 100 ML IVPB ONE (09:37)
[2017-05-21] MEDS ORDERED: PT OWN MED DRAWER 7, Y5N ONE (09:37)
[2017-05-21] MEDS: LACTOBACILLUS ACIDOPHILUS 1 TABLET PO SCH (09:42)
[2017-05-21] MEDS: ASPIRIN COATED 81 MG TABLET.EC PO SCH (09:42)
[2017-05-21] MEDS: NYSTATIN 100,000 UNIT/GM TOPICAL CREAM 15 GM TUBE TP SCH (09:45)
[2017-05-21] MEDS ORDERED: CEFTRIAXONE 2 GM in DEXTROSE 5%-WATER 100 ML IVPB SCH (10:00)
[2017-05-21] MEDS ORDERED: CEFTRIAXONE IN IS-OSM DEXTROSE 2 GM/50 ML BAG IVPB SCH (10:00)
[2017-05-21] MEDS: ENOXAPARIN NA (PORCINE) 40 MG/0.4 ML DISP.SYRIN SQ SCH (11:46)
--- NOTE | 2017-05-21 12:26 | PATH ---
Surgical Pathology Report Patient Name: DEANDRE HENNESSY Med. Rec. #: [id number] /Age/Gender: 1945 (Age: 71) / F Account: [id number] Location: [facility] MED/SURG Taken: 05/17/2017 Received: 05/17/2017 Reported: 05/21/2017 Physicians: [place] M.D. Specimen(s) Received A: 4TH AND 5TH TOES AND NECROTIC TISSUE B: 4TH METATARSAL HEAD C: 5TH METATARSAL HEAD Clinical History Left foot diabetic ulcer Final Diagnosis A. LEFT FOURTH AND FIFTH TOES, AMPUTATION: GANGRENOUS NECROSIS WITH ACUTE OSTEOMYELITIS. CALCIFIC ATHEROSCLEROSIS OF BLOOD VESSELS IS PRESENT. B. BONE, LEFT FOURTH METATARSAL HEAD, EXCISION: BONE WITH CHRONIC OSTEOMYELITIS UNDERLYING ARTICULAR CARTILAGE, EXTENDING ACROSS ENTIRE LENGTH OF SPECIMEN C. BONE, LEFT FIFTH METATARSAL HEAD, EXCISION: BONE WITH CHRONIC OSTEOMYELITIS UNDERLYING ARTICULAR CARTILAGE, EXTENDING ACROSS ENTIRE LENGTH OF SPECIMEN Electronically Signed Rafiq Guaman M.D. Gross Description A. Received in formalin labelled "fourth and fifth toes necrotic tissue" is a 6 x 6 x 1.5 cm aggregate of portions of skin and bone consistent with amputation specimen. Areas of necrosis and eschar are noted. Because of the fragmented nature of the specimen and assessment of the margin is not possible. Continuous Washer Operator sections are lesion with underlying bone are submitted in cassettes 1 and 2 for decalcification. Additional sections of skin and soft tissue are submitted in cassettes 3 and 4. B. Received in formalin labelled "fourth metatarsal head" is a 1.5 x 1.5 x 0.8 cm portion of bone with attached particular are grossly consistent with a metatarsal head. No focal lesions are identified. A credit and collections representative portion is submitted in one cassette for decalcification. C. Received in formalin labelled "fifth metatarsal head" is a 1.5 1.83 x 1.2 cm portion of bone with attached articular cartilage grossly consistent with a metatarsal head. Cut surface reveals no focal lesions. Continuous Washer Operator sections are submitted one cassette were decalcification. [facility]/05/18/2017 the medical center/05/18/2017
[2017-05-21] MEDS ORDERED: PICC LINE 8 ML FLUSH PROTOCOL IVPUSH PRN (14:05)
--- NOTE | 2017-05-21 16:12 | DS ---
Physical Examination Vital Signs: Vital Signs Temperature 97.6 F 05/21/17 13:45 Pulse Rate 95 H 05/21/17 13:45 Respiratory Rate 18 05/21/17 13:45 Blood Pressure 99/52 05/21/17 13:45 O2 Sat by Pulse Oximetry (%) 98 05/21/17 09:00 Findings/Remarks: see today progress note Labs: CBC, BMP 05/19/17 06:02 05/19/17 06:02 Discharge Summary Reason For Visit: DIABETIC FOOT ULCER Current Active Problems Abnormal ECG (Acute) Acute on chronic systolic (congestive) heart failure (Acute) Anxiety about health (Acute) Aortic stenosis (Acute) CAD (coronary artery disease) (Acute) Depression (Acute) Depressive disorder (Acute) Diabetes type 2 with atherosclerosis of arteries of extremities (Acute) Diabetic foot ulcer (Acute) Dizziness (Acute) Osteomyelitis (Acute) Hospital Course: patient admitted for--left foot diabetic wound Underwent resection Today postop day #4 MRI--also showed osteomyellitis--third toe operative cultures negative so far pathology pending- ID recommends 6 weeks of antibiotics--given that MRI shows evidence osteomyelitis of the 3rd toe would complete 6 weeks of iv ceftriaxone for osteomyelitis now day #24 of 42 patient otherwise stable for discharge wound care per surgery need to follow with podiatric surgeon PICC line inserted today Discharge to [facility]dc today Discussed with nursing staff. Condition: Stable - Instructions Referrals: Niles Malcolm MD [Primary Care Provider] - - Home Medications Comprehensive Discharge Medication List: Ambulatory Orders Insulin Lispro Protamin/Lispro [Humalog Mix 75-25 Vial] 0 unit SQ BIDAC PRN 09/21 Acetaminophen [Tylenol .Regular Strength -] 650 mg PO Q6H PRN #0 tablet Alprazolam [Xanax] 0.25 mg PO Q8H PRN #30 tablet MDD 3 09/14/16 Aspirin [ASA -] 81 mg PO DAILY #30 tab.chew 09/14/16 Mag Hydrox/Al Hydrox/Simeth [Mylanta Oral Suspension -] 30 ml PO Q8H PRN #1 bottle 09/14/16 Alprazolam [Xanax] 0.25 mg PO Q8H #10 tablet MDD 1mg 10/20/16
[2017-05-21] MEDS ORDERED: INSULIN (NOVOLOG) ASPART 100 UNITS/ML 10ML VIAL ONE (17:47)
[2017-05-21 17:50] VITALS: BP 134/84; PULSE 94; TEMP 98.1
[2017-05-21] MEDS: ACETAMINOPHEN 325 MG TABLET (FP) PO PRN (17:53)
== END 2017-05-21 18:54 | DRG 239 ==
LOC: JER 22:11 → JERBED 04-28 02:39 → J6S 04-28 04:06 → J4W 05-02 11:30 → J8W 05-07 20:57
PROVIDERS: ADMIT Internal Medicine; ATTEND Internal Medicine
PROC: 0Y6N0ZF Detachment at Left Foot, Partial 5th Ray, Open Approach (ICD-10-PCS; 2017-05-17)
PROC: 0QBR0ZZ Excision of Left Toe Phalanx, Open Approach (ICD-10-PCS; 2017-05-17)
PROC: 0Y6N0ZD Detachment at Left Foot, Partial 4th Ray, Open Approach (ICD-10-PCS; principal; 2017-05-17 12:00)
PROC: 02HV33Z Insertion of Infusion Device into Superior Vena Cava, Percutaneous Approach (ICD-10-PCS; 2017-05-21)
DX: E11.52 Type 2 diabetes mellitus with diabetic peripheral angiopathy with gangrene (principal); I50.23 Acute on chronic systolic (congestive) heart failure; I96 Gangrene, not elsewhere classified; M86.172 Other acute osteomyelitis, left ankle and foot; L03.116 Cellulitis of left lower limb; E11.621 Type 2 diabetes mellitus with foot ulcer; L97.529 Non-pressure chronic ulcer of other part of left foot with unspecified severity; E11.69 Type 2 diabetes mellitus with other specified complication; I35.0 Nonrheumatic aortic (valve) stenosis; I25.10 Atherosclerotic heart disease of native coronary artery without angina pectoris; F41.8 Other specified anxiety disorders; R42 Dizziness and giddiness; I11.0 Hypertensive heart disease with heart failure; I25.5 Ischemic cardiomyopathy; Z79.4 Long term (current) use of insulin; R00.1 Bradycardia, unspecified
CPT/HCPCS: 36415; 36569; 71045-TC-FY; 73630-TC-LT; 73718-LT; 80048; 80053; 80061; 82550; 82962; 83036; 83721; 83735; 84100; 84484; 85025; 85027; 85610; 85651; 86140; 87040; 87045; 87046; 87070; 87186; 87205; 87324; 87449; 88304-TC; 88305-TC; 88311-TC; 93005; 93010; 93225; 93226; 93306-TC; 93880-TC; 93926-TC; 93970-TC; 94760; 97116-GP; 97161-GP; 99283-25; C1751; G0480; J1644; J7030

== ENCOUNTER 2018-10-06 11:32 | Inpatient (IN) | payer OTHER, MEDICARE ==
--- NOTE | 2018-10-06 11:49 | PDOC ---
History of Present Illness - General Chief Complaint: Injury Stated Complaint: FALL Time Seen by Provider: 10/06/18 11:47 History Source: Patient - History of Present Illness Initial Comments: 10/06/18 14:07 73 y/o/f with PMHx of DM here for a fall that occurred yesterday. She states yesterday at 3pm she was looking at her mail in her house she felt her legs gave way and she fell. She was unable to get up after her fall and she crawled over to her couch. She denies any loss of consciousness. She states she slept there overnight thinking her pain would get better but it did not. She called an ambulance earlier today. She states she has not taken her DM medications for the last 3 days because she has not been able to get her medications. She also has not been eating well over the 3-4 days, only eating half a meal a day. She has been feeling down lately over the of her which occurred 3 years ago. She denies feeling depressed or any suicidal ideations but feels a little anxious. She complains of some pain over her right hip and weakness. She had 2 episodes of diarrhea over the last 2 days. She denies any fever, nausea, vomiting, chest pain, dizziness, headache, hematuria, or cough. Medical Hx: DM Surgical Hx: gastric bypass Social Hx: denies any tobacco or alcohol use. lives alone by herself. Past History - Past Medical History Allergies/Adverse Reactions: Allergies Allergy/AdvReac Type Severity Reaction Status Date / Time Fish Containing Products Allergy Intermediate Verified 10/06/18 11:38 fish derived Allergy Intermediate Verified 10/06/18 11:38 Home Medications: Ambulatory Orders RX: Insulin Lispro Protamin/Lispro [Humalog Mix 75-25 Vial] 0 unit SQ BIDAC PRN 09/12/16 RX: Acetaminophen [Tylenol .Regular Strength -] 650 mg PO Q6H PRN #0 tablet 11/21 RX: Alprazolam [Xanax] 0.25 mg PO Q8H PRN #30 tablet MDD 3 09/14/16 RX: Aspirin [ASA -] 81 mg PO DAILY #30 tab.chew 09/14/16 RX: Atorvastatin Ca [Lipitor] 10 mg PO HS tablet 05/21/17 RX: Insulin (Novolog 70/30) [Novolog Mix 70/30 Vial -] 24 units SQ BIDI vial COPD: No Diabetes: Yes (IDDM) HTN: Yes Psychiatric Problems: Yes (anxiety) - Surgical History Abdominal Surgery: Yes (gastric bypass 16 yrs ago) Cholecystectomy: Yes - Family Disease History Family Disease History: CA: Brother (passed from pancreatic ca at age 62) - Immunization History Immunization Up to Date: No - Suicide/Smoking/Psychosocial Hx Smoking History: Never smoked Have you smoked in the past 12 months: No Number of Cigarettes Smoked Daily: 2 If you are a former smoker, when did you quit?: 1979 Hx Alcohol Use: No Drug/Substance Use Hx: No Substance Use Type: None Hx Substance Use Treatment: No Review of Systems - Review of Systems Able to Perform ROS?: Yes Constitutional: Yes: Weakness. No: Chills, Fever HEENTM: No: Nose Congestion Respiratory: No: Cough, Shortness of Breath Cardiac (ROS): No: Chest Pain, Lightheadedness, Palpitations ABD/GI: Yes: Diarrhea. No: Abdominal Distended, Nausea, Vomiting : No: Dysuria, Hematuria Musculoskeletal: Yes: Joint Pain (right hip) Integumentary: Yes: Bruising Neurological: No: Headache, Numbness, Dizziness Psychiatric: Yes: Anxiety *Physical Exam - Physical Exam General Appearance: Yes: Disheveled, Thin HEENT: positive: EOMI, Pale Conjunctivae Neck: positive: Supple Respiratory/Chest: positive: Lungs Clear, Normal Breath Sounds. negative: Crackles, Rales, Rhonchi, Stridor Cardiovascular: positive: Regular Rhythm, Regular Rate, S1, S2, Systolic Murmur Gastrointestinal/Abdominal: positive: Normal Bowel Sounds, Soft. negative: Guarding, Rebound, Tenderness Musculoskeletal: positive: Other (mild tenderness to palpation over right hip. no pain with flexion or extension of right hip.) Extremity: positive: Normal Capillary Refill Integumentary: positive: Dry Neurologic: positive: autocad designer II-XII NML intact, Fully Oriented, Alert, Motor Strength 5/5 Heart Score/ECG Review #1 ECG reviewed & interpreted by me at: 14:33 10/06/18 14:33 vent rate: 116 bpm WA interval: 136 ms QRS duration: 84 ms QT/QTc: 344/478 ms P-R-T axes 138 35 152 unusual P axis, possible ectopic atrial tachycardia with occasional premature ventricular complexes No acute ischemic changes ED Treatment Course - LABORATORY CBC & Chemistry Diagram: 10/06/18 13:01 10/06/18 13:01 Medical Decision Making - Medical Decision Making 10/06/18 14:28 73 y/o/f with PMHx of DM here for a fall that occurred yesterday. She states yesterday at 3pm she was looking at her mail in her house she felt her legs gave way and she fell. She was unable to get up after her fall and she crawled over to her couch and stayed there until she called an ambulance today. CBC, CMP, UA, TSH, acetone level, trops, CK, and VBG lactic acid ordered. C-spine and head CT ordered. Lumbar spine and pelvis and right hip x-ray ordered. Lactic acid elevated at 2.5 Acetone - small CK-MB elevated, trops negative. 10/06/18 15:18 CT C-spine and CT head negative for acute pathology. CBC grossly normal. Patient feeling better after eating, states she is regaining some of her strength. 10/06/18 15:51 Lumbar spine xray reviewed - likely new compression fracture Pelvis and right hip - no acute pathology noted, patient is rotated on xray Spoke with Dr. Esa Bhatia Will admit to Med/Surg *DC/Admit/Observation/Transfer Diagnosis at time of Disposition: Fall, Compression fracture of lumbar vertebra - Discharge Dispostion Decision to Admit order: Yes - Referrals - Patient Instructions - Post Discharge Activity
[2018-10-06] MEDS ORDERED: SODIUM CHLORIDE 0.9% 500 ML INFUS.BAG IV ONE (12:18)
--- NOTE | 2018-10-06 13:00 | PDOC ---
Documentation entered by Bernice Lund SCRIBE, acting as scribe for Elsie Brewer DO. Elsie Brewer DO: This documentation has been prepared by the Ashely toro Nirvannie, SCRIBE, under my direction and personally reviewed by me in its entirety. I confirm that the documentation accurately reflects all work, treatment, procedures, and medical decision making performed by me. Attending Attestation - Resident Resident Name: Pako Medranotraeshira S - ED Attending Attestation I have performed the following: I have examined & evaluated the patient, The case was reviewed & discussed with the resident, I agree w/resident's findings & plan - HPI HPI: 10/06/18 13:24 The patient is a 73 year old female, with a significant past medical history of HTN, DM, anxiety, who presents to the emergency department s/p fall. As per patient, she fell while attempting to get the mail and subsequently has been on the floor for 2 days secondary to inability to get up secondary to weakness. Patient notes she normally receives her meals via meals on wheels but, has not eaten in 2 days secondary to lack of delivery. She notes over the past year she has lost 40 pounds and her 3 years ago and she lives alone. She denies any LOC or head/neck trauma. She denies recent chest pain or shortness of breath. Allergies: NKDA Primary Care Physician: Dr. Malcolm - Physicial Exam PE: 10/06/18 13:24 Constitutional: +Disheveled. Awake, alert, oriented. No acute distress. Head: Normocephalic. Atraumatic Eyes: PERRL. EOMI. Conjunctivae are not pale. ENT: Mucous membranes are moist and intact. Posterior pharynx without exudates or erythema. Uvula midline. Neck: Supple. Full ROM. No lymphadenopathy. Cardiovascular: Regular rate. Regular rhythm. S1, S2 regular. Distal pulses are 2+ and symmetric. Pulmonary/Chest: No evidence of respiratory distress. Clear to auscultation bilaterally No wheezing, rales or rhonchi. Abdominal: Soft and non-distended. There is no tenderness. No rebound, guarding or rigidity. No organomegaly. No palpable masses. Good bowel sounds. Back: No CVA tenderness. Musculoskeletal: No edema. No cyanosis. No clubbing. Full range of motion in all extremities. No calf tenderness. Radial/pedal pulses are intact and 2+ bilaterally Skin: Skin is warm and dry. No petechiae. No purpura. Neurological: Alert and oriented to person, place, and time. Cranial nerves II -XII are grossly intact. Normal speech. Strength is grossly symmetric. No sensory deficits. Psychiatric: +Flat affect. - Medical Decision Making 10/06/18 12:56 I, Dr. Elsie Brewer, DO, attest that this document has been prepared under my direction and personally reviewed by me in its entirety. I further attest, that it accurately reflects all work, treatment, procedures and medical decision -making performed by me. a/p: 73yo female with generalized weakness and fall yesterday -legs gave out and she fell, laid on the ground all night and was unable to get up after falling -receives meals on wheels -pt states she is out of food and has not eaten or taken her meds x 2 days -no cp/sob. no loc, no head injury, no abd pain, no n/v/d -pt appears disheveled -40lb wt loss -appears withdrawn and depressed - tearful when she talks about her passing away 3 years ago -lives at home alone -concern for generalized weakness from DE, ACS, CVA, electrolyte abnl, uti, infection, anemia, ftt -denies SI/HI -discussed poss assisted living or assistance at home call placed to manager case management will call daughter labs, head ct, rhabdo workup, ua, cxr, ekg 10/06/18 13:03 called all numbers for [facility] but no answer 10/06/18 13:28 case discussed with Cassie who will start paperwork for home visiting nurse 10/06/18 13:54 trop neg cpk 169 10/06/18 14:[address] findings labs reviewed insulin given, no gap pending xrays and ua 10/06/18 15:[address] findings in c spine 10/06/18 15:47 poss compression fracture lumbar spine no hip fx visualized resident discussed the case with dr. oleary who accepts pt to service Heart Score/ECG Review - ECG Intrepretation Comment:: 10/06/18 13:52 sinus tach at 116, low voltage, pvc, q waves septally age indeterminate, t wave inverisons I, avl, t wave flattening inferior leads - abnl ekg
[2018-10-06 13:13] LABS: VENOUS PC02 51.9 mmHg (38-52); VENOUS PH 7.34 (7.31-7.41)
[2018-10-06 13:14] LABS: VENOUS PO2 < 49 mmHg (28-48)
[2018-10-06 13:27] LABS: BASO % 0.4 % (0-2.0); EOS % 0.1 % (0-4.5); HEMATOCRIT 42.9 % (32.4-45.2); HEMOGLOBIN 14.3 GM/dL (10.7-15.3); LYMPH % 9.8 % (8-40); MCH 30.1 pg (25.7-33.7); MCHC 33.5 g/dl (32.0-36.0); MEAN CELL VOLUME 89.9 fl (80-96); MONO % 5.6 % (3.8-10.2); NEUT % 84.1 % (42.8-82.8); PLATELET COUNT 212 K/MM3 (134-434); RBC 4.77 M/mm3 (3.60-5.2); RDW 13.2 % (11.6-15.6); WHITE BLOOD COUNT 8.5 K/mm3 (4.0-10.0)
[2018-10-06 14:10] LABS: ALBUMIN 3.2 g/dl (3.4-5.0); BILIRUBIN,TOTAL 0.7 mg/dL (0.2-1); BLOOD UREA NITROGEN 21.1 mg/dL (7-18); CALCIUM 9.1 mg/dL (8.5-10.1); MAGNESIUM 1.8 mg/dL (1.8-2.4); POTASSIUM 3.8 mmol/L (3.5-5.1); TOT PROT 6.4 g/dl (6.4-8.2)
[2018-10-06] MEDS ORDERED: INSULIN (NOVOLOG) ASPART 100 UNITS/ML 10ML VIAL SQ ONE (14:15)
[2018-10-06] MEDS ORDERED: SODIUM CHLORIDE 0.45% 1,000 ML IV SCH (16:45)
[2018-10-06] MEDS ORDERED: IBUPROFEN 400 MG TABLET (FP) PO PRN (16:47)
[2018-10-06] MEDS ORDERED: ALPRAZolam 0.25 MG TABLET PO PRN (16:50)
[2018-10-06] MEDS ORDERED: INSULIN SLIDING SCALE (NOVOLOG) 1 VIAL SQ SCH (17:00)
[2018-10-06] MEDS: ACETAMINOPHEN 325 MG TABLET (FP) PO PRN ×2 (18:23→20:49)
[2018-10-06] MEDS ORDERED: ATORVASTATIN CA 10 MG TABLET (FP) PO SCH (22:00)
[2018-10-06] MEDS ORDERED: HEPARIN NA (PORCINE) 5,000 UNITS/ML 1ML VIAL SQ SCH (22:00)
[2018-10-06] MEDS ORDERED: SODIUM CHLORIDE 1,000 ML IV STA (23:43)
--- NOTE | 2018-10-07 01:01 | HP ---
Admitting History and Physical - Primary Care Physician PCP: Esa Bhatia - Admission Chief Complaint: Generalized Weakness, s/p Fall History of Present Illness: This is a 73 y/o woman with a PMhx of HTN, DM, Anxiety. Who presents to the ED s /p fall and generalized weakness. Patient reports that she had fallen while attempting to get the mail and subsequently has been on the floor for 2 days secondary to weakness. Patient reports she normally receives her meals via "meals on wheels" but, has not eaten in 2 days secondary to lack of delivery. She reports over the past year she has lost 40 pounds and her 3 years ago and she lives alone. Patient denies LOC or head/neck trauma. Patient denies fever, chills, cough, RICHARDS, dizziness, SOB, CP, palpitations, AP, N/V/D, constipation, dysuria. History Source: Patient Limitations to Obtaining History: No Limitations - Past Medical History Cardiovascular: Yes: HTN Psych: Yes: Anxiety, Depression Endocrine: Yes: Diabetes Mellitus - Smoking History Smoking history: Former smoker Have you smoked in the past 12 months: No Aproximately how many cigarettes per day: 2 If you are a former smoker, when did you quit?: 1979 - Alcohol/Substance Use Hx Alcohol Use: No History of Substance Use: reports: None - Social History Usual Living Arrangement: Yes: Alone ADL: Independent Occupation: Retired History of Recent Travel: No Home Medications - Allergies Allergies/Adverse Reactions: Allergies Allergy/AdvReac Type Severity Reaction Status Date / Time Fish Containing Products Allergy Intermediate Verified 10/06/18 11:38 fish derived Allergy Intermediate Verified 10/06/18 11:38 - Home Medications Home Medications: Ambulatory Orders Insulin Lispro Protamin/Lispro [Humalog Mix 75-25 Vial] 0 unit SQ BIDAC PRN 09/21 Acetaminophen [Tylenol .Regular Strength -] 650 mg PO Q6H PRN #0 tablet Alprazolam [Xanax] 0.25 mg PO Q8H PRN #30 tablet MDD 3 09/14/16 Aspirin [ASA -] 81 mg PO DAILY #30 tab.chew 09/14/16 Atorvastatin Ca [Lipitor] 10 mg PO HS tablet 05/21/17 Insulin (Novolog 70/30) [Novolog Mix 70/30 Vial -] 24 units SQ BIDI vial Family Disease History - Family Disease History Family Disease History: Diabetes: Mother, Brother, Heart Disease: Brother Review of Systems - Review of Systems Constitutional: reports: Malaise, Unintentional Wgt. Loss, Weakness Eyes: reports: No Symptoms HENT: reports: No Symptoms Neck: reports: No Symptoms Cardiovascular: reports: No Symptoms Respiratory: reports: No Symptoms Gastrointestinal: reports: No Symptoms Genitourinary: reports: No Symptoms Breasts: reports: No Symptoms Reported Musculoskeletal: reports: Muscle Weakness Integumentary: reports: No Symptoms Neurological: reports: Unsteady Gait, Weakness Endocrine: reports: No Symptoms Hematology/Lymphatic: reports: No Symptoms Psychiatric: reports: No Symptoms Pain Intensity: 0 Physical Examination Vital Signs: Vital Signs Temperature 98.2 F 10/06/18 19:40 Pulse Rate 112 H 10/06/18 19:40 Respiratory Rate 10/06/18 19:40 Blood Pressure 94/70 10/06/18 19:40 O2 Sat by Pulse Oximetry (%) 98 10/06/18 19:40 Constitutional: Yes: Anxious, Thin, Other (unkempt- dried feces to legs) Eyes: Yes: WNL, Conjunctiva Clear, EOM Intact, PERRL HENT: Yes: WNL, Atraumatic, Normocephalic Neck: Yes: WNL, Supple, Trachea Midline Cardiovascular: Yes: WNL, Regular Rate and Rhythm, S1, S2 Respiratory: Yes: WNL, Regular, CTA Bilaterally Gastrointestinal: Yes: WNL, Normal Bowel Sounds, Soft ...Rectal Exam: Yes: Sphincter Tone Normal Renal/: Yes: WNL Breast(s): Yes: WNL Musculoskeletal: Yes: WNL Extremities: Yes: WNL Edema: No Peripheral Pulses WNL: Yes Integumentary: Yes: Venous Stasis Changes Neurological: Yes: WNL, Alert, Oriented ...Motor Strength: LUE (4/5), LLE (4/5), RUE (4/5), RLE (4/5) Psychiatric: Yes: WNL, Alert, Oriented Labs: CBC, BMP 10/06/18 13:01 10/06/18 13:01 Imaging - Results Chest X-ray: Pending X-ray: Image Reviewed Cat Scan: Report Reviewed, Image Reviewed EKG: Image Reviewed Problem List - Problems (1) Sepsis Code(s): A41.9 - SEPSIS, UNSPECIFIED ORGANISM (2) Generalized weakness Code(s): R53.1 - WEAKNESS (3) Fall Code(s): W19.XXXA - UNSPECIFIED FALL, INITIAL ENCOUNTER (4) Diabetes mellitus Code(s): E11.9 - TYPE 2 DIABETES MELLITUS WITHOUT COMPLICATIONS (5) CAD (coronary artery disease) Code(s): I25.10 - ATHSCL HEART DISEASE OF [place] CORONARY ARTERY W/O ANG PCTRS Qualifiers: Coronary Disease-Associated Artery/Lesion type: robinson artery Associated angina: angina presence unspecified (6) Anxiety Code(s): F41.9 - ANXIETY DISORDER, UNSPECIFIED (7) Depression Code(s): F32.9 - MAJOR DEPRESSIVE DISORDER, SINGLE EPISODE, UNSPECIFIED Assessment/Plan This is a 73 y/o woman with a PMHx of HTN, DM, Anxiety. Admitted for Fall and Lactic Acidosis. Upgraded to Telemetry for Sepsis for further evaluation of their emergent condition. Plan Admit Sepsis criteria Met III: Lactic Acid 2.8, BP 79/38, P 129~112 qSOFA 1 Cardiac Monitoring Blood Cultures x2 stat Urine and Urine Culture stat Chest Xray portable stat NS bolus Trend Lactic Acid Will give Zosyn for empiric treatment, defer to ID Appreciate ID consult Serial Enzymes EKG reviewed Monitor CBC, BMP Hold antihypertensive meds- 2/2 Hypotension Maintain MAP >65 Continue Asa, Lipitor, Xanax Social Work consult- [employer], possible Assisted vs SNF Swallow eval- dysphagia PT Eval FEN- IVF, replete lytes prn, Low Na, Diabetic Diet DVT ppx- OOB, SCDs, Heparin SQ Dispo: Requires Inpatient Care Visit type - Emergency Visit Emergency Visit: Yes ED Registration Date: 10/06/18 Care time: The patient presented to the Emergency Department on the above date and was hospitalized for further evaluation of their emergent condition. - New Patient This patient is new to me today: Yes Date on this admission: 10/07/18 - Critical Care Critical Care patient: Yes Total Critical Care Time (in minutes): 40 Critical Care Statement: The care of this patient involved high complexity decision making to prevent further life threatening deterioration of the patient 's condition and/or to evaluate & treat vital organ system(s) failure or risk of failure.
[2018-10-07 01:21] LABS: EPI CELLS 2.4 /HPF (0-5/HPF); HYALINE CASTS 5 /lpf (0-8); URINE APPEARANCE CLOUDY; URINE BILIRUBIN NEGATIVE (NEGATIVE); URINE COLOR YELLOW; URINE GLUCOSE (UA) 3+ (NEGATIVE); URINE KETONE 1+ (NEGATIVE); URINE LEUK ESTERASE NEGATIVE (NEGATIVE); URINE NITRITE NEGATIVE (NEGATIVE); URINE PROTEIN TRACE (NEGATIVE); URINE RBC 0 /hpf (0-4); URINE UROBILINOGEN 0.2 mg/dL (0.2-1.0); URINE WBC 1 /hpf (0-5)
[2018-10-07] MEDS ORDERED: PIPERACILLIN/TAZOB 3.375 GM 3.375 GM in DEXTROSE 5%-WATER - 50 ML IVPB ONE (02:03)
[2018-10-07] MEDS ORDERED: IBUPROFEN 400 MG TABLET (FP) PO PRN (02:31)
[2018-10-07] MEDS: SODIUM CHLORIDE 0.45% 1,000 ML IV SCH (02:35)
[2018-10-07] MEDS ORDERED: DEXTROSE 5%-WATER - 50 ML IVPB ONE ×2 (02:44→17:03)
[2018-10-07] MEDS ORDERED: PIPERACILLIN/TAZOBACTAM 3.375 GM VIAL IVPB ONE (02:44)
[2018-10-07] MEDS: INSULIN (NOVOLOG MIX 70/30) 100 UNITS/ML MDV SQ SCH ×2 (06:12→17:06)
[2018-10-07] MEDS: INSULIN SLIDING SCALE (NOVOLOG) 1 VIAL SQ SCH ×3 (06:13→17:06)
[2018-10-07 06:40] LABS: BASO % 0.4 % (0-2.0); HEMATOCRIT 35.3 % (32.4-45.2); HEMOGLOBIN 11.8 GM/dL (10.7-15.3); LYMPH % 30.4 % (8-40); MCH 30.1 pg (25.7-33.7); MCHC 33.5 g/dl (32.0-36.0); MEAN CELL VOLUME 89.8 fl (80-96); MEAN PLT VOLUME 9.2 fl (7.5-11.1); MONO % 8.5 % (3.8-10.2); NEUT % 58.7 % (42.8-82.8); PLATELET COUNT 182 K/MM3 (134-434); RBC 3.93 M/mm3 (3.60-5.2); RDW 13.4 % (11.6-15.6); WHITE BLOOD COUNT 7.6 K/mm3 (4.0-10.0)
[2018-10-07] MEDS ORDERED: INSULIN (NOVOLOG MIX 70/30) 100 UNITS/ML MDV SQ SCH (07:00)
[2018-10-07 07:16] LABS: ALBUMIN 2.5 g/dl (3.4-5.0); BILIRUBIN,TOTAL 0.4 mg/dL (0.2-1); CREATININE 1.2 mg/dL (0.55-1.3); POTASSIUM 4.3 mmol/L (3.5-5.1); TOT PROT 5.4 g/dl (6.4-8.2)
--- NOTE | 2018-10-07 09:32 | EKG ---
Test Reason : Blood Pressure : / mmHG Vent. Rate : 116 BPM Atrial Rate : 116 BPM P-R Int : 136 ms QRS Dur : 084 ms QT Int : 344 ms P-R-T Axes : 138 035 152 degrees QTc Int : 478 ms UNUSUAL P AXIS, POSSIBLE ECTOPIC ATRIAL TACHYCARDIA WITH OCCASIONAL PREMATURE VENTRICULAR COMPLEXES LOW VOLTAGE QRS SEPTAL INFARCT (CITED ON OR BEFORE 20-OCT-2016) T WAVE ABNORMALITY, CONSIDER LATERAL ISCHEMIA ABNORMAL ECG WHEN COMPARED WITH ECG OF 02-MAY-2017 08:48, ECTOPIC ATRIAL RHYTHM HAS REPLACED SINUS RHYTHM QUESTIONABLE CHANGE IN INITIAL FORCES OF ANTERIOR LEADS Confirmed by LILLY CORRAL MD ([id number]) on 10/07/2018 9:32:01 AM Referred By: Confirmed By:LILLY CORRAL MD
[2018-10-07] MEDS ORDERED: ASPIRIN 81 MG CHEWABLE TABLETS PO SCH (10:00)
[2018-10-07] MEDS: ASPIRIN 81 MG CHEWABLE TABLETS PO SCH (10:33)
[2018-10-07] MEDS: ALPRAZolam 0.25 MG TABLET PO PRN ×2 (10:33→18:09)
[2018-10-07] MEDS: ACETAMINOPHEN 325 MG TABLET (FP) PO PRN (10:35)
[2018-10-07] MEDS: HEPARIN NA (PORCINE) 5,000 UNITS/ML 1ML VIAL SQ SCH ×2 (10:42→21:28)
--- NOTE | 2018-10-07 11:21 | PN ---
Progress Note (short form) - Note Progress Note: Pt seen/ examined chart reviewed feels better mild anxiety denies pain Vital Signs Temp 98.5 F 10/07/18 08:47 Pulse 107 H 10/07/18 08:47 Resp 18 10/07/18 08:47 BP 109/63 10/07/18 08:47 Pulse Ox 98 10/07/18 08:45 Intake & Output 10/06/18 10/06/18 10/07/18 11:59 23:59 11:59 Intake Total 200 1807 Output Total 200 Balance 200 1607 Weight 105 lb 134 lb Intake: IV 1757 1/2 Normal Saline 1,000 747 ml @ 83 mls/hr IV ASDIR JOSE Rx#:[id number] Normal Saline - 1,000 ml 1000 @ 1000 mls/hr IV ASDIR STA Rx#:[id number] saline lock 10 IVPB 50 Oral 200 Output: Urine 200 Straight Cath 200 Other: Voiding Method Incontinent # Unmeasured Voids Void 1 Bowel Movement No Height 5 ft 6 in 5 ft 6 in Body Mass Index (BMI) 16.9 21.6 Weight Measurement Method Built in [facility] Weight Measurement Method Standing Scale Active Medications Acetaminophen (Tylenol -) 650 mg PO Q6H PRN PRN Reason: FEVER Last Admin: 10/07/18 10:35 Dose: 650 mg Alprazolam (Xanax -) 0.25 mg PO Q8H PRN PRN Reason: ANXIETY Last Admin: 10/07/18 10:33 Dose: 0.25 mg Aspirin (Asa -) 81 mg PO DAILY [facility] Last Admin: 10/07/18 10:33 Dose: 81 mg Atorvastatin Calcium (Lipitor -) 10 mg PO [facility] Heparin Sodium (Porcine) (Heparin -) 5,000 unit SQ BID JOSE Last Admin: 10/07/18 10:42 Dose: 5,000 unit Sodium Chloride (1/2 Normal Saline) 1,000 mls @ 83 mls/hr IV ASDIR JOSE Last Admin: 10/07/18 02:35 Dose: 83 mls/hr Ibuprofen (Motrin -) 400 mg PO Q6H PRN PRN Reason: FEVER Insulin Aspart (Novolog Mix 70/30 Vial) 24 units SQ BIDI [facility] Last Admin: 10/07/18 06:12 Dose: 24 unit Insulin Aspart (Novolog Vial Sliding Scale -) 1 vial SQ TIDAC [facility]; Protocol Last Admin: 10/07/18 06:13 Dose: 7 unit CBC, BMP 10/07/18 05:55 10/07/18 05:50 Abnormal Lab Results 10/06/18 10/06/18 10/06/18 13:01 13:01 13:01 Neutrophils % 84.1 H D POC VBG pO2 VBG O2 Sat (Master) Chloride BUN Random Glucose Hemoglobin A1c % Lactic Acid 2.5 H* Calcium CK-MB (CK-2) Total Protein Albumin Urine Glucose (UA) Urine Ketones Acetone, Qual Positive small 1+ H 10/06/18 10/06/18 10/06/18 13:01 13:01 22:15 Neutrophils % POC VBG pO2 < 49 H VBG O2 Sat (Master) 46.6 L Chloride BUN 21.1 H Random Glucose 328 H* Hemoglobin A1c % Lactic Acid 2.8 H* Calcium CK-MB (CK-2) 3.9 H Total Protein Albumin 3.2 L Urine Glucose (UA) Urine Ketones Acetone, Qual 10/07/18 10/07/18 10/07/18 00:50 05:10 05:50 Neutrophils % POC VBG pO2 VBG O2 Sat (Master) Chloride 109 H BUN 28.0 H Random Glucose 257 H Hemoglobin A1c % 8.8 H Lactic Acid Calcium 8.0 L CK-MB (CK-2) Total Protein 5.4 L Albumin 2.5 L Urine Glucose (UA) 3+ H Urine Ketones 1+ H Acetone, Qual x rays-, ct chest reviewed Physical Exam Constitutional: Yes: No Distress, comfortable. Eyes: Yes: Conjunctiva Clear HENT: Yes: Atraumatic Neck: Yes: Supple. no jvd No bruie Thyroid not enlarged Cardiovascular: Yes:S1,s2 RRR Respiratory: Yes: CTA Bilaterally Gastrointestinal: Yes: Normal Bowel Sounds, Soft,non tender . bs + Renal/: Yes: WNL Musculoskeletal: Yes: WNL Extremities: Yes: Amputation (healed Lt foot 4/5th toes, healed) Edema: No Neurological: Yes: Alert, Oriented x 3 a/p 73 y/o woman with a PMhx of HTN, DM, Anxiety. Who presents to the ED s/p fall and generalized weakness. Patient reports that she had fallen while attempting to get the mail and subsequently has been on the floor for 2 days secondary to weakness. Patient reports she normally receives her meals via "meals on wheels" but, has not eaten in 2 days secondary to lack of delivery. 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
--- NOTE | 2018-10-07 13:44 | CON.ID ---
Consult - History of Present Illness History of Present Illness: 73 y.o. 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 She states she her legs gave way when attempting to get her mail and was unable to get up for the next >24 hrs. Denies head trauma/LOC. Pt reports not taking her insulin for the past few days and having poor oral intake. States she has lost more than 30 lbs since her 's . Also she reports having 3 loose stools in the days prior to her fall but none recently. Denies any recent SOB/cough, fever/chills, abd pain/n/v, dysuria. In the ER pt noted to be alert, without acute distress, afebrile with normal wbc count but was hypotensive (BP 79/38), HR of 129, and elevated lactic acid (2.8) and glucose of 328. Currently she is sitting up in bed, fully alert and conversive, without distress, remaining afebrile. - History Source History Provided By: Patient, Medical Record Limitations to Obtaining History: No Limitations - Past Medical History Cardio/Vascular: Yes: HTN Psych: Yes: Anxiety, Depression Endocrine: Yes: Diabetes Mellitus - Past Surgical History Past Surgical History: Yes: Bypass (gastric) - Alcohol/Substance Use Hx Alcohol Use: No History of Substance Use: reports: None - Smoking History Smoking history: Former smoker Have you smoked in the past 12 months: No Aproximately how many cigarettes per day: 2 If you are a former smoker, when did you quit?: 1979 - Social History Usual Living Arrangement: Alone ADL: Independent Occupation: Retired History of Recent Travel: No Home Medications - Allergies Allergies/Adverse Reactions: Allergies Allergy/AdvReac Type Severity Reaction Status Date / Time Fish Containing Products Allergy Intermediate Verified 10/06/18 11:38 fish derived Allergy Intermediate Verified 10/06/18 11:38 - Home Medications Home Medications: Ambulatory Orders Insulin Lispro Protamin/Lispro [Humalog Mix 75-25 Vial] 0 unit SQ BIDAC PRN 09/21 Acetaminophen [Tylenol .Regular Strength -] 650 mg PO Q6H PRN #0 tablet Alprazolam [Xanax] 0.25 mg PO Q8H PRN #30 tablet MDD 3 09/14/16 Aspirin [ASA -] 81 mg PO DAILY #30 tab.chew 09/14/16 Atorvastatin Ca [Lipitor] 10 mg PO HS tablet 05/21/17 Insulin (Novolog 70/30) [Novolog Mix 70/30 Vial -] 24 units SQ BIDI vial Family Disease History - Family Disease History Family Disease History: Diabetes: Mother, Brother, Heart Disease: Brother Review of Systems - Review of Systems Constitutional: reports: No Symptoms Eyes: reports: No Symptoms HENT: reports: No Symptoms Neck: reports: No Symptoms Cardiovascular: reports: No Symptoms Respiratory: reports: No Symptoms Gastrointestinal: reports: No Symptoms Genitourinary: reports: No Symptoms Integumentary: reports: No Symptoms Neurological: reports: No Symptoms Endocrine: reports: No Symptoms Hematology/Lymphatic: reports: No Symptoms Physical Exam Vital Signs: Vital Signs Temperature 98.5 F 10/07/18 08:47 Pulse Rate 107 H 10/07/18 08:47 Respiratory Rate 18 10/07/18 08:47 Blood Pressure 109/63 10/07/18 08:47 O2 Sat by Pulse Oximetry (%) 98 10/07/18 08:45 Constitutional: Yes: No Distress, Calm Eyes: Yes: Conjunctiva Clear HENT: Yes: Atraumatic Neck: Yes: Supple Cardiovascular: Yes: Tachycardia Respiratory: Yes: CTA Bilaterally Gastrointestinal: Yes: Normal Bowel Sounds, Soft Renal/: Yes: WNL Musculoskeletal: Yes: WNL Extremities: Yes: WNL, Amputation (healed Lt foot 4/5th toes, healed) Edema: No Integumentary: Yes: WNL Neurological: Yes: Alert, Oriented Labs: CBC, BMP 10/07/18 05:55 10/07/18 05:50 Laboratory Tests 10/06/18 10/06/18 10/06/18 13:01 13:01 13:01 WBC 8.5 RBC 4.77 Hgb 14.3 Hct 42.9 D MCV 89.9 MCH 30.1 MCHC 33.5 RDW 13.2 Plt Count 212 MPV 9.0 Absolute Neuts (auto) 7.1 Neutrophils % 84.1 H D Lymphocytes % 9.8 D Monocytes % 5.6 Eosinophils % 0.1 D Basophils % 0.4 Nucleated RBC % 0 VBG pH POC VBG pCO2 POC VBG pO2 VBG HCO3 VBG O2 Sat (Master) VBG Base Excess Sodium Cancelled Potassium Cancelled Chloride Cancelled Carbon Dioxide Cancelled Anion Gap Cancelled BUN Cancelled Creatinine Cancelled Est GFR (CKD-EPI)AfAm Cancelled Est GFR (CKD-EPI)NonAf Cancelled POC Glucometer Random Glucose Cancelled Hemoglobin A1c % Lactic Acid 2.5 H* Calcium Cancelled Magnesium Cancelled Total Bilirubin Cancelled AST Cancelled ALT Cancelled Alkaline Phosphatase Cancelled Creatine Kinase Cancelled Creatine Kinase Index CK-MB (CK-2) Troponin I Total Protein Cancelled Albumin Cancelled TSH Cancelled Urine Color Urine Appearance Urine pH Ur Specific [place] Urine Protein Urine Glucose (UA) Urine Ketones Urine Blood Urine Nitrite Urine Bilirubin Urine Urobilinogen Ur Leukocyte Esterase Urine WBC (Auto) Urine RBC (Auto) Urine Casts (Auto) U Epithel Cells (Auto) Urine Bacteria (Auto) Acetone, Qual Positive small 1+ H 10/06/18 10/06/18 10/06/18 13:01 13:01 18:33 WBC RBC Hgb Hct MCV MCH MCHC RDW Plt Count MPV Absolute Neuts (auto) Neutrophils % Lymphocytes % Monocytes % Eosinophils % Basophils % Nucleated RBC % VBG pH 7.34 POC VBG pCO2 51.9 POC VBG pO2 < 49 H VBG HCO3 27.3 VBG O2 Sat (Master) 46.6 L VBG Base Excess 1.1 Sodium 137 Potassium 3.8 Chloride 100 Carbon Dioxide 26 Anion Gap 11 BUN 21.1 H Creatinine 1.0 Est GFR (CKD-EPI)AfAm 64.73 Est GFR (CKD-EPI)NonAf 55.85 POC Glucometer 362 Random Glucose 328 H* Hemoglobin A1c % Lactic Acid Calcium 9.1 Magnesium 1.8 Total Bilirubin 0.7 AST 17 ALT 16 Alkaline Phosphatase 87 Creatine Kinase 169 Creatine Kinase Index 2.3 CK-MB (CK-2) 3.9 H Troponin I 0.02 Total Protein 6.4 Albumin 3.2 L TSH 1.89 Urine Color Urine Appearance Urine pH Ur Specific [place] Urine Protein Urine Glucose (UA) Urine Ketones Urine Blood Urine Nitrite Urine Bilirubin Urine Urobilinogen Ur Leukocyte Esterase Urine WBC (Auto) Urine RBC (Auto) Urine Casts (Auto) U Epithel Cells (Auto) Urine Bacteria (Auto) Acetone, Qual 10/06/18 10/06/18 10/07/18 22:15 23:09 00:50 WBC RBC Hgb Hct MCV MCH MCHC RDW Plt Count MPV Absolute Neuts (auto) Neutrophils % Lymphocytes % Monocytes % Eosinophils % Basophils % Nucleated RBC % VBG pH POC VBG pCO2 POC VBG pO2 VBG HCO3 VBG O2 Sat (Master) VBG Base Excess Sodium Potassium Chloride Carbon Dioxide Anion Gap BUN Creatinine Est GFR (CKD-EPI)AfAm Est GFR (CKD-EPI)NonAf POC Glucometer 179 Random Glucose Hemoglobin A1c % Lactic Acid 2.8 H* Calcium Magnesium Total Bilirubin AST ALT Alkaline Phosphatase Creatine Kinase Creatine Kinase Index CK-MB (CK-2) Troponin I Total Protein Albumin TSH Urine Color Yellow Urine Appearance Cloudy Urine pH 5.0 Ur Specific [place] 1.022 Urine Protein Trace Urine Glucose (UA) 3+ H Urine Ketones 1+ H Urine Blood Trace Urine Nitrite Negative Urine Bilirubin Negative Urine Urobilinogen 0.2 Ur Leukocyte Esterase Negative Urine WBC (Auto) 1 Urine RBC (Auto) 0 Urine Casts (Auto) 5 U Epithel Cells (Auto) 2.4 Urine Bacteria (Auto) 5307.0 Acetone, Qual 10/07/18 10/07/18 10/07/18 05:10 05:50 05:55 WBC 7.6 RBC 3.93 Hgb 11.8 Hct 35.3 D MCV 89.8 MCH 30.1 MCHC 33.5 RDW 13.4 Plt Count 182 MPV 9.2 Absolute Neuts (auto) 4.4 Neutrophils % 58.7 D Lymphocytes % 30.4 D Monocytes % 8.5 Eosinophils % 2.0 D Basophils % 0.4 Nucleated RBC % 0 VBG pH POC VBG pCO2 POC VBG pO2 VBG HCO3 VBG O2 Sat (Master) VBG Base Excess Sodium 140 Potassium 4.3 Chloride 109 H Carbon Dioxide 23 Anion Gap 8 BUN 28.0 H Creatinine 1.2 Est GFR (CKD-EPI)AfAm 51.92 Est GFR (CKD-EPI)NonAf 44.80 POC Glucometer Random Glucose 257 H Hemoglobin A1c % 8.8 H Lactic Acid Calcium 8.0 L Magnesium Total Bilirubin 0.4 AST 32 ALT 13 Alkaline Phosphatase 77 Creatine Kinase Creatine Kinase Index CK-MB (CK-2) Troponin I Total Protein 5.4 L Albumin 2.5 L TSH 2.48 Urine Color Urine Appearance Urine pH Ur Specific [place] Urine Protein Urine Glucose (UA) Urine Ketones Urine Blood Urine Nitrite Urine Bilirubin Urine Urobilinogen Ur Leukocyte Esterase Urine WBC (Auto) Urine RBC (Auto) Urine Casts (Auto) U Epithel Cells (Auto) Urine Bacteria (Auto) Acetone, Qual 10/07/18 10/07/18 10/07/18 05:55 06:10 11:54 WBC RBC Hgb Hct MCV MCH MCHC RDW Plt Count MPV Absolute Neuts (auto) Neutrophils % Lymphocytes % Monocytes % Eosinophils % Basophils % Nucleated RBC % VBG pH POC VBG pCO2 POC VBG pO2 VBG HCO3 VBG O2 Sat (Master) VBG Base Excess Sodium Potassium Chloride Carbon Dioxide Anion Gap BUN Creatinine Est GFR (CKD-EPI)AfAm Est GFR (CKD-EPI)NonAf POC Glucometer 262 117 Random Glucose Hemoglobin A1c % Lactic Acid 1.8 Calcium Magnesium Total Bilirubin AST ALT Alkaline Phosphatase Creatine Kinase Creatine Kinase Index CK-MB (CK-2) Troponin I Total Protein Albumin TSH Urine Color Urine Appearance Urine pH Ur Specific [place] Urine Protein Urine Glucose (UA) Urine Ketones Urine Blood Urine Nitrite Urine Bilirubin Urine Urobilinogen Ur Leukocyte Esterase Urine WBC (Auto) Urine RBC (Auto) Urine Casts (Auto) U Epithel Cells (Auto) Urine Bacteria (Auto) Acetone, Qual Imaging - Results Chest X-ray: Report Reviewed X-ray: Report Reviewed Problem List - Problems (1) Fall Code(s): W19.XXXA - UNSPECIFIED FALL, INITIAL ENCOUNTER (2) Generalized weakness Code(s): R53.1 - WEAKNESS (3) Anxiety Code(s): F41.9 - ANXIETY DISORDER, UNSPECIFIED (4) Depression Code(s): F32.9 - MAJOR DEPRESSIVE DISORDER, SINGLE EPISODE, UNSPECIFIED (5) Diabetes mellitus Code(s): E11.9 - TYPE 2 DIABETES MELLITUS WITHOUT COMPLICATIONS Assessment/Plan 73 y.o. female with IDDM, HTN, s/p gastric bypass, s/p Lt 4th/5th toe amp/ gangrene, anxiety presents s/p fall noted to be hypotensive, tachycardic, with elevated lactic acid level r/o Sepsis hypotension IDDM Lactic acidosis Bacteriuria s/p Fall -- Will start Ceftriaxone for now -- f/u urine and blood cultures - pending -- CXR without acute infiltrates -- monitor vitals closely Will follow Thank you
[2018-10-07] MEDS ORDERED: cefTRIAXone SODIUM 1 GM VIAL ONE (17:02)
[2018-10-07] MEDS: CEFTRIAXONE 1 GM in DEXTROSE 5%-WATER - 50 ML IVPB SCH (17:06)
[2018-10-07] MEDS: ATORVASTATIN CA 10 MG TABLET (FP) PO SCH (21:30)
[2018-10-08] MEDS: INSULIN (NOVOLOG MIX 70/30) 100 UNITS/ML MDV SQ SCH ×2 (07:13→17:56)
[2018-10-08] MEDS: INSULIN SLIDING SCALE (NOVOLOG) 1 VIAL SQ SCH ×3 (07:14→16:55)
[2018-10-08] MEDS ORDERED: DEXTROSE 5%-WATER - 50 ML IVPB ONE (08:46)
[2018-10-08] MEDS ORDERED: cefTRIAXone SODIUM 1 GM VIAL ONE (08:46)
[2018-10-08] MEDS: CEFTRIAXONE 1 GM in DEXTROSE 5%-WATER - 50 ML IVPB SCH (09:31)
[2018-10-08] MEDS: SODIUM CHLORIDE 0.45% 1,000 ML IV SCH (09:32)
[2018-10-08] MEDS: HEPARIN NA (PORCINE) 5,000 UNITS/ML 1ML VIAL SQ SCH ×2 (09:32→22:44)
[2018-10-08] MEDS: ASPIRIN 81 MG CHEWABLE TABLETS PO SCH (09:35)
--- NOTE | 2018-10-08 10:22 | CONSULT ---
Admitting History and Physical - Primary Care Physician PCP: Esa Bhatia - Admission History of Present Illness: Per emr- 73 y.o. female with IDDM, HTN, s/p gastric bypass, s/p Lt 4th/5th toe amp/ gangrene, anxiety presents s/p fall noted to be hypotensive, tachycardic, with elevated lactic acid level r/o Sepsis hypotension IDDM Lactic acidosis Bacteriuria s/p Fa Selected Entries 10/07/18 10/07/18 10/07/18 00:00 02:00 02:11 Breakfast Lunch Supper Temperature 98.6 F 98.8 F 98.6 F 10/07/18 10/07/18 10/07/18 05:22 08:47 11:46 Breakfast 50% Lunch Supper Temperature 98.8 F 98.5 F 10/07/18 10/07/18 10/07/18 14:00 17:00 21:00 Breakfast Lunch 50% Supper 100% Temperature 97.9 F 97.8 F 97.9 F 10/08/18 10/08/18 10/08/18 02:00 06:00 09:00 Breakfast Lunch Supper Temperature 97.8 F 98.4 F 98 F 10/08/18 09:36 Breakfast 75% Lunch Supper Temperature Laboratory Tests 10/07/18 05:55 WBC 7.6 This is my first consult with this pot. History Source: Patient Limitations to Obtaining History: No Limitations - Past Medical History Cardiovascular: Yes: HTN Psych: Yes: Anxiety, Depression Endocrine: Yes: Diabetes Mellitus - Past Surgical History Past Surgical History: Yes: Bypass (gastric) - Smoking History Smoking history: Former smoker Have you smoked in the past 12 months: No Aproximately how many cigarettes per day: 2 If you are a former smoker, when did you quit?: 1979 - Alcohol/Substance Use Hx Alcohol Use: No History of Substance Use: reports: None - Social History ADL: Independent Occupation: Retired History of Recent Travel: No History - Admission Reason For Visit: COMPRESSION FRACTURE OF LUMBAR VERTEBRA - Diagnostics X-ray: Report Reviewed CT Scan: Report Reviewed - General Mental Status: Alert and Oriented, Awake and Alert, Able to Follow Commands Attention: Intact Ability to Follow Directions: Excellent Head/Neck Control: Fair - Hearing Hearing: Functional Speech Evaluation - Communication Primary Language: WOLOF Communication: Yes: Within Normal Limits Oral Expression Ability: Yes: No Impairment - Speech Production Able to Make Needs Known: Yes: WNL Intelligibility: Yes: WNL - Speech Characteristics Voice Loudness: Normal Voice Pitch: Yes: Normal Voice Phonatory-based Quality: Yes: Normal Speech Pattern: Normal Speech Clarity: < 100% Nasal Resonance: Normal Articulation: Yes: Precise - Language/Auditory Comprehension Follows: Yes: 2 Stage Simple Commands Observation: Able to respond to yes/no queries: Yes, Yes/No Confusion: No, Comprehends Conversational Speech: Yes - Language/Verbal Expression Able to Respond to Simple Queries: Yes: WNL Able to Communicate Wants and Needs: Yes: WNL Functional Communication Status: Yes: WNL - Memory/Perception watermelon inspector Memory: Yes: WNL Short Term Memory: Yes: WNL - Swallow Evaluation/Bedside Assessment Current Nutritional Intake: Regular, Thin Liquids Oral Secretions: Yes: WFL Dentition: Yes: Missing Teeth (posteriorally) Facial Symmetry at Rest: Facial Droop Left Facial Symmetry on Retraction: Symmetrical Sensation: Normal Against Resistance Opening: Normal Against Resistance Closing: Normal Pucker Lips: Normal Smile: Normal Lingual Movement: Normal, Symmetric Lingual Speed of Movement: Normal Lingual Movement Strgth Against Opposition: Normal Lingual Movement Characteristics: Normal Laryngeal Elevation: WFL Laryngeal Movement: Able to Palpate Rate of Intake: WFL Bolus Size: Small Chewing: Impaired (Missing dentition posteriorally. Pt reports always taking small bites, eating carefully so it doesn't get stuck, but denies dysphagia/GERD / h/o PNA..) Oral Prep Time: WFL A-P Transit: WFL Pocketing: None Timing of Swallow: Delayed Coughing/Throat Clear: No Change in Voice: No Recommendations - Speech Evaluation, Impression/Plan Impression: Missing dentition posteriorally. Pt reports always taking small bites, eating carefully so it doesn't get stuck, but denies dysphagia/GERD/ h/o PNA. CXR/Head CT (-) - Dysphagia Impressions/Plan Dysphagia Impressions: Mild Impairment *Silent aspiration: cannot be R/O at bedside Dysphagia Treatment Plan: Small Bites, Chin Tuck/Down, Elevate HOB during feed Recommendations: Modified Barium Swallow (if cough, congestion, extended meals.) - Recommendations Diet Consistency: Regular (soft, easy to chew) Medication Administration: Whole with water Liquids: Thin Liquids
--- NOTE | 2018-10-08 11:35 | PN ---
Progress Note (short form) - Note Progress Note: Events noted Pt is depressed, states loss of her two brothers recently She feels lonely and has decreased appetite at home, also lack of meal deliver, unable to care for herself at home She has good appetite here has back pain Vital Signs - 24 hr 10/07/18 10/07/18 10/07/18 14:00 17:00 21:00 Temperature 97.9 F 97.8 F 97.9 F Pulse Rate 94 H 99 H 98 H Respiratory 18 18 18 Rate Blood Pressure 74/46 L 117/65 90/56 L O2 Sat by Pulse 98 Oximetry (%) 10/08/18 10/08/18 10/08/18 02:00 06:00 09:00 Temperature 97.8 F 98.4 F 98 F Pulse Rate 105 H 104 H 102 H Respiratory 18 18 20 Rate Blood Pressure 106/66 103/60 115/70 O2 Sat by Pulse Oximetry (%) Current Medications Generic Name Dose Route Start Last Admin Trade Name Freq PRN Reason Stop Dose Admin Acetaminophen 650 mg 10/07/18 02:31 10/07/18 10:35 Tylenol - PO 650 mg Q6H PRN Administration FEVER Alprazolam 0.25 mg 10/07/18 02:31 10/07/18 18:09 Xanax - PO 0.25 mg Q8H PRN Administration ANXIETY Aspirin 81 mg 10/07/18 10:00 10/08/18 09:35 Asa - PO Not Given DAILY JOSE Atorvastatin Calcium 10 mg 10/07/18 22:00 10/07/18 21:30 Lipitor - PO Not Given HS [facility] Heparin Sodium (Porcine) 5,000 unit 10/07/18 10:00 10/08/18 09:32 Heparin - SQ 5,000 unit BID JOSE Administration Sodium Chloride 1,000 mls @ 83 mls/hr 10/07/18 02:31 10/08/18 09:32 1/2 Normal Saline IV 83 mls/hr ASDIR JOSE Administration Ceftriaxone Sodium 1 gm/ 50 mls @ 100 mls/hr 10/07/18 14:00 10/08/18 09:31 Dextrose IVPB 100 mls/hr DAILY JOSE Administration Protocol Ibuprofen 400 mg 10/07/18 02:31 Motrin - PO Q6H PRN FEVER Insulin Aspart 1 vial 10/07/18 07:00 10/08/18 11:40 Novolog Vial Sliding Scale - SQ 7 unit TIDAC [facility] Administration Protocol Insulin Aspart 22 units 10/08/18 16:30 Novolog Mix 70/30 Vial SQ BIDAC [facility] Laboratory Results - last 24 hr 10/07/18 10/07/18 10/07/18 16:54 21:30 22:49 POC Glucometer 257 70 66 10/07/18 10/08/18 10/08/18 23:50 05:03 11:11 POC Glucometer 136 178 255 x rays-, ct chest reviewed Physical Exam Constitutional: Yes: No Distress, comfortable. Eyes: Yes: Conjunctiva Clear HENT: Yes: Atraumatic Neck: Yes: Supple. no jvd No bruie Thyroid not enlarged Cardiovascular: Yes:S1,s2 RRR Respiratory: Yes: CTA Bilaterally Gastrointestinal: Yes: Normal Bowel Sounds, Soft,non tender . bs + Renal/: Yes: WNL Musculoskeletal: Yes: WNL Extremities: Yes: Amputation (healed Lt foot 4/5th toes, healed) Edema: No Neurological: Yes: Alert, Oriented x 3 a/p Sepsis UTI S/P fall weight loss -- decrease inssulin as her sugars were very low last night abx-->urine cultures positive h/o weight loss =-- Need to monitor as out pt Physical therapy May transfer to the floor continue with meds add Remeron Problem List - Problems (1) Compression fracture of lumbar vertebra Code(s): S32.000A - [place] COMPRESSION FRACTURE OF UNSP LUMBAR VERTEBRA, INIT (2) Fall Code(s): W19.XXXA - UNSPECIFIED FALL, INITIAL ENCOUNTER (3) Generalized weakness Code(s): R53.1 - WEAKNESS (4) Sepsis Code(s): A41.9 - SEPSIS, UNSPECIFIED ORGANISM (5) Anxiety Code(s): F41.9 - ANXIETY DISORDER, UNSPECIFIED (6) CAD (coronary artery disease) Code(s): I25.10 - ATHSCL HEART DISEASE OF [place] CORONARY ARTERY W/O ANG PCTRS Qualifiers: Coronary Disease-Associated Artery/Lesion type: [place] artery Associated angina: angina presence unspecified (7) Depression Code(s): F32.9 - MAJOR DEPRESSIVE DISORDER, SINGLE EPISODE, UNSPECIFIED
--- NOTE | 2018-10-08 11:57 | PN ---
Progress Note, Physician History of Present Illness: patient stable no new issues - Current Medication List Current Medications: Active Medications Acetaminophen (Tylenol -) 650 mg PO Q6H PRN PRN Reason: FEVER Last Admin: 10/07/18 10:35 Dose: 650 mg Alprazolam (Xanax -) 0.25 mg PO Q8H PRN PRN Reason: ANXIETY Last Admin: 10/07/18 18:09 Dose: 0.25 mg Aspirin (Asa -) 81 mg PO DAILY [facility] Last Admin: 10/08/18 09:35 Dose: Not Given Atorvastatin Calcium (Lipitor -) 10 mg PO HS [facility] Last Admin: 10/07/18 21:30 Dose: Not Given Heparin Sodium (Porcine) (Heparin -) 5,000 unit SQ BID [facility] Last Admin: 10/08/18 09:32 Dose: 5,000 unit Sodium Chloride (1/2 Normal Saline) 1,000 mls @ 83 mls/hr IV ASDIR [facility] Last Admin: 10/08/18 09:32 Dose: 83 mls/hr Ceftriaxone Sodium 1 gm/ (Dextrose) 50 mls @ 100 mls/hr IVPB DAILY [facility]; Protocol Last Admin: 10/08/18 09:31 Dose: 100 mls/hr Ibuprofen (Motrin -) 400 mg PO Q6H PRN PRN Reason: FEVER Insulin Aspart (Novolog Vial Sliding Scale -) 1 vial SQ TIDAC [facility]; Protocol Last Admin: 10/08/18 11:40 Dose: 7 unit Insulin Aspart (Novolog Mix 70/30 Vial) 22 units SQ BIDAC [facility] - Objective Vital Signs: Vital Signs Temperature 98 F 10/08/18 09:00 Pulse Rate 102 H 10/08/18 09:00 Respiratory Rate 20 10/08/18 09:00 Blood Pressure 115/70 10/08/18 09:00 O2 Sat by Pulse Oximetry (%) 98 10/07/18 21:00 Constitutional: Yes: No Distress, Calm Cardiovascular: Yes: Regular Rate and Rhythm Respiratory: Yes: Regular, CTA Bilaterally Gastrointestinal: Yes: Normal Bowel Sounds, Soft Musculoskeletal: Yes: WNL Extremities: Yes: WNL Wound/Incision: Yes: Clean/Dry Neurological: Yes: WNL Labs: CBC, BMP 10/07/18 05:55 10/07/18 05:50 Assessment/Plan Problem List - Problems (1) Fall Code(s): W19.XXXA - UNSPECIFIED FALL, INITIAL ENCOUNTER (2) Generalized weakness Code(s): R53.1 - WEAKNESS (3) Anxiety Code(s): F41.9 - ANXIETY DISORDER, UNSPECIFIED (4) Depression Code(s): F32.9 - MAJOR DEPRESSIVE DISORDER, SINGLE EPISODE, UNSPECIFIED (5) Diabetes mellitus Code(s): E11.9 - TYPE 2 DIABETES MELLITUS WITHOUT COMPLICATIONS Assessment/Plan 73 y.o. female with IDDM, HTN, s/p gastric bypass, s/p Lt 4th/5th toe amp/ gangrene, anxiety presents s/p fall noted to be hypotensive, tachycardic, with elevated lactic acid level Sepsis hypotension IDDM Lactic acidosis Bacteriuria s/p Fall plan continue abx await for identification of bacteria
[2018-10-08] MEDS: ACETAMINOPHEN 325 MG TABLET (FP) PO PRN (15:34)
[2018-10-08] MEDS ORDERED: SENNOSIDES 8.6MG TABLET (FP) PO PRN (22:00)
[2018-10-08] MEDS: ATORVASTATIN CA 10 MG TABLET (FP) PO SCH (22:43)
[2018-10-08] MEDS: MIRTAZAPINE 15 MG TABLET (FP) PO SCH (22:43)
[2018-10-09] MEDS: INSULIN (NOVOLOG MIX 70/30) 100 UNITS/ML MDV SQ SCH ×3 (06:26→18:00)
[2018-10-09] MEDS: INSULIN SLIDING SCALE (NOVOLOG) 1 VIAL SQ SCH ×3 (06:26→17:32)
[2018-10-09 08:09] LABS: HEMATOCRIT 38.4 % (32.4-45.2); MCH 30.4 pg (25.7-33.7); MCHC 33.8 g/dl (32.0-36.0); MEAN CELL VOLUME 89.9 fl (80-96); MEAN PLT VOLUME 9.7 fl (7.5-11.1); PLATELET COUNT 195 K/MM3 (134-434); RBC 4.27 M/mm3 (3.60-5.2); RDW 13.5 % (11.6-15.6); WHITE BLOOD COUNT 6.6 K/mm3 (4.0-10.0)
[2018-10-09 08:19] LABS: ALBUMIN 2.7 g/dl (3.4-5.0); BILIRUBIN,TOTAL 0.3 mg/dL (0.2-1); BLOOD UREA NITROGEN 18.2 mg/dL (7-18); CALCIUM 8.9 mg/dL (8.5-10.1); CREATININE 0.9 mg/dL (0.55-1.3); POTASSIUM 4.1 mmol/L (3.5-5.1); TOT PROT 5.8 g/dl (6.4-8.2)
[2018-10-09] MEDS ORDERED: cefTRIAXone SODIUM 1 GM VIAL ONE (09:17)
[2018-10-09] MEDS ORDERED: DEXTROSE 5%-WATER - 50 ML IVPB ONE (09:18)
--- NOTE | 2018-10-09 09:51 | PN ---
Progress Note, Physician History of Present Illness: patient stable no new issues' tachy - Current Medication List Current Medications: Active Medications Acetaminophen (Tylenol -) 650 mg PO Q6H PRN PRN Reason: FEVER Last Admin: 10/08/18 15:34 Dose: 650 mg Alprazolam (Xanax -) 0.25 mg PO Q8H PRN PRN Reason: ANXIETY Last Admin: 10/07/18 18:09 Dose: 0.25 mg Aspirin (Asa -) 81 mg PO DAILY [facility] Last Admin: 10/08/18 09:35 Dose: Not Given Atorvastatin Calcium (Lipitor -) 10 mg PO HS JOSE Last Admin: 10/08/18 22:43 Dose: Not Given Heparin Sodium (Porcine) (Heparin -) 5,000 unit SQ BID JOSE Last Admin: 10/08/18 22:44 Dose: 5,000 unit Sodium Chloride (1/2 Normal Saline) 1,000 mls @ 83 mls/hr IV ASDIR [facility] Last Admin: 10/08/18 09:32 Dose: 83 mls/hr Ceftriaxone Sodium 1 gm/ (Dextrose) 50 mls @ 100 mls/hr IVPB DAILY [facility]; Protocol Last Admin: 10/08/18 09:31 Dose: 100 mls/hr Ibuprofen (Motrin -) 400 mg PO Q6H PRN PRN Reason: FEVER Insulin Aspart (Novolog Vial Sliding Scale -) 1 vial SQ TIDAC [facility]; Protocol Last Admin: 10/09/18 06:26 Dose: Not Given Insulin Aspart (Novolog Mix 70/30 Vial) 22 units SQ BIDAC [facility] Last Admin: 10/09/18 06:26 Dose: Not Given Mirtazapine (Remeron -) 7.5 mg PO HS [facility] Last Admin: 10/08/18 22:43 Dose: Not Given Senna (Senna -) 2 tab PO HS PRN PRN Reason: CONSTIPATION Last Admin: 10/08/18 22:49 Dose: 2 tab - Objective Vital Signs: Vital Signs Temperature 98.7 F 10/09/18 06:00 Pulse Rate 114 H 10/09/18 06:00 Respiratory Rate 18 10/09/18 08:30 Blood Pressure 116/70 10/09/18 06:00 O2 Sat by Pulse Oximetry (%) 97 10/09/18 08:30 Constitutional: Yes: Calm Cardiovascular: Yes: S1, S2 Respiratory: Yes: Regular, CTA Bilaterally Gastrointestinal: Yes: Normal Bowel Sounds, Soft Musculoskeletal: Yes: WNL Extremities: Yes: WNL Neurological: Yes: Alert, Oriented Psychiatric: Yes: Alert, Oriented Labs: CBC, BMP 10/09/18 06:56 10/09/18 06:56 Assessment/Plan Problem List - Problems (1) Fall Code(s): W19.XXXA - UNSPECIFIED FALL, INITIAL ENCOUNTER (2) Generalized weakness Code(s): R53.1 - WEAKNESS (3) Anxiety Code(s): F41.9 - ANXIETY DISORDER, UNSPECIFIED (4) Depression Code(s): F32.9 - MAJOR DEPRESSIVE DISORDER, SINGLE EPISODE, UNSPECIFIED (5) Diabetes mellitus Code(s): E11.9 - TYPE 2 DIABETES MELLITUS WITHOUT COMPLICATIONS Assessment/Plan 73 y.o. female with IDDM, HTN, s/p gastric bypass, s/p Lt 4th/5th toe amp/ gangrene, anxiety presents s/p fall noted to be hypotensive, tachycardic, with elevated lactic acid level Sepsis hypotension IDDM Lactic acidosis Bacteriuria s/p Fall plan continue abx await for identification of bacteria
[2018-10-09] MEDS: SODIUM CHLORIDE 0.45% 1,000 ML IV SCH (10:23)
[2018-10-09] MEDS: HEPARIN NA (PORCINE) 5,000 UNITS/ML 1ML VIAL SQ SCH ×2 (10:24→22:10)
[2018-10-09] MEDS: ASPIRIN 81 MG CHEWABLE TABLETS PO SCH (10:24)
[2018-10-09] MEDS: CEFTRIAXONE 1 GM in DEXTROSE 5%-WATER - 50 ML IVPB SCH (10:26)
--- NOTE | 2018-10-09 10:49 | PN ---
Progress Note, FACILITY ENVIRONMENTAL TECHNICIAN - Note Progress Note: Selected Entries 10/08/18 10/08/18 10/08/18 02:00 06:00 09:00 Breakfast Lunch Supper Temperature 97.8 F 98.4 F 98 F 10/08/18 10/08/18 10/08/18 09:36 14:00 15:17 Breakfast 75% Lunch 25% Supper Temperature 97.8 F 10/08/18 10/08/18 10/09/18 17:00 20:22 02:00 Breakfast Lunch Supper 100% Temperature 98.2 F 98.7 F 98.2 F 10/09/18 10/09/18 06:00 10:00 Breakfast Lunch Supper Temperature 98.7 F 98.7 F Laboratory Tests 10/09/18 06:56 WBC 6.6 Pt tolerating diet. No further f/u indicated
--- NOTE | 2018-10-09 11:44 | PN ---
Progress Note (short form) - Note Progress Note: Events noted anxious As per RN-- pt is eating but pt states she has no appetite She appears depressed Vital Signs - 24 hr 10/08/18 10/08/18 10/08/18 15:17 17:00 20:22 Temperature 97.8 F 98.2 F 98.7 F Pulse Rate 100 H 92 H 120 H Respiratory 18 20 18 Rate Blood Pressure 102/69 119/70 154/93 O2 Sat by Pulse 95 Oximetry (%) 10/09/18 10/09/18 10/09/18 02:00 06:00 08:30 Temperature 98.2 F 98.7 F Pulse Rate 113 H 114 H Respiratory 18 18 18 Rate Blood Pressure 117/75 116/70 O2 Sat by Pulse 97 Oximetry (%) 10/09/18 10:00 Temperature 98.7 F Pulse Rate 110 H Respiratory 17 Rate Blood Pressure 96/58 L O2 Sat by Pulse Oximetry (%) Current Medications Generic Name Dose Route Start Last Admin Trade Name Freq PRN Reason Stop Dose Admin Acetaminophen 650 mg 10/07/18 02:31 10/08/18 15:34 Tylenol - PO 650 mg Q6H PRN Administration FEVER Alprazolam 0.25 mg 10/07/18 02:31 10/09/18 11:51 Xanax - PO 0.25 mg Q8H PRN Administration ANXIETY Aspirin 81 mg 10/07/18 10:00 10/09/18 10:24 Asa - PO Not Given DAILY JOSE Atorvastatin Calcium 10 mg 10/07/18 22:00 10/08/18 22:43 Lipitor - PO Not Given HS [facility] Heparin Sodium (Porcine) 5,000 unit 10/07/18 10:00 10/09/18 10:24 Heparin - SQ 5,000 unit BID JOSE Administration Sodium Chloride 1,000 mls @ 83 mls/hr 10/07/18 02:31 10/09/18 10:23 1/2 Normal Saline IV Not Given ASDIR JOSE Ceftriaxone Sodium 1 gm/ 50 mls @ 100 mls/hr 10/07/18 14:00 10/09/18 10:26 Dextrose IVPB 100 mls/hr DAILY JOSE Administration Protocol Ibuprofen 400 mg 10/07/18 02:31 Motrin - PO Q6H PRN FEVER Insulin Aspart 1 vial 10/07/18 07:00 10/09/18 11:51 Novolog Vial Sliding Scale - SQ 7 unit TIDAC JOSE Administration Protocol Insulin Aspart 22 units 10/08/18 16:30 10/09/18 06:26 Novolog Mix 70/30 Vial SQ Not Given BIDAC JOSE Mirtazapine 7.5 mg 10/08/18 22:00 10/08/18 22:43 Remeron - PO Not Given HS JOSE Senna 2 tab 10/08/18 22:00 10/08/18 22:49 Senna - PO 2 tab HS PRN Administration CONSTIPATION Laboratory Results - last 24 hr 10/08/18 10/09/18 10/09/18 16:52 06:09 06:56 WBC 6.6 RBC 4.27 Hgb 13.0 Hct 38.4 MCV 89.9 MCH 30.4 MCHC 33.8 RDW 13.5 Plt Count 195 MPV 9.7 Sodium Potassium Chloride Carbon Dioxide Anion Gap BUN Creatinine Est GFR (CKD-EPI)AfAm Est GFR (CKD-EPI)NonAf POC Glucometer 227 146 Random Glucose Calcium Total Bilirubin AST ALT Alkaline Phosphatase Total Protein Albumin 10/09/18 10/09/18 06:56 11:34 WBC RBC Hgb Hct MCV MCH MCHC RDW Plt Count MPV Sodium 145 Potassium 4.1 Chloride 106 Carbon Dioxide 29 Anion Gap 11 BUN 18.2 H Creatinine 0.9 Est GFR (CKD-EPI)AfAm 73.52 Est GFR (CKD-EPI)NonAf 63.43 POC Glucometer 283 Random Glucose 196 H Calcium 8.9 Total Bilirubin 0.3 AST 34 ALT 16 Alkaline Phosphatase 76 Total Protein 5.8 L Albumin 2.7 L Physical Exam Constitutional: Yes: No Distress, comfortable. Eyes: Yes: Conjunctiva Clear HENT: Yes: Atraumatic Neck: Yes: Supple. no jvd No bruie Thyroid not enlarged Cardiovascular: Yes:S1,s2 RRR Respiratory: Yes: CTA Bilaterally Gastrointestinal: Yes: Normal Bowel Sounds, Soft,non tender . bs + Renal/: Yes: WNL Musculoskeletal: Yes: WNL Extremities: Yes: Amputation (healed Lt foot 4/5th toes, healed) Edema: No Neurological: Yes: Alert, Oriented x 3, forgetful a/p Sepsis UTI S/P fall weight loss -- cardiology eval IV fluids decrease insulin as her sugars were very low last night abx-->urine cultures positive-->Ecoli h/o weight loss =-- Need to monitor as out pt Psychiatry eval order echo Will place pt back on continuous cardiac monitoring as pt is tachycardic but this may be due to anxiety - she did not sleep well last night due to anxiety Physical therapy continue with meds add Remeron Problem List - Problems (1) Compression fracture of lumbar vertebra Code(s): S32.000A - WEDGE COMPRESSION FRACTURE OF UNSP LUMBAR VERTEBRA, INIT (2) Fall Code(s): W19.XXXA - UNSPECIFIED FALL, INITIAL ENCOUNTER (3) Generalized weakness Code(s): R53.1 - WEAKNESS (4) Sepsis Code(s): A41.9 - SEPSIS, UNSPECIFIED ORGANISM (5) Anxiety Code(s): F41.9 - ANXIETY DISORDER, UNSPECIFIED (6) CAD (coronary artery disease) Code(s): I25.10 - ATHSCL HEART DISEASE OF [place] CORONARY ARTERY W/O ANG PCTRS Qualifiers: Coronary Disease-Associated Artery/Lesion type: [place] artery Associated angina: angina presence unspecified (7) Depression Code(s): F32.9 - MAJOR DEPRESSIVE DISORDER, SINGLE EPISODE, UNSPECIFIED
[2018-10-09] MEDS: ALPRAZolam 0.25 MG TABLET PO PRN ×2 (11:51→22:11)
[2018-10-09] MEDS ORDERED: INSULIN (NOVOLOG) ASPART 100 UNITS/ML 10ML VIAL ONE (17:04)
--- NOTE | 2018-10-09 21:09 | ECHO ---
Version: 1 Name: DEANDRE HENNESSY Exam: Adult Echocardiogram Study Date: 10/09/2018, 2:54 PM Age: 73 Years MMode/2D Measurements & Calculations IVSd: 1.02 cm LVIDs: 2.7 cm LVIDd: 4.2 cm LVPWd: 0.96 cm LVOT diam: 2.11 cm Ao root diam: 2.8 cm LA dimension: 3.2 cm Doppler Measurements & Calculations MV E max liliana: 108.3 cm/sec MV A max liliana: 153.6 cm/sec MV E/A: 0.71 Ao max P.9 mmHg ROBERTO(I,D): 1.44 cm Ao mean P.0 mmHg LV V1 mean: 65.7 cm/sec Ao V2 max: 227.4 cm/sec LV V1 mean P.00 mmHg TR max liliana: 193.0 cm/sec TR max P.9 mmHg Procedure The study was technically difficult with many images being suboptimal in quality. Left Ventricle The left ventricular size, thickness and function are normal. The left ventricular ejection fraction is normal. E/A reversal consistent with but not diagnostic of poor LV compliance. The left ventricular wall motion is normal. Right Ventricle The right ventricle is normal in size and function. Atria Normal left and right atrial size and function. Mitral Valve There is mild to moderate mitral valve thickening. There is no mitral valve stenosis. There is mild mitral regurgitation. Tricuspid Valve The tricuspid valve is not well visualized, but is grossly normal. There is no tricuspid stenosis. T here is mild tricuspid regurgitation. Right ventricular systolic pressure is normal. Aortic Valve The aortic valve is not well visualized. There is mild to moderate aortic valve thickening. There is mild to moderate aortic sclerosis.;. Mild valvular aortic stenosis. No aortic regurgitation is present. Pulmonic Valve The pulmonic valve is not well visualized. Great Vessels The aortic root is normal size. Pericardium/Pleura There is no pericardial effusion. Summary Statements The left ventricular size, thickness and function are normal There is mild to moderate mitral valve thickening. There is mild tricuspid regurgitation. Right ventricular systolic pressure is normal. The study was technically difficult with many images being suboptimal in quality. E/A reversal consistent with but not diagnostic of poor LV compliance The left ventricular wall motion is normal. The left ventricular ejection fraction is normal. There is mild to moderate aortic valve thickening. The aortic valve is not well visualized. There is mild to moderate aortic sclerosis.; Mild valvular aortic stenosis. There is mild mitral regurgitation. MD Gigi Flower 10/09/2018, 8:08 PM Ordering Physician: Syeda Thompson Referring Physician: NELY Performed By: Kelley Ford
--- NOTE | 2018-10-09 21:27 | CON.CARD ---
Consult Consult Specialty:: Cardiology - History of Present Illness History of Present Illness: 73 y.o. 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 She states she her legs gave way when attempting to get her mail and was unable to get up for the next >24 hrs. Denies head trauma/LOC. Pt reports not taking her insulin for the past few days and having poor oral intake. States she has lost more than 30 lbs since her 's . Also she reports having 3 loose stools in the days prior to her fall but none recently. Denies any recent SOB/cough, fever/chills, abd pain/n/v, dysuria. In the ER pt noted to be alert, without acute distress, afebrile with normal wbc count but was hypotensive (BP 79/38), HR of 129, and elevated lactic acid (2.8) and glucose of 328. Currently she is sitting up in bed, fully alert and conversive, without distress, remaining afebrile. - Past Medical History Cardio/Vascular: Yes: HTN Psych: Yes: Anxiety, Depression Endocrine: Yes: Diabetes Mellitus - Past Surgical History Past Surgical History: Yes: Bypass (gastric) - Alcohol/Substance Use Hx Alcohol Use: No History of Substance Use: reports: None - Smoking History Smoking history: Former smoker Have you smoked in the past 12 months: No Aproximately how many cigarettes per day: 2 If you are a former smoker, when did you quit?: 1979 - Social History Usual Living Arrangement: Alone ADL: Independent Occupation: Retired History of Recent Travel: No Home Medications - Allergies Allergies/Adverse Reactions: Allergies Allergy/AdvReac Type Severity Reaction Status Date / Time Fish Containing Products Allergy Intermediate Verified 10/06/18 11:38 fish derived Allergy Intermediate Verified 10/06/18 11:38 - Home Medications Home Medications: Ambulatory Orders Insulin Lispro Protamin/Lispro [Humalog Mix 75-25 Vial] 0 unit SQ BIDAC PRN 09/21 Acetaminophen [Tylenol .Regular Strength -] 650 mg PO Q6H PRN #0 tablet Alprazolam [Xanax] 0.25 mg PO Q8H PRN #30 tablet MDD 3 09/14/16 Aspirin [ASA -] 81 mg PO DAILY #30 tab.chew 09/14/16 Atorvastatin Ca [Lipitor] 10 mg PO HS tablet 05/21/17 Insulin (Novolog 70/30) [Novolog Mix 70/30 Vial -] 24 units SQ BIDI vial Family Disease History - Family Disease History Family Disease History: Diabetes: Mother, Brother, Heart Disease: Brother Review of Systems - Review of Systems Constitutional: reports: No Symptoms Eyes: reports: No Symptoms HENT: reports: No Symptoms Neck: reports: No Symptoms Cardiovascular: reports: No Symptoms Gastrointestinal: reports: No Symptoms Genitourinary: reports: No Symptoms Breasts: reports: No Symptoms Reported Musculoskeletal: reports: No Symptoms Integumentary: reports: No Symptoms Neurological: reports: No Symptoms Endocrine: reports: No Symptoms Hematology/Lymphatic: reports: No Symptoms Psychiatric: reports: No Symptoms Vital Signs: Vital Signs Temperature 98.3 F 10/09/18 14:00 Pulse Rate 114 H 10/09/18 18:00 Respiratory Rate 20 10/09/18 18:00 Blood Pressure 97/54 L 10/09/18 18:00 O2 Sat by Pulse Oximetry (%) 97 10/09/18 08:30 Constitutional: Yes: Well Nourished, No Distress, Calm Eyes: Yes: WNL, Conjunctiva Clear, EOM Intact HENT: Yes: WNL, Atraumatic, Normocephalic Neck: Yes: WNL, Supple, Trachea Midline Respiratory: Yes: WNL, Regular, CTA Bilaterally Gastrointestinal: Yes: WNL, Normal Bowel Sounds Renal/: Yes: WNL Cardiovascular: Yes: WNL, Regular Rate and Rhythm Musculoskeletal: Yes: WNL Extremities: Yes: Amputation Integumentary: Yes: WNL Neurological: Yes: WNL, Alert, Oriented ...Motor Strength: WNL Psychiatric: Yes: WNL, Alert, Oriented - Other Data Labs, Other Data: CBC, BMP 10/09/18 06:56 10/09/18 06:56 Imaging - Results Chest X-ray: Image Reviewed (no i/e) EKG: Image Reviewed (ectopic atrial tachy) Problem List - Problems (1) Compression fracture of lumbar vertebra Code(s): S32.000A - WEDGE COMPRESSION FRACTURE OF UNSP LUMBAR VERTEBRA, INIT (2) Fall Code(s): W19.XXXA - UNSPECIFIED FALL, INITIAL ENCOUNTER (3) Generalized weakness Code(s): R53.1 - WEAKNESS (4) Sepsis Code(s): A41.9 - SEPSIS, UNSPECIFIED ORGANISM (5) Abnormal ECG Code(s): R94.31 - ABNORMAL ELECTROCARDIOGRAM [ECG] [EKG] (6) Acute on chronic systolic (congestive) heart failure Code(s): I50.23 - ACUTE ON CHRONIC SYSTOLIC (CONGESTIVE) HEART FAILURE (7) Anxiety Code(s): F41.9 - ANXIETY DISORDER, UNSPECIFIED (8) Anxiety about health Code(s): F41.8 - OTHER SPECIFIED ANXIETY DISORDERS (9) Aortic stenosis Code(s): I35.0 - NONRHEUMATIC AORTIC (VALVE) STENOSIS Qualifiers: Cardiac valve disease etiology: nonrheumatic Qualified Code(s): I35.0 - Nonrheumatic aortic (valve) stenosis (10) Atypical chest pain Code(s): R07.89 - OTHER CHEST PAIN (11) CAD (coronary artery disease) Code(s): I25.10 - ATHSCL HEART DISEASE OF [place] CORONARY ARTERY W/O ANG PCTRS Qualifiers: Coronary Disease-Associated Artery/Lesion type: [place] artery Associated angina: angina presence unspecified (12) Depression Code(s): F32.9 - MAJOR DEPRESSIVE DISORDER, SINGLE EPISODE, UNSPECIFIED (13) Depressive disorder Code(s): F32.9 - MAJOR DEPRESSIVE DISORDER, SINGLE EPISODE, UNSPECIFIED (14) Diabetes mellitus Code(s): E11.9 - TYPE 2 DIABETES MELLITUS WITHOUT COMPLICATIONS (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 Code(s): E11.51 - TYPE 2 DIABETES W DIABETIC PERIPHERAL ANGIOPATH W/O GANGRENE; I70.209 - UNSP ATHSCL [place] ARTERIES OF EXTREMITIES, UNSP EXTREMITY (16) Diabetic foot ulcer Code(s): E11.621 - TYPE 2 DIABETES MELLITUS WITH FOOT ULCER; L97.509 - NON- PRESSURE CHRONIC ULCER OTH PRT UNSP FOOT W UNSP SEVERITY Qualifiers: Diabetic foot ulcer location: unspecified part of foot Diabetes mellitus type: type 2 Laterality: left Non-pressure ulcer stage: unspecified non- pressure ulcer stage Qualified Code(s): E11.621 - Type 2 diabetes mellitus with foot ulcer; L97.529 - Non-pressure chronic ulcer of other part of left foot with unspecified severity (17) Dizziness Code(s): R42 - DIZZINESS AND GIDDINESS (18) Lung consolidation Code(s): J18.1 - LOBAR PNEUMONIA, UNSPECIFIED ORGANISM (19) Osteomyelitis Code(s): M86.9 - OSTEOMYELITIS, UNSPECIFIED Qualifiers: Osteomyelitis type: unspecified type Osteomyelitis location: foot Laterality: left Qualified Code(s): M86.9 - Osteomyelitis, unspecified (20) Panic disorder Code(s): F41.0 - PANIC DISORDER [EPISODIC PAROXYSMAL ANXIETY] Assessment/Plan 73 y.o. female with IDDM, HTN, s/p gastric bypass, s/p Lt 4th/5th toe amp/ gangrene, anxiety presents s/p fall noted to be hypotensive, tachycardic, with elevated lactic acid level. ECHO nl ef EKG possible ectopic atrial tachycardia Sepsis hypotension IDDM Lactic acidosis Bacteriuria s/p Fall plan repeat ekg Cont telemetry cont abx as per ID
[2018-10-09] MEDS: MIRTAZAPINE 15 MG TABLET (FP) PO SCH (22:10)
[2018-10-09] MEDS: ATORVASTATIN CA 10 MG TABLET (FP) PO SCH (22:10)
[2018-10-10] MEDS: SODIUM CHLORIDE 0.45% 1,000 ML IV SCH (06:45)
[2018-10-10] MEDS: INSULIN (NOVOLOG MIX 70/30) 100 UNITS/ML MDV SQ SCH ×2 (06:46→18:08)
[2018-10-10] MEDS: INSULIN SLIDING SCALE (NOVOLOG) 1 VIAL SQ SCH ×3 (06:46→18:08)
[2018-10-10] MEDS: sitaGLIPtin PHOSPHATE 50 MG TABLET PO SCH (06:46)
[2018-10-10] MEDS ORDERED: cefTRIAXone SODIUM 1 GM VIAL ONE (09:16)
[2018-10-10] MEDS ORDERED: DEXTROSE 5%-WATER - 50 ML IVPB ONE (09:16)
[2018-10-10] MEDS: HEPARIN NA (PORCINE) 5,000 UNITS/ML 1ML VIAL SQ SCH ×2 (09:22→22:12)
[2018-10-10] MEDS: ASPIRIN 81 MG CHEWABLE TABLETS PO SCH ×2 (09:23→09:24)
[2018-10-10] MEDS: CEFTRIAXONE 1 GM in DEXTROSE 5%-WATER - 50 ML IVPB SCH (09:23)
--- NOTE | 2018-10-10 10:52 | PN ---
Progress Note, Physician History of Present Illness: stable depressed cardiology on case - Current Medication List Current Medications: Active Medications Acetaminophen (Tylenol -) 650 mg PO Q6H PRN PRN Reason: FEVER Last Admin: 10/08/18 15:34 Dose: 650 mg Alprazolam (Xanax -) 0.25 mg PO Q8H PRN PRN Reason: ANXIETY Last Admin: 10/09/18 22:11 Dose: 0.25 mg Aspirin (Asa -) 81 mg PO DAILY [facility] Last Admin: 10/10/18 09:24 Dose: Not Given Atorvastatin Calcium (Lipitor -) 10 mg PO HS [facility] Last Admin: 10/09/18 22:10 Dose: Not Given Heparin Sodium (Porcine) (Heparin -) 5,000 unit SQ BID [facility] Last Admin: 10/10/18 09:22 Dose: 5,000 unit Sodium Chloride (1/2 Normal Saline) 1,000 mls @ 83 mls/hr IV ASDIR [facility] Last Admin: 10/10/18 06:45 Dose: 83 mls/hr Ceftriaxone Sodium 1 gm/ (Dextrose) 50 mls @ 100 mls/hr IVPB DAILY [facility]; Protocol Last Admin: 10/10/18 09:23 Dose: 100 mls/hr Ibuprofen (Motrin -) 400 mg PO Q6H PRN PRN Reason: FEVER Insulin Aspart (Novolog Vial Sliding Scale -) 1 vial SQ TIDAC [facility]; Protocol Last Admin: 10/10/18 06:46 Dose: Not Given Insulin Aspart (Novolog Mix 70/30 Vial) 22 units SQ BIDAC [facility] Last Admin: 10/10/18 06:46 Dose: Not Given Mirtazapine (Remeron -) 7.5 mg PO HS [facility] Last Admin: 10/09/18 22:10 Dose: Not Given Senna (Senna -) 2 tab PO HS PRN PRN Reason: CONSTIPATION Last Admin: 10/08/18 22:49 Dose: 2 tab Sitagliptin Phosphate (Januvia -) 50 mg PO DAILY@0700 [facility] Last Admin: 10/10/18 06:46 Dose: Not Given - Objective Vital Signs: Vital Signs Temperature 98.5 F 10/10/18 08:59 Pulse Rate 110 H 10/10/18 08:59 Respiratory Rate 18 10/10/18 08:59 Blood Pressure 96/62 10/10/18 08:59 O2 Sat by Pulse Oximetry (%) 97 10/09/18 21:00 Constitutional: Yes: No Distress, Calm Cardiovascular: Yes: S1, S2 Respiratory: Yes: Regular, CTA Bilaterally Gastrointestinal: Yes: Normal Bowel Sounds, Soft Musculoskeletal: Yes: WNL Extremities: Yes: WNL Neurological: Yes: Alert, Oriented Psychiatric: Yes: Alert, Oriented Labs: CBC, BMP 10/09/18 06:56 10/09/18 06:56 Assessment/Plan Problem List - Problems (1) Fall Code(s): W19.XXXA - UNSPECIFIED FALL, INITIAL ENCOUNTER (2) Generalized weakness Code(s): R53.1 - WEAKNESS (3) Anxiety Code(s): F41.9 - ANXIETY DISORDER, UNSPECIFIED (4) Depression Code(s): F32.9 - MAJOR DEPRESSIVE DISORDER, SINGLE EPISODE, UNSPECIFIED (5) Diabetes mellitus Code(s): E11.9 - TYPE 2 DIABETES MELLITUS WITHOUT COMPLICATIONS Assessment/Plan 73 y.o. female with IDDM, HTN, s/p gastric bypass, s/p Lt 4th/5th toe amp/ gangrene, anxiety presents s/p fall noted to be hypotensive, tachycardic, with elevated lactic acid level Sepsis hypotension IDDM Lactic acidosis Bacteriuria s/p Fall plan can change to oral augmentin rest as per cardio and the team
[2018-10-10] MEDS ORDERED: INSULIN (NOVOLOG) ASPART 100 UNITS/ML 10ML VIAL ONE (11:04)
[2018-10-10] MEDS: ALPRAZolam 0.25 MG TABLET PO PRN (11:26)
--- NOTE | 2018-10-10 11:27 | PN ---
Progress Note (short form) - Note Progress Note: she refused her insulin last night stating it was too much for her anxious As per RN-- pt is eating but pt states she has no appetite She appears depressed and anxiousw-- tells me about how bad her past was and she is unsure about the future Vital Signs - 24 hr 10/09/18 10/09/18 10/09/18 14:00 18:00 21:00 Temperature 98.3 F Pulse Rate 111 H 114 H Respiratory 20 20 Rate Blood Pressure 90/52 L 97/54 L O2 Sat by Pulse 97 Oximetry (%) 10/09/18 10/10/18 10/10/18 22:00 02:00 08:59 Temperature 98.7 F 98.2 F 98.5 F Pulse Rate 102 H 106 H 110 H Respiratory 20 18 18 Rate Blood Pressure 85/52 L 107/63 96/62 O2 Sat by Pulse Oximetry (%) Current Medications Generic Name Dose Route Start Last Admin Trade Name Freq PRN Reason Stop Dose Admin Acetaminophen 650 mg 10/07/18 02:31 10/08/18 15:34 Tylenol - PO 650 mg Q6H PRN Administration FEVER Alprazolam 0.25 mg 10/07/18 02:31 10/10/18 11:26 Xanax - PO 0.25 mg Q8H PRN Administration ANXIETY Atorvastatin Calcium 10 mg 10/07/18 22:00 10/09/18 22:10 Lipitor - PO Not Given HS JOSE Buspirone HCl 5 mg 10/10/18 11:45 Buspar - PO BID JOSE Heparin Sodium (Porcine) 5,000 unit 10/07/18 10:00 10/10/18 09:22 Heparin - SQ 5,000 unit BID JOSE Administration Ceftriaxone Sodium 1 gm/ 50 mls @ 100 mls/hr 10/07/18 14:00 10/10/18 09:23 Dextrose IVPB 100 mls/hr DAILY JOSE Administration Protocol Ibuprofen 400 mg 10/07/18 02:31 Motrin - PO Q6H PRN FEVER Insulin Aspart 1 vial 10/07/18 07:00 10/10/18 06:46 Novolog Vial Sliding Scale - SQ Not Given TIDAC [facility] Protocol Insulin Aspart 22 units 10/08/18 16:30 10/10/18 06:46 Novolog Mix 70/30 Vial SQ Not Given BIDAC JOSE Mirtazapine 7.5 mg 10/08/18 22:00 10/09/18 22:10 Remeron - PO Not Given HS JOSE Senna 2 tab 10/08/18 22:00 10/08/18 22:49 Senna - PO 2 tab HS PRN Administration CONSTIPATION Sitagliptin Phosphate 50 mg 10/10/18 07:00 10/10/18 06:46 Januvia - PO Not Given DAILY@0700 [facility] Laboratory Results - last 24 hr 10/09/18 10/10/18 10/10/18 16:37 05:14 11:29 POC Glucometer 252 247 278 Physical Exam Constitutional: Yes: No Distress, comfortable. Eyes: Yes: Conjunctiva Clear HENT: Yes: Atraumatic Neck: Yes: Supple. no jvd No bruie Thyroid not enlarged Cardiovascular: Yes:S1,s2 RRR Respiratory: Yes: CTA Bilaterally Gastrointestinal: Yes: Normal Bowel Sounds, Soft,non tender . bs + Renal/: Yes: WNL Musculoskeletal: Yes: WNL Extremities: Yes: Amputation (healed Lt foot 4/5th toes, healed) Edema: No Neurological: Yes: Alert, Oriented x 3, forgetful a/p Sepsis UTI S/P fall weight loss -- cardiology eval IV fluids decrease insulin as her sugars were very low last night abx-->urine cultures positive-->Ecoli h/o weight loss =-- Need to monitor as out pt Psychiatry eval pending-- for now xanax prn and start Buspar BID echo noted Physical therapy continue with meds dc planning to rehab Problem List - Problems (1) Compression fracture of lumbar vertebra Code(s): S32.000A - WEDGE COMPRESSION FRACTURE OF UNSP LUMBAR VERTEBRA, INIT (2) Fall Code(s): W19.XXXA - UNSPECIFIED FALL, INITIAL ENCOUNTER (3) Generalized weakness Code(s): R53.1 - WEAKNESS (4) Sepsis Code(s): A41.9 - SEPSIS, UNSPECIFIED ORGANISM (5) Anxiety Code(s): F41.9 - ANXIETY DISORDER, UNSPECIFIED (6) CAD (coronary artery disease) Code(s): I25.10 - ATHSCL HEART DISEASE OF [place] CORONARY ARTERY W/O ANG PCTRS Qualifiers: Coronary Disease-Associated Artery/Lesion type: [place] artery Associated angina: angina presence unspecified (7) Depression Code(s): F32.9 - MAJOR DEPRESSIVE DISORDER, SINGLE EPISODE, UNSPECIFIED
--- NOTE | 2018-10-10 12:24 | EKG ---
Test Reason : Blood Pressure : / mmHG Vent. Rate : 101 BPM Atrial Rate : 101 BPM P-R Int : 134 ms QRS Dur : 086 ms QT Int : 376 ms P-R-T Axes : 047 005 118 degrees QTc Int : 487 ms SINUS TACHYCARDIA CANNOT RULE OUT ANTERIOR INFARCT (CITED ON OR BEFORE 20-OCT-2016) T WAVE ABNORMALITY, CONSIDER LATERAL ISCHEMIA ABNORMAL ECG WHEN COMPARED WITH ECG OF 06-OCT-2018 13:35, SINUS RHYTHM HAS REPLACED ECTOPIC ATRIAL RHYTHM Confirmed by ELVIS YU MD ([id number]) on 10/10/2018 12:23:36 PM Referred By: SAHYNA CARR DR Confirmed By:ELVIS YU MD
[2018-10-10] MEDS: busPIRone HCL 5 MG TABLET PO SCH ×2 (12:47→22:12)
--- NOTE | 2018-10-10 13:08 | PN ---
Progress Note, Physician Chief Complaint: Pt A&OX3; no chest pain, palpitations, dizziness. +"I"ve always been an anxious perosn; I'm not depressed, but am sad that I lost my and two brothers in the past year". History of Present Illness: The patient is a 73 year old white female, with a significant past medical history of HTN, DM, diastolic CHF, hyperlipidemia, anxiety, who presents to the emergency department s/p fall. As per patient, she fell while attempting to get the mail and subsequently was on the floor for 2 days secondary to inability to get up (weak). Patient notes she normally receives her meals via meals on wheels but, has not eaten in 2 days secondary to lack of delivery. She notes over the past year she has lost 40 pounds. Her 3 years ago, and she lives alone. She denies any LOC or head/neck trauma. She denies recent chest pain or shortness of breath. Allergies: NKDA Primary Care Physician: Dr. Malcolm - Current Medication List Current Medications: Active Medications Acetaminophen (Tylenol -) 650 mg PO Q6H PRN PRN Reason: FEVER Last Admin: 10/08/18 15:34 Dose: 650 mg Alprazolam (Xanax -) 0.25 mg PO Q8H PRN PRN Reason: ANXIETY Last Admin: 10/10/18 11:26 Dose: 0.25 mg Atorvastatin Calcium (Lipitor -) 10 mg PO HS [facility] Last Admin: 10/09/18 22:10 Dose: Not Given Buspirone HCl (Buspar -) 5 mg PO BID [facility] Last Admin: 10/10/18 12:47 Dose: 5 mg Heparin Sodium (Porcine) (Heparin -) 5,000 unit SQ BID [facility] Last Admin: 10/10/18 09:22 Dose: 5,000 unit Ceftriaxone Sodium 1 gm/ (Dextrose) 50 mls @ 100 mls/hr IVPB DAILY [facility]; Protocol Last Admin: 10/10/18 09:23 Dose: 100 mls/hr Ibuprofen (Motrin -) 400 mg PO Q6H PRN PRN Reason: FEVER Insulin Aspart (Novolog Vial Sliding Scale -) 1 vial SQ TIDAC [facility]; Protocol Last Admin: 10/10/18 12:22 Dose: 7 unit Insulin Aspart (Novolog Mix 70/30 Vial) 22 units SQ BIDAC [facility] Last Admin: 10/10/18 06:46 Dose: Not Given Mirtazapine (Remeron -) 7.5 mg PO HS [facility] Last Admin: 10/09/18 22:10 Dose: Not Given Senna (Senna -) 2 tab PO HS PRN PRN Reason: CONSTIPATION Last Admin: 10/08/18 22:49 Dose: 2 tab Sitagliptin Phosphate (Januvia -) 50 mg PO DAILY@0700 [facility] Last Admin: 10/10/18 06:46 Dose: Not Given - Objective Vital Signs: Vital Signs Temperature 98.5 F 10/10/18 08:59 Pulse Rate 110 H 10/10/18 08:59 Respiratory Rate 18 10/10/18 08:59 Blood Pressure 96/62 10/10/18 08:59 O2 Sat by Pulse Oximetry (%) 97 10/09/18 21:00 Constitutional: Yes: Anxious Eyes: Yes: WNL HENT: Yes: WNL Neck: Yes: WNL Cardiovascular: Yes: S1, S2 Respiratory: Yes: Diminished Gastrointestinal: Yes: Soft ...Rectal Exam: Yes: Deferred Genitourinary: No: Anuria Breast(s): Yes: WNL Musculoskeletal: Yes: WNL Extremities: Yes: WNL Edema: No Peripheral Pulses WNL: Yes Integumentary: Yes: WNL Wound/Incision: Yes: Other (s/p toe amputation years ago; well-healed surgical site) Neurological: Yes: Alert, Oriented, Weakness Psychiatric: Yes: Alert, Oriented, Other (anxiety) Labs: CBC, BMP 10/09/18 06:56 10/09/18 06:56 - ....Imaging Chest X-ray: Image Reviewed Ultrasound: Report Reviewed (ECHO) EKG: Image Reviewed Problem List - Problems (1) Amputated toe of left foot Assessment/Plan: 4th and 5th toes amputated "because of my diabetes, and I did not take the best care of the wound". Code(s): S98.132A - COMPLETE TRAUMATIC AMPUTATION OF ONE LEFT LESSER TOE, INIT (2) Hyperlipidemia Assessment/Plan: On statin. Code(s): E78.5 - HYPERLIPIDEMIA, UNSPECIFIED (3) Sinus tachycardia Assessment/Plan: Multifactorial: anxiety, sepsis, dehydration, Telemetry: NSR; periods of sinus tachycardia.HR better-controlled after pt given anxiolytics. ECHO: normal VLEF; mild . Pt may be taken off telemetry monitoring. Code(s): R00.0 - TACHYCARDIA, UNSPECIFIED (4) Compression fracture of lumbar vertebra Code(s): S32.000A - WEDGE COMPRESSION FRACTURE OF UNSP LUMBAR VERTEBRA, INIT (5) Generalized weakness Code(s): R53.1 - WEAKNESS (6) Sepsis Code(s): A41.9 - SEPSIS, UNSPECIFIED ORGANISM (7) Anxiety Code(s): F41.9 - ANXIETY DISORDER, UNSPECIFIED (8) Aortic stenosis Assessment/Plan: ECHO: normal LVEF; diastolic dysfunction; mild . Code(s): I35.0 - NONRHEUMATIC AORTIC (VALVE) STENOSIS Qualifiers: Cardiac valve disease etiology: nonrheumatic Qualified Code(s): I35.0 - Nonrheumatic aortic (valve) stenosis (9) Diabetes mellitus Code(s): E11.9 - TYPE 2 DIABETES MELLITUS WITHOUT COMPLICATIONS (10) Chronic diastolic (congestive) heart failure Code(s): I50.32 - CHRONIC DIASTOLIC (CONGESTIVE) HEART FAILURE
[2018-10-10] MEDS: ATORVASTATIN CA 10 MG TABLET (FP) PO SCH (22:11)
[2018-10-10] MEDS: MIRTAZAPINE 15 MG TABLET (FP) PO SCH (22:11)
[2018-10-11] MEDS: INSULIN (NOVOLOG MIX 70/30) 100 UNITS/ML MDV SQ SCH ×3 (06:56→18:04)
[2018-10-11] MEDS: sitaGLIPtin PHOSPHATE 50 MG TABLET PO SCH (06:56)
[2018-10-11] MEDS: INSULIN SLIDING SCALE (NOVOLOG) 1 VIAL SQ SCH ×3 (06:56→18:04)
[2018-10-11] MEDS ORDERED: cefTRIAXone SODIUM 1 GM VIAL ONE (08:09)
[2018-10-11] MEDS ORDERED: PT OWN MED DRAWER 7, Y5N ONE (08:09)
[2018-10-11] MEDS ORDERED: DEXTROSE 5%-WATER - 50 ML IVPB ONE (08:09)
[2018-10-11] MEDS: CEFTRIAXONE 1 GM in DEXTROSE 5%-WATER - 50 ML IVPB SCH (09:31)
[2018-10-11] MEDS: HEPARIN NA (PORCINE) 5,000 UNITS/ML 1ML VIAL SQ SCH ×2 (09:32→22:00)
[2018-10-11] MEDS: busPIRone HCL 5 MG TABLET PO SCH ×2 (09:32→22:00)
--- NOTE | 2018-10-11 11:29 | PN ---
Progress Note, Physician History of Present Illness: stable no new issues - Current Medication List Current Medications: Active Medications Acetaminophen (Tylenol -) 650 mg PO Q6H PRN PRN Reason: FEVER Last Admin: 10/08/18 15:34 Dose: 650 mg Alprazolam (Xanax -) 0.25 mg PO Q8H PRN PRN Reason: ANXIETY Last Admin: 10/10/18 11:26 Dose: 0.25 mg Atorvastatin Calcium (Lipitor -) 10 mg PO HS [facility] Last Admin: 10/10/18 22:11 Dose: Not Given Buspirone HCl (Buspar -) 5 mg PO BID [facility] Last Admin: 10/11/18 09:32 Dose: Not Given Heparin Sodium (Porcine) (Heparin -) 5,000 unit SQ BID [facility] Last Admin: 10/11/18 09:32 Dose: 5,000 unit Ceftriaxone Sodium 1 gm/ (Dextrose) 50 mls @ 100 mls/hr IVPB DAILY [facility]; Protocol Last Admin: 10/11/18 09:31 Dose: 100 mls/hr Ibuprofen (Motrin -) 400 mg PO Q6H PRN PRN Reason: FEVER Insulin Aspart (Novolog Vial Sliding Scale -) 1 vial SQ TIDAC [facility]; Protocol Last Admin: 10/11/18 06:56 Dose: Not Given Insulin Aspart (Novolog Mix 70/30 Vial) 22 units SQ BIDAC [facility] Last Admin: 10/11/18 09:30 Dose: 22 units Mirtazapine (Remeron -) 7.5 mg PO HS [facility] Last Admin: 10/10/18 22:11 Dose: Not Given Senna (Senna -) 2 tab PO HS PRN PRN Reason: CONSTIPATION Last Admin: 10/08/18 22:49 Dose: 2 tab Sitagliptin Phosphate (Januvia -) 50 mg PO DAILY@0700 [facility] Last Admin: 10/11/18 06:56 Dose: Not Given - Objective Vital Signs: Vital Signs Temperature 98.6 F 10/11/18 10:00 Pulse Rate 104 H 10/11/18 10:00 Respiratory Rate 20 10/11/18 10:00 Blood Pressure 108/60 10/11/18 10:00 O2 Sat by Pulse Oximetry (%) 98 10/11/18 09:00 Constitutional: Yes: No Distress, Calm Respiratory: Yes: Regular, CTA Bilaterally Gastrointestinal: Yes: Normal Bowel Sounds, Soft Musculoskeletal: Yes: WNL Extremities: Yes: Other Neurological: Yes: Alert, Oriented Psychiatric: Yes: Alert, Oriented Labs: CBC, BMP 10/09/18 06:56 10/09/18 06:56 Assessment/Plan Problem List - Problems (1) Fall Code(s): W19.XXXA - UNSPECIFIED FALL, INITIAL ENCOUNTER (2) Generalized weakness Code(s): R53.1 - WEAKNESS (3) Anxiety Code(s): F41.9 - ANXIETY DISORDER, UNSPECIFIED (4) Depression Code(s): F32.9 - MAJOR DEPRESSIVE DISORDER, SINGLE EPISODE, UNSPECIFIED (5) Diabetes mellitus Code(s): E11.9 - TYPE 2 DIABETES MELLITUS WITHOUT COMPLICATIONS Assessment/Plan 73 y.o. female with IDDM, HTN, s/p gastric bypass, s/p Lt 4th/5th toe amp/ gangrene, anxiety presents s/p fall noted to be hypotensive, tachycardic, with elevated lactic acid level Sepsis hypotension IDDM Lactic acidosis Bacteriuria s/p Fall plan can change to oral augmentin rest as per cardio and the team
[2018-10-11] MEDS ORDERED: IBUPROFEN 400 MG TABLET (FP) PO PRN (11:33)
[2018-10-11] MEDS ORDERED: ALPRAZolam 0.25 MG TABLET PO PRN (11:33)
--- NOTE | 2018-10-11 12:24 | PN ---
Progress Note (short form) - Note Progress Note: Comfortable no new issues Vital Signs Temp 98.6 F 10/11/18 10:00 Pulse 104 H 10/11/18 10:00 Resp 20 10/11/18 10:00 BP 108/60 10/11/18 10:00 Pulse Ox 98 10/11/18 09:00 Intake & Output 10/10/18 10/11/18 10/11/18 23:59 11:59 23:59 Intake Total 300 200 Balance 300 200 Intake: Oral 300 200 Other: Voiding Method Incontinent Incontinent # Unmeasured Voids Straight Cath 2 Bowel Movement Yes # Bowel Movements 1 Active Medications Acetaminophen (Tylenol -) 650 mg PO Q6H PRN PRN Reason: FEVER Alprazolam (Xanax -) 0.25 mg PO Q8H PRN PRN Reason: ANXIETY Amoxicillin/Clavulanate Potassium (Augmentin - 500mg Tablet) 1 tab PO BID@0800, 1730 [facility] Atorvastatin Calcium (Lipitor -) 10 mg PO HS [facility] Buspirone HCl (Buspar -) 5 mg PO BID [facility] Last Admin: 10/11/18 09:32 Dose: Not Given Heparin Sodium (Porcine) (Heparin -) 5,000 unit SQ BID [facility] Ibuprofen (Motrin -) 400 mg PO Q6H PRN PRN Reason: FEVER Insulin Aspart (Novolog Mix 70/30 Vial) 22 units SQ BIDAC [facility] Insulin Aspart (Novolog Vial Sliding Scale -) 1 vial SQ TIDAC [facility]; Protocol Mirtazapine (Remeron -) 7.5 mg PO HS [facility] Last Admin: 10/10/18 22:11 Dose: Not Given Senna (Senna -) 2 tab PO HS PRN PRN Reason: CONSTIPATION Last Admin: 10/08/18 22:49 Dose: 2 tab Sitagliptin Phosphate (Januvia -) 50 mg PO DAILY@0700 [facility] Last Admin: 10/11/18 06:56 Dose: Not Given CBC, BMP 10/09/18 06:56 10/09/18 06:56 Microbiology 10/07/18 00:30 Blood Culture - Preliminary Blood - Peripheral Venous NO GROWTH OBTAINED AFTER 96 HOURS, INCUBATION TO CONTINUE FOR 1 DAYS. 10/07/18 00:30 Blood Culture - Preliminary Blood - Peripheral Venous NO GROWTH OBTAINED AFTER 96 HOURS, INCUBATION TO CONTINUE FOR 1 DAYS. Physical Exam Constitutional: Yes: No Distress,comfortable Eyes: Yes: Conjunctiva Clear HENT: Yes: Atraumatic Neck: Yes: Supple. no jvd Thyroid not enlarged Cardiovascular: Yes:S1,s2 RRR Respiratory: Yes: CTA Bilaterally Gastrointestinal: Yes: Normal Bowel Sounds, Soft,non tender . bs + Renal/: Yes: WNL Musculoskeletal: Yes: WNL Extremities: Yes: Amputation (healed Lt foot 4/5th toes, healed) Edema: No Neurological: Yes: Alert, Oriented x 3, A/P Sepsis UTI S/P fall weight loss- po augmentin h/o weight loss =-- Need to monitor as out pt-- pt was not eating Physical therapy continue with meds dc planning to rehab -- Discussed with [employer] also-- Stable for D/c Will follow Problem List - Problems (1) Fall Code(s): W19.XXXA - UNSPECIFIED FALL, INITIAL ENCOUNTER (2) Generalized weakness Code(s): R53.1 - WEAKNESS (3) Anxiety Code(s): F41.9 - ANXIETY DISORDER, UNSPECIFIED (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
--- NOTE | 2018-10-11 12:31 | DS ---
Physical Examination Vital Signs: Vital Signs Temperature 98.6 F 10/11/18 10:00 Pulse Rate 104 H 10/11/18 10:00 Respiratory Rate 20 10/11/18 10:00 Blood Pressure 108/60 10/11/18 10:00 O2 Sat by Pulse Oximetry (%) 98 10/11/18 09:00 Labs: CBC, BMP 10/09/18 06:56 10/09/18 06:56 Discharge Summary Reason For Visit: COMPRESSION FRACTURE OF LUMBAR VERTEBRA Current Active Problems Amputated toe of left foot (Acute) Compression fracture of lumbar vertebra (Acute) Fall (Acute) Generalized weakness (Acute) Hyperlipidemia (Acute) Sepsis (Acute) Sinus tachycardia (Acute) - Instructions - Home Medications Comprehensive Discharge Medication List: Ambulatory Orders Acetaminophen [Tylenol .Regular Strength -] 650 mg PO Q6H PRN #0 tablet Alprazolam [Xanax] 0.25 mg PO Q8H PRN #30 tablet MDD 3 09/14/16 Aspirin [ASA -] 81 mg PO DAILY #30 tab.chew 09/14/16 Atorvastatin Ca [Lipitor] 10 mg PO HS tablet 05/21/17 Insulin (Novolog 70/30) [Novolog Mix 70/30 Vial -] 24 units SQ BIDI vial Amox-Tr/K Cl [Augmentin 500-125mg Tablet -] 1 tab PO BID@0800,1730 #10 tablet Buspirone HCl [Buspar -] 5 mg PO BID tablet 10/11/18 Heparin - 5,000 unit SQ BID vial 10/11/18 Insulin Sliding Scale [Novolog Vial Sliding Scale -] 1 vial SQ TIDAC units 07/24 Mirtazapine [Remeron -] 7.5 mg PO HS tablet 10/11/18 Sitagliptin Phosphate [Januvia -] 50 mg PO DAILY@0700 tablet 10/11/18
[2018-10-11] MEDS: AMOX TR/POT CLAV 500MG/125MG TABLETS (FP) PO SCH (18:04)
[2018-10-11] MEDS: ATORVASTATIN CA 10 MG TABLET (FP) PO SCH (22:01)
[2018-10-11] MEDS: MIRTAZAPINE 15 MG TABLET (FP) PO SCH (22:01)
--- NOTE | 2018-10-12 06:04 | PN ---
Progress Note, Physician Chief Complaint: Pt A&OX3; anxious. No chest pain or palpitatins. History of Present Illness: The patient is a 73 year old white female, with a significant past medical history of HTN, DM, diastolic CHF, hyperlipidemia, anxiety/?depression, who presents to the emergency department s/p fall. As per patient, she fell while attempting to get the mail and subsequently was on the floor for 2 days secondary to inability to get up (weak). Patient notes she normally receives her meals via meals on wheels but, has not eaten in 2 days secondary to lack of delivery. She notes over the past year she has lost 40 pounds. Her 3 years ago, and she lives alone. She denies any LOC or head/neck trauma. She denies recent chest pain or shortness of breath. Allergies: NKDA Primary Care Physician: Dr. Malcolm - Current Medication List Current Medications: Active Medications Acetaminophen (Tylenol -) 650 mg PO Q6H PRN PRN Reason: FEVER Alprazolam (Xanax -) 0.25 mg PO Q8H PRN PRN Reason: ANXIETY Amoxicillin/Clavulanate Potassium (Augmentin - 500mg Tablet) 1 tab PO BID@0800, 1730 [facility] Last Admin: 10/11/18 18:04 Dose: Not Given Atorvastatin Calcium (Lipitor -) 10 mg PO HS [facility] Last Admin: 10/11/18 22:01 Dose: Not Given Buspirone HCl (Buspar -) 5 mg PO BID [facility] Last Admin: 10/11/18 22:00 Dose: Not Given Heparin Sodium (Porcine) (Heparin -) 5,000 unit SQ BID [facility] Last Admin: 10/11/18 22:00 Dose: Not Given Ibuprofen (Motrin -) 400 mg PO Q6H PRN PRN Reason: FEVER Insulin Aspart (Novolog Mix 70/30 Vial) 22 units SQ BIDAC [facility] Last Admin: 10/11/18 18:04 Dose: 22 units Insulin Aspart (Novolog Vial Sliding Scale -) 1 vial SQ TIDAC [facility]; Protocol Last Admin: 10/11/18 18:04 Dose: Not Given Mirtazapine (Remeron -) 7.5 mg PO HS [facility] Last Admin: 10/11/18 22:01 Dose: Not Given Senna (Senna -) 2 tab PO HS PRN PRN Reason: CONSTIPATION Last Admin: 10/08/18 22:49 Dose: 2 tab Sitagliptin Phosphate (Januvia -) 50 mg PO DAILY@0700 [facility] Last Admin: 10/11/18 06:56 Dose: Not Given - Objective Vital Signs: Vital Signs Temperature 98.6 F 10/12/18 02:40 Pulse Rate 112 H 10/12/18 02:40 Respiratory Rate 20 10/12/18 02:40 Blood Pressure 109/62 10/12/18 02:40 O2 Sat by Pulse Oximetry (%) 98 10/11/18 21:00 Constitutional: Yes: Anxious, Thin Eyes: Yes: WNL HENT: Yes: WNL Neck: Yes: WNL Cardiovascular: Yes: WNL Respiratory: Yes: WNL Gastrointestinal: Yes: WNL ...Rectal Exam: Yes: Deferred Genitourinary: No: Anuria Breast(s): Yes: WNL Musculoskeletal: Yes: Muscle Weakness Extremities: Yes: WNL Edema: No Peripheral Pulses WNL: Yes Integumentary: Yes: WNL Neurological: Yes: Alert, Oriented, Weakness Labs: CBC, BMP 10/09/18 06:56 10/09/18 06:56 Problem List - Problems (1) Amputated toe of left foot Assessment/Plan: 4th and 5th toes amputated "because of my diabetes, and I did not take the best care of the wound". F/u with vascular surgeon. Aggressvie contole of lipids, Physical rehabilitation. Code(s): S98.132A - COMPLETE TRAUMATIC AMPUTATION OF ONE LEFT LESSER TOE, INIT (2) Hyperlipidemia Assessment/Plan: On statin (?hx CAD; +PAD-->amputation); f/u lipid levels, which were well- controlled in 2018. Code(s): E78.5 - HYPERLIPIDEMIA, UNSPECIFIED (3) Sinus tachycardia Assessment/Plan: Multifactorial: anxiety, sepsis, dehydration, Telemetry: NSR; periods of sinus tachycardia.HR better-controlled after pt given anxiolytics. ECHO: normal LVEF; mild . Recommend: Fluids, both IV and PO (BUN 13 in 2018; now 28-->18). Pt may be taken off telemetry monitoring. Code(s): R00.0 - TACHYCARDIA, UNSPECIFIED (4) Compression fracture of lumbar vertebra Code(s): S32.000A - WEDGE COMPRESSION FRACTURE OF UNSP LUMBAR VERTEBRA, INIT (5) Generalized weakness Code(s): R53.1 - WEAKNESS (6) Sepsis Code(s): A41.9 - SEPSIS, UNSPECIFIED ORGANISM (7) Anxiety Code(s): F41.9 - ANXIETY DISORDER, UNSPECIFIED (8) Aortic stenosis Assessment/Plan: ECHO: normal LVEF; diastolic dysfunction; mild . Code(s): I35.0 - NONRHEUMATIC AORTIC (VALVE) STENOSIS Qualifiers: Cardiac valve disease etiology: nonrheumatic Qualified Code(s): I35.0 - Nonrheumatic aortic (valve) stenosis (9) Diabetes mellitus Code(s): E11.9 - TYPE 2 DIABETES MELLITUS WITHOUT COMPLICATIONS (10) Chronic diastolic (congestive) heart failure Code(s): I50.32 - CHRONIC DIASTOLIC (CONGESTIVE) HEART FAILURE (11) Ectopic atrial beats Assessment/Plan: EKG shows sinus tachycarida replacing ectopic atrial rhythm noted earlier. AV conduction beatrice problematic presently due to periods of hypotension. Code(s): I49.1 - ATRIAL PREMATURE DEPOLARIZATION
[2018-10-12] MEDS: INSULIN (NOVOLOG MIX 70/30) 100 UNITS/ML MDV SQ SCH ×2 (06:43→17:06)
[2018-10-12] MEDS: INSULIN SLIDING SCALE (NOVOLOG) 1 VIAL SQ SCH ×3 (06:43→17:06)
[2018-10-12] MEDS: sitaGLIPtin PHOSPHATE 50 MG TABLET PO SCH (06:43)
[2018-10-12] MEDS: AMOX TR/POT CLAV 500MG/125MG TABLETS (FP) PO SCH ×2 (08:37→17:06)
[2018-10-12] MEDS: busPIRone HCL 5 MG TABLET PO SCH ×2 (09:20→21:16)
[2018-10-12] MEDS: HEPARIN NA (PORCINE) 5,000 UNITS/ML 1ML VIAL SQ SCH ×2 (09:20→21:16)
--- NOTE | 2018-10-12 09:44 | PN ---
Progress Note, Physician History of Present Illness: says she feels weak says had a low bp - Current Medication List Current Medications: Active Medications Acetaminophen (Tylenol -) 650 mg PO Q6H PRN PRN Reason: FEVER Alprazolam (Xanax -) 0.25 mg PO Q8H PRN PRN Reason: ANXIETY Amoxicillin/Clavulanate Potassium (Augmentin - 500mg Tablet) 1 tab PO BID@0800, 1730 [facility] Last Admin: 10/12/18 08:37 Dose: 1 tab Atorvastatin Calcium (Lipitor -) 10 mg PO HS [facility] Last Admin: 10/11/18 22:01 Dose: Not Given Buspirone HCl (Buspar -) 5 mg PO BID [facility] Last Admin: 10/12/18 09:20 Dose: Not Given Heparin Sodium (Porcine) (Heparin -) 5,000 unit SQ BID [facility] Last Admin: 10/12/18 09:20 Dose: Not Given Ibuprofen (Motrin -) 400 mg PO Q6H PRN PRN Reason: FEVER Insulin Aspart [facility] 70[facility]30 [facility] Last Admin: 10/12/18 06:43 Dose: Not Given Insulin Aspart (Novolog Vial Sliding Scale -) 1 vial SQ TIDAC [facility]; Protocol Last Admin: 10/12/18 06:43 Dose: Not Given Mirtazapine (Remeron -) 7.5 mg PO [facility] Last Admin: 10/11/18 22:01 Dose: Not Given Senna (Senna -) 2 tab PO HS PRN PRN Reason: CONSTIPATION Last Admin: 10/08/18 22:49 Dose: 2 tab Sitagliptin Phosphate (Januvia -) 50 mg PO DAILY@0700 [facility] Last Admin: 10/12/18 06:43 Dose: Not Given - Objective Vital Signs: Vital Signs Temperature 98.6 F 10/12/18 05:55 Pulse Rate 112 H 10/12/18 05:55 Respiratory Rate 20 10/12/18 05:55 Blood Pressure 109/62 10/12/18 05:55 O2 Sat by Pulse Oximetry (%) 98 10/11/18 21:00 Constitutional: Yes: No Distress, Calm Cardiovascular: Yes: S1, S2 Respiratory: Yes: Regular, CTA Bilaterally Gastrointestinal: Yes: Normal Bowel Sounds, Soft Musculoskeletal: Yes: WNL Extremities: Yes: Other Neurological: Yes: Alert, Oriented Psychiatric: Yes: Alert, Oriented Labs: CBC, BMP 10/09/18 06:56 10/09/18 06:56 Assessment/Plan Problem List - Problems (1) Fall Code(s): W19.XXXA - UNSPECIFIED FALL, INITIAL ENCOUNTER (2) Generalized weakness Code(s): R53.1 - WEAKNESS (3) Anxiety Code(s): F41.9 - ANXIETY DISORDER, UNSPECIFIED (4) Depression Code(s): F32.9 - MAJOR DEPRESSIVE DISORDER, SINGLE EPISODE, UNSPECIFIED (5) Diabetes mellitus Code(s): E11.9 - TYPE 2 DIABETES MELLITUS WITHOUT COMPLICATIONS Assessment/Plan 73 y.o. female with IDDM, HTN, s/p gastric bypass, s/p Lt 4th/5th toe amp/ gangrene, anxiety presents s/p fall noted to be hypotensive, tachycardic, with elevated lactic acid level Sepsis hypotension IDDM Lactic acidosis Bacteriuria s/p Fall plan oral abx for 5 days rest as per the team
--- NOTE | 2018-10-12 18:58 | PN ---
Progress Note (short form) - Note Progress Note: anxious As per RN-- pt is eating but pt states she has no appetite states her BP was low she appealed discharge to [place] Vital Signs - 24 hr 10/11/18 10/11/18 10/12/18 20:30 21:00 02:00 Temperature 99 F 98.5 F Pulse Rate 108 H 85 Respiratory 20 20 20 Rate Blood Pressure 94/61 134/63 O2 Sat by Pulse 98 Oximetry (%) 10/12/18 10/12/18 10/12/18 05:55 10:00 15:14 Temperature 98.6 F 98.6 F 98.6 F Pulse Rate 112 H 98 H 103 H Respiratory 20 18 18 Rate Blood Pressure 109/62 100/62 97/57 L O2 Sat by Pulse 95 Oximetry (%) Current Medications Generic Name Dose Route Start Last Admin Trade Name Freq PRN Reason Stop Dose Admin Acetaminophen 650 mg 10/11/18 11:33 Tylenol - PO Q6H PRN FEVER Alprazolam 0.25 mg 10/11/18 11:33 Xanax - PO Q8H PRN ANXIETY Amoxicillin/Clavulanate Potassium 1 tab 10/11/18 17:30 10/12/18 17:06 Augmentin - 500mg Tablet PO Not Given BID@0800,1730 [facility] Atorvastatin Calcium 10 mg 10/11/18 22:00 10/11/18 22:01 Lipitor - PO Not Given HS [facility] Buspirone HCl 5 mg 10/10/18 11:45 10/12/18 09:20 Buspar - PO Not Given BID [facility] Heparin Sodium (Porcine) 5,000 unit 10/11/18 22:00 10/12/18 09:20 Heparin - SQ Not Given BID [facility] Ibuprofen 400 mg 10/11/18 11:33 Motrin - PO Q6H PRN FEVER Insulin Aspart 22 units 10/11/18 16:30 10/12/18 17:06 Novolog Mix 70/30 Vial SQ Not Given BIDAC [facility] Insulin Aspart 1 vial 10/11/18 16:30 10/12/18 17:06 Novolog Vial Sliding Scale - SQ 7 units TIDAC [facility] Administration Protocol Mirtazapine 7.5 mg 10/08/18 22:00 10/11/18 22:01 Remeron - PO Not Given HS [facility] Senna 2 tab 10/08/18 22:00 10/08/18 22:49 Senna - PO 2 tab HS PRN Administration CONSTIPATION Sitagliptin Phosphate 50 mg 10/10/18 07:00 10/12/18 06:43 Januvia - PO Not Given DAILY@0700 [facility] Laboratory Results - last 24 hr 10/11/18 10/12/18 10/12/18 23:35 00:23 06:40 POC Glucometer 60 171 117 10/12/18 10/12/18 10/12/18 06:52 10:36 15:11 POC Glucometer 91 177 287 Physical Exam Constitutional: Yes: No Distress, comfortable. Eyes: Yes: Conjunctiva Clear HENT: Yes: Atraumatic Neck: Yes: Supple. no jvd No bruie Thyroid not enlarged Cardiovascular: Yes:S1,s2 RRR Respiratory: Yes: CTA Bilaterally Gastrointestinal: Yes: Normal Bowel Sounds, Soft,non tender . bs + Renal/: Yes: WNL Musculoskeletal: Yes: WNL Extremities: Yes: Amputation (healed Lt foot 4/5th toes, healed) Edema: No Neurological: Yes: Alert, Oriented x 3, forgetful a/p Sepsis UTI S/P fall weight loss- po augmentin h/o weight loss =-- Need to monitor as out pt echo noted Physical therapy continue with meds dc planning to rehab Problem List - Problems (1) Compression fracture of lumbar vertebra Code(s): S32.000A - WEDGE COMPRESSION FRACTURE OF UNSP LUMBAR VERTEBRA, INIT (2) Fall Code(s): W19.XXXA - UNSPECIFIED FALL, INITIAL ENCOUNTER (3) Generalized weakness Code(s): R53.1 - WEAKNESS (4) Sepsis Code(s): A41.9 - SEPSIS, UNSPECIFIED ORGANISM (5) Anxiety Code(s): F41.9 - ANXIETY DISORDER, UNSPECIFIED (6) CAD (coronary artery disease) Code(s): I25.10 - ATHSCL HEART DISEASE OF [place] CORONARY ARTERY W/O ANG PCTRS Qualifiers: Coronary Disease-Associated Artery/Lesion type: [place] artery Associated angina: angina presence unspecified (7) Depression Code(s): F32.9 - MAJOR DEPRESSIVE DISORDER, SINGLE EPISODE, UNSPECIFIED
[2018-10-12] MEDS: ACETAMINOPHEN 325 MG TABLET (FP) PO PRN (19:37)
[2018-10-12] MEDS: MIRTAZAPINE 15 MG TABLET (FP) PO SCH (21:17)
[2018-10-12] MEDS: ATORVASTATIN CA 10 MG TABLET (FP) PO SCH (21:17)
[2018-10-13] MEDS: sitaGLIPtin PHOSPHATE 50 MG TABLET PO SCH (06:50)
[2018-10-13] MEDS ORDERED: INSULIN (NOVOLOG) ASPART 100 UNITS/ML 10ML VIAL ONE ×2 (07:12→08:23)
[2018-10-13] MEDS: INSULIN SLIDING SCALE (NOVOLOG) 1 VIAL SQ SCH ×4 (07:14→17:25)
[2018-10-13] MEDS: INSULIN (NOVOLOG MIX 70/30) 100 UNITS/ML MDV SQ SCH ×2 (07:14→17:24)
[2018-10-13] MEDS: AMOX TR/POT CLAV 500MG/125MG TABLETS (FP) PO SCH (08:26)
--- NOTE | 2018-10-13 09:53 | PN ---
Progress Note (short form) - Note Progress Note: anxious As per RN-- pt is eating but pt states she has no appetite states her BP was low refusing Augmentin pills-- tells me they are too big Vital Signs - 24 hr 10/12/18 10/12/18 10/12/18 10:00 15:14 18:00 Temperature 98.6 F 98.6 F 98.3 F Pulse Rate 98 H 103 H 105 H Respiratory 18 18 19 Rate Blood Pressure 100/62 97/57 L 95/55 L O2 Sat by Pulse 95 Oximetry (%) 10/12/18 10/12/18 10/13/18 21:00 23:00 02:00 Temperature 98.2 F 98.4 F Pulse Rate 96 H 91 H Respiratory 19 19 18 Rate Blood Pressure 94/45 L 94/54 L O2 Sat by Pulse 96 Oximetry (%) 10/13/18 10/13/18 06:00 08:47 Temperature 98.5 F Pulse Rate 102 H Respiratory 18 Rate Blood Pressure 106/64 O2 Sat by Pulse 95 Oximetry (%) Laboratory Results - last 24 hr 10/12/18 10/12/18 10/12/18 10:36 15:11 21:42 POC Glucometer 177 287 179 10/13/18 06:47 POC Glucometer 224 Current Medications Generic Name Dose Route Start Last Admin Trade Name Franckq PRN Reason Stop Dose Admin Acetaminophen 650 mg 10/11/18 11:33 10/12/18 19:37 Tylenol - PO 650 mg Q6H PRN Administration FEVER Alprazolam 0.5 mg 10/13/18 09:49 Xanax - PO Q8H PRN ANXIETY Amoxicillin/Clavulanate Potassium 600 mg 10/13/18 17:30 Augmentin 600 Mg/5 Ml Oral Suspension - PO BID@0800,1730 JOSE Atorvastatin Calcium 10 mg 10/11/18 22:00 10/12/18 21:17 Lipitor - PO Not Given HS JOSE Buspirone HCl 5 mg 10/10/18 11:45 10/12/18 21:16 Buspar - PO 5 mg BID JOSE Administration Heparin Sodium (Porcine) 5,000 unit 10/11/18 22:00 10/12/18 21:16 Heparin - SQ 5,000 unit BID JOSE Administration Ibuprofen 400 mg 10/11/18 11:33 Motrin - PO Q6H PRN FEVER Insulin Aspart 22 units 10/11/18 16:30 10/13/18 07:14 Novolog Mix 70/30 Vial SQ Not Given BIDAC JOSE Insulin Aspart 1 vial 10/11/18 16:30 10/13/18 08:23 Novolog Vial Sliding Scale - SQ 5 units TIDAC JOSE Administration Protocol Mirtazapine 7.5 mg 10/08/18 22:00 10/12/18 21:17 Remeron - PO Not Given HS JOSE Senna 2 tab 10/08/18 22:00 10/08/18 22:49 Senna - PO 2 tab HS PRN Administration CONSTIPATION Sitagliptin Phosphate 50 mg 10/10/18 07:00 10/13/18 06:50 Januvia - PO Not Given DAILY@0700 [facility] Physical Exam Constitutional: Yes: No Distress, comfortable. Eyes: Yes: Conjunctiva Clear HENT: Yes: Atraumatic Neck: Yes: Supple. no jvd No bruie Thyroid not enlarged Cardiovascular: Yes:S1,s2 RRR Respiratory: Yes: CTA Bilaterally Gastrointestinal: Yes: Normal Bowel Sounds, Soft,non tender . bs + Renal/: Yes: WNL Musculoskeletal: Yes: WNL Extremities: Yes: Amputation (healed Lt foot 4/5th toes, healed) Edema: No Neurological: Yes: Alert, Oriented x 3, forgetful a/p Sepsis UTI S/P fall weight loss- po augmentin-- change to liquid h/o weight loss =-- Need to monitor as out pt echo noted Physical therapy continue with meds dc planning to rehab pt refusing to go-- she even unhooked her phone-- does not want to talk to the person who deals with the appeals process-- she is aware that she kept the phone unhooked BP lower side- baseline, not on meds- assymptomatic Problem List - Problems (1) Compression fracture of lumbar vertebra Code(s): S32.000A - WEDGE COMPRESSION FRACTURE OF UNSP LUMBAR VERTEBRA, INIT (2) Fall Code(s): W19.XXXA - UNSPECIFIED FALL, INITIAL ENCOUNTER (3) Generalized weakness Code(s): R53.1 - WEAKNESS (4) Sepsis Code(s): A41.9 - SEPSIS, UNSPECIFIED ORGANISM (5) Anxiety Code(s): F41.9 - ANXIETY DISORDER, UNSPECIFIED (6) CAD (coronary artery disease) Code(s): I25.10 - ATHSCL HEART DISEASE OF [place] CORONARY ARTERY W/O ANG PCTRS Qualifiers: Coronary Disease-Associated Artery/Lesion type: [place] artery Associated angina: angina presence unspecified (7) Depression Code(s): F32.9 - MAJOR DEPRESSIVE DISORDER, SINGLE EPISODE, UNSPECIFIED
[2018-10-13] MEDS: HEPARIN NA (PORCINE) 5,000 UNITS/ML 1ML VIAL SQ SCH ×2 (10:02→21:25)
[2018-10-13] MEDS: busPIRone HCL 5 MG TABLET PO SCH ×2 (10:02→21:16)
--- NOTE | 2018-10-13 13:55 | PN ---
Progress Note, Physician History of Present Illness: says she feels weak - Current Medication List Current Medications: Active Medications Acetaminophen (Tylenol -) 650 mg PO Q6H PRN PRN Reason: FEVER Last Admin: 10/12/18 19:37 Dose: 650 mg Alprazolam (Xanax -) 0.5 mg PO Q8H PRN PRN Reason: ANXIETY Amoxicillin/Clavulanate Potassium (Augmentin 600 Mg/5 Ml Oral Suspension -) 600 mg PO BID@0800,1730 [facility] Atorvastatin Calcium (Lipitor -) 10 mg PO [facility] Last Admin: 10/12/18 21:17 Dose: Not Given Buspirone HCl (Buspar -) 5 mg PO BID [facility] Last Admin: 10/13/18 10:02 Dose: Not Given Heparin Sodium (Porcine) (Heparin -) 5,000 unit SQ BID [facility] Last Admin: 10/13/18 10:02 Dose: 5,000 unit Ibuprofen (Motrin -) 400 mg PO Q6H PRN PRN Reason: FEVER Insulin Aspart (Novolog Mix 70/30 Vial) 22 units SQ [facility] Last Admin: 10/13/18 07:14 Dose: Not Given Insulin Aspart (Novolog Vial Sliding Scale -) 1 vial SQ TIDAC [facility]; Protocol Last Admin: 10/13/18 11:28 Dose: 7 units Mirtazapine (Remeron -) 7.5 mg PO [facility] Last Admin: 10/12/18 21:17 Dose: Not Given Senna (Senna -) 2 tab PO HS PRN PRN Reason: CONSTIPATION Last Admin: 10/08/18 22:49 Dose: 2 tab Sitagliptin Phosphate (Januvia -) 50 mg PO DAILY@0700 [facility] Last Admin: 10/13/18 06:50 Dose: Not Given - Objective Vital Signs: Vital Signs Temperature 98.5 F 10/13/18 06:00 Pulse Rate 102 H 10/13/18 06:00 Respiratory Rate 18 10/13/18 06:00 Blood Pressure 106/64 10/13/18 06:00 O2 Sat by Pulse Oximetry (%) 95 10/13/18 08:47 Constitutional: Yes: No Distress, Calm Cardiovascular: Yes: S1, S2 Respiratory: Yes: Regular, CTA Bilaterally Gastrointestinal: Yes: Normal Bowel Sounds, Soft Musculoskeletal: Yes: WNL Extremities: Yes: WNL Neurological: Yes: Alert, Oriented Psychiatric: Yes: Alert, Oriented Labs: CBC, BMP 10/09/18 06:56 10/09/18 06:56 Assessment/Plan Problem List - Problems (1) Fall Code(s): W19.XXXA - UNSPECIFIED FALL, INITIAL ENCOUNTER (2) Generalized weakness Code(s): R53.1 - WEAKNESS (3) Anxiety Code(s): F41.9 - ANXIETY DISORDER, UNSPECIFIED (4) Depression Code(s): F32.9 - MAJOR DEPRESSIVE DISORDER, SINGLE EPISODE, UNSPECIFIED (5) Diabetes mellitus Code(s): E11.9 - TYPE 2 DIABETES MELLITUS WITHOUT COMPLICATIONS Assessment/Plan 73 y.o. female with IDDM, HTN, s/p gastric bypass, s/p Lt 4th/5th toe amp/ gangrene, anxiety presents s/p fall noted to be hypotensive, tachycardic, with elevated lactic acid level Sepsis hypotension IDDM Lactic acidosis Bacteriuria s/p Fall plan oral abx for 5 days rest as per the team
[2018-10-13] MEDS: AMOX TR/POTASSIUM CLAVULANATE 600 MG/5 ML PO SCH (17:33)
[2018-10-13] MEDS: ACETAMINOPHEN 325 MG TABLET (FP) PO PRN (21:15)
[2018-10-13] MEDS: MIRTAZAPINE 15 MG TABLET (FP) PO SCH (21:17)
[2018-10-13] MEDS: ATORVASTATIN CA 10 MG TABLET (FP) PO SCH (21:17)
[2018-10-14] MEDS: sitaGLIPtin PHOSPHATE 50 MG TABLET PO SCH (06:34)
[2018-10-14] MEDS: INSULIN SLIDING SCALE (NOVOLOG) 1 VIAL SQ SCH ×4 (06:35→17:35)
[2018-10-14] MEDS: INSULIN (NOVOLOG MIX 70/30) 100 UNITS/ML MDV SQ SCH ×2 (06:35→17:35)
--- NOTE | 2018-10-14 07:58 | PN ---
Progress Note, Physician History of Present Illness: 73 y.o. 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 She states she her legs gave way when attempting to get her mail and was unable to get up for the next >24 hrs. Denies head trauma/LOC. Pt reports not taking her insulin for the past few days and having poor oral intake. States she has lost more than 30 lbs since her 's . Also she reports having 3 loose stools in the days prior to her fall but none recently. Denies any recent SOB/cough, fever/chills, abd pain/n/v, dysuria. In the ER pt noted to be alert, without acute distress, afebrile with normal wbc count but was hypotensive (BP 79/38), HR of 129, and elevated lactic acid (2.8) and glucose of 328. Currently she is sitting up in bed, fully alert and conversive, without distress, remaining afebrile. - Current Medication List Current Medications: Active Medications Acetaminophen (Tylenol -) 650 mg PO Q6H PRN PRN Reason: FEVER Last Admin: 10/13/18 21:15 Dose: 650 mg Alprazolam (Xanax -) 0.5 mg PO Q8H PRN PRN Reason: ANXIETY Amoxicillin/Clavulanate Potassium (Augmentin 600 Mg/5 Ml Oral Suspension -) 600 mg PO BID@0800,1730 [facility] Last Admin: 10/13/18 17:33 Dose: 5 ml Atorvastatin Calcium (Lipitor -) 10 mg PO HS [facility] Last Admin: 10/13/18 21:17 Dose: Not Given Buspirone HCl (Buspar -) 5 mg PO BID [facility] Last Admin: 10/13/18 21:16 Dose: Not Given Heparin Sodium (Porcine) (Heparin -) 5,000 unit SQ BID [facility] Last Admin: 10/13/18 21:25 Dose: 5,000 unit Ibuprofen (Motrin -) 400 mg PO Q6H PRN PRN Reason: FEVER Insulin Aspart (Novolog Mix 70/30 Vial) 22 units SQ BIDAC [facility] Last Admin: 10/14/18 06:35 Dose: Not Given Insulin Aspart (Novolog Vial Sliding Scale -) 1 vial SQ TIDAC [facility]; Protocol Last Admin: 10/14/18 06:35 Dose: Not Given Mirtazapine (Remeron -) 7.5 mg PO HS [facility] Last Admin: 10/13/18 21:17 Dose: Not Given Senna (Senna -) 2 tab PO HS PRN PRN Reason: CONSTIPATION Last Admin: 10/08/18 22:49 Dose: 2 tab Sitagliptin Phosphate (Januvia -) 50 mg PO DAILY@0700 [facility] Last Admin: 10/14/18 06:34 Dose: Not Given - Objective Vital Signs: Vital Signs Temperature 98.1 F 10/14/18 05:44 Pulse Rate 99 H 10/14/18 05:44 Respiratory Rate 20 10/14/18 05:44 Blood Pressure 94/58 L 10/14/18 05:44 O2 Sat by Pulse Oximetry (%) 96 10/13/18 21:00 Eyes: Yes: WNL, Conjunctiva Clear, EOM Intact HENT: Yes: WNL, Atraumatic, Normocephalic Neck: Yes: WNL, Supple, Trachea Midline Cardiovascular: Yes: WNL, Regular Rate and Rhythm Respiratory: Yes: WNL, Regular, CTA Bilaterally Gastrointestinal: Yes: WNL, Normal Bowel Sounds Genitourinary: Yes: WNL Musculoskeletal: Yes: WNL Extremities: Yes: Amputation Edema: No Integumentary: Yes: WNL Neurological: Yes: WNL, Alert, Oriented ...Motor Strength: WNL Psychiatric: Yes: WNL Labs: CBC, BMP 10/09/18 06:56 10/09/18 06:56 Problem List - Problems (1) Compression fracture of lumbar vertebra Code(s): S32.000A - WEDGE COMPRESSION FRACTURE OF UNSP LUMBAR VERTEBRA, INIT (2) Fall Code(s): W19.XXXA - UNSPECIFIED FALL, INITIAL ENCOUNTER (3) Generalized weakness Code(s): R53.1 - WEAKNESS (4) Sepsis Code(s): A41.9 - SEPSIS, UNSPECIFIED ORGANISM (5) Abnormal ECG Code(s): R94.31 - ABNORMAL ELECTROCARDIOGRAM [ECG] [EKG] (6) Acute on chronic systolic (congestive) heart failure Code(s): I50.23 - ACUTE ON CHRONIC SYSTOLIC (CONGESTIVE) HEART FAILURE (7) Anxiety Code(s): F41.9 - ANXIETY DISORDER, UNSPECIFIED (8) Anxiety about health Code(s): F41.8 - OTHER SPECIFIED ANXIETY DISORDERS (9) Aortic stenosis Code(s): I35.0 - NONRHEUMATIC AORTIC (VALVE) STENOSIS Qualifiers: Cardiac valve disease etiology: nonrheumatic Qualified Code(s): I35.0 - Nonrheumatic aortic (valve) stenosis (10) Atypical chest pain Code(s): R07.89 - OTHER CHEST PAIN (11) CAD (coronary artery disease) Code(s): I25.10 - ATHSCL HEART DISEASE OF [place] CORONARY ARTERY W/O ANG PCTRS Qualifiers: Coronary Disease-Associated Artery/Lesion type: [place] artery Associated angina: angina presence unspecified (12) Depression Code(s): F32.9 - MAJOR DEPRESSIVE DISORDER, SINGLE EPISODE, UNSPECIFIED (13) Depressive disorder Code(s): F32.9 - MAJOR DEPRESSIVE DISORDER, SINGLE EPISODE, UNSPECIFIED (14) Diabetes mellitus Code(s): E11.9 - TYPE 2 DIABETES MELLITUS WITHOUT COMPLICATIONS (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 Code(s): E11.51 - TYPE 2 DIABETES W DIABETIC PERIPHERAL ANGIOPATH W/O GANGRENE; I70.209 - UNSP ATHSCL [place] ARTERIES OF EXTREMITIES, UNSP EXTREMITY (16) Diabetic foot ulcer Code(s): E11.621 - TYPE 2 DIABETES MELLITUS WITH FOOT ULCER; L97.509 - NON- PRESSURE CHRONIC ULCER OTH PRT UNSP FOOT W UNSP SEVERITY Qualifiers: Diabetic foot ulcer location: unspecified part of foot Diabetes mellitus type: type 2 Laterality: left Non-pressure ulcer stage: unspecified non- pressure ulcer stage Qualified Code(s): E11.621 - Type 2 diabetes mellitus with foot ulcer; L97.529 - Non-pressure chronic ulcer of other part of left foot with unspecified severity (17) Dizziness Code(s): R42 - DIZZINESS AND GIDDINESS (18) Lung consolidation Code(s): J18.1 - LOBAR PNEUMONIA, UNSPECIFIED ORGANISM (19) Osteomyelitis Code(s): M86.9 - OSTEOMYELITIS, UNSPECIFIED Qualifiers: Osteomyelitis type: unspecified type Osteomyelitis location: foot Laterality: left Qualified Code(s): M86.9 - Osteomyelitis, unspecified (20) Panic disorder Code(s): F41.0 - PANIC DISORDER [EPISODIC PAROXYSMAL ANXIETY] Assessment/Plan - Problems (1) Amputated toe of left foot Assessment/Plan: 4th and 5th toes amputated "because of my diabetes, and I did not take the best care of the wound". Code(s): S98.132A - COMPLETE TRAUMATIC AMPUTATION OF ONE LEFT LESSER TOE, INIT (2) Hyperlipidemia Assessment/Plan: On statin (?hx CAD; +PAD-->amputation); f/u lipid levels, which were well- controlled in 2018. Code(s): E78.5 - HYPERLIPIDEMIA, UNSPECIFIED (3) Sinus tachycardia Assessment/Plan: Multifactorial: anxiety, sepsis, dehydration, Telemetry: NSR; periods of sinus tachycardia.HR better-controlled after pt given anxiolytics. ECHO: normal LVEF; mild . Recommend: Fluids, both IV and PO (BUN 13 in 2018; now 28-->18). Pt may be taken off telemetry monitoring. Code(s): R00.0 - TACHYCARDIA, UNSPECIFIED (4) Compression fracture of lumbar vertebra Code(s): S32.000A - WEDGE COMPRESSION FRACTURE OF UNSP LUMBAR VERTEBRA, INIT (5) Generalized weakness Code(s): R53.1 - WEAKNESS (6) Sepsis Code(s): A41.9 - SEPSIS, UNSPECIFIED ORGANISM (7) Anxiety Code(s): F41.9 - ANXIETY DISORDER, UNSPECIFIED (8) Aortic stenosis Code(s): I35.0 - NONRHEUMATIC AORTIC (VALVE) STENOSIS Qualifiers: Cardiac valve disease etiology: nonrheumatic Qualified Code(s): I35.0 - Nonrheumatic aortic (valve) stenosis (9) Diabetes mellitus Code(s): E11.9 - TYPE 2 DIABETES MELLITUS WITHOUT COMPLICATIONS (10) Chronic diastolic (congestive) heart failure Code(s): I50.32 - CHRONIC DIASTOLIC (CONGESTIVE) HEART FAILURE (11) Ectopic atrial beats Assessment/Plan: EKG shows sinus tachycarida replacing ectopic atrial rhythm noted earlier. AV conduction beatrice problematic presently due to periods of hypotension. Code(s): I49.1 - ATRIAL PREMATURE DEPOLARIZATION
[2018-10-14] MEDS ORDERED: PT OWN MED DRAWER 7, Y5N ONE (08:09)
[2018-10-14] MEDS ORDERED: INSULIN (NOVOLOG) ASPART 100 UNITS/ML 10ML VIAL ONE (08:45)
[2018-10-14] MEDS: AMOX TR/POTASSIUM CLAVULANATE 600 MG/5 ML PO SCH ×2 (08:52→17:47)
[2018-10-14] MEDS: ACETAMINOPHEN 325 MG TABLET (FP) PO PRN (09:00)
[2018-10-14] MEDS: HEPARIN NA (PORCINE) 5,000 UNITS/ML 1ML VIAL SQ SCH ×2 (09:01→21:52)
[2018-10-14] MEDS: busPIRone HCL 5 MG TABLET PO SCH ×2 (09:01→21:53)
--- NOTE | 2018-10-14 09:38 | PN ---
Progress Note, Physician History of Present Illness: stable no issues - Current Medication List Current Medications: Active Medications Acetaminophen (Tylenol -) 650 mg PO Q6H PRN PRN Reason: FEVER Last Admin: 10/14/18 09:00 Dose: 650 mg Alprazolam (Xanax -) 0.5 mg PO Q8H PRN PRN Reason: ANXIETY Amoxicillin/Clavulanate Potassium (Augmentin 600 Mg/5 Ml Oral Suspension -) 600 mg PO BID@0800,1730 [facility] Last Admin: 10/14/18 08:52 Dose: 5 ml Atorvastatin Calcium (Lipitor -) 10 mg PO HS [facility] Last Admin: 10/13/18 21:17 Dose: Not Given Buspirone HCl (Buspar -) 5 mg PO BID [facility] Last Admin: 10/14/18 09:01 Dose: Not Given Heparin Sodium (Porcine) (Heparin -) 5,000 unit SQ BID [facility] Last Admin: 10/14/18 09:01 Dose: 5,000 unit Ibuprofen (Motrin -) 400 mg PO Q6H PRN PRN Reason: FEVER Insulin Aspart (Novolog Mix 70/30 Vial) 22 units SQ BIDAC [facility] Last Admin: 10/14/18 06:35 Dose: Not Given Insulin Aspart (Novolog Vial Sliding Scale -) 1 vial SQ TIDAC [facility]; Protocol Last Admin: 10/14/18 08:52 Dose: 7 units Mirtazapine (Remeron -) 7.5 mg PO [facility] Last Admin: 10/13/18 21:17 Dose: Not Given Senna (Senna -) 2 tab PO HS PRN PRN Reason: CONSTIPATION Last Admin: 10/08/18 22:49 Dose: 2 tab Sitagliptin Phosphate (Januvia -) 50 mg PO DAILY@0700 [facility] Last Admin: 10/14/18 06:34 Dose: Not Given - Objective Vital Signs: Vital Signs Temperature 98 F 10/14/18 09:25 Pulse Rate 110 H 10/14/18 09:25 Respiratory Rate 20 10/14/18 09:25 Blood Pressure 124/74 10/14/18 09:25 O2 Sat by Pulse Oximetry (%) 97 10/14/18 09:00 Constitutional: Yes: No Distress, Calm Cardiovascular: Yes: S1, S2 Respiratory: Yes: Regular, CTA Bilaterally Gastrointestinal: Yes: Normal Bowel Sounds, Soft Musculoskeletal: Yes: WNL Extremities: Yes: WNL Neurological: Yes: Alert, Oriented Psychiatric: Yes: Alert, Oriented Labs: CBC, BMP 10/09/18 06:56 10/09/18 06:56 Assessment/Plan Problem List - Problems (1) Fall Code(s): W19.XXXA - UNSPECIFIED FALL, INITIAL ENCOUNTER (2) Generalized weakness Code(s): R53.1 - WEAKNESS (3) Anxiety Code(s): F41.9 - ANXIETY DISORDER, UNSPECIFIED (4) Depression Code(s): F32.9 - MAJOR DEPRESSIVE DISORDER, SINGLE EPISODE, UNSPECIFIED (5) Diabetes mellitus Code(s): E11.9 - TYPE 2 DIABETES MELLITUS WITHOUT COMPLICATIONS Assessment/Plan 73 y.o. female with IDDM, HTN, s/p gastric bypass, s/p Lt 4th/5th toe amp/ gangrene, anxiety presents s/p fall noted to be hypotensive, tachycardic, with elevated lactic acid level Sepsis hypotension IDDM Lactic acidosis Bacteriuria s/p Fall plan oral abx for 5 days rest as per the team
--- NOTE | 2018-10-14 12:21 | PN ---
Progress Note (short form) - Note Progress Note: pt seen/ examined chart reviewed awake/ comfortable Appealing her discharge-- On questioning -- feels sad-- says she is lonely Vital Signs Temp 98 F 10/14/18 09:25 Pulse 110 H 10/14/18 09:25 Resp 20 10/14/18 09:25 BP 124/74 10/14/18 09:25 Pulse Ox 97 10/14/18 09:00 Intake & Output 10/13/18 10/14/18 10/14/18 23:59 11:59 23:59 Intake Total 540 490 Balance 540 490 Intake: Oral 540 490 Other: Voiding Method Incontinent Incontinent # Unmeasured Voids Void 2 1 Bowel Movement Yes Yes # Bowel Movements 1 Active Medications Acetaminophen (Tylenol -) 650 mg PO Q6H PRN PRN Reason: FEVER Last Admin: 10/14/18 09:00 Dose: 650 mg Alprazolam (Xanax -) 0.5 mg PO Q8H PRN PRN Reason: ANXIETY Amoxicillin/Clavulanate Potassium (Augmentin 600 Mg/5 Ml Oral Suspension -) 600 mg PO BID@0800,1730 [facility] Last Admin: 10/14/18 08:52 Dose: 5 ml Atorvastatin Calcium (Lipitor -) 10 mg PO HS [facility] Last Admin: 10/13/18 21:17 Dose: Not Given Buspirone HCl (Buspar -) 5 mg PO BID [facility] Last Admin: 10/14/18 09:01 Dose: Not Given Heparin Sodium (Porcine) (Heparin -) 5,000 unit SQ BID [facility] Last Admin: 10/14/18 09:01 Dose: 5,000 unit Ibuprofen (Motrin -) 400 mg PO Q6H PRN PRN Reason: FEVER Insulin Aspart (Novolog Mix 70/30 Vial) 22 units SQ BIDAC [facility] Last Admin: 10/14/18 06:35 Dose: Not Given Insulin Aspart (Novolog Vial Sliding Scale -) 1 vial SQ TIDAC [facility]; Protocol Last Admin: 10/14/18 11:29 Dose: 7 units Mirtazapine (Remeron -) 7.5 mg PO HS [facility] Last Admin: 10/13/18 21:17 Dose: Not Given Senna (Senna -) 2 tab PO HS PRN PRN Reason: CONSTIPATION Last Admin: 10/08/18 22:49 Dose: 2 tab Sitagliptin Phosphate (Januvia -) 50 mg PO DAILY@0700 [facility] Last Admin: 10/14/18 06:34 Dose: Not Given CBC, BMP 10/09/18 06:56 10/09/18 06:56 Physical Exam Constitutional: Yes: No Distress, comfortable. Eyes: Yes: Conjunctiva Clear HENT: Yes: Atraumatic Neck: Yes: Supple. no jvd Cardiovascular: Yes:S1,s2 RRR Respiratory: Yes: CTA Bilaterally Gastrointestinal: Yes: Normal Bowel Sounds, Soft,non tender . bs + Renal/: Yes: WNL Musculoskeletal: Yes: WNL Extremities: Yes: Amputation (healed Lt foot 4/5th toes, healed) Edema: No Neurological: Yes: Alert, Oriented x 3, a/p Sepsis UTI S/P fall weight loss- Depression po augmentin-- changed to liquid h/o weight loss =-- Need to monitor as out pt Physical therapy continue with meds dc planning to rehab pt refusing to go-- will consult psychologist also will follow Problem List - Problems (1) Compression fracture of lumbar vertebra Code(s): S32.000A - WEDGE COMPRESSION FRACTURE OF UNSP LUMBAR VERTEBRA, INIT (2) Fall Code(s): W19.XXXA - UNSPECIFIED FALL, INITIAL ENCOUNTER (3) Generalized weakness Code(s): R53.1 - WEAKNESS (4) Sepsis Code(s): A41.9 - SEPSIS, UNSPECIFIED ORGANISM (5) Anxiety Code(s): F41.9 - ANXIETY DISORDER, UNSPECIFIED (6) CAD (coronary artery disease) Code(s): I25.10 - ATHSCL HEART DISEASE OF [place] CORONARY ARTERY W/O ANG PCTRS Qualifiers: Coronary Disease-Associated Artery/Lesion type: [place] artery Associated angina: angina presence unspecified (7) Depression Code(s): F32.9 - MAJOR DEPRESSIVE DISORDER, SINGLE EPISODE, UNSPECIFIED Problem List - Problems (1) Fall Code(s): W19.XXXA - UNSPECIFIED FALL, INITIAL ENCOUNTER (2) Generalized weakness Code(s): R53.1 - WEAKNESS (3) Anxiety Code(s): F41.9 - ANXIETY DISORDER, UNSPECIFIED (4) Diabetes type 2 with atherosclerosis of arteries of extremities Code(s): E11.51 - TYPE 2 DIABETES W DIABETIC PERIPHERAL ANGIOPATH W/O GANGRENE; I70.209 - UNSP ATHSCL [place] ARTERIES OF EXTREMITIES, UNSP EXTREMITY
[2018-10-14] MEDS: ALPRAZolam 0.25 MG TABLET PO PRN (14:15)
[2018-10-14] MEDS: ATORVASTATIN CA 10 MG TABLET (FP) PO SCH (21:52)
[2018-10-14] MEDS: MIRTAZAPINE 15 MG TABLET (FP) PO SCH (21:53)
[2018-10-15] MEDS: INSULIN (NOVOLOG MIX 70/30) 100 UNITS/ML MDV SQ SCH ×2 (06:32→17:29)
[2018-10-15] MEDS: INSULIN SLIDING SCALE (NOVOLOG) 1 VIAL SQ SCH ×4 (06:32→17:27)
[2018-10-15] MEDS: sitaGLIPtin PHOSPHATE 50 MG TABLET PO SCH (06:32)
[2018-10-15] MEDS ORDERED: PT OWN MED DRAWER 7, Y5N ONE ×3 (08:16→21:19)
[2018-10-15] MEDS: AMOX TR/POTASSIUM CLAVULANATE 600 MG/5 ML PO SCH ×2 (10:37→17:29)
[2018-10-15] MEDS: busPIRone HCL 5 MG TABLET PO SCH ×2 (10:38→21:30)
[2018-10-15] MEDS: HEPARIN NA (PORCINE) 5,000 UNITS/ML 1ML VIAL SQ SCH ×2 (10:38→21:30)
--- NOTE | 2018-10-15 11:17 | PN ---
Progress Note (short form) - Note Progress Note: has one episode of loose stools refuses insulin stating that her sugars are low Vital Signs - 24 hr 10/14/18 10/14/18 10/14/18 14:36 21:00 22:52 Temperature 98.5 F 98.7 F Pulse Rate 95 H 110 H Respiratory 20 20 20 Rate Blood Pressure 90/54 L 103/62 O2 Sat by Pulse 98 Oximetry (%) 10/15/18 06:25 Temperature 98.4 F Pulse Rate 103 H Respiratory 20 Rate Blood Pressure 99/56 L O2 Sat by Pulse Oximetry (%) Current Medications Generic Name Dose Route Start Last Admin Trade Name Freq PRN Reason Stop Dose Admin Acetaminophen 650 mg 10/11/18 11:33 10/14/18 09:00 Tylenol - PO 650 mg Q6H PRN Administration FEVER Alprazolam 0.5 mg 10/13/18 09:49 10/14/18 14:15 Xanax - PO 0.5 mg Q8H PRN Administration ANXIETY Amoxicillin/Clavulanate Potassium 600 mg 10/13/18 17:30 10/15/18 10:37 Augmentin 600 Mg/5 Ml Oral Suspension - PO 10/15/18 17:30 5 ml BID@0800,1730 JOSE Administration Atorvastatin Calcium 10 mg 10/11/18 22:00 10/14/18 21:52 Lipitor - PO Not Given HS JOSE Buspirone HCl 5 mg 10/10/18 11:45 10/15/18 10:38 Buspar - PO Not Given BID JOSE Heparin Sodium (Porcine) 5,000 unit 10/11/18 22:00 10/15/18 10:38 Heparin - SQ 5,000 unit BID JOSE Administration Ibuprofen 400 mg 10/11/18 11:33 Motrin - PO Q6H PRN FEVER Insulin Aspart 1 vial 10/11/18 16:30 10/15/18 08:25 Novolog Vial Sliding Scale - SQ 3 units TIDAC JOSE Administration Protocol Insulin Aspart 20 units 10/15/18 11:17 Novolog Mix 70/30 Vial SQ BIDAC JOSE Lactobacillus Acidophilus 1 tab 10/15/18 11:30 Bacid - PO DAILY JOSE Mirtazapine 15 mg 10/15/18 11:17 Remeron - PO HS JOSE Sitagliptin Phosphate 50 mg 10/10/18 07:00 10/15/18 06:32 Januvia - PO Not Given DAILY@0700 [facility] Laboratory Results - last 24 hr 10/14/18 10/15/18 10/15/18 17:30 05:54 08:19 POC Glucometer 258 182 239 Physical Exam Constitutional: Yes: No Distress, comfortable. Eyes: Yes: Conjunctiva Clear HENT: Yes: Atraumatic Neck: Yes: Supple. no jvd No bruie Thyroid not enlarged Cardiovascular: Yes:S1,s2 RRR Respiratory: Yes: CTA Bilaterally Gastrointestinal: Yes: Normal Bowel Sounds, Soft,non tender . bs + Renal/: Yes: WNL Musculoskeletal: Yes: WNL Extremities: Yes: Amputation (healed Lt foot 4/5th toes, healed) Edema: No Neurological: Yes: Alert, Oriented x 3, forgetful a/p Sepsis UTI S/P fall weight loss- po augmentin-- change to liquid-->june dc after today evening dose h/o weight loss =-- Need to monitor as out pt echo noted Physical therapy continue with meds dc planning to rehab pt refusing to go-- she even unhooked her phone-- does not want to talk to the person who deals with the appeals process-- she is aware that she kept the phone unhooked BP lower side- baseline, not on meds- assymptomatic change to regular diet Problem List - Problems (1) Compression fracture of lumbar vertebra Code(s): S32.000A - WEDGE COMPRESSION FRACTURE OF UNSP LUMBAR VERTEBRA, INIT (2) Fall Code(s): W19.XXXA - UNSPECIFIED FALL, INITIAL ENCOUNTER (3) Generalized weakness Code(s): R53.1 - WEAKNESS (4) Sepsis Code(s): A41.9 - SEPSIS, UNSPECIFIED ORGANISM (5) Anxiety Code(s): F41.9 - ANXIETY DISORDER, UNSPECIFIED (6) CAD (coronary artery disease) Code(s): I25.10 - ATHSCL HEART DISEASE OF [place] CORONARY ARTERY W/O ANG PCTRS Qualifiers: Coronary Disease-Associated Artery/Lesion type: [place] artery Associated angina: angina presence unspecified (7) Depression Code(s): F32.9 - MAJOR DEPRESSIVE DISORDER, SINGLE EPISODE, UNSPECIFIED
[2018-10-15] MEDS: LACTOBACILLUS ACIDOPHILUS 1 TABLET PO SCH (12:01)
--- NOTE | 2018-10-15 12:04 | PN ---
Progress Note, Physician History of Present Illness: stable no issues - Current Medication List Current Medications: Active Medications Acetaminophen (Tylenol -) 650 mg PO Q6H PRN PRN Reason: FEVER Last Admin: 10/14/18 09:00 Dose: 650 mg Alprazolam (Xanax -) 0.5 mg PO Q8H PRN PRN Reason: ANXIETY Last Admin: 10/14/18 14:15 Dose: 0.5 mg Amoxicillin/Clavulanate Potassium (Augmentin 600 Mg/5 Ml Oral Suspension -) 600 mg PO BID@0800,1730 [facility] Stop: 10/15/18 17:30 Last Admin: 10/15/18 10:37 Dose: 5 ml Atorvastatin Calcium (Lipitor -) 10 mg PO HS [facility] Last Admin: 10/14/18 21:52 Dose: Not Given Buspirone HCl (Buspar -) 5 mg PO BID [facility] Last Admin: 10/15/18 10:38 Dose: Not Given Heparin Sodium (Porcine) (Heparin -) 5,000 unit SQ BID [facility] Last Admin: 10/15/18 10:38 Dose: 5,000 unit Ibuprofen (Motrin -) 400 mg PO Q6H PRN PRN Reason: FEVER Insulin Aspart (Novolog Vial Sliding Scale -) 1 vial SQ TIDAC [facility]; Protocol Last Admin: 10/15/18 08:25 Dose: 3 units Insulin Aspart (Novolog Mix 70/30 Vial) [facility] Lactobacillus Acidophilus (Bacid -) 1 tab PO DAILY [facility] Last Admin: 10/15/18 12:01 Dose: 1 tab Mirtazapine (Remeron -) 15 mg PO [facility] Sitagliptin Phosphate (Januvia -) 50 mg PO DAILY@0700 [facility] Last Admin: 10/15/18 06:32 Dose: Not Given - Objective Vital Signs: Vital Signs Temperature 98.4 F 10/15/18 06:25 Pulse Rate 103 H 10/15/18 06:25 Respiratory Rate 20 10/15/18 06:25 Blood Pressure 99/56 L 10/15/18 06:25 O2 Sat by Pulse Oximetry (%) 98 10/14/18 21:00 Constitutional: Yes: No Distress, Calm Cardiovascular: Yes: S1, S2 Respiratory: Yes: Regular, CTA Bilaterally Gastrointestinal: Yes: Normal Bowel Sounds, Soft Musculoskeletal: Yes: WNL Extremities: Yes: WNL Neurological: Yes: Alert, Oriented Psychiatric: Yes: Alert, Oriented Labs: CBC, BMP 10/09/18 06:56 10/09/18 06:56 Assessment/Plan Problem List - Problems (1) Fall Code(s): W19.XXXA - UNSPECIFIED FALL, INITIAL ENCOUNTER (2) Generalized weakness Code(s): R53.1 - WEAKNESS (3) Anxiety Code(s): F41.9 - ANXIETY DISORDER, UNSPECIFIED (4) Depression Code(s): F32.9 - MAJOR DEPRESSIVE DISORDER, SINGLE EPISODE, UNSPECIFIED (5) Diabetes mellitus Code(s): E11.9 - TYPE 2 DIABETES MELLITUS WITHOUT COMPLICATIONS Assessment/Plan 73 y.o. female with IDDM, HTN, s/p gastric bypass, s/p Lt 4th/5th toe amp/ gangrene, anxiety presents s/p fall noted to be hypotensive, tachycardic, with elevated lactic acid level Sepsis hypotension IDDM Lactic acidosis Bacteriuria s/p Fall plan oral abx for 2 days rest as per the team
--- NOTE | 2018-10-15 16:20 | CON.PSL ---
Psychology Consult Consult Specialty:: Clinical Psychology History Provided By: Patient Limitations to Obtaining History: No Limitations Current Medications: Active Medications Acetaminophen (Tylenol -) 650 mg PO Q6H PRN PRN Reason: FEVER Last Admin: 10/14/18 09:00 Dose: 650 mg Alprazolam (Xanax -) 0.5 mg PO Q8H PRN PRN Reason: ANXIETY Last Admin: 10/14/18 14:15 Dose: 0.5 mg Amoxicillin/Clavulanate Potassium (Augmentin 600 Mg/5 Ml Oral Suspension -) 600 mg PO BID@0800,1730 [facility] Stop: 10/15/18 17:30 Last Admin: 10/15/18 10:37 Dose: 5 ml Atorvastatin Calcium (Lipitor -) 10 mg PO [facility] Last Admin: 10/14/18 21:52 Dose: Not Given Buspirone HCl (Buspar -) 5 mg PO BID [facility] Last Admin: 10/15/18 10:38 Dose: Not Given Heparin Sodium (Porcine) (Heparin -) 5,000 unit SQ BID [facility] Last Admin: 10/15/18 10:38 Dose: 5,000 unit Ibuprofen (Motrin -) 400 mg PO Q6H PRN PRN Reason: FEVER Insulin Aspart (Novolog Vial Sliding Scale -) 1 vial SQ TIDAC [facility]; Protocol Last Admin: 10/15/18 13:09 Dose: Not Given Insulin Aspart (Novolog Mix 70/30 Vial) 20 units SQ BIDAC [facility] Lactobacillus Acidophilus (Bacid -) 1 tab PO DAILY [facility] Last Admin: 10/15/18 12:01 Dose: 1 tab Mirtazapine (Remeron -) 15 mg PO [facility] Sitagliptin Phosphate (Januvia -) 50 mg PO DAILY@0700 [facility] Last Admin: 10/15/18 06:32 Dose: Not Given Vancomycin HCl (Vancomycin Oral Solution) 250 mg PO Q6HPO [facility] Allergies: Allergies Allergy/AdvReac Type Severity Reaction Status Date / Time Fish Containing Products Allergy Intermediate Verified 10/06/18 11:38 fish derived Allergy Intermediate Verified 10/06/18 11:38 Hx Alcohol Use: No Hx Substance Use: No Hx Substance Use Treatment: No Current Medical Exam-Psy Orientation: Time, Person, Place Immediate Term Memory: 04/07 Expressive: Coherent Receptive: Age Appropriate Comprehension of Spoken Words Hallucinations: Absent Thought Process: Intact Depression: None Hopelessness: No Loss of Interest: No Anxiety Level: Moderate Danger to Self and Others: No Sleep: Fair (Sleep is said to be good at home but due to noise in the hospital setting, sleep is not too good.) Appetite: Good Serial Sevens Intact: No (She was able to spell WORLD backwards.) Repeats 3 words told earlier: 04/07 Support System: None (She lost her and lives alone.) Problem List - Problem (1) Anxiety about health Code(s): F41.8 - OTHER SPECIFIED ANXIETY DISORDERS Assessment/Plan The patient is a pleasant woman brought to the hospital status post fall after her legs gave way. She has a HX of DM and had a couple of toes amputated due to Diabetes. She is overall in good spirits and denies depression. In addition, she suffered the passing of her and now lives alone. However, she feels that she can manage on her own and does not need psychological support at this time. The patient was invited to contact this provider if she desires to do so in the future.
[2018-10-15] MEDS: VANCOMYCIN 250 MG/5 ML ORAL SOLUTION PO SCH ×2 (17:29)
[2018-10-15] MEDS ORDERED: INSULIN (NOVOLOG) ASPART 100 UNITS/ML 10ML VIAL ONE (21:19)
[2018-10-15] MEDS: ATORVASTATIN CA 10 MG TABLET (FP) PO SCH (21:30)
[2018-10-15] MEDS ORDERED: MIRTAZAPINE 15 MG TABLET (FP) PO SCH (22:00)
[2018-10-15] MEDS: ALPRAZolam 0.25 MG TABLET PO PRN (22:21)
[2018-10-15 23:07] VITALS: BMI 23.1
[2018-10-16] MEDS: VANCOMYCIN 250 MG/5 ML ORAL SOLUTION PO SCH ×4 (00:24→11:54)
[2018-10-16 05:55] VITALS: BP 100/66; PULSE 98; TEMP 97.5
[2018-10-16] MEDS: sitaGLIPtin PHOSPHATE 50 MG TABLET PO SCH (06:40)
[2018-10-16] MEDS: INSULIN SLIDING SCALE (NOVOLOG) 1 VIAL SQ SCH ×3 (06:41→11:54)
[2018-10-16] MEDS: INSULIN (NOVOLOG MIX 70/30) 100 UNITS/ML MDV SQ SCH (06:41)
[2018-10-16] MEDS ORDERED: INSULIN (NOVOLOG) ASPART 100 UNITS/ML 10ML VIAL ONE ×2 (06:49→08:15)
--- NOTE | 2018-10-16 10:02 | PN ---
Progress Note, Physician Chief Complaint: Pt A&OX3; anxious.Denies palpitations. History of Present Illness: The patient is a 73 year old white female, with a significant past medical history of HTN, DM, diastolic CHF, hyperlipidemia, anxiety/?depression, who presents to the emergency department s/p fall. As per patient, she fell while attempting to get the mail and subsequently was on the floor for 2 days secondary to inability to get up (weak). Patient notes she normally receives her meals via meals on wheels but, has not eaten in 2 days secondary to lack of delivery. She notes over the past year she has lost 40 pounds. Her 3 years ago, and she lives alone. She denies any LOC or head/neck trauma. She denies recent chest pain or shortness of breath. Allergies: NKDA Primary Care Physician: Dr. Malcolm - Current Medication List Current Medications: Active Medications Acetaminophen (Tylenol -) 650 mg PO Q6H PRN PRN Reason: FEVER Last Admin: 10/14/18 09:00 Dose: 650 mg Alprazolam (Xanax -) 0.5 mg PO Q8H PRN PRN Reason: ANXIETY Last Admin: 10/15/18 22:21 Dose: 0.5 mg Atorvastatin Calcium (Lipitor -) 10 mg PO HS [facility] Last Admin: 10/15/18 21:30 Dose: Not Given Buspirone HCl (Buspar -) 5 mg PO BID [facility] Last Admin: 10/15/18 21:30 Dose: Not Given Heparin Sodium (Porcine) (Heparin -) 5,000 unit SQ BID [facility] Last Admin: 10/15/18 21:30 Dose: 5,000 unit Ibuprofen (Motrin -) 400 mg PO Q6H PRN PRN Reason: FEVER Insulin Aspart (Novolog Vial Sliding Scale -) 1 vial SQ TIDAC [facility]; Protocol Last Admin: 10/16/18 08:16 Dose: 3 units Insulin Aspart (Novolog Mix 70/30 Vial) 20 units SQ BIDAC [facility] Last Admin: 10/16/18 06:41 Dose: Not Given Lactobacillus Acidophilus (Bacid -) 1 tab PO DAILY [facility] Last Admin: 10/15/18 12:01 Dose: 1 tab Mirtazapine (Remeron -) 15 mg PO HS [facility] Last Admin: 10/15/18 21:31 Dose: Not Given Sitagliptin Phosphate (Januvia -) 50 mg PO DAILY@0700 [facility] Last Admin: 10/16/18 06:40 Dose: Not Given Vancomycin HCl (Vancomycin Oral Solution) 250 mg PO Q6HPO [facility] Last Admin: 10/16/18 06:43 Dose: Not Given - Objective Vital Signs: Vital Signs Temperature 97.5 F L 10/16/18 05:54 Pulse Rate 98 H 10/16/18 05:54 Respiratory Rate 19 10/16/18 05:54 Blood Pressure 100/66 10/16/18 05:54 O2 Sat by Pulse Oximetry (%) 97 10/15/18 21:00 Constitutional: Yes: Anxious Eyes: Yes: WNL Labs: CBC, BMP 10/09/18 06:56 10/09/18 06:56 Problem List - Problems (1) Amputated toe of left foot Assessment/Plan: 4th and 5th toes amputated "because of my diabetes, and I did not take the best care of the wound". F/u with vascular surgeon. Aggressvie control of lipids with diet, statin. Physical rehabilitation. Code(s): S98.132A - COMPLETE TRAUMATIC AMPUTATION OF ONE LEFT LESSER TOE, INIT (2) Hyperlipidemia Assessment/Plan: On statin (?hx CAD; +PAD-->amputation); f/u lipid levels, which were well- controlled in 2018. Code(s): E78.5 - HYPERLIPIDEMIA, UNSPECIFIED (3) Sinus tachycardia Assessment/Plan: Multifactorial: anxiety, sepsis, dehydration, Telemetry: NSR; periods of sinus tachycardia.HR better-controlled after pt given anxiolytics. ECHO: normal LVEF; mild . Recommend: Fluids, both IV and PO (BUN 13 in 2018; now 28-->18). Now off telemetry monitoring. Code(s): R00.0 - TACHYCARDIA, UNSPECIFIED (4) Compression fracture of lumbar vertebra Code(s): S32.000A - WEDGE COMPRESSION FRACTURE OF UNSP LUMBAR VERTEBRA, INIT (5) Generalized weakness Code(s): R53.1 - WEAKNESS (6) Sepsis Code(s): A41.9 - SEPSIS, UNSPECIFIED ORGANISM (7) Anxiety Code(s): F41.9 - ANXIETY DISORDER, UNSPECIFIED (8) Aortic stenosis Code(s): I35.0 - NONRHEUMATIC AORTIC (VALVE) STENOSIS Qualifiers: Cardiac valve disease etiology: nonrheumatic Qualified Code(s): I35.0 - Nonrheumatic aortic (valve) stenosis (9) Diabetes mellitus Code(s): E11.9 - TYPE 2 DIABETES MELLITUS WITHOUT COMPLICATIONS (10) Chronic diastolic (congestive) heart failure Code(s): I50.32 - CHRONIC DIASTOLIC (CONGESTIVE) HEART FAILURE (11) Ectopic atrial beats Code(s): I49.1 - ATRIAL PREMATURE DEPOLARIZATION
[2018-10-16] MEDS: HEPARIN NA (PORCINE) 5,000 UNITS/ML 1ML VIAL SQ SCH (10:15)
[2018-10-16] MEDS: busPIRone HCL 5 MG TABLET PO SCH (10:17)
[2018-10-16] MEDS: LACTOBACILLUS ACIDOPHILUS 1 TABLET PO SCH (10:17)
--- NOTE | 2018-10-16 11:50 | PN ---
Progress Note, Physician History of Present Illness: anxious no other issues - Current Medication List Current Medications: Active Medications Acetaminophen (Tylenol -) 650 mg PO Q6H PRN PRN Reason: FEVER Last Admin: 10/14/18 09:00 Dose: 650 mg Alprazolam (Xanax -) 0.5 mg PO Q8H PRN PRN Reason: ANXIETY Last Admin: 10/15/18 22:21 Dose: 0.5 mg Atorvastatin Calcium (Lipitor -) 10 mg PO [facility] Last Admin: 10/15/18 21:30 Dose: Not Given Buspirone HCl (Buspar -) 5 mg PO BID [facility] Last Admin: 10/16/18 10:17 Dose: Not Given Heparin Sodium (Porcine) (Heparin -) 5,000 unit SQ BID [facility] Last Admin: 10/16/18 10:15 Dose: 5,000 unit Ibuprofen (Motrin -) 400 mg PO Q6H PRN PRN Reason: FEVER Insulin Aspart (Novolog Vial Sliding Scale -) 1 vial SQ TIDAC [facility]; Protocol Last Admin: 10/16/18 08:16 Dose: 3 units Insulin Aspart (Novolog [facility] 70/30 Vial) [facility] Last Admin: 10/16/18 06:41 Dose: Not Given Lactobacillus Acidophilus (Bacid -) 1 tab PO DAILY [facility] Last Admin: 10/16/18 10:17 Dose: Not Given Mirtazapine (Remeron -) 15 mg PO [facility] Last Admin: 10/15/18 21:31 Dose: Not Given Sitagliptin Phosphate (Januvia -) 50 mg PO DAILY@0700 [facility] Last Admin: 10/16/18 06:40 Dose: Not Given Vancomycin HCl (Vancomycin Oral Solution) 250 mg PO Q6HPO [facility] Last Admin: 10/16/18 06:43 Dose: Not Given - Objective Vital Signs: Vital Signs Temperature 97.5 F L 10/16/18 05:54 Pulse Rate 98 H 10/16/18 05:54 Respiratory Rate 19 10/16/18 05:54 Blood Pressure 100/66 10/16/18 05:54 O2 Sat by Pulse Oximetry (%) 97 10/15/18 21:00 Constitutional: Yes: Calm, Anxious Cardiovascular: Yes: S1, S2 Respiratory: Yes: Regular, CTA Bilaterally Gastrointestinal: Yes: Normal Bowel Sounds, Soft Musculoskeletal: Yes: WNL Extremities: Yes: Other Neurological: Yes: Alert Labs: CBC, BMP 10/09/18 06:56 10/09/18 06:56 Assessment/Plan Problem List - Problems (1) Fall Code(s): W19.XXXA - UNSPECIFIED FALL, INITIAL ENCOUNTER (2) Generalized weakness Code(s): R53.1 - WEAKNESS (3) Anxiety Code(s): F41.9 - ANXIETY DISORDER, UNSPECIFIED (4) Depression Code(s): F32.9 - MAJOR DEPRESSIVE DISORDER, SINGLE EPISODE, UNSPECIFIED (5) Diabetes mellitus Code(s): E11.9 - TYPE 2 DIABETES MELLITUS WITHOUT COMPLICATIONS Assessment/Plan 73 y.o. female with IDDM, HTN, s/p gastric bypass, s/p Lt 4th/5th toe amp/ gangrene, anxiety presents s/p fall noted to be hypotensive, tachycardic, with elevated lactic acid level Sepsis hypotension IDDM Lactic acidosis Bacteriuria s/p Fall plan oral abx for 1 days rest as per the team
--- NOTE | 2018-10-16 12:16 | PN ---
Progress Note, Physician History of Present Illness: 73 y.o. 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 She states she her legs gave way when attempting to get her mail and was unable to get up for the next >24 hrs. Denies head trauma/LOC. Pt reports not taking her insulin for the past few days and having poor oral intake. States she has lost more than 30 lbs since her 's . Also she reports having 3 loose stools in the days prior to her fall but none recently. Denies any recent SOB/cough, fever/chills, abd pain/n/v, dysuria. In the ER pt noted to be alert, without acute distress, afebrile with normal wbc count but was hypotensive (BP 79/38), HR of 129, and elevated lactic acid (2.8) and glucose of 328. Currently she is sitting up in bed, fully alert and conversive, without distress, remaining afebrile. - Current Medication List Current Medications: Active Medications Acetaminophen (Tylenol -) 650 mg PO Q6H PRN PRN Reason: FEVER Last Admin: 10/14/18 09:00 Dose: 650 mg Alprazolam (Xanax -) 0.5 mg PO Q8H PRN PRN Reason: ANXIETY Last Admin: 10/15/18 22:21 Dose: 0.5 mg Atorvastatin Calcium (Lipitor -) 10 mg PO HS [facility] Last Admin: 10/15/18 21:30 Dose: Not Given Buspirone HCl (Buspar -) 5 mg PO BID [facility] Last Admin: 10/16/18 10:17 Dose: Not Given Heparin Sodium (Porcine) (Heparin -) 5,000 unit SQ BID [facility] Last Admin: 10/16/18 10:15 Dose: 5,000 unit Ibuprofen (Motrin -) 400 mg PO Q6H PRN PRN Reason: FEVER Insulin Aspart (Novolog Vial Sliding Scale -) 1 vial SQ TIDAC [facility]; Protocol Last Admin: 10/16/18 11:54 Dose: 3 units Insulin Aspart (Novolog Mix 70/30 Vial) 20 units SQ BIDAC [facility] Last Admin: 10/16/18 06:41 Dose: Not Given Lactobacillus Acidophilus (Bacid -) 1 tab PO DAILY [facility] Last Admin: 10/16/18 10:17 Dose: Not Given Mirtazapine (Remeron -) 15 mg PO HS [facility] Last Admin: 10/15/18 21:31 Dose: Not Given Sitagliptin Phosphate (Januvia -) 50 mg PO DAILY@0700 [facility] Last Admin: 10/16/18 06:40 Dose: Not Given Vancomycin HCl (Vancomycin Oral Solution) 250 mg PO Q6HPO [facility] Last Admin: 10/16/18 11:54 Dose: 250 mg - Objective Vital Signs: Vital Signs Temperature 97.5 F L 10/16/18 05:54 Pulse Rate 98 H 10/16/18 05:54 Respiratory Rate 19 10/16/18 05:54 Blood Pressure 100/66 10/16/18 05:54 O2 Sat by Pulse Oximetry (%) 97 10/15/18 21:00 Eyes: Yes: WNL, Conjunctiva Clear, EOM Intact HENT: Yes: WNL, Atraumatic, Normocephalic Neck: Yes: WNL, Supple, Trachea Midline Cardiovascular: Yes: WNL, Regular Rate and Rhythm Respiratory: Yes: WNL, Regular, CTA Bilaterally Gastrointestinal: Yes: WNL, Normal Bowel Sounds Genitourinary: Yes: WNL Musculoskeletal: Yes: WNL Extremities: Yes: Amputation Edema: No Integumentary: Yes: WNL Neurological: Yes: WNL, Alert, Oriented ...Motor Strength: WNL Psychiatric: Yes: WNL Labs: CBC, BMP 10/09/18 06:56 10/09/18 06:56 Problem List - Problems (1) Compression fracture of lumbar vertebra Code(s): S32.000A - WEDGE COMPRESSION FRACTURE OF UNSP LUMBAR VERTEBRA, INIT (2) Fall Code(s): W19.XXXA - UNSPECIFIED FALL, INITIAL ENCOUNTER (3) Generalized weakness Code(s): R53.1 - WEAKNESS (4) Sepsis Code(s): A41.9 - SEPSIS, UNSPECIFIED ORGANISM (5) Abnormal ECG Code(s): R94.31 - ABNORMAL ELECTROCARDIOGRAM [ECG] [EKG] (6) Acute on chronic systolic (congestive) heart failure Code(s): I50.23 - ACUTE ON CHRONIC SYSTOLIC (CONGESTIVE) HEART FAILURE (7) Anxiety Code(s): F41.9 - ANXIETY DISORDER, UNSPECIFIED (8) Anxiety about health Code(s): F41.8 - OTHER SPECIFIED ANXIETY DISORDERS (9) Aortic stenosis Code(s): I35.0 - NONRHEUMATIC AORTIC (VALVE) STENOSIS Qualifiers: Cardiac valve disease etiology: nonrheumatic Qualified Code(s): I35.0 - Nonrheumatic aortic (valve) stenosis (10) Atypical chest pain Code(s): R07.89 - OTHER CHEST PAIN (11) CAD (coronary artery disease) Code(s): I25.10 - ATHSCL HEART DISEASE OF [place] CORONARY ARTERY W/O ANG PCTRS Qualifiers: Coronary Disease-Associated Artery/Lesion type: [place] artery Associated angina: angina presence unspecified (12) Depression Code(s): F32.9 - MAJOR DEPRESSIVE DISORDER, SINGLE EPISODE, UNSPECIFIED (13) Depressive disorder Code(s): F32.9 - MAJOR DEPRESSIVE DISORDER, SINGLE EPISODE, UNSPECIFIED (14) Diabetes mellitus Code(s): E11.9 - TYPE 2 DIABETES MELLITUS WITHOUT COMPLICATIONS (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 Code(s): E11.51 - TYPE 2 DIABETES W DIABETIC PERIPHERAL ANGIOPATH W/O GANGRENE; I70.209 - UNSP ATHSCL [place] ARTERIES OF EXTREMITIES, UNSP EXTREMITY (16) Diabetic foot ulcer Code(s): E11.621 - TYPE 2 DIABETES MELLITUS WITH FOOT ULCER; L97.509 - NON- PRESSURE CHRONIC ULCER OTH PRT UNSP FOOT W UNSP SEVERITY Qualifiers: Diabetic foot ulcer location: unspecified part of foot Diabetes mellitus type: type 2 Laterality: left Non-pressure ulcer stage: unspecified non- pressure ulcer stage Qualified Code(s): E11.621 - Type 2 diabetes mellitus with foot ulcer; L97.529 - Non-pressure chronic ulcer of other part of left foot with unspecified severity (17) Dizziness Code(s): R42 - DIZZINESS AND GIDDINESS (18) Lung consolidation Code(s): J18.1 - LOBAR PNEUMONIA, UNSPECIFIED ORGANISM (19) Osteomyelitis Code(s): M86.9 - OSTEOMYELITIS, UNSPECIFIED Qualifiers: Osteomyelitis type: unspecified type Osteomyelitis location: foot Laterality: left Qualified Code(s): M86.9 - Osteomyelitis, unspecified (20) Panic disorder Code(s): F41.0 - PANIC DISORDER [EPISODIC PAROXYSMAL ANXIETY] Assessment/Plan - Problems (1) Amputated toe of left foot Assessment/Plan: 4th and 5th toes amputated "because of my diabetes, and I did not take the best care of the wound". F/u with vascular surgeon. Aggressvie control of lipids with diet, statin. Physical rehabilitation. Code(s): S98.132A - COMPLETE TRAUMATIC AMPUTATION OF ONE LEFT LESSER TOE, INIT (2) Hyperlipidemia Assessment/Plan: On statin (?hx CAD; +PAD-->amputation); f/u lipid levels, which were well- controlled in 2018. Code(s): E78.5 - HYPERLIPIDEMIA, UNSPECIFIED (3) Sinus tachycardia Assessment/Plan: Multifactorial: anxiety, sepsis, dehydration, Telemetry: NSR; periods of sinus tachycardia.HR better-controlled after pt given anxiolytics. ECHO: normal LVEF; mild . Recommend: Fluids, both IV and PO (BUN 13 in 2018; now 28-->18). Now off telemetry monitoring. Code(s): R00.0 - TACHYCARDIA, UNSPECIFIED (4) Compression fracture of lumbar vertebra Code(s): S32.000A - WEDGE COMPRESSION FRACTURE OF UNSP LUMBAR VERTEBRA, INIT (5) Generalized weakness Code(s): R53.1 - WEAKNESS (6) Sepsis Code(s): A41.9 - SEPSIS, UNSPECIFIED ORGANISM (7) Anxiety Code(s): F41.9 - ANXIETY DISORDER, UNSPECIFIED (8) Aortic stenosis Code(s): I35.0 - NONRHEUMATIC AORTIC (VALVE) STENOSIS Qualifiers: Cardiac valve disease etiology: nonrheumatic Qualified Code(s): I35.0 - Nonrheumatic aortic (valve) stenosis (9) Diabetes mellitus Code(s): E11.9 - TYPE 2 DIABETES MELLITUS WITHOUT COMPLICATIONS (10) Chronic diastolic (congestive) heart failure Code(s): I50.32 - CHRONIC DIASTOLIC (CONGESTIVE) HEART FAILURE (11) Ectopic atrial beats Code(s): I49.1 - ATRIAL PREMATURE DEPOLARIZATION
[2018-10-16 12:41] LABS: CHOLESTEROL 136 mg/dL (50-200); HDL CHOLESTEROL 46 mg/dL (40-60); TRIGLYCERIDES 155 mg/dL (0-150)
--- NOTE | 2018-10-16 13:28 | EKG ---
Test Reason : Blood Pressure : / mmHG Vent. Rate : 093 BPM Atrial Rate : 093 BPM P-R Int : 130 ms QRS Dur : 084 ms QT Int : 388 ms P-R-T Axes : 034 015 097 degrees QTc Int : 482 ms NORMAL SINUS RHYTHM CANNOT RULE OUT ANTERIOR INFARCT (CITED ON OR BEFORE 20-OCT-2016) ABNORMAL ECG WHEN COMPARED WITH ECG OF 10-OCT-2018 09:53, NO SIGNIFICANT CHANGE WAS FOUND Confirmed by LILLY CORRAL MD ([id number]) on 10/16/2018 1:28:05 PM Referred By: PAVEL BROCK DR Confirmed By:LILLY CORRAL MD
== END 2018-10-16 12:23 | DRG 871 ==
LOC: JER 11:32 → JERBED 12:26 → J6S 18:03 → J4W 10-07 01:26 → J6S 10-11 10:49
PROVIDERS: ADMIT Internal Medicine; ATTEND Internal Medicine
DX: A41.89 Other specified sepsis (principal); E43 Unspecified severe protein-calorie malnutrition; S32.000A Wedge compression fracture of unspecified lumbar vertebra, initial encounter for closed fracture; E87.2 Acidosis; N39.0 Urinary tract infection, site not specified; I50.32 Chronic diastolic (congestive) heart failure; B96.20 Unspecified Escherichia coli [E. coli] as the cause of diseases classified elsewhere; I11.0 Hypertensive heart disease with heart failure; F41.8 Other specified anxiety disorders; R53.1 Weakness; I95.9 Hypotension, unspecified; W19.XXXA Unspecified fall, initial encounter; E11.51 Type 2 diabetes mellitus with diabetic peripheral angiopathy without gangrene; I35.0 Nonrheumatic aortic (valve) stenosis; I25.10 Atherosclerotic heart disease of native coronary artery without angina pectoris; I49.1 Atrial premature depolarization; R00.0 Tachycardia, unspecified; Z98.84 Bariatric surgery status; Z79.4 Long term (current) use of insulin; Z68.23 Body mass index [BMI] 23.0-23.9, adult; Z89.422 Acquired absence of other left toe(s)
CPT/HCPCS: 36415; 70450-TC; 71045-TC-FY; 72100-TC-FY; 72125-TC; 73523-TC-FY; 80053; 80061; 81003; 82009; 82550; 82553; 82803; 82962; 83036; 83605; 83721; 83735; 84436; 84443; 84484; 85025; 85027; 87040; 87086; 87186; 87324; 87449; 93005; 93010; 93306-TC; 97116-GP; 97162-GP; 99281-25; J1644; J7030